=== PATIENT | female | born 1950 | race Caucasian/White ===

== ENCOUNTER 2017-11-25 19:23 | Observation (INO) | payer OTHER ==
[~2017-11-25 19:23] MED LIST: CELE10TA9 PO; SYNT112T PO
[2017-11-25 19:26] VITALS: BP 188/98; PULSE 114; RESP 22; TEMP 98.2; O2SAT 97
[2017-11-25] MEDS ORDERED: SODIUM CHLORIDE 0.9% FLUSH 10 ML FLUSH IVF PRN (19:45)
[2017-11-25] MEDS ORDERED: SODIUM CHLORID 0.9% 500 ML INJ 500 ML IV ONE (19:45)
[2017-11-25] MEDS ORDERED: NITROGLYCERIN 0.4 MG SL 25 TABS/BTL SL ONE (19:45)
[2017-11-25] MEDS ORDERED: ASPIRIN 81 MG CHEW TAB PO ONE (19:45)
[2017-11-25 20:18] VITALS: BP 114/78; PULSE 102; RESP 18; O2SAT 96
[2017-11-25] MEDS ORDERED: ANAS1TAB PO (20:20)
[2017-11-25] MEDS ORDERED: NATU97.5 PO (20:20)
[2017-11-25] MEDS ORDERED: VALS1TAB63 PO (20:20)
[2017-11-25 20:37] LABS: AUTOMATED NEUTROPHIL # 3.6 TH/MM3 (1.8-7.7); BASOPHIL # 0.1 TH/MM3 (0-0.2); BASOPHIL % 1.3 % (0.0-2.0); EOSINOPHIL # 0.4 TH/MM3 (0-0.4); EOSINOPHIL % 6.1 % (0.0-4.0); HEMATOCRIT 41.1 % (35.0-46.0); HEMOGLOBIN 13.9 GM/DL (11.6-15.3); LYMPH % 34.3 % (9.0-44.0); LYMPHOCYTE # 2.5 TH/MM3 (1.0-4.8); MEAN CELL VOLUME 92.3 FL (80.0-100.0); MEAN CORPUSCULAR HEMOGLOBIN 31.2 PG (27.0-34.0); MEAN CORPUSCULAR HGB CONC 33.8 % (32.0-36.0); MEAN PLATELET VOLUME 7.9 FL (7.0-11.0); MONO % 7.9 % (0.0-8.0); MONOCYTE # 0.6 TH/MM3 (0-0.9); NEUT % 50.4 % (16.0-70.0); PLATELET COUNT 251 TH/MM3 (150-450); RED BLOOD COUNT 4.46 MIL/MM3 (4.00-5.30); WHITE BLOOD COUNT 7.2 TH/MM3 (4.0-11.0)
--- NOTE | 2017-11-25 20:37 | RADRPT ---
EXAM DATE/TIME: 11/25/2017 19:50 [facility] COMPARISON: No previous studies available for comparison. INDICATIONS : Chest pain tonight. MEDICAL HISTORY : Carcinoma, breast. SURGICAL HISTORY : Left breast lumpectomy. ENCOUNTER: Initial ACUITY: 1 day PAIN SCORE: 6/10 LOCATION: Bilateral chest FINDINGS: A single view of the chest demonstrates the lungs to be symmetrically aerated without evidence of mas s, infiltrate or effusion. The cardiomediastinal contours are unremarkable. Osseous structures are intact. CONCLUSION: 1. No acute cardiopulmonary disease. Ector Hernandez MD on November 25, 2017 at 20:36 Board Certified Radiologist. This report was verified electronically.
[2017-11-25 20:47] LABS: ALT (GPT) 34 U/L (10-53)
[2017-11-25 20:51] LABS: ALKALINE PHOSPHATASE 93 U/L (45-117); TOTAL BILIRUBIN ADULT 0.3 MG/DL (0.2-1.0); TOTAL PROTEIN 7.3 GM/DL (6.4-8.2); TROPONIN I LESS THAN 0.02 NG/ML (0.02-0.05)
[2017-11-25 20:53] LABS: ALBUMIN 3.8 GM/DL (3.4-5.0); AST (GOT) 33 U/L (15-37); BLOOD UREA NITROGEN 17 MG/DL (7-18); CALCIUM 9.2 MG/DL (8.5-10.1); CHLORIDE 106 MEQ/L (98-107); CREATININE 0.54 MG/DL (0.50-1.00); GLOMERULAR FILTRATION RATE 112 ML/MIN (>89); GLUCOSE,RANDOM 109 MG/DL (74-106); LIPASE 248 U/L (73-393); SODIUM (NA) 138 MEQ/L (136-145)
--- NOTE | 2017-11-25 21:44 | PD ---
HPI Chief Complaint: Chest Pain Time Seen by Provider: 19:30 Travel History International Travel<30 days: No Contact w/Intl Traveler<30days: No Traveled to known affect area: No History of Present Illness HPI 67 year-old woman who presents to the emergency department complaining of chest pain times 6 PM. She describes chest pain in her chest and radiates up into her neck is been constant since onset. Worse with deep breathing. She also describes pins and needles in both hands both feet in [place] in her teeth have been ongoing for months. States pain is worse with deep breathing. No aggravating or alleviating factors. No history of GERD or reflux. No real shortness of breath with it. No nausea or vomiting. Denies history of previous similar symptoms. No other complaints. History Past Medical History Narrative Medical IBS Hypothyroidism Possible history of hypertension, non-medications now COPD History of tobacco use quit 3-4 years ago Tetanus Vaccination: < 5 Years Influenza Vaccination: No Social History Alcohol Use: Yes (OCC.) Tobacco Use: No (1-2 PPD) Allergies-Medications (Allergen,Severity, Reaction): Coded Allergies: No Known Allergies (Verified Allergy, Mild, 03/27/08) Reported Meds & Prescriptions Reported Meds & Active Scripts Active Reported Anastrozole 1 Mg Tab 1 Mg PO DAILY Valsartan 40 Mg Tab 40 Mg PO BID Nature-Throid (Thyroid) 97.5 Mg Tab 97.5 Mg PO DAILY Review of Systems Except as stated in HPI: all other systems reviewed are Neg Physical Exam Narrative GENERAL: 67 year-old woman, generally well-appearing, no acute distress. SKIN: Focused skin assessment warm/dry. HEAD: Atraumatic. Normocephalic. EYES: Pupils equal and round. No scleral icterus. No injection or drainage. ENT: No nasal bleeding or discharge. Mucous membranes pink and moist. NECK: Trachea midline. No JVD. CARDIOVASCULAR: Regular rate and rhythm. No murmur appreciated. RESPIRATORY: No accessory muscle use. Clear to auscultation. Breath sounds equal bilaterally. GASTROINTESTINAL: Abdomen soft, non-tender, nondistended. Hepatic and splenic margins not palpable. MUSCULOSKELETAL: No obvious deformities. No clubbing. No cyanosis. No edema. NEUROLOGICAL: Awake and alert. No obvious cranial nerve deficits. Motor grossly within normal limits. Normal speech. PSYCHIATRIC: Appropriate mood and affect; insight and judgment normal. Data Data Last Documented VS Vital Signs Date Time Temp Pulse Resp B/P (MAP) Pulse Ox O2 Delivery O2 Flow Rate FiO2 11/25/17 20:18 102 18 114/78 (90) 96 Room Air 11/25/17 19:26 98.2 Orders Orders Electrocardiogram (11/25/17 19:40) Complete Blood Count With Diff (11/25/17 19:40) Comprehensive Metabolic Panel (11/25/17 19:40) Magnesium (Mg) (11/25/17 19:40) Troponin I (11/25/17 19:40) Lipase (11/25/17 19:40) Chest, Single Ap (11/25/17 19:40) Ecg Monitoring (11/25/17 19:40) Bilateral Bp Monitoring (11/25/17 19:40) Iv Access Insert/Monitor (11/25/17 19:40) Oximetry (11/25/17 19:40) Oxygen Administration (11/25/17 19:40) Aspirin Chew (Aspirin Chew) (11/25/17 19:45) Sodium Chloride 0.9% Flush (Ns Flush) (11/25/17 19:45) Nitroglycerin Sl (Nitrostat Sl) (11/25/17 19:45) Sodium Chlorid 0.9% 500 Ml Inj (Ns 500 M (11/25/17 19:45) Labs Laboratory Tests Test 11/25/17 20:15 White Blood Count 7.2 TH/MM3 Red Blood Count 4.46 MIL/MM3 Hemoglobin 13.9 GM/DL Hematocrit 41.1 % Mean Corpuscular Volume 92.3 FL Mean Corpuscular Hemoglobin 31.2 PG Mean Corpuscular Hemoglobin Concent 33.8 % Red Cell Distribution Width 12.0 % Platelet Count 251 TH/MM3 Mean Platelet Volume 7.9 FL Neutrophils (%) (Auto) 50.4 % Lymphocytes (%) (Auto) 34.3 % Monocytes (%) (Auto) 7.9 % Eosinophils (%) (Auto) 6.1 % Basophils (%) (Auto) 1.3 % Neutrophils # (Auto) 3.6 TH/MM3 Lymphocytes # (Auto) 2.5 TH/MM3 Monocytes # (Auto) 0.6 TH/MM3 Eosinophils # (Auto) 0.4 TH/MM3 Basophils # (Auto) 0.1 TH/MM3 CBC Comment DIFF FINAL Differential Comment Blood Urea Nitrogen 17 MG/DL Creatinine 0.54 MG/DL Random Glucose 109 MG/DL Total Protein 7.3 GM/DL Albumin 3.8 GM/DL Calcium Level 9.2 MG/DL Magnesium Level 2.0 MG/DL Alkaline Phosphatase 93 U/L Aspartate Amino Transf (AST/SGOT) 33 U/L Alanine Aminotransferase (ALT/SGPT) 34 U/L Total Bilirubin 0.3 MG/DL Sodium Level 138 MEQ/L Potassium Level 3.9 MEQ/L Chloride Level 106 MEQ/L Carbon Dioxide Level 19.0 MEQ/L Anion Gap 13 MEQ/L Estimat Glomerular Filtration Rate 112 ML/MIN Troponin I LESS THAN 0.02 NG/ML Lipase 248 U/L [facility] Medical Decision Making Medical Screen Exam Complete: Yes Emergency Medical Condition: Yes Interpretation(s) My review of EKG: Normal sinus rhythm at a rate of 85, normal axis, normal intervals, no acute ischemia. CBC is unremarkable. CMP is unremarkable. TROPONIN NEGATIVE. LIPASE IS NORMAL. Chest x-ray: No acute cardio pulmonary disease. Differential Diagnosis Anxiety, stress, ACS, PE, gastritis or indigestion, other Narrative Course Medical decision-making 67 year-old woman, moderate risk for ACS based on her heart score. Looks well. History is moderately suggestive ACS. Some risk factors. Age. Think this is more likely anxiety. Recommended admission to chest pain Center. Diagnosis Primary Impression: Chest pain Admitting Information Admitting Physician Requests: Peter Barber MD Nov 25, 2017 21:44
[2017-11-25] MEDS ORDERED: SODIUM CHLORIDE 0.9% FLUSH 10 ML FLUSH IV FLUSH PRN (21:45)
[2017-11-25 22:56] VITALS: BP 124/75; PULSE 81; RESP 16; O2SAT 96
[2017-11-26] VITALS (7 sets, daily range): BP systolic 113–123; BP diastolic 61–78; PULSE 70–96; RESP 18–21; TEMP 97.7–98.3; O2SAT 96–98
[2017-11-26 00:16] LABS: TROPONIN I LESS THAN 0.02 NG/ML (0.02-0.05)
[2017-11-26 03:34] LABS: TROPONIN I LESS THAN 0.02 NG/ML (0.02-0.05)
[2017-11-26] MEDS ORDERED: NITROGLYCERIN 0.4 MG SL 25 TABS/BTL SL PRN (06:30)
[2017-11-26] MEDS ORDERED: ACETAMINOPHEN 500 MG CPLT PO PRN (06:30)
[2017-11-26] MEDS ORDERED: ONDANSETRON HCL 4 MG/2 ML VIAL IV PUSH PRN (06:30)
--- NOTE | 2017-11-26 07:28 | HHI.HP ---
HPI Primary Care Physician [facility] Chief Complaint Chest pain History of Present Illness 67-year-old female with history of hypertension, hypothyroidism, and breast cancer presents to emergency room for further evaluation of chest pain. Onset 6 PM after eating dinner. Location substernal. Characterized as pressure. Discomfort came on quickly. Severity 8/10. Radiation bilateral neck. Also reported "pins and needles" in her feet, hands, face, and around her lips. Duration chest pain 7-8 hours. Reports first hour of pain most severe, lessening to moderate discomfort after one hour, gradually resolving. Associated symptoms included diaphoresis and hurting to take a deep breath. No nausea, vomiting, or dyspnea. No known precipitating or relieving factors. Denies similar pain in the past. Endorses "pins and needles" have occurred for the last few months, seen by her PCP regarding this and has pending labs to complete. No history of GERD. No recent trauma, injury, or illness. Currently she is chest pain free. Continues to have "pins and needles" around her lips. Review of Systems General: No fatigue,weakness, fever, chills, or recent illness change in appetite. Has been her general state of health, other than unexplained "pins and needles" as stated above. Breast cancer in remission. HEENT: No BORGES, no vision changes, no nasal congestion or drainage, no dysphasia CV: As stated above. Currently chest pain-free. No palpitations, intermittent leg pain, or dizziness. RESP: No SOB, cough, wheeze, or recent URI. Recently diagnosed with COPD. Former smoker. GI: History of IBS. No nausea, vomiting, or bowel changes. No change in appetite, no unintentional weight gain or weight loss. : No dysuria, urgency, frequency EXT: No lower leg edema MS: No discomfort, change in ROM, injury, or trauma. NEURO: No change in memory, difficulty with balance, LOC, motor/sensory deficits PSYCH: No anxiety, depression. Current situational stress within family and place of employment. SKIN: No rashes, no concerning lesions Past Family Social History Allergies: Coded Allergies: No Known Allergies (Verified Allergy, Mild, 03/27/08) Past Medical History Breast cancer (left side-in remission, treated with radiation), hypertension, IBS, Graves' disease, colitis, macular degeneration, vitamin B12 and D deficiency Past Surgical History Tonsillectomy, lumpectomy (2016) Reported Medications Reported Meds & Active Scripts Active Reported Anastrozole 1 Mg Tab 1 Mg PO DAILY Valsartan 40 Mg Tab 40 Mg PO BID Nature-Throid (Thyroid) 97.5 Mg Tab 97.5 Mg PO DAILY T3 25 mcg daily Vitamin D QD Vitamin B12 QD Vitamin C QD MVI QD Magnesium QD KCL QD Active Ordered Medications Current Medications Medications (Trade) Dose Ordered Sig/Wili Route Start Time Stop Time Status Last Admin (NS Flush) 2 ml UNSCH PRN IVF 11/25/17 19:45 (NS Flush) 2 ml UNSCH PRN IV FLUSH 11/25/17 21:45 (Tylenol) 500 mg Q4H PRN PO 11/26/17 06:30 (Zofran Inj) 4 mg Q6H PRN IV PUSH 11/26/17 06:30 (Nitrostat Sl) 0.4 mg Q5M PRN SL 11/26/17 06:30 (Aspirin) 325 mg DAILY PO 11/26/17 09:00 Family History Noncontributory for early onset cardiovascular disease. Social History Known hypertension. No known coronary artery disease, diabetes, or hyperlipidemia. Former smoker 50 pack year history. Quit smoking 4 years ago. One glass of red wine nightly with supper. Works at a [employer]. . Endorses a sedentary lifestyle. Past cardiac testing None Physical Exam Vital Signs Vital Signs Date Time Temp Pulse Resp B/P (MAP) Pulse Ox O2 Delivery O2 Flow Rate FiO2 11/26/17 06:51 70 11/26/17 04:10 98.3 84 18 117/73 (88) 96 11/26/17 01:25 97.7 91 18 113/61 (78) 96 11/26/17 00:26 11/25/17 22:56 81 16 124/75 (91) 96 Room Air 11/25/17 20:18 102 18 114/78 (90) 96 Room Air 11/25/17 20:15 106 18 96 Room Air 11/25/17 20:15 96 Room Air 11/25/17 19:26 98.2 114 22 188/98 (128) 97 Room Air Physical Exam GENERAL: Alert WN, WD, NAD, pleasant, female HEAD: NC, AT EYES: Sclera clear, conjunctiva without injection, pupils equal and round ENT: Mucous membranes pink and moist NECK: Supple, no masses, trachea midline CV: RRR, 2/6 systolic murmur, no rub, gallop, no JVD, S1-S2 no S3-S4. No carotid bruits. Chest wall nontender with palpation RESP: Clear lungs throughout bilateral, no crackles, wheeze, rhonchi, symmetrical chest rise, nonlabored, able to speak in full sentences ABD: Soft, NT, ND, no masses, positive bowel tones EXT: Pulses +24, no dependent edema MS: Normal tone 4 extremities, no obvious deformities, full range of motion NEURO: CN II through CN XII grossly intact, motor strength 5/5 PSYCH: A+O 3, pleasant affect, appropriate speech, mood, insight and judgment SKIN: Normal turgor, normal texture, no lesions, no rashes, brisk cap refill, even hair distribution Laboratory Laboratory Tests Test 11/25/17 20:15 11/25/17 23:40 11/26/17 02:45 White Blood Count 7.2 Red Blood Count 4.46 Hemoglobin 13.9 Hematocrit 41.1 Mean Corpuscular Volume 92.3 Mean Corpuscular Hemoglobin 31.2 Mean Corpuscular Hemoglobin Concent 33.8 Red Cell Distribution Width 12.0 Platelet Count 251 Mean Platelet Volume 7.9 Neutrophils (%) (Auto) 50.4 Lymphocytes (%) (Auto) 34.3 Monocytes (%) (Auto) 7.9 Eosinophils (%) (Auto) 6.1 Basophils (%) (Auto) 1.3 Neutrophils # (Auto) 3.6 Lymphocytes # (Auto) 2.5 Monocytes # (Auto) 0.6 Eosinophils # (Auto) 0.4 Basophils # (Auto) 0.1 CBC Comment DIFF FINAL Differential Comment Blood Urea Nitrogen 17 Creatinine 0.54 Random Glucose 109 Total Protein 7.3 Albumin 3.8 Calcium Level 9.2 Magnesium Level 2.0 Alkaline Phosphatase 93 Aspartate Amino Transf (AST/SGOT) 33 Alanine Aminotransferase (ALT/SGPT) 34 Total Bilirubin 0.3 Sodium Level 138 Potassium Level 3.9 Chloride Level 106 Carbon Dioxide Level 19.0 Anion Gap 13 Estimat Glomerular Filtration Rate 112 Troponin I LESS THAN 0.02 LESS THAN 0.02 LESS THAN 0.02 Lipase 248 Total Creatine Kinase 52 58 Result Diagram: 11/25/17201411/25/172014 Imaging Last Impressions Chest X-Ray 11/25/171939 Signed Impressions: Service Date/Time: Saturday, November 25, 2017 19:50 - CONCLUSION: 1. No acute cardiopulmonary disease. Ector Hernandez MD Course EKG Normal sinus rhythm, normal axis, nonspecific t wave changes Tereso VTE Risk Assessment Tereso VTE Risk Assessment: Mod/High Risk (score >= 2) Caprini Risk Assessment Model Point Value = 1 Point Value = 2 Point Value = 3 Point Value = 5 Age 41-60 Minor surgery BMI > 25 kg/m2 Swollen legs Varicose veins or History of unexplained or recurrent spontaneous Oral contraceptives or hormone replacement Sepsis (< 1 month) Serious lung disease, including pneumonia (< 1 month) Abnormal pulmonary function Acute myocardial infarction Congestive heart failure (< 1 month) History of inflammatory bowel disease Medical patient at bed rest Age 61-74 Arthroscopic surgery Major open surgery (> 45 min) Laparoscopic surgery (> 45 min) Malignancy Confined to bed (> 72 hours) Immobilizing plaster cast Central venous access Age >= 75 History of VTE Family history of VTE Factor V Leiden Prothrombin [id number] Lupus anticoagulant Anticardiolipin antibodies Elevated serum homocysteine Heparin-induced thrombocytopenia Other congenital or acquired thrombophilia Stroke (< 1 month) Elective arthroplasty Hip, pelvis, or leg fracture Acute spinal cord injury (< 1 month) Prophylaxis Regimen Total Risk Factor Score Risk Level Prophylaxis Regimen 0-1 Low Early ambulation 2 Moderate Order ONE of the following: *Sequential Compression Device (SCD) *Heparin 5000 units SQ BID 3-4 Higher Order ONE of the following medications: *Heparin 5000 units SQ TID *Enoxaparin/Lovenox 40 mg SQ daily (WT < 150 kg, CrCl > 30 mL/min) *Enoxaparin/Lovenox 30 mg SQ daily (WT < 150 kg, CrCl > 10-29 mL/min) *Enoxaparin/Lovenox 30 mg SQ BID (WT < 150 kg, CrCl > 30 mL/min) AND/OR *Sequential Compression Device (SCD) 5 or more Highest Order ONE of the following medications: *Heparin 5000 units SQ TID (Preferred with Epidurals) *Enoxaparin/Lovenox 40 mg SQ daily (WT < 150 kg, CrCl > 30 mL/min) *Enoxaparin/Lovenox 30 mg SQ daily (WT < 150 kg, CrCl > 10-29 mL/min) *Enoxaparin/Lovenox 30 mg SQ BID (WT < 150 kg, CrCl > 30 mL/min) AND *Sequential Compression Device (SCD) Assessment and Plan Assessment and Plan #1 Atypical chest pain-admitted to chest pain center. Ruled out with 3 sets of Ekg and cardiac enzymes. Seen and evaluated by Dr. Keri Covarrubias. Proceed with nuclear exercise stress testing this morning. If unremarkable, plan to discharge home later this afternoon with follow up with PCP. Patient is agreeable to plan of care. #2 Hypertension-continue valsartan, follow with PCP. Continue home medications as previously instructed. Lizzeth Doyle Nov 26, 2017 07:28
[2017-11-26] MEDS ORDERED: ASPIRIN 325 MG TAB PO SCH (09:00)
[2017-11-26] MEDS ORDERED: VALSARTAN 40 MG TAB PO SCH (10:00)
[2017-11-26] MEDS ORDERED: ANASTROZOLE 1 MG TAB PO SCH (10:00)
[2017-11-26] MEDS ORDERED: THYROID 97.5 MG PO SCH (10:45)
--- NOTE | 2017-11-26 11:26 | RADRPT ---
EXAM DATE/TIME: 11/26/2017 09:11 [facility] COMPARISON: No previous studies available for comparison. INDICATIONS : Chest pain radiating to the neck. Angina DOSE: 27.2 mCi Tc99m Myoview at stress 8.8 mCi Tc99m Myoview at rest REST HEART RATE: 100 BPM TARGET HEART RATE: 128 BPM MAX HEART RATE: 127 BPM REST BLOOD PRESSURE: 112/68 mmHg MAX BLOOD PRESSURE: 158/78 mmHg EJECTION FRACTION: > 70% MEDICAL HISTORY : Hypertension. Left lumpectomy. SURGICAL HISTORY : ENCOUNTER: Initial ACUITY: 1 day PAIN SCALE: 8/10 LOCATION: chest TECHNIQUE: The patient underwent upright treadmill exercise in the chest pain center. Continuous ECG tracing wa s monitored during stress. Gated SPECT imaging was performed after stress, and conventional SPECT im aging was performed at rest. The examination was performed on a SPECT/CT scanner, both attenuation-c orrected and non-corrected datasets were reviewed. FINDINGS: DISTRIBUTION: The maximum perfused segment at stress is in the lateral wall. PERFUSION STUDY: The pattern of perfusion at stress is within normal limits. GATED STUDY: There is intact wall motion and thickening without hypokinetic or dyskinetic segments. CONCLUSION: Unremarkable myocardial perfusion examination. RISK CATEGORY: Low Ramon Mojica MD on November 26, 2017 at 11:23 Board Certified Radiologist. This report was verified electronically.
--- NOTE | 2017-11-26 11:47 | HHI.DCPOC ---
Discharge Care Plan Diagnosis: (1) Atypical chest pain Goals to Promote Your Health * To prevent worsening of your condition and complications * To maintain your health at the optimal level Directions to Meet Your Goals Take your medications as prescribed Follow your dietary instruction Follow activity as directed Keep your appointments as scheduled Take your immunizations and boosters as scheduled If your symptoms worsen call your PCP, if no PCP go to Urgent Care Center or Emergency Room Smoking is Dangerous to Your Health. Avoid second hand smoke Call the 24-hour hour crisis hotline for domestic abuse at Lizzeth Doyle Nov 26, 2017 11:47
--- NOTE | 2017-11-26 12:10 | EKG ---
Date Performed: 11/26/2017 Time Performed: 00:06:56 PTAGE: 67 years EKG: Sinus rhythm NONSPECIFIC T-WAVE ABNORMALITY BORDERLINE ECG Since PREVIOUS TRACING , no significant change noted DOCTOR: Keri Covarrubias Interpretating Date/Time 11/26/2017 12:09:01
--- NOTE | 2017-11-26 12:10 | EKG ---
Date Performed: 11/25/2017 Time Performed: 21:04:03 PTAGE: 67 years EKG: Sinus rhythm POSSIBLE RIGHT VENTRICULAR CONDUCTION DELAY BORDERLINE ECG Since PREVIOUS TRACING , no significant change noted PREVIOUS TRACIN03/27/2008 22.11 DOCTOR: Keri Covarrubias Interpretating Date/Time 11/26/2017 12:08:34
--- NOTE | 2017-11-26 12:11 | EKG ---
Date Performed: 11/26/2017 Time Performed: 02:52:31 PTAGE: 67 years EKG: Sinus rhythm SEPTAL MYOCARDIAL INFARCTION ABNORMAL ECG Since PREVIOUS TRACING , no significant change noted PREVIOUS TRACIN11/25/2017 21.04 DOCTOR: Keri Covarrubias Interpretating Date/Time 11/26/2017 12:09:21
--- NOTE | 2017-11-26 12:13 | TR ---
Date Performed: 11/26/2017 Time Performed: 09:48:44 DOCTOR: Keri Covarrubias DRUG LIST: CLINICAL HISTORY: REASON FOR TEST: REASON FOR ENDING: OBSERVATION: CONCLUSION: Eddie protocol completed. Stopped sec to reaching target heart rate and leg fatigue. Maximum GF=346 Target HR Achieved=85.0% Maximum WX=357/78 Total Exercise Time=5:05. No reprod chest discomfort. No st t segment changes to sugg ischemia. No ectopy. Fair exercise tolerance. Normal bp r esponse. Recovery quick and unremarkable. Nuclear images pending. COMMENTS:
== END 2017-11-26 14:14 | disposition home or self-care (01) ==
LOC: NEPC 19:23 → NEDA 21:47 → NEPFCDU 11-26 00:32
PROVIDERS: ADMIT Internal Medicine Cardiovascular Disease; ATTEND Internal Medicine Cardiovascular Disease
DX: R07.89 Other chest pain (principal); I10 Essential (primary) hypertension; E03.9 Hypothyroidism, unspecified; F41.9 Anxiety disorder, unspecified; K58.9 Irritable bowel syndrome, unspecified; E05.00 Thyrotoxicosis with diffuse goiter without thyrotoxic crisis or storm; H35.30 Unspecified macular degeneration; E53.8 Deficiency of other specified B group vitamins; E55.9 Vitamin D deficiency, unspecified; Z85.3 Personal history of malignant neoplasm of breast; Z87.891 Personal history of nicotine dependence; Z92.3 Personal history of irradiation
CPT/HCPCS: 71010; 78452; 80053; 82550; 83690; 83735; 84484; 85025; 93005; 93017; 96360; 99285; A9502; G0378; J7040

== ENCOUNTER 2018-03-31 11:35 | Inpatient (IN) | payer OTHER, MEDICARE ==
[2018-03-31] VITALS (16 sets, daily range): BP systolic 121–157; BP diastolic 70–99; PULSE 79–98; RESP 17–24; TEMP 98.4–99.3; O2SAT 97–100
[~2018-03-31] VITALS: Ht 165.1 cm; Wt 77.0 kg
[~2018-03-31 11:35] MED LIST changes: +ANAS1TAB PO; -CELE10TA9 PO; +NATU97.5 PO; -SYNT112T PO; +VALS1TAB63 PO
[2018-03-31] MEDS ORDERED: SODIUM CHLOR 0.9% 1000 ML INJ 1,000 ML IV ONE (11:40)
[2018-03-31 11:52] LABS: AUTOMATED NEUTROPHIL # 5.3 TH/MM3 (1.8-7.7); BASOPHIL % 0.5 % (0.0-2.0); EOSINOPHIL # 0.2 TH/MM3 (0-0.4); EOSINOPHIL % 1.9 % (0.0-4.0); HEMATOCRIT 41.3 % (35.0-46.0); HEMOGLOBIN 14.1 GM/DL (11.6-15.3); LYMPH % 32.4 % (9.0-44.0); MEAN CELL VOLUME 91.1 FL (80.0-100.0); MEAN CORPUSCULAR HGB CONC 34.1 % (32.0-36.0); MEAN PLATELET VOLUME 8.1 FL (7.0-11.0); MONO % 8.4 % (0.0-8.0); MONOCYTE # 0.8 TH/MM3 (0-0.9); NEUT % 56.8 % (16.0-70.0); PLATELET COUNT 294 TH/MM3 (150-450); RED BLOOD COUNT 4.54 MIL/MM3 (4.00-5.30); RED CELL DISTRIBUTION WIDTH 12.1 % (11.6-17.2); WHITE BLOOD COUNT 9.3 TH/MM3 (4.0-11.0)
--- NOTE | 2018-03-31 12:00 | RADRPT ---
EXAM DATE/TIME: 03/31/2018 11:42 [facility] COMPARISON: No previous studies available for comparison. INDICATIONS : Stroke alert, aphasia, right sided weakness, then seizure RADIATION DOSE: 56.35 CTDIvol (mGy) This report was called by Dr. Mojica to Dr. Diaz at 11: 56 AM MEDICAL HISTORY : Non-responsive. SURGICAL HISTORY : Non-responsive. ENCOUNTER: Initial ACUITY: 1 day PAIN SCALE: Non-responsive LOCATION: cranial TECHNIQUE: Multiple contiguous axial images were obtained of the head. Using automated exposure control and adj ustment of the mA and/or kV according to patient size, radiation dose was kept as low as reasonably a chievable to obtain optimal diagnostic quality images. DICOM format image data is available electro nically for review and comparison. FINDINGS: CEREBRUM: There is a large acute intraparenchymal hemorrhage involving the posterior high left cerebral vertex measuring approximately 6.0 x 2.6 cm. There is a mild amount of edema surrounding the hemorrhage. The ventricles are normal in size. No significant mass effect or midline shift is demonstrated. No defin ite subdural hematoma or subarachnoid hemorrhage is demonstrated. POSTERIOR FOSSA: The cerebellum and brainstem are intact. The 4th ventricle is midline. The cerebellopontine angle i s unremarkable. EXTRACRANIAL: The visualized portion of the orbits is intact. SKULL: The calvaria is intact. No evidence of skull fracture. CONCLUSION: 1. Large acute intraparenchymal hemorrhage involving the posterior high left cerebral vertex measurin g 6 cm. 2. No significant mass effect or midline shift at this time. Ramon Mojica MD on March 31, 2018 at 11:54 Board Certified Radiologist. This report was verified electronically.
[2018-03-31 12:06] LABS: INTERNATIONAL NORMALIZED RATIO 1.5 RATIO; PROTHROMBIN TIME - PATIENT 14.7 SEC (9.8-11.6)
--- NOTE | 2018-03-31 12:10 | PD ---
HPI Chief Complaint: Stroke Alert Time Seen by Provider: 11:40 Travel History International Travel<30 days: No Contact w/Intl Traveler<30days: No History of Present Illness HPI 67 y/o female presents with 11 AM developing right-sided weakness and speech difficulties. When she arrived into the room she was having a right-sided tonic -clonic seizure with a rightward gaze. History is significantly limited. PFSH Past Medical History Depression: Yes Cardiovascular Problems: Yes (HTN) Hypertension: Yes Thyroid Disease: Yes (HYPO) Past Surgical History Thoracic Surgery: Yes (L. LUMPECTOMY) Other Surgery: Yes (COSMETICS EYES SX.) Social History Alcohol Use: Yes (OCC.) Tobacco Use: No (1-2 PPD) Substance Use: No Allergies-Medications (Allergen,Severity, Reaction): Coded Allergies: No Known Allergies (Verified Allergy, Mild, 03/27/08) Reported Meds & Prescriptions Reported Meds & Active Scripts Active Reported Anastrozole 1 Mg Tab 1 Mg PO DAILY Valsartan 40 Mg Tab 40 Mg PO BID Nature-Throid (Thyroid) 97.5 Mg Tab 97.5 Mg PO DAILY Review of Systems ROS Limitations: Clinical Condition, Altered Mental Status Physical Exam Exam Limitations: Clinical Condition, Altered Mental Status Narrative GENERAL: 67-year-old female who is having an active tonic-clonic seizure on the right SKIN: Focused skin assessment warm/dry. HEAD: Atraumatic. Normocephalic. EYES: Pupils equal and round. No scleral icterus. No injection or drainage. ENT: No nasal bleeding or discharge. Mucous membranes pink and moist. NECK: Trachea midline. No JVD. CARDIOVASCULAR: Regular rate and rhythm. RESPIRATORY: No accessory muscle use. Clear to auscultation. Breath sounds equal bilaterally. GASTROINTESTINAL: Abdomen soft, nondistended. MUSCULOSKELETAL: No obvious deformities. No clubbing. No cyanosis. NEUROLOGICAL: Actively seizing with right-sided tonic-clonic seizure Data Data Last Documented VS Vital Signs Date Time Temp Pulse Resp B/P (MAP) Pulse Ox O2 Delivery O2 Flow Rate FiO2 03/31/18 12:00 98 19 155/93 (113) 100 Nasal Cannula 2.00 03/31/18 11:35 99.0 Orders Orders Diet Npo (03/31/18 Lunch) Activity Bed Rest (03/31/18 ) Electrocardiogram (03/31/18 ) I-Stat Profile (03/31/18 11:40) Prothrombin Time / Inr (Pt) (03/31/18 11:40) Act Partial Throm Time (Ptt) (03/31/18 11:40) Complete Blood Count With Diff (03/31/18 11:40) Fibrinogen (03/31/18 11:40) Creatine Kinase (Cpk) (03/31/18 11:40) Troponin I (03/31/18 11:40) Ua Includes Microscopic (03/31/18 11:40) Drug Screen, Random Urine (03/31/18 11:40) Type And Screen (03/31/18 11:40) Ct Brain W/O Iv Contrast(Rout) (03/31/18 ) Chest, Single Ap (03/31/18 ) Cta Brain W Iv Contrast W 3d (03/31/18 11:40) Cta Neck W Iv Contrast W 3d (03/31/18 11:40) Consult Neurology (03/31/18 ) Blood Glucose (03/31/18 11:40) Ecg Monitoring (03/31/18 11:40) Neuro Checks Q2HX12,Q4H (03/31/18 11:40) Nursing Bedside Swallow Assess .ONCE (03/31/18 11:40) Iv Access Insert/Monitor (03/31/18 11:40) NPO (03/31/18 11:40) Oximetry (03/31/18 11:40) Resp Oxygen Nc Stroke (03/31/18 ) Sodium Chlor 0.9% 1000 Ml Inj (Ns 1000 M (03/31/18 11:40) Cath For Specimen (03/31/18 11:40) (Hub Use Only)Inp Phy Cons/Ref (03/31/18 ) Levetiracetam Inj (Keppra Inj) (03/31/18 12:15) Nicardipine Inj (Cardene Inj) (03/31/18 12:15) Admit Order (Ed Use Only) (03/31/18 12:06) Labs Laboratory Tests Test 03/31/18 11:30 White Blood Count 9.3 TH/MM3 Red Blood Count 4.54 MIL/MM3 Hemoglobin 14.1 GM/DL Bedside Hemoglobin 13.6 G/DL Hematocrit 41.3 % Bedside Hematocrit 40.0 % Mean Corpuscular Volume 91.1 FL Mean Corpuscular Hemoglobin 31.0 PG Mean Corpuscular Hemoglobin Concent 34.1 % Red Cell Distribution Width 12.1 % Platelet Count 294 TH/MM3 Mean Platelet Volume 8.1 FL Neutrophils (%) (Auto) 56.8 % Lymphocytes (%) (Auto) 32.4 % Monocytes (%) (Auto) 8.4 % Eosinophils (%) (Auto) 1.9 % Basophils (%) (Auto) 0.5 % Neutrophils # (Auto) 5.3 TH/MM3 Lymphocytes # (Auto) 3.0 TH/MM3 Monocytes # (Auto) 0.8 TH/MM3 Eosinophils # (Auto) 0.2 TH/MM3 Basophils # (Auto) 0.0 TH/MM3 CBC Comment DIFF FINAL Differential Comment Prothrombin Time 14.7 SEC Prothromb Time International Ratio 1.5 RATIO Activated Partial Thromboplast Time 30.0 SEC Fibrinogen 138 mg/dL Bedside Sodium 140 MMOL/L Bedside Potassium 3.4 MMOL/L Bedside Chloride 105 MMOL/L Bedside Blood Urea Nitrogen 10 MG/DL Bedside Creatinine 0.7 MG/DL Bedside Glucose 121 MG/DL Total Creatine Kinase 49 U/L Troponin I LESS THAN 0.02 NG/ML MDM Medical Decision Making Medical Screen Exam Complete: Yes Emergency Medical Condition: Yes Medical Record Reviewed: Yes (Past history confirmed with records) Interpretation(s) CBC & BMP Diagram 03/31/18 11:30 CT brain personally reviewed shows large left-sided intraparenchymal bleed without shift Differential Diagnosis Seizure, bleed, mass Narrative Course Patient arrived as a stroke alert with active seizure. Was given 2 mg of Ativan. Went with patient personally to CT. While setting on the CT table patient started talking and stated her name. CT shows large intraparenchymal bleed and was discussed with the radiologist. Cardene was ordered for blood pressure control and Keppra was ordered for additional seizure prophylaxis. Will admit to the ICU for close monitoring. Patient updated. Patient still having difficulty with her speech with expressive aphasia and saying random words but can state her name. Right-sided weakness noted. will discuss with neurosurgery and monitor closely. Critical Care Narrative Aggregate critical care time was 55 minutes. Time to perform other separately billable procedures was not included in the critical care time. My time did not include minutes spent treating any other patients simultaneously or on activities that did not directly contribute to the patient's treatment. The services I provided to this patient were to treat and/or prevent clinically significant deterioration that could result in: Bleed, herniation, , status epilepticus I provided critical care services requiring my management, as noted below: Chart data review, documentation time, medication orders and management, vital sign assessments/reviewing monitor data, ordering and reviewing lab tests, ordering and interpreting/reviewing x-rays and diagnostic studies, care of the patient and discussion of the patient with the admitting physicians. Physician Communication Physician Communication dr blancas agrees to admit dr smith will follow along no further recommendations at this time Diagnosis Primary Impression: Intraparenchymal hemorrhage of brain Admitting Information Admitting Physician Requests: Admit Kaylen Diaz MD March 31, 2018 12:10
[2018-03-31 12:15] LABS: TROPONIN I LESS THAN 0.02 NG/ML (0.02-0.05)
[2018-03-31] MEDS ORDERED: levETIRAcetam INJ 500 MG in SODIUM CHLORIDE 0.9% INJ 100 ML IV ONE (12:15)
[2018-03-31] MEDS ORDERED: niCARdipine INJ 25 MG in SODIUM CHLOR 0.9% 250 ML INJ 240 ML IV PRN ×2 (12:15→13:30)
[2018-03-31] MEDS ORDERED: IOHEXOL 350 MG/ML 10 ML VIAL (for RAD DIAG) IVCONTRAST ONE (12:21)
[2018-03-31] MEDS ORDERED: RESP: ALBUTEROL 2.5 MG/IPRATROPIUM 0.5 MG NEB (PRN) INH (12:30)
[2018-03-31] MEDS ORDERED: LORazepam 2 MG/ML VIAL IV PUSH ONE (12:30)
[2018-03-31] MEDS ORDERED: MORPHINE SULFATE 4 MG/ML INJ IV PUSH PRN (12:30)
[2018-03-31] MEDS ORDERED: CHLORHEXIDINE GLUCONATE 2 % 1 PACK (2 CLOTHS) TOP PRN (12:30)
[2018-03-31] MEDS ORDERED: NURSING INFORMATION XX SCH (12:30)
[2018-03-31] MEDS ORDERED: LORazepam 2 MG/ML VIAL IV PUSH PRN (12:30)
--- NOTE | 2018-03-31 12:46 | RADRPT ---
EXAM DATE/TIME: 03/31/2018 11:48 [facility] COMPARISON: CT BRAIN W/O CONTRAST, March 31, 2018, 11:42. INDICATIONS : Stroke alert; right side weakness and gaze, possible seizure, aphagia. IV CONTRAST: 75 cc Omnipaque 350 (iohexol) IV ; Cumulative dose for multiple exams. RADIATION DOSE: 9.81 CTDIvol (mGy) ; Combined studies MEDICAL HISTORY : Non-responsive. SURGICAL HISTORY : Non-responsive. ENCOUNTER: Initial ACUITY: 1 day PAIN SCALE: Non-responsive LOCATION: cranial TECHNIQUE: Volumetric scanning was performed using a multi-row detector CT scanner. The data was post processed with a variety of visualization algorithms including full volume maximum intensity projection, multi -planar sliding thin slab reformation, curved planar reformation, and surface rendering techniques. Using automated exposure control and adjustment of the mA and/or kV according to patient size, radiat ion dose was kept as low as reasonably achievable to obtain optimal diagnostic quality images. DICO M format image data is available electronically for review and comparison. FINDINGS: The distal internal carotid arteries are widely patent. Both vertebral arteries are patent. The anterior and middle cerebral circulation is normal in appearance bilaterally. No aneurysm is iden tified. The basilar artery is patent. The posterior cerebral circulation is widely patent. No aneurysm or AVM identified. The larger of area of parenchymal hemorrhage in the left parietal cortex is again evident. CONCLUSION: No evidence of aneurysm or AVM formation. Germán White MD on March 31, 2018 at 12:38 Board Certified Radiologist. This report was verified electronically.
--- NOTE | 2018-03-31 12:50 | RADRPT ---
EXAM DATE/TIME: 03/31/2018 12:11 [facility] COMPARISON: CHEST SINGLE AP, November 25, 2017, 19:50. INDICATIONS : Stroke alert MEDICAL HISTORY : None. SURGICAL HISTORY : None. ENCOUNTER: Initial ACUITY: 1 day PAIN SCORE: 0/10 LOCATION: Bilateral chest FINDINGS: A single view of the chest demonstrates the lungs to be symmetrically aerated without evidence of mas s, infiltrate or effusion. The cardiomediastinal contours are unremarkable. Osseous structures are intact. CONCLUSION: No acute disease. Chaka Kerr MD on March 31, 2018 at 12:48 Board Certified Radiologist. This report was verified electronically.
[2018-03-31] MEDS: NS + KCL 20 MEQ INJ 1,000 ML IV SCH ×2 (12:52→23:46)
[2018-03-31 12:56] LABS: BILIRUBIN, URINE NEG (NEG); BLOOD, URINE NEG (NEG); GLUCOSE,URINE NEG (NEG); KETONE, URINE NEG (NEG); NITRITE,URINE NEG (NEG); URINE COLOR COLORLESS (YELLW/STRAW); URINE LEUKOCYTE ESTERASE NEG (NEG)
--- NOTE | 2018-03-31 13:03 | RADRPT ---
EXAM DATE/TIME: 03/31/2018 11:48 [facility] COMPARISON: CT BRAIN W/O CONTRAST, March 31, 2018, 11:42. INDICATIONS : Stroke alert; right sided weakness and gaze, aphagia, possible seizure. IV CONTRAST: 75 cc Omnipaque 350 (iohexol) IV ; Cumulative dose for multiple exams. RADIATION DOSE: 9.81 CTDIvol (mGy) ; Combined studies MEDICAL HISTORY : Non-responsive. SURGICAL HISTORY : Non-responsive. ENCOUNTER: Initial ACUITY: 1 day PAIN SCALE: Non-responsive LOCATION: neck Elevated flow velocities and ICA/CCA ratios have been found to correlate with increased degrees of vessel stenosis, calculated as percentage of diameter relative to a normal segment of distal ICA/CCA. TECHNIQUE: Volumetric scanning was performed using a multirow detector CT scanner. The data was post processed with a variety of visualization algorithms including full-volume maximum intensity projection, multip lanar sliding thin-slab reformation, curved-planar reformation, and surface-rendering techniques. Us ing automated exposure control and adjustment of the mA and/or kV according to patient size, radiatio n dose was kept as low as reasonably achievable to obtain optimal diagnostic quality images. DICOM f ormat image data is available electronically for review and comparison. FINDINGS: AORTIC ARCH: There is a three-vessel origin of the great vessels from the aorta. No evidence of ostial narrowing. RIGHT CAROTID: The common carotid artery is intact. The carotid bulb has a normal configuration without ulceration o r narrowing. The internal carotid artery lumen is smooth without stenosis. The external carotid winifred ry is intact. LEFT CAROTID: The common carotid artery is intact. The carotid bulb has a normal configuration without ulceration or narrowing. The internal carotid artery lumen is smooth without stenosis. The external carotid ar lj is intact. VERTEBRALS: The vertebral arteries have a symmetric diameter. No stenotic lesions are seen. CONCLUSION: 1. Normal examination. Germán White MD on March 31, 2018 at 12:57 Board Certified Radiologist. This report was verified electronically.
[2018-03-31] MEDS ORDERED: SODIUM CHLOR 0.9% 250 ML INJ 250 ML IV ONE (13:15)
[2018-03-31] MEDS ORDERED: POTASSIUM PHOSPHATE MONOBASIC 500 MG TAB PO PRN (13:30)
[2018-03-31] MEDS ORDERED: SODIUM PHOSPHATE INJ 30 MMOL in SODIUM CHLOR 0.9% 250 ML INJ 240 ML IV PRN (13:30)
[2018-03-31] MEDS ORDERED: POTASSIUM CHLOR 40 MEQ PREMIX 100 ML IV PRN ×2 (13:30)
[2018-03-31] MEDS ORDERED: MAGNESIUM OXIDE 400 MG TAB PO PRN (13:30)
[2018-03-31] MEDS ORDERED: POTASSIUM CHLORIDE 25 MEQ EFFERVESCENT TAB PO PRN (13:30)
[2018-03-31] MEDS ORDERED: POTASSIUM PHOSPHATE INJ 30 MMOL in SODIUM CHLOR 0.9% 250 ML INJ 250 ML IV PRN (13:30)
[2018-03-31] MEDS ORDERED: POTASSIUM PHOSPHATE MONOBASIC 500 MG TAB PO/TUBE PRN (13:30)
[2018-03-31] MEDS ORDERED: MAGNESIUM SULFATE INJ 4 GM in SODIUM CHLORIDE 0.9% INJ 92 ML IV PRN (13:30)
[2018-03-31] MEDS ORDERED: MAGNESIUM SULFATE INJ 2 GM in SODIUM CHLORIDE 0.9% INJ 96 ML IV PRN (13:30)
[2018-03-31] MEDS ORDERED: POTASSIUM CHLOR 20 MEQ PREMIX 100 ML IV PRN ×2 (13:30)
--- NOTE | 2018-03-31 13:39 | HHI.HP ---
HPI Service Critical Care Medicine Primary Care Physician Unknown Admission Diagnosis Intraparenchymal bleed Diagnosis: (1) Acute left intraparenchymal hemorrhage Diagnosis: Principal (2) Probable focal seizure Diagnosis: Principal (3) Coagulopathy Diagnosis: Principal (4) Aphasia Diagnosis: Principal (5) Right hemiplegia Diagnosis: Principal (6) Hypertension Diagnosis: Secondary (7) Thyroid disease Diagnosis: Secondary (8) Breast CA Diagnosis: Secondary Chief Complaint: Acute right hemiplegia with aphasia Intra-parenchymal hemorrhage Travel History International Travel<30 Days: No Contact w/Intl Traveler <30 Da: No Traveled to Known Affected Are: No (unable to obtain) History of Present Illness Patient is a 67-year-old female with past medical history significant for hypertension, hypothyroidism following treatment of Graves' disease, breast cancer on anastrozole, daily alcohol use who developed sudden onset right-sided weakness with speech difficulties. Patient was brought in as a stroke alert but in the ED was found to have right-sided tonic-clonic seizure with a rightward gaze. Patient was immediately given 2 mg of Ativan stopped the seizure. Patient has significant right hemiplegia also had aphasia with word salad. A stat CT of the head showed large left-sided intraparenchymal bleed 6 cm 2.6 cm, without significant mass-effect. CT of the brain did not show any aneurysm. I evaluated the patient in the emergency department. Patient continues to have dense right-sided hemiplegia, moves left side freely has severe expressive aphasia with word salad. CT of the brain showed some surrounding edema and 25 g of mannitol ordered. For the seizures I have ordered EEG and started on Keppra 500 every 12. Use Ativan as needed for seizures and for agitation from alcohol withdrawal. Supplement thiamine. Discussed with neurosurgery Dr. Raymundo. No surgical interventions are planned at this time. For INR 1.5, 2U FFP given. Patient is not on anticoagulation per grandson. Cardene infusion ordered to keep SBP <140-150 Review of Systems ROS Limitations: Clinical Condition, Other (Aphasic) Past Family Social History Allergies: Coded Allergies: No Known Allergies (Verified Allergy, Mild, 03/27/08) Past Medical History Breast cancer treated with lumpectomy, radiation, currently on anastrozole Hypertension IBS Graves' disease Colitis Macular degeneration, Vitamin B12 and D deficiency Past Surgical History Tonsillectomy Left lumpectomy (2015) Reported Medications Anastrozole 1 Mg Tab 1 Mg PO DAILY Valsartan 40 Mg Tab 40 Mg PO BID Nature-Throid (Thyroid) 97.5 Mg Tab 97.5 Mg PO DAILY Active Ordered Medications Reviewed Family History Unable to obtain family history due to clinical condition Social History Quit smoking approximately 4 years ago [id number] history of smoking, currently smokes electronic cigarettes Drinks 2-3 glasses of wine in the evening Physical Exam Vital Signs Vital Signs Date Time Temp Pulse Resp B/P (MAP) Pulse Ox O2 Delivery O2 Flow Rate FiO2 03/31/18 13:15 98 19 134/85 (101) 99 Nasal Cannula 2.00 03/31/18 12:45 96 20 129/83 (98) 99 Nasal Cannula 2.00 03/31/18 12:35 96 155/93 03/31/18 12:00 98 19 155/93 (113) 100 Nasal Cannula 2.00 03/31/18 12:00 90 20 99 Nasal Cannula 2.00 03/31/18 12:00 99 Nasal Cannula 2.00 03/31/18 11:40 98 Nasal Cannula 2.00 03/31/18 11:40 98 2.00 03/31/18 11:35 99.0 90 20 142/99 (113) 98 Physical Exam GENERAL: 67-year-old female who is lying in [facility], has expressive aphasia with word salad. Moving left side freely SKIN: Warm/dry. HEAD: Atraumatic. Normocephalic. EYES: Pupils equal and round. No scleral icterus. No injection or drainage. ENT: No nasal bleeding or discharge. NECK: Trachea midline. No JVD. CARDIOVASCULAR: Regular rate and rhythm. RESPIRATORY: No accessory muscle use. Clear to auscultation. Breath sounds equal bilaterally. GASTROINTESTINAL: Abdomen soft, nondistended. MUSCULOSKELETAL: No obvious deformities. No clubbing. No cyanosis. NEUROLOGICAL: Alert awake. Dense right hemiplegia with slight withdrawal to pain. Moving left side freely but did not consistently obey commands. Positive for expressive aphasia with word salad Laboratory Laboratory Tests Test 03/31/18 11:30 03/31/18 12:35 White Blood Count 9.3 Red Blood Count 4.54 Hemoglobin 14.1 Bedside Hemoglobin 13.6 Hematocrit 41.3 Bedside Hematocrit 40.0 Mean Corpuscular Volume 91.1 Mean Corpuscular Hemoglobin 31.0 Mean Corpuscular Hemoglobin Concent 34.1 Red Cell Distribution Width 12.1 Platelet Count 294 Mean Platelet Volume 8.1 Neutrophils (%) (Auto) 56.8 Lymphocytes (%) (Auto) 32.4 Monocytes (%) (Auto) 8.4 Eosinophils (%) (Auto) 1.9 Basophils (%) (Auto) 0.5 Neutrophils # (Auto) 5.3 Lymphocytes # (Auto) 3.0 Monocytes # (Auto) 0.8 Eosinophils # (Auto) 0.2 Basophils # (Auto) 0.0 CBC Comment DIFF FINAL Differential Comment Prothrombin Time 14.7 Prothromb Time International Ratio 1.5 Activated Partial Thromboplast Time 30.0 Fibrinogen 138 Bedside Sodium 140 Bedside Potassium 3.4 Bedside Chloride 105 Bedside Blood Urea Nitrogen 10 Bedside Creatinine 0.7 Bedside Glucose 121 Total Creatine Kinase 49 Troponin I LESS THAN 0.02 Urine Color COLORLESS Urine Turbidity CLEAR Urine pH 5.0 Urine Specific Romeo 1.004 Urine Protein NEG Urine Glucose (UA) NEG Urine Ketones NEG Urine Occult Blood NEG Urine Nitrite NEG Urine Bilirubin NEG Urine Urobilinogen LESS THAN 2.0 Urine Leukocyte Esterase NEG Urine Opiates Screen NEG Urine Barbiturates Screen NEG Urine Amphetamines Screen NEG Urine Benzodiazepines Screen NEG Urine Cocaine Screen NEG Urine Cannabinoids Screen NEG Result Diagram: 03/31/[address] of the head shows large left-sided intraparenchymal bleed [address] of the brain did not show any aneurysm Septic Shock Reassessment Septic shock perfusion: reassessment completed Caprini VTE Risk Assessment Caprini VTE Risk Assessment: Mod/High Risk (score >= 2) VTE Pharm Contraindication: Hemorrhage Caprini Risk Assessment Model Point Value = 1 Point Value = 2 Point Value = 3 Point Value = 5 Age 41-60 Minor surgery BMI > 25 kg/m2 Swollen legs Varicose veins or History of unexplained or recurrent spontaneous Oral contraceptives or hormone replacement Sepsis (< 1 month) Serious lung disease, including pneumonia (< 1 month) Abnormal pulmonary function Acute myocardial infarction Congestive heart failure (< 1 month) History of inflammatory bowel disease Medical patient at bed rest Age 61-74 Arthroscopic surgery Major open surgery (> 45 min) Laparoscopic surgery (> 45 min) Malignancy Confined to bed (> 72 hours) Immobilizing plaster cast Central venous access Age >= 75 History of VTE Family history of VTE Factor V Leiden Prothrombin [id number] Lupus anticoagulant Anticardiolipin antibodies Elevated serum homocysteine Heparin-induced thrombocytopenia Other congenital or acquired thrombophilia Stroke (< 1 month) Elective arthroplasty Hip, pelvis, or leg fracture Acute spinal cord injury (< 1 month) Prophylaxis Regimen Total Risk Factor Score Risk Level Prophylaxis Regimen 0-1 Low Early ambulation 2 Moderate Order ONE of the following: *Sequential Compression Device (SCD) *Heparin 5000 units SQ BID 3-4 Higher Order ONE of the following medications: *Heparin 5000 units SQ TID *Enoxaparin/Lovenox 40 mg SQ daily (WT < 150 kg, CrCl > 30 mL/min) *Enoxaparin/Lovenox 30 mg SQ daily (WT < 150 kg, CrCl > 10-29 mL/min) *Enoxaparin/Lovenox 30 mg SQ BID (WT < 150 kg, CrCl > 30 mL/min) AND/OR *Sequential Compression Device (SCD) 5 or more Highest Order ONE of the following medications: *Heparin 5000 units SQ TID (Preferred with Epidurals) *Enoxaparin/Lovenox 40 mg SQ daily (WT < 150 kg, CrCl > 30 mL/min) *Enoxaparin/Lovenox 30 mg SQ daily (WT < 150 kg, CrCl > 10-29 mL/min) *Enoxaparin/Lovenox 30 mg SQ BID (WT < 150 kg, CrCl > 30 mL/min) AND *Sequential Compression Device (SCD) Assessment and Plan Assessment and Plan NEURO: Acute left sided intraparenchymal hemorrhage 62.6 cm Right hemiplegia with aphasia -Stat CT and CT angiogram reviewed, findings as above -Neurosurgery Dr. Raymundo, no surgical intervention planned for this time -Repeat CT head in a.m., check EEG -Keppra 500 mg IV every 12 -PT/OT/Speech -Supplement thiamine, watch for seizures, watch for withdrawal -IV Ativan as needed for seizures or agitation or withdrawal RESP: -Nasal cannula oxygen -DuoNeb every 6 hours as needed CV: -Cardene gtt, IV labetalol to keep SBP <150 -Check 2D echo -Normal saline IV fluids at 100 mL per hour. Keep sodium 145-150 GI: -N.p.o., IV famotidine -Speech pathology evaluation for aphasia and swallow evaluation : -Monitor renal function closely. ID: -Monitor for infection HEME: Coagulopathy History of breast cancer on anastrozole -monitor CBC, CMP, coags -FFP 2 units 1 ENDO: -Electrolyte replacement per -Sliding scale insulin if needed PROPH: -Bilateral lower extremity SCDs. Chemical DVT prophylaxis is contraindicated. IV famotidine LINES: Utilize peripheral IVs, central line if needed CC time 42 min Code Status Full Discussed Condition With Den Diaz and Zackary Problem Qualifiers (1) Breast CA: Julius Taylor MD March 31, 2018 13:39
[2018-03-31] MEDS ORDERED: MANNITOL 12.5 GM/50 ML VIAL IV ONE (13:45)
[2018-03-31] MEDS: THIAMINE INJ 100 MG in SODIUM CHLORIDE 0.9% INJ 100 ML IV SCH (14:54)
[2018-03-31 15:34] LABS: ALBUMIN 3.7 GM/DL (3.4-5.0); AST (GOT) 12 U/L (15-37); BICARBONATE 23.6 MEQ/L (21.0-32.0); BLOOD UREA NITROGEN 10 MG/DL (7-18); CHLORIDE 109 MEQ/L (98-107); CREATININE 0.63 MG/DL (0.50-1.00); GLOMERULAR FILTRATION RATE 94 ML/MIN (>89); SODIUM (NA) 141 MEQ/L (136-145)
[2018-03-31 15:36] LABS: GLUCOSE,RANDOM 108 MG/DL (74-106)
[2018-03-31 15:41] LABS: ALKALINE PHOSPHATASE 81 U/L (45-117); ALT (GPT) 21 U/L (10-53); PHOSPHORUS 2.7 MG/DL (2.5-4.9); TOTAL BILIRUBIN ADULT 0.6 MG/DL (0.2-1.0); TOTAL PROTEIN 6.8 GM/DL (6.4-8.2)
--- NOTE | 2018-03-31 17:19 | MB ---
cc: Erlinda Ruiz MD DATE: 03/31/2018 REASON FOR CONSULTATION: Intracerebral hemorrhage/seizure. HISTORY OF PRESENT ILLNESS: A 67-year-old woman with a history of hypertension, hypothyroidism, Graves disease, breast cancer, on anastrozole, some daily alcohol use reported, comes in with sudden onset of right-sided weakness with speech issues. Stroke alert was called, but the CT then confirmed a large left-sided intraparenchymal bleed without significant mass effect, without any aneurysms on CTA. She apparently had possibly a seizure. They loaded her with some Keppra. She is on 500 mg twice a day. PAST MEDICAL HISTORY: As stated. MEDICINES: Anastrozole, valsartan, Nature Thyroid, and she states that she recently started some aspirin. FAMILY HISTORY: Noncontributory. SOCIAL HISTORY: She quit smoking 4 years ago. Drinks 2-3 glasses of wine every evening. PHYSICAL EXAMINATION: VITAL SIGNS: Temperature is 98.7, pulse 81, respiratory rate 20, blood pressure 121/70, sating at 100%. NECK: Supple. There are no carotid bruits. HEART: Regular. NEUROLOGIC: She is sleepy or awakens, alert. Pupils are reactive. Visual colunga difficult to assess at this time bedside, but she does have normal movements on the left. Right side, she has antigravity in the right arm, but there is drift, and she can lift her right leg. Her right toe is upgoing, but she does have some mild expressive aphasia right now noted. There maybe has been some improvement. LABORATORY DATA: Reviewed. IMAGING: CT: As stated, she has large left hemorrhage, left cerebral vertex, measuring 6 cm without any significant mass effect. Head CTA was negative for any aneurysm or AVM. Neck CTA was normal. IMPRESSION: Left hemispheric intracerebral hemorrhage/possible seizure. Recommend continuing her Keppra. We will get an EEG. Continue management as per neurosurgery. Maintain her blood pressure less than 160 systolic. No antiplatelets or anticoagulants. Actually, her coag panel, her INR was 1.5, PTT 14.7. I believe she is receiving some FFP. She was given some thiamine and mannitol as well. Continue current care as per supervisor [employer] and neurosurgery. Thank you for consulting neurology. Maintain her on Keppra preventatively, monitor for seizures, and EEG has been ordered. MD JAVIER Baker , 05:02 PM , 05:18 PM
--- NOTE | 2018-03-31 17:40 | PD.CONS ---
History of Present Illness Service Neurosurgery Consult Requested By Emergency room physician Reason for Consult Left frontoparietal cerebral hemorrhage Primary Care Physician Unknown Diagnoses: History of Present Illness 67-year-old right-handed female with an acute onset of speech arrest and right hemiplegia. She was brought in as a stroke alert and a CT scan of the head reveals a left posterior frontal parietal lobe hemorrhage 6 cm x 3 cm without any midline shift. She was also noted to have focal motor seizures on the right side. She was administered Ativan and also loaded with Keppra. Neurosurgery consultation requested for the cerebral hemorrhage. Patient is a phasic with dysarthric speech and does not interact much or follow any complex commands. No family is available at the current time. Review of Systems ROS Limitations: Speech Impaired, Poor Historian Constitutional: DENIES: Diaphoretic episodes, Fatigue, Fever, Weight gain, Weight loss, Chills, Dizziness, Change in appetite, Night Sweats Endocrine: DENIES: Abnorml menstrual pattern, Heat/cold intolerance, Polydipsia , Polyuria, Polyphagia Eyes: DENIES: Blurred vision, Diplopia, Eye inflammation, Eye pain, Vision loss , Photosensitivity, Double Vision Ears, nose, mouth, throat: DENIES: Tinnitus, Hearing loss, Vertigo, Nasal discharge, Oral lesions, Throat pain, Hoarseness, Ear Pain, Running Nose, Epistaxis, Sinus Pain, Toothache, Odynophagia Respiratory: DENIES: Apneas, Cough, Snoring, Wheezing, Hemoptysis, Sputum production, Shortness of breath Cardiovascular: DENIES: Chest pain, Palpitations, Syncope, Dyspnea on Exertion , PND, Lower Extremity Edema, Orthopnea, Claudication Gastrointestinal: COMPLAINS OF: Abdominal pain, DENIES: Black stools, Bloody stools, Constipation, Diarrhea, Nausea, Vomiting, Difficulty Swallowing, Anorexia Genitourinary: DENIES: Abnormal vaginal bleeding, Dysmenorrhea, Dyspareunia, Sexual dysfunction, Urinary frequency, Urinary incontinence, Urgency, Hematuria , Dysuria, Nocturia, Vaginal discharge Musculoskeletal: DENIES: Joint pain, Muscle aches, Stiffness, Joint Swelling, Back pain, Neck pain Integumentary: DENIES: Abnormal pigmentation, Pruritus, Rash, Nail changes, Breast masses, Breast skin changes, Nipple discharge Hematologic/lymphatic: DENIES: Bruising, Lymphadenopathy Immunologic/allergic: DENIES: Eczema, Urticaria Neurologic: COMPLAINS OF: Headache, Localized weakness, Paresthesias, Seizures , Speech Problems, Poor Balance, DENIES: Abnormal gait, Tremor Psychiatric: DENIES: Anxiety, Confusion, Mood changes, Depression, Hallucinations, Agitation, Suicidal Ideation, Homicidal Ideation, Delusions Except as stated in HPI: all other systems reviewed are Neg Past Family Social History Allergies: Coded Allergies: No Known Allergies (Verified Allergy, Mild, 03/27/08) Past Medical History Hypertension, hypothyroidism, Graves disease, breast cancer, Reported Medications Anastrozole 1 Mg Tab 1 Mg PO DAILY Valsartan 40 Mg Tab 40 Mg PO BID Nature-Throid (Thyroid) 97.5 Mg Tab 97.5 Mg PO DAILY Active Ordered Medications Current Medications Medications (Trade) Dose Ordered Sig/Wili Route PRN Reason Start Time Stop Time Status Last Admin Dose Admin Nicardipine HCl 25 mg/Sodium Chloride 250 ml @ 50 mls/hr TITRATE PRN IV Blood pressure management 03/31/18 12:15 03/31/18 12:35 Levetriacetam 500 mg/Sodium Chloride 105 ml @ 420 mls/hr Q12H IV 04/01/18 01:00 Potassium Chloride/Sodium Chloride 1,000 ml @ 100 mls/hr Q10H IV 03/31/18 13:00 03/31/18 12:52 Morphine Sulfate (Morphine Inj) 2 mg Q2H PRN IV PUSH PAIN SCALE 6 TO 10 03/31/18 12:30 Famotidine (Pepcid Inj) 20 mg Q12HR IV PUSH 03/31/18 21:00 Lorazepam (Ativan Inj) 2 mg Q2H PRN IV PUSH SEIZURES 03/31/18 12:30 Albuterol/ Ipratropium (Duoneb Neb) 1 ampule Q2HR NEB PRN INH WHEEZING 03/31/18 12:30 Miscellaneous Information ([facility] Nursing Information) 1 [id number] XX 03/31/18 12:30 Chlorhexidine Gluconate (Chlorhexidine 2% Cloth) 3 pack Taper DAILY@04 TOP 04/01/18 04:00 03/28/19 03:59 Chlorhexidine Gluconate (Chlorhexidine 2% Cloth) 3 pack UNSCH PRN TOP HYGIENIC CARE 03/31/18 12:30 Sodium Chloride 250 ml @ 15 mls/hr ONCE ONCE IV 03/31/18 13:15 04/01/18 05:54 Nicardipine HCl 25 mg/Sodium Chloride 250 ml @ 50 mls/hr TITRATE PRN IV Blood pressure management 03/31/18 13:30 UNV Labetalol HCl (Trandate Inj) 10 mg Q4H PRN IV PUSH SYS BP GREATER THAN 150 MMHG 03/31/18 13:30 Potassium Chloride 100 ml @ 50 mls/hr Q2H PRN IV For Potassium 2.8 - 3.2 mEq/L 03/31/18 13:30 Potassium Chloride 100 ml @ 50 mls/hr Q2H PRN IV For Potassium 2.8 - 3.2 mEq/L 03/31/18 13:30 Potassium Bicarb/ Potassium Chloride (K-Lyte Cl Eff) 50 meq UNSCH PRN PO For Potassium 3.3 - 3.5 mEq/L 03/31/18 13:30 Potassium Chloride 100 ml @ 25 mls/hr UNSCH PRN IV For Potassium 3.3 - 3.5 mEq/L 03/31/18 13:30 Potassium Chloride 100 ml @ 50 mls/hr Q2H PRN IV For Potassium 3.3 - 3.5 mEq/L 03/31/18 13:30 Magnesium Sulfate 4 gm/Sodium Chloride 100 ml @ 50 mls/hr UNSCH PRN IV For Magnesium 0.9 - 1.1 mg/dL 03/31/18 13:30 Magnesium Oxide (Mag-Ox) 800 mg UNSCH PRN PO For Magnesium 1.2 - 1.6 mg/dL 03/31/18 13:30 Magnesium Sulfate 2 gm/Sodium Chloride 100 ml @ 50 mls/hr UNSCH PRN IV For Magnesium 1.2 - 1.6 mg/dL 03/31/18 13:30 Potassium Phosphate (K-Phos) 2,000 mg Q4H PRN PO For Phosphorus < 2.5 mg/dL 03/31/18 13:30 Sodium Phosphate 30 mmol/Sodium Chloride 250 ml @ 42 mls/hr UNSCH PRN IV For Phosphorus < 2.5 mg/dL 03/31/18 13:30 Potassium Phosphate (K-Phos) 2,000 mg UNSCH PRN PO/TUBE SEE LABEL COMMENTS 03/31/18 13:30 Potassium Phosphate 30 mmol/ Sodium Chloride 260 ml @ 42 mls/hr UNSCH PRN IV SEE LABEL COMMENTS 03/31/18 13:30 Thiamine HCl 100 mg/Sodium Chloride 101 ml @ 101 mls/hr Q24H IV 03/31/18 15:00 03/31/18 14:54 Family History Noncontributory Social History She drinks 3 alcoholic beverages a day and smokes 1-2 pack of cigarettes a day and reportedly is single Physical Exam Vital Signs Vital Signs Date Time Temp Pulse Resp B/P (MAP) Pulse Ox O2 Delivery O2 Flow Rate FiO2 03/31/18 17:28 98.4 96 24 148/71 98 03/31/18 17:13 98.7 88 18 157/75 99 03/31/18 16:10 98.7 81 20 121/70 100 03/31/18 16:00 98 Nasal Cannula 2.00 03/31/18 16:00 98.7 88 22 129/73 (91) 98 03/31/18 16:00 79 03/31/18 15:53 98.9 80 19 133/74 98 03/31/18 14:57 98.9 89 22 132/74 (93) 99 03/31/18 14:00 79 03/31/18 13:15 98 19 134/85 (101) 99 Nasal Cannula 2.00 03/31/18 12:45 96 20 129/83 (98) 99 Nasal Cannula 2.00 03/31/18 12:35 96 155/93 03/31/18 12:00 98 19 155/93 (113) 100 Nasal Cannula 2.00 03/31/18 12:00 90 20 99 Nasal Cannula 2.00 03/31/18 12:00 99 Nasal Cannula 2.00 03/31/18 11:40 98 Nasal Cannula 2.00 03/31/18 11:40 98 2.00 03/31/18 11:35 99.0 90 20 142/99 (113) 98 Physical Exam GENERAL: This is a well-nourished, well-developed patient, in no apparent distress. SKIN: No rashes, small anterior neck ecchymoses. Cool and dry. HEAD: Atraumatic. Normocephalic. No temporal or scalp tenderness. EYES: Pupils equal round and reactive. Extraocular motions intact. No scleral icterus. No injection or drainage. ENT: Nose without bleeding, purulent drainage or septal hematoma. Throat without erythema, tonsillar hypertrophy or exudate. Uvula midline. Airway patent. NECK: Trachea midline. No JVD or lymphadenopathy. Supple, nontender, no meningeal signs. CARDIOVASCULAR: Regular rate and rhythm without murmurs, gallops, or rubs. RESPIRATORY: Clear to auscultation. Breath sounds equal bilaterally. No wheezes , rales, or rhonchi. GASTROINTESTINAL: Abdomen soft, non-tender, nondistended. No hepato-splenomegaly , or palpable masses. No guarding. MUSCULOSKELETAL: Extremities without clubbing, cyanosis, or edema. No joint tenderness, effusion, or edema noted. No calf tenderness. Negative Homans sign bilaterally. NEUROLOGICAL: Awake and alert. Oriented to name only, cranial nerves with a mild right facial droop. Pupils are equal reactive and extraocular muscles are intact. She has moderate to severe global aphasia with difficulty following commands. Relates numbness in the right side arm more than leg. Right upper extremity 1 out of 5 right lower extremity 2 out of 5 left side she has good strength. Negative [facility] Laboratory Tests Test 03/31/18 11:30 03/31/18 12:35 03/31/18 14:09 White Blood Count 9.3 Red Blood Count 4.54 Hemoglobin 14.1 Bedside Hemoglobin 13.6 Hematocrit 41.3 Bedside Hematocrit 40.0 Mean Corpuscular Volume 91.1 Mean Corpuscular Hemoglobin 31.0 Mean Corpuscular Hemoglobin Concent 34.1 Red Cell Distribution Width 12.1 Platelet Count 294 Mean Platelet Volume 8.1 Neutrophils (%) (Auto) 56.8 Lymphocytes (%) (Auto) 32.4 Monocytes (%) (Auto) 8.4 Eosinophils (%) (Auto) 1.9 Basophils (%) (Auto) 0.5 Neutrophils # (Auto) 5.3 Lymphocytes # (Auto) 3.0 Monocytes # (Auto) 0.8 Eosinophils # (Auto) 0.2 Basophils # (Auto) 0.0 CBC Comment DIFF FINAL Differential Comment Prothrombin Time 14.7 Prothromb Time International Ratio 1.5 Activated Partial Thromboplast Time 30.0 Fibrinogen 138 Bedside Sodium 140 Bedside Potassium 3.4 Bedside Chloride 105 Bedside Blood Urea Nitrogen 10 Bedside Creatinine 0.7 Bedside Glucose 121 Total Creatine Kinase 49 Troponin I LESS THAN 0.02 Urine Color COLORLESS Urine Turbidity CLEAR Urine pH 5.0 Urine Specific [place] 1.004 Urine Protein NEG Urine Glucose (UA) NEG Urine Ketones NEG Urine Occult Blood NEG Urine Nitrite NEG Urine Bilirubin NEG Urine Urobilinogen LESS THAN 2.0 Urine Leukocyte Esterase NEG Urine Opiates Screen NEG Urine Barbiturates Screen NEG Urine Amphetamines Screen NEG Urine Benzodiazepines Screen NEG Urine Cocaine Screen NEG Urine Cannabinoids Screen NEG Blood Urea Nitrogen 10 Creatinine 0.63 Random Glucose 108 Total Protein 6.8 Albumin 3.7 Calcium Level 9.0 Phosphorus Level 2.7 Magnesium Level 2.0 Alkaline Phosphatase 81 Aspartate Amino Transf (AST/SGOT) 12 Alanine Aminotransferase (ALT/SGPT) 21 Total Bilirubin 0.6 Sodium Level 141 Potassium Level 3.7 Chloride Level 109 Carbon Dioxide Level 23.6 Anion Gap 8 Estimat Glomerular Filtration Rate 94 Result Diagram: 03/31/18 1130 03/31/18 1409 Imaging Last Impressions Neck CTA 03/31/18 1140 Signed Impressions: Service Date/Time: Saturday, March 31, 2018 11:48 - CONCLUSION: 1. Normal examination. Germán White MD Head CTA 03/31/18 1140 Signed Impressions: Service Date/Time: Saturday, March 31, 2018 11:48 - CONCLUSION: No evidence of aneurysm or AVM formation. Germán White MD Head CT 03/31/18 0000 Signed Impressions: Service Date/Time: Saturday, March 31, 2018 11:42 - CONCLUSION: 1. Large acute intraparenchymal hemorrhage involving the posterior high left cerebral vertex measuring 6 cm. 2. No significant mass effect or midline shift at this time. Ramon Mojica MD Chest X-Ray 03/31/18 0000 Signed Impressions: Service Date/Time: Saturday, March 31, 2018 12:11 - CONCLUSION: No acute disease. Chaka Kerr MD Assessment and Plan Assessment and Plan 67-year-old lady with an acute onset of aphasia and right dense hemiparesis with a left posterior frontal and parietal lobe hemorrhage. Differential diagnosis includes hemorrhagic stroke, hypertensive bleed, amyloid angiopathy and cannot rule out any underlying mass. No vascular abnormality noted on the CT of the brain. Monitor closely in the intensive care unit with hypertension regulation. MRI scan of the brain with and without contrast to rule out any underlying mass. Seizure prophylaxis and EEG has been undertaken along with neurology consultation. Mechanical DVT prophylaxis is chemical DVT prophylaxis contraindicated given the cerebral hemorrhage. Rehabilitation with the speech therapy, physical therapy and occupational therapy. Discussed with manufacturing quality manager and neurology service. Laci Raymundo MD March 31, 2018 17:40
[2018-03-31] MEDS ORDERED: niCARdipine INJ 25 MG in SODIUM CHLOR 0.9% 250 ML INJ 250 ML IV PRN (19:30)
[2018-03-31] MEDS: FAMOTIDINE 20 MG/2 ML VIAL IV PUSH SCH (21:54)
[2018-04-01] VITALS (10 sets, daily range): BP systolic 115–179; BP diastolic 66–87; PULSE 63–78; RESP 16–26; TEMP 98.4–99.1; O2SAT 93–100
[2018-04-01] MEDS: levETIRAcetam INJ 500 MG in SODIUM CHLORIDE 0.9% INJ 100 ML IV SCH ×2 (00:34→12:45)
[2018-04-01 03:39] LABS: AUTOMATED NEUTROPHIL # 6.2 TH/MM3 (1.8-7.7); BASOPHIL # 0.1 TH/MM3 (0-0.2); BASOPHIL % 0.9 % (0.0-2.0); EOSINOPHIL # 0.1 TH/MM3 (0-0.4); EOSINOPHIL % 0.9 % (0.0-4.0); HEMATOCRIT 34.4 % (35.0-46.0); LYMPH % 16.9 % (9.0-44.0); LYMPHOCYTE # 1.4 TH/MM3 (1.0-4.8); MEAN CELL VOLUME 90.7 FL (80.0-100.0); MEAN CORPUSCULAR HEMOGLOBIN 31.7 PG (27.0-34.0); MEAN CORPUSCULAR HGB CONC 34.9 % (32.0-36.0); MEAN PLATELET VOLUME 8.5 FL (7.0-11.0); MONO % 7.6 % (0.0-8.0); MONOCYTE # 0.6 TH/MM3 (0-0.9); NEUT % 73.7 % (16.0-70.0); PLATELET COUNT 241 TH/MM3 (150-450); RED BLOOD COUNT 3.79 MIL/MM3 (4.00-5.30); WHITE BLOOD COUNT 8.4 TH/MM3 (4.0-11.0)
[2018-04-01 03:44] LABS: PROTHROMBIN TIME - PATIENT 10.2 SEC (9.8-11.6)
[2018-04-01 03:54] LABS: ALBUMIN 3.5 GM/DL (3.4-5.0); AST (GOT) 16 U/L (15-37); BICARBONATE 25.8 MEQ/L (21.0-32.0); BLOOD UREA NITROGEN 7 MG/DL (7-18); CALCIUM 8.6 MG/DL (8.5-10.1); CHLORIDE 109 MEQ/L (98-107); CREATININE 0.55 MG/DL (0.50-1.00); GLOMERULAR FILTRATION RATE 110 ML/MIN (>89); GLUCOSE,RANDOM 101 MG/DL (74-106); MAGNESIUM 1.8 MG/DL (1.5-2.5); SODIUM (NA) 143 MEQ/L (136-145)
[2018-04-01 03:55] LABS: ALKALINE PHOSPHATASE 79 U/L (45-117); ALT (GPT) 20 U/L (10-53); TOTAL BILIRUBIN ADULT 0.8 MG/DL (0.2-1.0); TOTAL PROTEIN 6.7 GM/DL (6.4-8.2)
[2018-04-01] MEDS: CHLORHEXIDINE GLUCONATE 2 % 1 PACK (2 CLOTHS) TOP SCH (04:00)
--- NOTE | 2018-04-01 06:32 | RADRPT ---
EXAM DATE/TIME: 04/01/2018 05:13 [facility] COMPARISON: CHEST SINGLE AP, March 31, 2018, 12:11. INDICATIONS : Short of breath. MEDICAL HISTORY : None. SURGICAL HISTORY : None. ENCOUNTER: Subsequent ACUITY: 2 days PAIN SCORE: Non-responsive. LOCATION: Bilateral chest FINDINGS: A single view of the chest demonstrates the lungs to be symmetrically aerated without evidence of mas s, infiltrate or effusion. The cardiomediastinal contours are unremarkable. Osseous structures are intact with some degenerative spurring of the dorsal spine. CONCLUSION: No acute cardiopulmonary process. Darin Hodges MD on April 01, 2018 at 6:30 Board Certified Radiologist. This report was verified electronically.
--- NOTE | 2018-04-01 07:28 | MG ---
cc: Shakeel Carrillo MD INDICATION: Left vertex hemorrhage. MEDICATION: Keppra. DESCRIPTION: Temporal central parietal delta slowing is seen 2 Hz. At times, some slight sharp waves are seen through that and this continues throughout the recording. The background otherwise is normal on the right hemisphere, but this slowing is noted in the theta and delta range in the left hemisphere throughout the recording. Photic stimulation is performed without significant posterior driving. IMPRESSION: Persistent slowing in the left posterior temporoparietal region throughout the recording, occasionally with some sharp features, indicating a lesion in this region and increased risk for seizure. Shakeel Carrillo MD DJM/KD , 07:13 AM , 07:26 AM
[2018-04-01] MEDS: FAMOTIDINE 20 MG/2 ML VIAL IV PUSH SCH ×2 (08:55→20:39)
[2018-04-01] MEDS: NS + KCL 20 MEQ INJ 1,000 ML IV SCH ×2 (08:55→17:30)
[2018-04-01] MEDS ORDERED: GADODIAMIDE PF 287 MG/ML 5 ML VIAL (for RAD MRI) IVCONTRAST ONE (09:43)
--- NOTE | 2018-04-01 10:41 | HHI.NSPN ---
(Daryl Monzon) History Chief Complaint: Headache. ICH. (Daryl Monzon) Interval History 67-year-old right-handed female with an acute onset of speech arrest and right hemiplegia. She was brought in as a stroke alert and a CT scan of the head reveals a left posterior frontal parietal lobe hemorrhage 6 cm x 3 cm without any midline shift. She was also noted to have focal motor seizures on the right side. She was administered Ativan and also loaded with Keppra. Neurosurgery consultation requested for the cerebral hemorrhage. Patient is a phasic with dysarthric speech and does not interact much or follow any complex commands. No family is available at the current time. 04/01/18: Pt awake and alert. Complains of frontal headache and nausea. Weakness right side. Returned from MRI. (Daryl Monzon) Review of Systems General: Negative for: fever, chills, insomnia Respiratory: Negative for: shortness of breath, cough, sputum Cardiovascular: Negative for: chest pain Gastrointestinal: Negative for: nausea, vomitting, diarrhea, constipation ( Daryl Monzon) Exam Results Vital Signs Date Time Temp Pulse Resp B/P (MAP) Pulse Ox O2 Delivery O2 Flow Rate FiO2 04/01/18 08:37 93 21 04/01/18 08:00 98.5 75 18 122/66 (84) 04/01/18 07:00 Room Air 03/31/18 20:23 1.50 Intake and Output 04/01/18 04/01/18 04/02/18 08:00 16:00 00:00 Intake Total 428 ml Output Total 1150 ml Balance -722 ml (Daryl Monzon) Physical Examination General: Pt sitting up in bed with breakfast in front of her in NAD. Eyes: Pupils equal. Sclera anicteric. Resp: CTA bilaterally Heart: NSR no murmurs Abd: Soft positive bs Skin: No cyanosis or erythema Muscle: Moves left side well. Right sided weakness RUE and RLE 2/5. Neuro: Pt awake and alert. Answers questions yes/no but has aphasia. Pupils 3mm bilaterally reactive bilaterally. Follows simple commands. (Daryl Monzon) Lab, Micro, Other Results Last Impressions Chest X-Ray 04/01/18 0000 Signed Impressions: Service Date/Time: March 05:13 - CONCLUSION: No acute cardiopulmonary process. Darin Hodges MD Neck CTA 03/31/18 1140 Signed Impressions: Service Date/Time: Saturday, March 31, 2018 11:48 - CONCLUSION: 1. Normal examination. Germán White MD Head CTA 03/31/18 1140 Signed Impressions: Service Date/Time: Saturday, March 31, 2018 11:48 - CONCLUSION: No evidence of aneurysm or AVM formation. Germán White MD Head CT 03/31/18 0000 Signed Impressions: Service Date/Time: Saturday, March 31, 2018 11:42 - CONCLUSION: 1. Large acute intraparenchymal hemorrhage involving the posterior high left cerebral vertex measuring 6 cm. 2. No significant mass effect or midline shift at this time. Ramon Mojica MD Laboratory Tests Test 03/31/18 11:30 03/31/18 12:35 03/31/18 14:09 03/31/18 20:30 White Blood Count 9.3 TH/MM3 Red Blood Count 4.54 MIL/MM3 Hemoglobin 14.1 GM/DL Bedside Hemoglobin 13.6 G/DL Hematocrit 41.3 % Bedside Hematocrit 40.0 % Mean Corpuscular Volume 91.1 FL Mean Corpuscular Hemoglobin 31.0 PG Mean Corpuscular Hemoglobin Concent 34.1 % Red Cell Distribution Width 12.1 % Platelet Count 294 TH/MM3 Mean Platelet Volume 8.1 FL Neutrophils (%) (Auto) 56.8 % Lymphocytes (%) (Auto) 32.4 % Monocytes (%) (Auto) 8.4 % Eosinophils (%) (Auto) 1.9 % Basophils (%) (Auto) 0.5 % Neutrophils # (Auto) 5.3 TH/MM3 Lymphocytes # (Auto) 3.0 TH/MM3 Monocytes # (Auto) 0.8 TH/MM3 Eosinophils # (Auto) 0.2 TH/MM3 Basophils # (Auto) 0.0 TH/MM3 CBC Comment DIFF FINAL Differential Comment Prothrombin Time 14.7 SEC Prothromb Time International Ratio 1.5 RATIO Activated Partial Thromboplast Time 30.0 SEC Fibrinogen 138 mg/dL Bedside Sodium 140 MMOL/L Bedside Potassium 3.4 MMOL/L Bedside Chloride 105 MMOL/L Bedside Blood Urea Nitrogen 10 MG/DL Bedside Creatinine 0.7 MG/DL Bedside Glucose 121 MG/DL Total Creatine Kinase 49 U/L Troponin I LESS THAN 0.02 NG/ML Urine Color COLORLESS Urine Turbidity CLEAR Urine pH 5.0 Urine Specific [place] 1.004 Urine Protein NEG mg/dL Urine Glucose (UA) NEG mg/dL Urine Ketones NEG mg/dL Urine Occult Blood NEG Urine Nitrite NEG Urine Bilirubin NEG Urine Urobilinogen LESS THAN 2.0 MG/DL Urine Leukocyte Esterase NEG Urine Opiates Screen NEG Urine Barbiturates Screen NEG Urine Amphetamines Screen NEG Urine Benzodiazepines Screen NEG Urine Cocaine Screen NEG Urine Cannabinoids Screen NEG Blood Urea Nitrogen 10 MG/DL Creatinine 0.63 MG/DL Random Glucose 108 MG/DL Total Protein 6.8 GM/DL Albumin 3.7 GM/DL Calcium Level 9.0 MG/DL Phosphorus Level 2.7 MG/DL Magnesium Level 2.0 MG/DL Alkaline Phosphatase 81 U/L Aspartate Amino Transf (AST/SGOT) 12 U/L Alanine Aminotransferase (ALT/SGPT) 21 U/L Total Bilirubin 0.6 MG/DL Sodium Level 141 MEQ/L Potassium Level 3.7 MEQ/L Chloride Level 109 MEQ/L Carbon Dioxide Level 23.6 MEQ/L Anion Gap 8 MEQ/L Estimat Glomerular Filtration Rate 94 ML/MIN Nasal Screen MRSA (PCR) MRSA NOT DETECTED Test 04/01/18 02:46 White Blood Count 8.4 TH/MM3 Red Blood Count 3.79 MIL/MM3 Hemoglobin 12.0 GM/DL Hematocrit 34.4 % Mean Corpuscular Volume 90.7 FL Mean Corpuscular Hemoglobin 31.7 PG Mean Corpuscular Hemoglobin Concent 34.9 % Red Cell Distribution Width 12.0 % Platelet Count 241 TH/MM3 Mean Platelet Volume 8.5 FL Neutrophils (%) (Auto) 73.7 % Lymphocytes (%) (Auto) 16.9 % Monocytes (%) (Auto) 7.6 % Eosinophils (%) (Auto) 0.9 % Basophils (%) (Auto) 0.9 % Neutrophils # (Auto) 6.2 TH/MM3 Lymphocytes # (Auto) 1.4 TH/MM3 Monocytes # (Auto) 0.6 TH/MM3 Eosinophils # (Auto) 0.1 TH/MM3 Basophils # (Auto) 0.1 TH/MM3 CBC Comment DIFF FINAL Differential Comment Prothrombin Time 10.2 SEC Prothromb Time International Ratio 1.0 RATIO Blood Urea Nitrogen 7 MG/DL Creatinine 0.55 MG/DL Random Glucose 101 MG/DL Total Protein 6.7 GM/DL Albumin 3.5 GM/DL Calcium Level 8.6 MG/DL Magnesium Level 1.8 MG/DL Alkaline Phosphatase 79 U/L Aspartate Amino Transf (AST/SGOT) 16 U/L Alanine Aminotransferase (ALT/SGPT) 20 U/L Total Bilirubin 0.8 MG/DL Sodium Level 143 MEQ/L Potassium Level 3.3 MEQ/L Chloride Level 109 MEQ/L Carbon Dioxide Level 25.8 MEQ/L Anion Gap 8 MEQ/L Estimat Glomerular Filtration Rate 110 ML/MIN (Daryl Monzon) Medical Decision Making Impression and Plan Assessment and Plan 67-year-old lady with an acute onset of aphasia and right dense hemiparesis with a left posterior frontal and parietal lobe hemorrhage. Differential diagnosis includes hemorrhagic stroke, hypertensive bleed, amyloid angiopathy and cannot rule out any underlying mass. No vascular abnormality noted on the CT of the brain. P: Conatinue to monitor closely in the intensive care unit with hypertension regulation. MRI scan of the brain with and without contrast to rule out any underlying mass done this morning results pending. Continue with Seizure prophylaxis and EEG has been undertaken along with neurology consultation. Mechanical DVT prophylaxis is chemical DVT prophylaxis contraindicated given the cerebral hemorrhage. Continue with rehabilitation with the speech therapy, physical therapy and occupational therapy. (Daryl Monzon) Attending Statement The exam, history, and the medical decision-making described in the above note were completed with the assistance of the mid-level provider. I reviewed and agree with the findings presented. I attest that I had a [id number] encounter with the patient on the same day, and personally performed and documented my assessment and findings in the medical record. Patient noted to have clinical seizures with body twitches although was still responsive and the EEG also suggests epileptic focus. She received Ativan and is on Keppra and will add [id number]. Neurology reevaluation for any further recommendations for seizure management. MRI scan of the brain with no progression of the left cerebral hemorrhage and no obvious underlying mass or enhancement. Continue with medical management. Discussed with manager of global . (Laci Raymundo MD) Daryl Monzon April 01, 2018 10:41 Laci Raymundo MD April 01, 2018 13:04
--- NOTE | 2018-04-01 11:14 | RADRPT ---
EXAM DATE/TIME: 04/01/2018 09:26 [facility] COMPARISON: CTA BRAIN W 3D RECON, March 31, 2018, 11:48. CT BRAIN W/O CONTRAST, March 31, 2018, 11:42. INDICATIONS : Aphasia. Right sided weakness. CONTRAST: 15 cc Omniscan (gadodiamide) IV MEDICAL HISTORY : Hypertension. IBS SURGICAL HISTORY : Tonsillectomy. Lt breat lumpectomy ENCOUNTER: Subsequent ACUITY: 2 day PAIN SCORE: 0/10 LOCATION: cranial TECHNIQUE: Multiplanar, multisequence MRI of the brain was performed both prior to and following the administrat ion of paramagnetic contrast. FINDINGS: CEREBRUM: Contrast CT performed yesterday that demonstrated an oval hyperdense lesion measuring 6 x 2.7 cm and the left posterior parietal region suggesting hematoma. MRI examination with and without contrast wa s performed for further characterization. The lesion in the left posterior parietal region is isoint ense to morataya matter on both T1 and T2-weighted images with some mild heterogeneity of signal. There is no significant restricted diffusion. On susceptibility weighted images, there is significant sign al reduction confirming blood products. On the postcontrast images, there is no significant enhancem ent within this lesion. On the axial images, there is a gyriform type of appearance to the lesion, b ut there is a uniform thickness tear of T2 prolongation surrounding the lesions suggesting a rim of C SF versus surrounding edema. The lateral margin of the lesion extends to the dural surface. A thin cystic area is present along the medial margin. There are imaging features of this lesion that would be characteristic of either an intra-axial or extra-axial abnormalities. No additional lesions seen in the supratentorial brain. POSTERIOR FOSSA: The cerebellum and brainstem are intact. The 4th ventricle is midline. The cerebellopontine angle is unremarkable. The cerebellar tonsils are normal in position. . EXTRACRANIAL: The visualized portions of the orbits and paranasal sinuses are unremarkable. CONCLUSION: 1. 5.2 x 3.0 cm lesion in the high posterior left parietal region demonstrates significant reduction of signal on susceptibility images suggesting blood products. No enhancement within this lesion 2. There is a equivocal configuration to this lesion with imaging features that would be characterist ic of either intra-or extra axial abnormalities. Since the lesion cannot be confirmed to be either i ntra-or extra axial, there is a wide differential of possibilities. Manohar Zeng MD on April 01, 2018 at 10:21 Board Certified Radiologist. This report was verified electronically.
[2018-04-01] MEDS: VALSARTAN 40 MG TAB PO SCH ×2 (11:15→20:40)
--- NOTE | 2018-04-01 11:17 | HHI.CCPN ---
Subjective Remarks/Hospital Course Patient is a 67-year-old female with past medical history significant for hypertension, hypothyroidism following treatment of Graves' disease, breast cancer on anastrozole, daily alcohol use who developed sudden onset right-sided weakness with speech difficulties. Patient was brought in as a stroke alert but in the ED was found to have right-sided tonic-clonic seizure with a rightward gaze. Patient was immediately given 2 mg of Ativan stopped the seizure. Patient has significant right hemiplegia also had aphasia with word salad. A stat CT of the head showed large left-sided intraparenchymal bleed 6 cm 2.6 cm, without significant mass-effect. CT of the brain did not show any aneurysm. I evaluated the patient in the emergency department. Patient continues to have dense right-sided hemiplegia, moves left side freely has severe expressive aphasia with word salad. CT of the brain showed some surrounding edema and 25 g of mannitol ordered. For the seizures I have ordered EEG and started on Keppra 500 every 12. Use Ativan as needed for seizures and for agitation from alcohol withdrawal. Supplement thiamine. Discussed with neurosurgery Dr. Raymundo. No surgical interventions are planned at this time. For INR 1.5, 2U FFP given. Patient is not on anticoagulation per grandson. Cardene infusion ordered to keep SBP <140-150 SUBJ 04/01/18: Patient remains critical but showing some signs of improvement. Still has some expressive aphasia but able to state her name and place. Right- sided weakness is improving. MRI shows Large left sided hemorrhagic stroke. EEG Persistent slowing in the left posterior temporoparietal region with occasional sharp indicating underlying lesion. Currently on Keppra will continue. No clinical seizures noted Objective Vital Signs Date Time Temp Pulse Resp B/P (MAP) Pulse Ox O2 Delivery O2 Flow Rate FiO2 04/01/18 08:37 93 21 04/01/18 08:00 98.5 75 18 122/66 (84) 04/01/18 07:00 Room Air 03/31/18 20:23 1.50 Intake and Output 04/01/18 04/01/18 04/02/18 08:00 16:00 00:00 Intake Total 428 ml Output Total 1150 ml Balance -722 ml Result Diagram: 04/01/18 0246 04/01/[address] of the head shows large left-sided intraparenchymal bleed [address] of the brain did not show any aneurysm Objective Remarks GENERAL: 67-year-old female who is lying in ICU bed, has expressive aphasia which is improving. Moving left side without any weakness, right-sided weakness is improving at this time SKIN: Warm/dry. HEAD: Atraumatic. Normocephalic. EYES: Pupils equal and round. No scleral icterus. No injection or drainage. ENT: No nasal bleeding or discharge. NECK: Trachea midline. No JVD. CARDIOVASCULAR: Regular rate and rhythm. RESPIRATORY: No accessory muscle use. Clear to auscultation. Breath sounds equal bilaterally. GASTROINTESTINAL: Abdomen soft, nondistended. MUSCULOSKELETAL: No obvious deformities. No clubbing. No cyanosis. NEUROLOGICAL: Alert awake. Right-sided weakness is improving currently 4 out of 5 power. Patient is able to follow commands. Normal exam involving the right side. Continues to have expressive aphasia without word salad. But significantly improved compared to yesterday A/P Assessment and Plan NEURO: Acute left sided intraparenchymal hemorrhage 62.6 cm Right hemiplegia with aphasia Probable seizures -Stat CT and CT angiogram reviewed, no aneurysm or AVMs noted -MRI of the brain report pending at this time -Continue [facility] neurology Dr. Ruiz is following -Neurosurgery Dr. Raymundo, no surgical intervention planned for this time -Supplement thiamine, watch for seizures, watch for withdrawal -IV Ativan as needed for seizures or agitation or withdrawal -PT/OT/Speech RESP: -Nasal cannula oxygen -DuoNeb every 6 hours as needed CV: -Cardene gtt, not requiring, IV labetalol to keep SBP <150 -Restart Valsartan 40 BID, increase to 80 q12 -F/u 2D echo. Normal saline IV fluids at 100 mL per hour reduce to 50 ml per hour. -Keep sodium 145-150 GI: -Diet per speech recommendation, IV famotidine -Speech pathology following for aphasia also : -Monitor renal function closely. ID: -Monitor for infection HEME: Coagulopathy History of breast cancer on anastrozole -monitor CBC, CMP, coags -s/p FFP 2 units 1. INR 1 today ENDO: -Electrolyte replacement per -Sliding scale insulin if needed PROPH: -Bilateral lower extremity SCDs. -Chemical DVT prophylaxis is contraindicated. IV famotidine LINES: -Utilize peripheral IVs, central line if needed CC time 32 min Continue ICU care. With large intracranial hemorrhage and seizure patient is at risk for acute neurology consult and respiratory decompensation Julius Taylor MD April 01, 2018 11:17
[2018-04-01] MEDS: LABETALOL HCL 100 MG/20 ML VIAL IV PUSH PRN ×2 (12:46→17:34)
[2018-04-01] MEDS ORDERED: FOSPHENYTOIN INJ 1,000 MGPE in SODIUM CHLORIDE 0.9% INJ 50 ML IV ONE (14:00)
--- NOTE | 2018-04-01 14:19 | EKG ---
Date Performed: 03/31/2018 Time Performed: 12:24:06 PTAGE: 67 years EKG: Sinus rhythm NORMAL ECG Since the PREVIOUS TRACING , no significant change noted PREVIOUS TRACIN11/26/2017 02.52 DOCTOR: Noemí Barone Interpretating Date/Time 04/01/2018 14:16:19
[2018-04-01] MEDS: THIAMINE INJ 100 MG in SODIUM CHLORIDE 0.9% INJ 100 ML IV SCH (14:59)
[2018-04-01] MEDS: FOSPHENYTOIN SODIUM 100 MG PE/2 ML VIAL IV SCH (20:39)
--- NOTE | 2018-04-01 21:10 | ECHRPT ---
Indication: CVA/TIA CONCLUSIONS Normal left ventricular size. Wall thickness is normal. The left ventricular systolic function is normal with an estimated ejection fraction in the range of 55-60%. Trace mitral valve regurgitation. BP: / HR: Rhythm: MEASUREMENTS (Male / Female) Normal Values Technical Quality: 2D ECHO LV Diastolic Diameter PLAX 4.2 cm 4.2 - 5.9 / 3.9 - 5.3 cm LV Systolic Diameter PLAX 3.3 cm IVS Diastolic Thickness 1.1 cm 0.6 - 1.0 / 0.6 - 0.9 cm LVPW Diastolic Thickness 0.8 cm 0.6 - 1.0 / 0.6 - 0.9 cm LV Relative Wall Thickness 0.5 RV Internal Dim ED PLAX 1.9 cm M-MODE Aortic Root Diameter MM 2.9 cm AV Cusp Separation MM 1.7 cm DOPPLER Mitral E Point Velocity 81.4 cm/s Mitral A Point Velocity 60.2 cm/s Mitral E to A Ratio 1.4 TR Peak Velocity 128.0 cm/s TR Peak Gradient 6.6 mmHg FINDINGS LEFT VENTRICLE Normal left ventricular size. Wall thickness is normal. The left ventricular systolic function is normal with an estimated ejection fraction in the range of 55-60%. RIGHT VENTRICLE Normal right ventricular size and systolic function. LEFT ATRIUM The left atrial size is normal. RIGHT ATRIUM The right atrial size is normal. ATRIAL SEPTUM Normal atrial septal thickness without atrial level shunting by limited color doppler interrogation. AORTA The aortic root and proximal ascending aorta are normal in size on limited imaging. MITRAL VALVE Trace mitral valve regurgitation. AORTIC VALVE Trileaflet aortic valve. No aortic valve stenosis or regurgitation. TRICUSPID VALVE Structurally normal tricuspid valve. No tricuspid valve stenosis or regurgitation. PULMONARY VALVE The pulmonary valve is not well visualized. VESSELS The inferior vena cava is normal in size. PERICARDIUM No pericardial effusion. Zeb Greer MD, FACC (Electronically Signed) Final Date:01 Apr 2018 21:09
[2018-04-02] VITALS (11 sets, daily range): BP systolic 126–170; BP diastolic 74–100; PULSE 61–82; RESP 16–22; TEMP 98.2–98.5; O2SAT 95–100
[2018-04-02] MEDS: levETIRAcetam INJ 500 MG in SODIUM CHLORIDE 0.9% INJ 100 ML IV SCH ×3 (01:00→23:59)
[2018-04-02] MEDS: CHLORHEXIDINE GLUCONATE 2 % 1 PACK (2 CLOTHS) TOP SCH (04:00)
[2018-04-02 05:05] LABS: AUTOMATED NEUTROPHIL # 5.9 TH/MM3 (1.8-7.7); BASOPHIL % 0.4 % (0.0-2.0); EOSINOPHIL # 0.2 TH/MM3 (0-0.4); EOSINOPHIL % 2.4 % (0.0-4.0); HEMATOCRIT 34.3 % (35.0-46.0); HEMOGLOBIN 11.9 GM/DL (11.6-15.3); LYMPH % 23.7 % (9.0-44.0); LYMPHOCYTE # 2.1 TH/MM3 (1.0-4.8); MEAN CELL VOLUME 91.5 FL (80.0-100.0); MEAN CORPUSCULAR HEMOGLOBIN 31.8 PG (27.0-34.0); MEAN CORPUSCULAR HGB CONC 34.7 % (32.0-36.0); MEAN PLATELET VOLUME 8.5 FL (7.0-11.0); MONO % 6.6 % (0.0-8.0); MONOCYTE # 0.6 TH/MM3 (0-0.9); NEUT % 66.9 % (16.0-70.0); PLATELET COUNT 231 TH/MM3 (150-450); RED BLOOD COUNT 3.74 MIL/MM3 (4.00-5.30); RED CELL DISTRIBUTION WIDTH 12.2 % (11.6-17.2); WHITE BLOOD COUNT 8.9 TH/MM3 (4.0-11.0)
[2018-04-02 05:20] LABS: ALBUMIN 3.2 GM/DL (3.4-5.0); AST (GOT) 12 U/L (15-37); BICARBONATE 23.9 MEQ/L (21.0-32.0); BLOOD UREA NITROGEN 6 MG/DL (7-18); CALCIUM 8.6 MG/DL (8.5-10.1); CHLORIDE 107 MEQ/L (98-107); CREATININE 0.63 MG/DL (0.50-1.00); GLOMERULAR FILTRATION RATE 94 ML/MIN (>89); GLUCOSE,RANDOM 101 MG/DL (74-106); MAGNESIUM 1.8 MG/DL (1.5-2.5); SODIUM (NA) 143 MEQ/L (136-145)
[2018-04-02 05:22] LABS: ALT (GPT) 15 U/L (10-53); PHENYTOIN (DILANTIN) 9.6 MCG/ML (10.0-20.0)
[2018-04-02 05:23] LABS: ALKALINE PHOSPHATASE 70 U/L (45-117); TOTAL BILIRUBIN ADULT 0.4 MG/DL (0.2-1.0); TOTAL PROTEIN 6.2 GM/DL (6.4-8.2)
[2018-04-02] MEDS: FOSPHENYTOIN SODIUM 100 MG PE/2 ML VIAL IV SCH ×3 (06:00→20:30)
[2018-04-02] MEDS ORDERED: THYROID 97.5 MG PO SCH (09:00)
[2018-04-02] MEDS: LEVOTHYROXINE SODIUM 100 MCG TAB PO SCH (09:25)
[2018-04-02] MEDS: VALSARTAN 40 MG TAB PO SCH ×2 (09:25→20:30)
[2018-04-02] MEDS: FAMOTIDINE 20 MG/2 ML VIAL IV PUSH SCH (09:25)
[2018-04-02] MEDS ORDERED: MAGNESIUM SULFATE 1 GM PREMIX 100 ML IV ONE (10:00)
--- NOTE | 2018-04-02 10:02 | HHI.NSPN ---
(Daryl Monzon) History Chief Complaint: Headache. ICH. (Daryl Monzon) Interval History 67-year-old right-handed female with an acute onset of speech arrest and right hemiplegia. She was brought in as a stroke alert and a CT scan of the head reveals a left posterior frontal parietal lobe hemorrhage 6 cm x 3 cm without any midline shift. She was also noted to have focal motor seizures on the right side. She was administered Ativan and also loaded with Keppra. Neurosurgery consultation requested for the cerebral hemorrhage. Patient is a phasic with dysarthric speech and does not interact much or follow any complex commands. No family is available at the current time. 04/01/18: Pt awake and alert. Complains of frontal headache and nausea. Weakness right side. Returned from MRI. 04/02/18: Pt awake and alert. Complains of headache. Pt reportedly had several seizures yesterday. She initially was weaker on the right side after the seizures but has had some improvement but is still weaker than when she presented. She has mild aphasia. She has some anxiety/agitation this morning. (Daryl Monzon) Review of Systems General: Negative for: fever, chills, insomnia Respiratory: Negative for: shortness of breath, cough, sputum Cardiovascular: Negative for: chest pain Gastrointestinal: Negative for: nausea, vomitting, diarrhea, constipation ( Daryl Monzon) Exam Results Vital Signs Date Time Temp Pulse Resp B/P (MAP) Pulse Ox O2 Delivery O2 Flow Rate FiO2 04/02/18 08:53 97 Nasal Cannula 2.00 04/02/18 06:00 64 04/02/18 04:00 98.3 18 139/83 (101) 04/01/18 08:37 21 Intake and Output 04/02/18 04/02/18 04/03/18 08:00 16:00 00:00 Intake Total 60 ml Output Total 850 ml Balance -790 ml (Daryl Monzon) Physical Examination General: Pt sitting up in bed in NAD. Eyes: Pupils equal. Sclera anicteric. Resp: CTA bilaterally Heart: NSR no murmurs Abd: Soft positive bs Skin: No cyanosis or erythema Muscle: Moves left side well. Right sided weakness RUE and RLE 2/5. Neuro: Pt awake and alert. Answers questions with mild aphasia. Pupils 3mm bilaterally reactive bilaterally. Follows simple commands. (Daryl Monzon) Lab, Micro, Other Results Last Impressions Brain MRI 04/01/18 0600 Signed Impressions: Service Date/Time: March 09:26 - CONCLUSION: 1. 5.2 x 3.0 cm lesion in the high posterior left parietal region demonstrates significant reduction of signal on susceptibility images suggesting blood products. No enhancement within this lesion 2. There is a equivocal configuration to this lesion with imaging features that would be characteristic of either intra-or extra axial abnormalities. Since the lesion cannot be confirmed to be either intra-or extra axial, there is a wide differential of possibilities. Manohar Zeng MD Chest X-Ray 04/01/18 0000 Signed Impressions: Service Date/Time: March 05:13 - CONCLUSION: No acute cardiopulmonary process. Darin Hodges MD Neck CTA 03/31/18 1140 Signed Impressions: Service Date/Time: Saturday, March 31, 2018 11:48 - CONCLUSION: 1. Normal examination. Germán White MD Head CTA 03/31/18 1140 Signed Impressions: Service Date/Time: Saturday, March 31, 2018 11:48 - CONCLUSION: No evidence of aneurysm or AVM formation. Germán White MD Head CT 03/31/18 0000 Signed Impressions: Service Date/Time: Saturday, March 31, 2018 11:42 - CONCLUSION: 1. Large acute intraparenchymal hemorrhage involving the posterior high left cerebral vertex measuring 6 cm. 2. No significant mass effect or midline shift at this time. Ramon Mojica MD Laboratory Tests Test 04/02/18 03:29 White Blood Count 8.9 TH/MM3 Red Blood Count 3.74 MIL/MM3 Hemoglobin 11.9 GM/DL Hematocrit 34.3 % Mean Corpuscular Volume 91.5 FL Mean Corpuscular Hemoglobin 31.8 PG Mean Corpuscular Hemoglobin Concent 34.7 % Red Cell Distribution Width 12.2 % Platelet Count 231 TH/MM3 Mean Platelet Volume 8.5 FL Neutrophils (%) (Auto) 66.9 % Lymphocytes (%) (Auto) 23.7 % Monocytes (%) (Auto) 6.6 % Eosinophils (%) (Auto) 2.4 % Basophils (%) (Auto) 0.4 % Neutrophils # (Auto) 5.9 TH/MM3 Lymphocytes # (Auto) 2.1 TH/MM3 Monocytes # (Auto) 0.6 TH/MM3 Eosinophils # (Auto) 0.2 TH/MM3 Basophils # (Auto) 0.0 TH/MM3 CBC Comment DIFF FINAL Differential Comment Blood Urea Nitrogen 6 MG/DL Creatinine 0.63 MG/DL Random Glucose 101 MG/DL Total Protein 6.2 GM/DL Albumin 3.2 GM/DL Calcium Level 8.6 MG/DL Magnesium Level 1.8 MG/DL Alkaline Phosphatase 70 U/L Aspartate Amino Transf (AST/SGOT) 12 U/L Alanine Aminotransferase (ALT/SGPT) 15 U/L Total Bilirubin 0.4 MG/DL Sodium Level 143 MEQ/L Potassium Level 3.6 MEQ/L Chloride Level 107 MEQ/L Carbon Dioxide Level 23.9 MEQ/L Anion Gap 12 MEQ/L Estimat Glomerular Filtration Rate 94 ML/MIN Phenytoin (Dilantin) Level 9.6 MCG/ML (Daryl Monzon) Medical Decision Making Impression and Plan Assessment and Plan 67-year-old lady with an acute onset of aphasia and right dense hemiparesis with a left posterior frontal and parietal lobe hemorrhage. Differential diagnosis includes hemorrhagic stroke, hypertensive bleed, amyloid angiopathy and cannot rule out any underlying mass. No vascular abnormality noted on the CT of the brain. P: Conatinue to monitor closely in the intensive care unit with hypertension regulation. Continue with antiepileptic meds, neurology following. Mechanical DVT prophylaxis is chemical DVT prophylaxis contraindicated given the cerebral hemorrhage. Continue with rehabilitation with the speech therapy, physical therapy and occupational therapy. (Daryl Monzon) Attending Statement The exam, history, and the medical decision-making described in the above note were completed with the assistance of the mid-level provider. I reviewed and agree with the findings presented. I attest that I had a [id number] encounter with the patient on the same day, and personally performed and documented my assessment and findings in the medical record. No clinical seizures noted today. She is alert and verbalizing more and following simple commands with the right dense hemiparesis upper extremity worse than lower extremity. Check follow-up EEG study and continue with supportive care. (Laci Raymundo MD) Daryl Monzon April 02, 2018 10:02 Laci Raymundo MD April 02, 2018 13:58
--- NOTE | 2018-04-02 10:05 | HHI.CCPN ---
Subjective Remarks/Hospital Course Patient is a 67-year-old female with past medical history significant for hypertension, hypothyroidism following treatment of Graves' disease, breast cancer on anastrozole, daily alcohol use who developed sudden onset right-sided weakness with speech difficulties. Patient was brought in as a stroke alert but in the ED was found to have right-sided tonic-clonic seizure with a rightward gaze. Patient was immediately given 2 mg of Ativan stopped the seizure. Patient has significant right hemiplegia also had aphasia with word salad. A stat CT of the head showed large left-sided intraparenchymal bleed 6 cm 2.6 cm, without significant mass-effect. CT of the brain did not show any aneurysm. I evaluated the patient in the emergency department. Patient continues to have dense right-sided hemiplegia, moves left side freely has severe expressive aphasia with word salad. CT of the brain showed some surrounding edema and 25 g of mannitol ordered. For the seizures I have ordered EEG and started on Keppra 500 every 12. Use Ativan as needed for seizures and for agitation from alcohol withdrawal. Supplement thiamine. Discussed with neurosurgery Dr. Raymundo. No surgical interventions are planned at this time. For INR 1.5, 2U FFP given. Patient is not on anticoagulation per grandson. Cardene infusion ordered to keep SBP <140-150 SUBJ 04/01/18: Patient remains critical but showing some signs of improvement. Still has some expressive aphasia but able to state her name and place. Right- sided weakness is improving. MRI shows Large left sided hemorrhagic stroke. EEG Persistent slowing in the left posterior temporoparietal region with occasional sharp indicating underlying lesion. Currently on Keppra will continue. No clinical seizures noted 04/02: Awake alert, but increased weakness of RUE. Had multiple episodes of focal seizures yesterday lasting 60 seconds approximately. Increased weakness on the right upper extremity could be Jared's palsy. MRI yesterday was stable. Speech is much improved Objective Vital Signs Date Time Temp Pulse Resp B/P (MAP) Pulse Ox O2 Delivery O2 Flow Rate FiO2 04/02/18 08:53 97 Nasal Cannula 2.00 04/02/18 06:00 64 04/02/18 04:00 98.3 18 139/83 (101) 04/01/18 08:37 21 Intake and Output 04/02/18 04/02/18 04/03/18 08:00 16:00 00:00 Intake Total 60 ml Output Total 850 ml Balance -790 ml Result Diagram: 04/02/189 04/02/[address] CT of the head shows large left-sided intraparenchymal bleed [address] of the brain did not show any aneurysm Objective Remarks GENERAL: 67-year-old female who is lying in ICU bed, right-sided weakness of upper extremity more prominent today. SKIN: Warm/dry. HEAD: Atraumatic. Normocephalic. EYES: Pupils equal and round. No scleral icterus. No injection or drainage. ENT: No nasal bleeding or discharge. NECK: Trachea midline. No JVD. CARDIOVASCULAR: Regular rate and rhythm. RESPIRATORY: No accessory muscle use. Clear to auscultation. Breath sounds equal bilaterally. GASTROINTESTINAL: Abdomen soft, nondistended. MUSCULOSKELETAL: No obvious deformities. No clubbing. No cyanosis. NEUROLOGICAL: Alert awake. Right-sided weakness 3/5 in upper, 4/5 in lower. Patient is able to follow commands. Normal exam involving the left side. Continues to have expressive aphasia but significantly improved A/P Assessment and Plan NEURO: Acute left sided intraparenchymal hemorrhage 62.6 cm Right hemiplegia with aphasia Focal seizures -Stat CT and CT angiogram reviewed, no aneurysm or AVMs noted -MRI of the brain confirms bleed -EEG 5/3 Persistent slowing in the left posterior temporoparietal region with some sharp features, indicating increased risk for seizure. -Developed multiple focal seizures yesterday, fosphenytoin added. Continue [facility] neurology Dr. Ruiz is following -Neurosurgery Dr. Raymundo, no surgical intervention planned for this time -Supplement thiamine, watch for seizures, watch for withdrawal -IV Ativan as needed for seizures or agitation or withdrawal -PT/OT/Speech RESP: -Nasal cannula oxygen -DuoNeb every 6 hours as needed CV: -Cardene gtt, if needed, IV labetalol to keep SBP <150 -On Valsartan 40 BID, increase to 80 q12 -F/u 2D echo. Normal saline IV fluids 50 ml per hour. -Keep sodium 145-150 GI: -Diet per speech recommendation, IV famotidine -Speech pathology following for aphasia also : -Monitor renal function closely. ID: -Monitor for infection HEME: Coagulopathy History of breast cancer on anastrozole -monitor CBC, CMP, coags -s/p FFP 2 units 1. INR 1 today ENDO: -Electrolyte replacement per -Sliding scale insulin if needed PROPH: -Bilateral lower extremity SCDs. -Chemical DVT prophylaxis is contraindicated. IV famotidine LINES: -Utilize peripheral IVs, central line if needed CC time 32 min Continue ICU care. With large intracranial hemorrhage and seizure patient is at risk for acute neurologic and respiratory decompensation Julius Taylor MD April 02, 2018 10:05
[2018-04-02] MEDS: THIAMINE INJ 100 MG in SODIUM CHLORIDE 0.9% INJ 100 ML IV SCH (15:44)
[2018-04-02] MEDS: ACETAMINOPHEN 325 MG TAB PO PRN (15:44)
[2018-04-02] MEDS: NICOTINE 14 MG/24 HR PATCH T-DERMAL SCH (15:44)
[2018-04-02] MEDS: LABETALOL HCL 100 MG/20 ML VIAL IV PUSH PRN (16:21)
--- NOTE | 2018-04-02 16:34 | MG ---
cc: Shakeel Carrillo MD EEG NUMBER: [id number] NOTE: Hyperventilation not performed. Large intraparenchymal hemorrhage, right-sided weakness, hemorrhages on the left side. FINDINGS: There is some slowing on the left side in the delta range on an otherwise recording noted to have diffuse beta rhythms which are synchronous and symmetric. At times, some 5 Hz slowing is seen over the left mid-temporal head region. I do not see any epileptiform or seizure activity. Some stage II sleep is noted. Hyperventilation is not performed. Photic stimulation is performed without significant posterior driving. IMPRESSION: Some left-sided slowing from the hemorrhage, but no seizure or sharp activity is noted. MD SARIKA Ross/OPAL , 04:20 PM , 04:33 PM
[2018-04-02] MEDS: REMOVE OLD NICODERM (NICOTINE) PATCH T-DERMAL SCH (20:30)
[2018-04-02] MEDS: FAMOTIDINE 20 MG TAB PO SCH (20:30)
[2018-04-02] MEDS: NS + KCL 20 MEQ INJ 1,000 ML IV SCH (22:41)
[2018-04-03] VITALS (12 sets, daily range): BP systolic 129–145; BP diastolic 74–89; PULSE 60–88; RESP 15–24; TEMP 98.2–98.6; O2SAT 94–98
[2018-04-03] MEDS: CHLORHEXIDINE GLUCONATE 2 % 1 PACK (2 CLOTHS) TOP SCH (03:35)
[2018-04-03] MEDS: FOSPHENYTOIN SODIUM 100 MG PE/2 ML VIAL IV SCH ×3 (04:45→21:49)
[2018-04-03] MEDS: LEVOTHYROXINE SODIUM 100 MCG TAB PO SCH (04:45)
[2018-04-03 06:40] LABS: AUTOMATED NEUTROPHIL # 3.7 TH/MM3 (1.8-7.7); BASOPHIL % 0.5 % (0.0-2.0); EOSINOPHIL # 0.4 TH/MM3 (0-0.4); EOSINOPHIL % 5.3 % (0.0-4.0); HEMATOCRIT 34.9 % (35.0-46.0); LYMPH % 31.2 % (9.0-44.0); LYMPHOCYTE # 2.1 TH/MM3 (1.0-4.8); MEAN CELL VOLUME 91.4 FL (80.0-100.0); MEAN CORPUSCULAR HEMOGLOBIN 31.4 PG (27.0-34.0); MEAN CORPUSCULAR HGB CONC 34.3 % (32.0-36.0); MEAN PLATELET VOLUME 8.4 FL (7.0-11.0); MONO % 7.5 % (0.0-8.0); MONOCYTE # 0.5 TH/MM3 (0-0.9); NEUT % 55.5 % (16.0-70.0); PLATELET COUNT 228 TH/MM3 (150-450); RED BLOOD COUNT 3.82 MIL/MM3 (4.00-5.30); RED CELL DISTRIBUTION WIDTH 11.7 % (11.6-17.2); WHITE BLOOD COUNT 6.7 TH/MM3 (4.0-11.0)
[2018-04-03 07:02] LABS: MAGNESIUM 1.8 MG/DL (1.5-2.5); PHENYTOIN (DILANTIN) 9.3 MCG/ML (10.0-20.0); PHOSPHORUS 3.3 MG/DL (2.5-4.9)
[2018-04-03] MEDS: FAMOTIDINE 20 MG TAB PO SCH ×2 (09:20→19:36)
[2018-04-03] MEDS: VALSARTAN 40 MG TAB PO SCH ×2 (09:20→19:36)
[2018-04-03] MEDS: NICOTINE 14 MG/24 HR PATCH T-DERMAL SCH (09:21)
--- NOTE | 2018-04-03 10:13 | HHI.NSPN ---
(Daryl Monzon) History Chief Complaint: Headache. ICH. (Daryl Monzon) Interval History 67-year-old right-handed female with an acute onset of speech arrest and right hemiplegia. She was brought in as a stroke alert and a CT scan of the head reveals a left posterior frontal parietal lobe hemorrhage 6 cm x 3 cm without any midline shift. She was also noted to have focal motor seizures on the right side. She was administered Ativan and also loaded with Keppra. Neurosurgery consultation requested for the cerebral hemorrhage. Patient is a phasic with dysarthric speech and does not interact much or follow any complex commands. No family is available at the current time. 04/01/18: Pt awake and alert. Complains of frontal headache and nausea. Weakness right side. Returned from MRI. 04/02/18: Pt awake and alert. Complains of headache. Pt reportedly had several seizures yesterday. She initially was weaker on the right side after the seizures but has had some improvement but is still weaker than when she presented. She has mild aphasia. She has some anxiety/agitation this morning. 04/03/18: Pt awake and alert. She was attempting to get oob to use bathroom reminded she needs to ask for help. She has headaches but no n/v. She follows simple commands. She has a right hemiparesis. (Daryl Monzon) Review of Systems General: Negative for: fever, chills, insomnia Respiratory: Negative for: shortness of breath, cough, sputum Cardiovascular: Negative for: chest pain Gastrointestinal: Negative for: nausea, vomitting, diarrhea, constipation ( Daryl Monzon) Exam Results Vital Signs Date Time Temp Pulse Resp B/P (MAP) Pulse Ox O2 Delivery O2 Flow Rate FiO2 04/03/18 10:00 80 04/03/18 08:00 98.4 24 143/74 (97) 94 04/03/18 07:00 Room Air 21 04/02/18 08:53 2.00 Intake and Output 04/03/18 04/03/18 04/03/18 07:59 15:59 23:59 Output Total 900 ml Balance -900 ml (Daryl Monzon) Physical Examination General: Pt sitting up in bed in NAD. Eyes: Pupils equal. Sclera anicteric. Resp: CTA bilaterally Heart: NSR no murmurs Abd: Soft positive bs Skin: No cyanosis or erythema Muscle: Moves left side well. Right sided weakness RUE and RLE 2/5. Neuro: Pt awake and alert. Answers questions with mild aphasia. Pupils 3mm bilaterally reactive bilaterally. Follows simple commands. (Daryl Monzon) Lab, Micro, Other Results Last Impressions Brain MRI 04/01/18 0600 Signed Impressions: Service Date/Time: March 09:26 - CONCLUSION: 1. 5.2 x 3.0 cm lesion in the high posterior left parietal region demonstrates significant reduction of signal on susceptibility images suggesting blood products. No enhancement within this lesion 2. There is a equivocal configuration to this lesion with imaging features that would be characteristic of either intra-or extra axial abnormalities. Since the lesion cannot be confirmed to be either intra-or extra axial, there is a wide differential of possibilities. Manohar Zeng MD Chest X-Ray 04/01/18 0000 Signed Impressions: Service Date/Time: March 05:13 - CONCLUSION: No acute cardiopulmonary process. Darin Hodges MD Neck CTA 03/31/18 1140 Signed Impressions: Service Date/Time: Saturday, March 31, 2018 11:48 - CONCLUSION: 1. Normal examination. Germán White MD Head CTA 03/31/18 1140 Signed Impressions: Service Date/Time: Saturday, March 31, 2018 11:48 - CONCLUSION: No evidence of aneurysm or AVM formation. Germán White MD Head CT 03/31/18 0000 Signed Impressions: Service Date/Time: Saturday, March 31, 2018 11:42 - CONCLUSION: 1. Large acute intraparenchymal hemorrhage involving the posterior high left cerebral vertex measuring 6 cm. 2. No significant mass effect or midline shift at this time. Ramon Mojica MD Laboratory Tests Test 04/03/18 05:01 White Blood Count 6.7 TH/MM3 Red Blood Count 3.82 MIL/MM3 Hemoglobin 12.0 GM/DL Hematocrit 34.9 % Mean Corpuscular Volume 91.4 FL Mean Corpuscular Hemoglobin 31.4 PG Mean Corpuscular Hemoglobin Concent 34.3 % Red Cell Distribution Width 11.7 % Platelet Count 228 TH/MM3 Mean Platelet Volume 8.4 FL Neutrophils (%) (Auto) 55.5 % Lymphocytes (%) (Auto) 31.2 % Monocytes (%) (Auto) 7.5 % Eosinophils (%) (Auto) 5.3 % Basophils (%) (Auto) 0.5 % Neutrophils # (Auto) 3.7 TH/MM3 Lymphocytes # (Auto) 2.1 TH/MM3 Monocytes # (Auto) 0.5 TH/MM3 Eosinophils # (Auto) 0.4 TH/MM3 Basophils # (Auto) 0.0 TH/MM3 CBC Comment DIFF FINAL Differential Comment Phosphorus Level 3.3 MG/DL Magnesium Level 1.8 MG/DL Phenytoin (Dilantin) Level 9.3 MCG/ML (Daryl Monzon) Medical Decision Making Impression and Plan Assessment and Plan 67-year-old lady with an acute onset of aphasia and right dense hemiparesis with a left posterior frontal and parietal lobe hemorrhage. Differential diagnosis includes hemorrhagic stroke, hypertensive bleed, amyloid angiopathy. No vascular abnormality noted on the CT of the brain. P: Conatinue to monitor closely in the intensive care unit with hypertension regulation. Continue with antiepileptic meds, neurology following. Mechanical DVT prophylaxis is chemical DVT prophylaxis contraindicated given the cerebral hemorrhage. Continue with rehabilitation with the speech therapy, physical therapy and occupational therapy. (Daryl Monzon) Attending Statement The exam, history, and the medical decision-making described in the above note were completed with the assistance of the mid-level provider. I reviewed and agree with the findings presented. I attest that I had a [id number] encounter with the patient on the same day, and personally performed and documented my assessment and findings in the medical record. Stable neurologic examination with slowly improving aphasia. Continue with medical management and rehabilitation. Discussed with continuity director. (Laci Raymundo MD) Daryl Monzon April 03, 2018 10:13 Laci Raymundo MD April 03, 2018 12:01
--- NOTE | 2018-04-03 11:20 | HHI.CCPN ---
Subjective Remarks/Hospital Course Patient is a 67-year-old female with past medical history significant for hypertension, hypothyroidism following treatment of Graves' disease, breast cancer on anastrozole, daily alcohol use who developed sudden onset right-sided weakness with speech difficulties. Patient was brought in as a stroke alert but in the ED was found to have right-sided tonic-clonic seizure with a rightward gaze. Patient was immediately given 2 mg of Ativan stopped the seizure. Patient has significant right hemiplegia also had aphasia with word salad. A stat CT of the head showed large left-sided intraparenchymal bleed 6 cm 2.6 cm, without significant mass-effect. CT of the brain did not show any aneurysm. I evaluated the patient in the emergency department. Patient continues to have dense right-sided hemiplegia, moves left side freely has severe expressive aphasia with word salad. CT of the brain showed some surrounding edema and 25 g of mannitol ordered. For the seizures I have ordered EEG and started on Keppra 500 every 12. Use Ativan as needed for seizures and for agitation from alcohol withdrawal. Supplement thiamine. Discussed with neurosurgery Dr. Raymundo. No surgical interventions are planned at this time. For INR 1.5, 2U FFP given. Patient is not on anticoagulation per grandson. Cardene infusion ordered to keep SBP <140-150 SUBJ 04/01/18: Patient remains critical but showing some signs of improvement. Still has some expressive aphasia but able to state her name and place. Right- sided weakness is improving. MRI shows Large left sided hemorrhagic stroke. EEG Persistent slowing in the left posterior temporoparietal region with occasional sharp indicating underlying lesion. Currently on Keppra will continue. No clinical seizures noted 04/02: Awake alert, but increased weakness of RUE. Had multiple episodes of focal seizures yesterday lasting 60 seconds approximately. Increased weakness on the right upper extremity could be Jared's palsy. MRI yesterday was stable. Speech is much improved 04/03: No further seizures reported overnight. Patient in good spirits sitting up in bed. Speech much improved persistent right hemiparesis. Dilantin level 9.3, Objective Vital Signs Date Time Temp Pulse Resp B/P (MAP) Pulse Ox O2 Delivery O2 Flow Rate FiO2 04/03/18 10:00 80 04/03/18 08:00 98.4 24 143/74 (97) 94 04/03/18 07:00 Room Air 21 04/02/18 08:53 2.00 Intake and Output 04/03/18 04/03/18 04/04/18 08:00 16:00 00:00 Output Total 900 ml Balance -900 ml Result Diagram: 04/03/18 0501 04/02/[address] of the head shows large left-sided intraparenchymal bleed [address] of the brain did not show any aneurysm Objective Remarks GENERAL: 67-year-old female who is lying in ICU bed, right-sided weakness persists, but speech improved SKIN: Warm/dry. HEAD: Atraumatic. Normocephalic. EYES: Pupils equal and round. No scleral icterus. No injection or drainage. ENT: No nasal bleeding or discharge. NECK: Trachea midline. No JVD. CARDIOVASCULAR: Regular rate and rhythm. RESPIRATORY: No accessory muscle use. Clear to auscultation. Breath sounds equal bilaterally. GASTROINTESTINAL: Abdomen soft, nondistended. MUSCULOSKELETAL: No obvious deformities. No clubbing. No cyanosis. NEUROLOGICAL: Alert awake. Right-sided weakness 3/5 in upper, 4/5 in lower. Patient is able to follow commands. Normal exam involving the left side. Expressive aphasia significantly improved A/P Assessment and Plan NEURO: Acute left sided intraparenchymal hemorrhage 62.6 cm Right hemiplegia with aphasia Focal seizures -Stat CT and CT angiogram reviewed, no aneurysm or AVMs noted -MRI of the brain confirms bleed -EEG 5/3 Persistent slowing in the left posterior temporoparietal region with some sharp features, indicating increased risk for seizure. -Developed multiple focal seizures 5/3, fosphenytoin added. Continue [facility] neurology Dr. Ruiz is following. Dilantin level 9.3 -Neurosurgery Dr. Raymundo, no surgical intervention planned for this time -Supplement thiamine, watch for seizures, watch for withdrawal -IV Ativan as needed for seizures or agitation or withdrawal -PT/OT/Speech RESP: -Nasal cannula oxygen -DuoNeb every 6 hours as needed CV: -Cardene gtt, if needed, IV labetalol to keep SBP <150 -On Valsartan 80 q12 -F/u 2D echo. Normal saline IV fluids 50 ml per hour. -Keep sodium >145 GI: -Diet per speech recommendation, IV famotidine -Speech pathology following for aphasia also : -Monitor renal function closely. ID: -Monitor for infection HEME: Coagulopathy History of breast cancer on anastrozole -monitor CBC, CMP, coags -s/p FFP 2 units 1. ENDO: -Electrolyte replacement per -Sliding scale insulin if needed PROPH: -Bilateral lower extremity SCDs. -Chemical DVT prophylaxis is contraindicated. IV famotidine LINES: -Utilize peripheral IVs, central line if needed Level 3 Continue ICU care. Discussed with Dr. Raymundo. Will consult [facility] to assume care in Julius Mcintosh MD April 03, 2018 11:20
[2018-04-03] MEDS: levETIRAcetam INJ 500 MG in SODIUM CHLORIDE 0.9% INJ 100 ML IV SCH (12:33)
[2018-04-03] MEDS: NS + KCL 20 MEQ INJ 1,000 ML IV SCH (12:35)
[2018-04-03] MEDS: THIAMINE INJ 100 MG in SODIUM CHLORIDE 0.9% INJ 100 ML IV SCH (15:14)
[2018-04-03] MEDS: REMOVE OLD NICODERM (NICOTINE) PATCH T-DERMAL SCH (19:36)
[2018-04-03] MEDS: ACETAMINOPHEN 325 MG TAB PO PRN (19:39)
[2018-04-04] VITALS (8 sets, daily range): BP systolic 120–162; BP diastolic 68–94; PULSE 62–80; RESP 15–20; TEMP 98–98.7; O2SAT 94–99
[2018-04-04] MEDS: levETIRAcetam INJ 500 MG in SODIUM CHLORIDE 0.9% INJ 100 ML IV SCH (00:33)
[2018-04-04] MEDS: CHLORHEXIDINE GLUCONATE 2 % 1 PACK (2 CLOTHS) TOP SCH (03:08)
[2018-04-04] MEDS: LEVOTHYROXINE SODIUM 100 MCG TAB PO SCH (06:23)
[2018-04-04] MEDS: FOSPHENYTOIN SODIUM 100 MG PE/2 ML VIAL IV SCH (06:23)
[2018-04-04] MEDS: NICOTINE 14 MG/24 HR PATCH T-DERMAL SCH (08:21)
[2018-04-04] MEDS: FAMOTIDINE 20 MG TAB PO SCH ×2 (08:22→23:38)
[2018-04-04] MEDS: VALSARTAN 40 MG TAB PO SCH ×2 (08:22→23:38)
--- NOTE | 2018-04-04 09:16 | HHI.NSPN ---
(Daryl Monzon) History Chief Complaint: Headache. ICH. (Daryl Monzon) Interval History 67-year-old right-handed female with an acute onset of speech arrest and right hemiplegia. She was brought in as a stroke alert and a CT scan of the head reveals a left posterior frontal parietal lobe hemorrhage 6 cm x 3 cm without any midline shift. She was also noted to have focal motor seizures on the right side. She was administered Ativan and also loaded with Keppra. Neurosurgery consultation requested for the cerebral hemorrhage. Patient is a phasic with dysarthric speech and does not interact much or follow any complex commands. No family is available at the current time. 04/01/18: Pt awake and alert. Complains of frontal headache and nausea. Weakness right side. Returned from MRI. 04/02/18: Pt awake and alert. Complains of headache. Pt reportedly had several seizures yesterday. She initially was weaker on the right side after the seizures but has had some improvement but is still weaker than when she presented. She has mild aphasia. She has some anxiety/agitation this morning. 04/03/18: Pt awake and alert. She was attempting to get oob to use bathroom reminded she needs to ask for help. She has headaches but no n/v. She follows simple commands. She has a right hemiparesis. 04/04/18: Pt awake and alert. Complains of intermittent headaches. States strength in RUE improving. Speech improving. (Daryl Monzon) Review of Systems General: Negative for: fever, chills, insomnia Respiratory: Negative for: shortness of breath, cough, sputum Cardiovascular: Negative for: chest pain Gastrointestinal: Negative for: nausea, vomitting, diarrhea, constipation ( Daryl Monzon) Exam Results Vital Signs Date Time Temp Pulse Resp B/P (MAP) Pulse Ox O2 Delivery O2 Flow Rate FiO2 04/04/18 08:00 63 04/04/18 08:00 98.3 16 138/93 (108) 95 04/04/18 07:00 Room Air 21 04/02/18 08:53 2.00 Intake and Output 04/04/18 04/04/18 04/05/18 08:00 16:00 00:00 Output Total 1800 ml Balance -1800 ml (Daryl Monzon) Physical Examination General: Pt sitting up in bed in NAD. Eyes: Pupils equal. Sclera anicteric. Resp: CTA bilaterally Heart: NSR no murmurs Abd: Soft positive bs Skin: No cyanosis or erythema Muscle: Moves left side well. Right sided weakness RUE and RLE 2/5. Neuro: Pt awake and alert. Answers questions with mild aphasia. Pupils 3mm bilaterally reactive bilaterally. Follows simple commands. (Daryl Monzon) Lab, Micro, Other Results Last Impressions Brain MRI 04/01/18 0600 Signed Impressions: Service Date/Time: March 09:26 - CONCLUSION: 1. 5.2 x 3.0 cm lesion in the high posterior left parietal region demonstrates significant reduction of signal on susceptibility images suggesting blood products. No enhancement within this lesion 2. There is a equivocal configuration to this lesion with imaging features that would be characteristic of either intra-or extra axial abnormalities. Since the lesion cannot be confirmed to be either intra-or extra axial, there is a wide differential of possibilities. Manohar Zeng MD Chest X-Ray 04/01/18 0000 Signed Impressions: Service Date/Time: March 05:13 - CONCLUSION: No acute cardiopulmonary process. Darin Hodges MD Neck CTA 03/31/18 1140 Signed Impressions: Service Date/Time: Saturday, March 31, 2018 11:48 - CONCLUSION: 1. Normal examination. Germán White MD Head CTA 03/31/18 1140 Signed Impressions: Service Date/Time: Saturday, March 31, 2018 11:48 - CONCLUSION: No evidence of aneurysm or AVM formation. Germán White MD Head CT 03/31/18 0000 Signed Impressions: Service Date/Time: Saturday, March 31, 2018 11:42 - CONCLUSION: 1. Large acute intraparenchymal hemorrhage involving the posterior high left cerebral vertex measuring 6 cm. 2. No significant mass effect or midline shift at this time. Ramon Mojica MD Laboratory Tests Test 04/04/18 05:30 Phenytoin (Dilantin) Level 8.3 MCG/ML (Daryl Monzon) Medical Decision Making Impression and Plan Assessment and Plan 67-year-old lady with an acute onset of aphasia and right dense hemiparesis with a left posterior frontal and parietal lobe hemorrhage. Differential diagnosis includes hemorrhagic stroke, hypertensive bleed, amyloid angiopathy. No vascular abnormality noted on the CT of the brain. P: Continue to monitor closely in the intensive care unit with hypertension regulation. Continue with antiepileptic meds, neurology following. Mechanical DVT prophylaxis is chemical DVT prophylaxis contraindicated given the cerebral hemorrhage. Continue with rehabilitation with the speech therapy, physical therapy and occupational therapy. (Daryl Monzon) Attending Statement The exam, history, and the medical decision-making described in the above note were completed with the assistance of the mid-level provider. I reviewed and agree with the findings presented. I attest that I had a [id number] encounter with the patient on the same day, and personally performed and documented my assessment and findings in the medical record. (Laci Raymundo MD) Daryl Monzon April 04, 2018 09:16 Laci Raymundo MD April 04, 2018 12:09
--- NOTE | 2018-04-04 09:59 | HHI.PR ---
Subjective Remarks I am assuming care from ICU today. Patient does appear better than expected. She is able to communicate. She is able to ambulate with assistance. She has some range of motion and movement capacity at her right arm. No complaints of further headache, nausea, or vomiting. Objective Vital Signs Date Time Temp Pulse Resp B/P (MAP) Pulse Ox O2 Delivery O2 Flow Rate FiO2 04/04/18 08:00 63 04/04/18 08:00 98.3 62 16 138/93 (108) 95 04/04/18 07:00 95 Room Air 21 04/04/18 06:00 73 04/04/18 04:00 73 04/04/18 04:00 98.0 67 15 162/94 (116) 94 04/04/18 02:00 67 04/04/18 00:00 64 04/04/18 00:00 98.0 67 15 144/80 (101) 95 04/03/18 22:00 85 04/03/18 20:39 18 04/03/18 20:00 98.3 81 18 145/83 (103) 94 04/03/18 20:00 81 04/03/18 19:00 96 Room Air 21 04/03/18 18:00 88 04/03/18 16:00 70 04/03/18 16:00 98.2 68 24 132/89 (103) 94 04/03/18 14:00 76 04/03/18 12:00 74 04/03/18 12:00 74 24 130/77 (94) 98 04/03/18 10:00 80 I/O 04/03/18 04/03/18 04/03/18 04/04/18 04/04/18 04/04/18 07:00 15:00 23:00 07:00 15:00 23:00 Intake Total 105 ml 1261 ml Output Total 900 ml 1900 ml 1800 ml Balance -900 ml 105 ml -639 ml -1800 ml Intake Oral 840 ml IV Total 105 ml 421 ml Output Urine Total 900 ml 1900 ml 1800 ml # Bowel Movements 2 Result Diagram: 04/03/18 0501 04/02/18 0329 Objective Remarks GENERAL: NAD, A&Ox3 HEAD: Normocephalic. NECK: Supple, trachea midline. No lymphadenopathy. EYES: No scleral icterus. No injection or drainage. CARDIOVASCULAR: Regular rate and rhythm without murmurs, gallops, or rubs. RESPIRATORY: Breath sounds equal bilaterally. No accessory muscle use. GASTROINTESTINAL: Abdomen soft, non-tender, nondistended. MUSCULOSKELETAL: No cyanosis, or edema. SKIN: Warm and dry. NEURO: No focal neurological deficitis. Right hemiplegia, greater at right arm compared to right leg. A/P Problem List: (1) Right hemiplegia ICD Code: G81.91 - Hemiplegia, unspecified affecting right dominant side (2) Aphasia ICD Code: R47.01 - Aphasia (3) Intraparenchymal hemorrhage of brain ICD Code: I61.9 - Nontraumatic intracerebral hemorrhage, unspecified Status: Acute Assessment and Plan 67-year-old female admitted secondary to acute right hemiplegia related to intracranial hemorrhage Acute left sided intraparenchymal hemorrhage 62.6 cm Right hemiplegia with aphasia Focal seizures Neurosurgery following Neurology following Continue IV Ativan as needed Continue PT, OT, and ST Stable for transfer out of ICU Hypertension Keep systolic blood pressure less than 150 mmHg Continue valsartan Coagulopathy History of breast cancer on anastrozole Follow CBC, CMP, coags Status post 2 units of fresh frozen plasma DVT prophylaxis SCDs Germán Tai MD April 04, 2018 09:59
[2018-04-04] MEDS: NS + KCL 20 MEQ INJ 1,000 ML IV SCH (14:31)
[2018-04-04] MEDS: THIAMINE INJ 100 MG in SODIUM CHLORIDE 0.9% INJ 100 ML IV SCH (14:32)
--- NOTE | 2018-04-04 17:03 | HHI.PR ---
Subjective Remarks NOT SEEN Objective Vitals Vital Signs Date Time Temp Pulse Resp B/P (MAP) Pulse Ox O2 Delivery O2 Flow Rate FiO2 04/04/18 16:00 98.7 76 18 145/85 (105) 96 04/04/18 12:00 80 04/04/18 12:00 98.3 74 20 141/85 (103) 96 04/04/18 08:00 63 04/04/18 08:00 98.3 62 16 138/93 (108) 95 04/04/18 07:00 95 Room Air 21 04/04/18 06:00 73 04/04/18 04:00 73 04/04/18 04:00 98.0 67 15 162/94 (116) 94 04/04/18 02:00 67 04/04/18 00:00 64 04/04/18 00:00 98.0 67 15 144/80 (101) 95 04/03/18 22:00 85 04/03/18 20:39 18 04/03/18 20:00 98.3 81 18 145/83 (103) 94 04/03/18 20:00 81 04/03/18 19:00 96 Room Air 21 04/03/18 18:00 88 I/O 04/03/18 04/03/18 04/03/18 04/04/18 04/04/18 04/04/18 07:00 15:00 23:00 07:00 15:00 23:00 Intake Total 105 ml 1261 ml Output Total 900 ml 1900 ml 1800 ml Balance -900 ml 105 ml -639 ml -1800 ml Intake Oral 840 ml IV Total 105 ml 421 ml Output Urine Total 900 ml 1900 ml 1800 ml # Bowel Movements 2 Result Diagram: 04/03/18 0501 04/02/18 0329 Imaging Last Impressions Brain MRI 04/01/18 0600 Signed Impressions: Service Date/Time: March 09:26 - CONCLUSION: 1. 5.2 x 3.0 cm lesion in the high posterior left parietal region demonstrates significant reduction of signal on susceptibility images suggesting blood products. No enhancement within this lesion 2. There is a equivocal configuration to this lesion with imaging features that would be characteristic of either intra-or extra axial abnormalities. Since the lesion cannot be confirmed to be either intra-or extra axial, there is a wide differential of possibilities. Manohar Zeng MD Chest X-Ray 04/01/18 0000 Signed Impressions: Service Date/Time: March 05:13 - CONCLUSION: No acute cardiopulmonary process. Darin Hodges MD Neck CTA 03/31/18 1140 Signed Impressions: Service Date/Time: Saturday, March 31, 2018 11:48 - CONCLUSION: 1. Normal examination. Germán White MD Head CTA 03/31/18 1140 Signed Impressions: Service Date/Time: Saturday, March 31, 2018 11:48 - CONCLUSION: No evidence of aneurysm or AVM formation. Germán White MD Head CT 03/31/18 0000 Signed Impressions: Service Date/Time: Saturday, March 31, 2018 11:42 - CONCLUSION: 1. Large acute intraparenchymal hemorrhage involving the posterior high left cerebral vertex measuring 6 cm. 2. No significant mass effect or midline shift at this time. Ramon Mojica MD Objective Remarks GENERAL: NAD, A&Ox3 HEAD: Normocephalic. NECK: Supple, trachea midline. No lymphadenopathy. EYES: No scleral icterus. No injection or drainage. CARDIOVASCULAR: Regular rate and rhythm without murmurs, gallops, or rubs. RESPIRATORY: Breath sounds equal bilaterally. No accessory muscle use. GASTROINTESTINAL: Abdomen soft, non-tender, nondistended. MUSCULOSKELETAL: No cyanosis, or edema. SKIN: Warm and dry. NEURO: Right hemiplegia, greater at right arm compared to right leg. A/P Problem List: (1) Acute left intraparenchymal hemorrhage (2) Probable focal seizure (3) Coagulopathy ICD Code: D68.9 - Coagulation defect, unspecified (4) Aphasia ICD Code: R47.01 - Aphasia (5) Right hemiplegia ICD Code: G81.91 - Hemiplegia, unspecified affecting right dominant side (6) Hypertension ICD Code: I10 - Essential (primary) hypertension (7) Thyroid disease ICD Code: E07.9 - Disorder of thyroid, unspecified (8) Breast CA ICD Code: C50.919 - Malignant neoplasm of unspecified site of unspecified female breast Assessment and Plan 67-year-old female admitted secondary to acute right hemiplegia related to intracranial hemorrhage Acute left sided intraparenchymal hemorrhage 62.6 cm Right hemiplegia with aphasia Focal seizures Neurosurgery following Neurology following Continue IV Ativan as needed Continue PT, OT, and ST Stable for transfer out of ICU Hypertension Keep systolic blood pressure less than 150 mmHg Continue valsartan Coagulopathy History of breast cancer on anastrozole Follow CBC, CMP, coags Status post 2 units of fresh frozen plasma DVT prophylaxis SCDs Problem Qualifiers (1) Breast CA: Corbin Aly MD April 04, 2018 17:03
[2018-04-04] MEDS: REMOVE OLD NICODERM (NICOTINE) PATCH T-DERMAL SCH (21:00)
[2018-04-04] MEDS: ACETAMINOPHEN 325 MG TAB PO PRN (23:37)
[2018-04-04] MEDS: PHENYTOIN SODIUM 100 MG CAP PO SCH (23:38)
[2018-04-04] MEDS: levETIRAcetam 500 MG TAB PO SCH (23:38)
[2018-04-05] VITALS (7 sets, daily range): BP systolic 115–153; BP diastolic 64–76; PULSE 64–79; RESP 16–21; TEMP 97–98.4; O2SAT 95–99
[2018-04-05] MEDS: CHLORHEXIDINE GLUCONATE 2 % 1 PACK (2 CLOTHS) TOP SCH (04:00)
[2018-04-05] MEDS: LEVOTHYROXINE SODIUM 100 MCG TAB PO SCH (05:21)
[2018-04-05] MEDS ORDERED: PILL SPLITTER OTHER PRN (08:30)
[2018-04-05] MEDS: FAMOTIDINE 20 MG TAB PO SCH (09:01)
[2018-04-05] MEDS: levETIRAcetam 500 MG TAB PO SCH ×2 (09:01→20:54)
[2018-04-05] MEDS: THIAMINE HCL 100 MG TAB PO SCH (09:02)
[2018-04-05] MEDS: PHENYTOIN SODIUM 100 MG CAP PO SCH ×2 (09:02→20:54)
[2018-04-05] MEDS: NICOTINE 14 MG/24 HR PATCH T-DERMAL SCH (09:02)
[2018-04-05] MEDS: VALSARTAN 80 MG TAB PO SCH ×2 (10:26→20:54)
[2018-04-05 13:01] LABS: BASOPHIL % 0.5 % (0.0-2.0); EOSINOPHIL # 0.2 TH/MM3 (0-0.4); EOSINOPHIL % 4.2 % (0.0-4.0); HEMATOCRIT 40.6 % (35.0-46.0); LYMPH % 22.9 % (9.0-44.0); LYMPHOCYTE # 1.4 TH/MM3 (1.0-4.8); MEAN CELL VOLUME 91.6 FL (80.0-100.0); MEAN CORPUSCULAR HEMOGLOBIN 31.5 PG (27.0-34.0); MEAN CORPUSCULAR HGB CONC 34.4 % (32.0-36.0); MEAN PLATELET VOLUME 8.3 FL (7.0-11.0); MONO % 6.1 % (0.0-8.0); MONOCYTE # 0.4 TH/MM3 (0-0.9); NEUT % 66.3 % (16.0-70.0); PLATELET COUNT 261 TH/MM3 (150-450); RED BLOOD COUNT 4.44 MIL/MM3 (4.00-5.30); RED CELL DISTRIBUTION WIDTH 12.1 % (11.6-17.2)
[2018-04-05 13:46] LABS: ALBUMIN 3.6 GM/DL (3.4-5.0); ALKALINE PHOSPHATASE 87 U/L (45-117); ALT (GPT) 29 U/L (10-53); AST (GOT) 31 U/L (15-37); BICARBONATE 26.8 MEQ/L (21.0-32.0); BLOOD UREA NITROGEN 11 MG/DL (7-18); CALCIUM 9.2 MG/DL (8.5-10.1); CHLORIDE 108 MEQ/L (98-107); CREATININE 0.72 MG/DL (0.50-1.00); GLOMERULAR FILTRATION RATE 80 ML/MIN (>89); GLUCOSE,RANDOM 112 MG/DL (74-106); PHENYTOIN (DILANTIN) 10.2 MCG/ML (10.0-20.0); SODIUM (NA) 143 MEQ/L (136-145); TOTAL BILIRUBIN ADULT 0.2 MG/DL (0.2-1.0)
[2018-04-05] MEDS ORDERED: LEVE500 PO (14:10)
[2018-04-05] MEDS ORDERED: THIA100 PO (14:10)
[2018-04-05] MEDS ORDERED: DILA100C PO (14:10)
[2018-04-05] MEDS ORDERED: DIOV80TA4 PO (14:10)
--- NOTE | 2018-04-05 14:10 | HHI.DCPOC ---
Discharge Care Plan Diagnosis: (1) Acute left intraparenchymal hemorrhage Your Health Problems Are: Difficulty with ADL Exercise Tolerance Goals to Promote Your Health * To prevent worsening of your condition and complications * To maintain your health at the optimal level Directions to Meet Your Goals Take your medications as prescribed Follow your dietary instruction Follow activity as directed Keep your appointments as scheduled Take your immunizations and boosters as scheduled If your symptoms worsen call your PCP, if no PCP go to Urgent Care Center or Emergency Room Smoking is Dangerous to Your Health. Avoid second hand smoke Call the 24-hour hour crisis hotline for domestic abuse at Corbin Aly MD April 05, 2018 14:10
--- NOTE | 2018-04-05 14:17 | HHI.PR ---
Subjective Remarks F/u ICH. Doing ok feels sl weak and complains of sl BORGES which is improving dw RN Objective Vitals Vital Signs Date Time Temp Pulse Resp B/P (MAP) Pulse Ox O2 Delivery O2 Flow Rate FiO2 04/05/18 12:00 97.9 79 21 120/67 (84) 96 04/05/18 08:43 97 21 04/05/18 08:00 98.0 70 18 135/70 (91) 97 04/05/18 04:15 98.0 64 16 118/64 (82) 99 04/05/18 00:15 97.2 69 17 122/70 (87) 98 04/04/18 21:30 98.7 68 16 120/68 (85) 99 04/04/18 21:06 Room Air 04/04/18 16:00 98.7 76 18 145/85 (105) 96 I/O 04/04/18 04/04/18 04/04/18 04/05/18 04/05/18 04/05/18 07:00 15:00 23:00 07:00 15:00 23:00 Intake Total 800 ml 825 ml Output Total 1800 ml Balance -1800 ml 800 ml 825 ml Intake Oral 800 ml 825 ml Output Urine Total 1800 ml # Voids 0 4 # Bowel Movements 0 0 Result Diagram: 04/05/18 1122 04/05/18 1122 Imaging Last Impressions Brain MRI 04/01/18 0600 Signed Impressions: Service Date/Time: March 09:26 - CONCLUSION: 1. 5.2 x 3.0 cm lesion in the high posterior left parietal region demonstrates significant reduction of signal on susceptibility images suggesting blood products. No enhancement within this lesion 2. There is a equivocal configuration to this lesion with imaging features that would be characteristic of either intra-or extra axial abnormalities. Since the lesion cannot be confirmed to be either intra-or extra axial, there is a wide differential of possibilities. Manohar Zeng MD Chest X-Ray 04/01/18 0000 Signed Impressions: Service Date/Time: March 05:13 - CONCLUSION: No acute cardiopulmonary process. Darin Hodges MD Neck CTA 03/31/18 1140 Signed Impressions: Service Date/Time: Saturday, March 31, 2018 11:48 - CONCLUSION: 1. Normal examination. Germán White MD Head CTA 03/31/18 1140 Signed Impressions: Service Date/Time: Saturday, March 31, 2018 11:48 - CONCLUSION: No evidence of aneurysm or AVM formation. Germán White MD Head CT 03/31/18 0000 Signed Impressions: Service Date/Time: Saturday, March 31, 2018 11:42 - CONCLUSION: 1. Large acute intraparenchymal hemorrhage involving the posterior high left cerebral vertex measuring 6 cm. 2. No significant mass effect or midline shift at this time. Ramon Mojica MD Objective Remarks GENERAL: NAD, A&Ox3 CARDIOVASCULAR: Regular rate and rhythm without murmurs, gallops, or rubs. RESPIRATORY: Breath sounds equal bilaterally. No accessory muscle use. GASTROINTESTINAL: Abdomen soft, non-tender, nondistended. MUSCULOSKELETAL: No cyanosis, or edema. SKIN: Warm and dry. NEURO: Right hemiplegia, greater at right arm compared to right leg. Procedures none A/P Problem List: (1) Acute left intraparenchymal hemorrhage (2) Probable focal seizure (3) Coagulopathy ICD Code: D68.9 - Coagulation defect, unspecified (4) Aphasia ICD Code: R47.01 - Aphasia (5) Right hemiplegia ICD Code: G81.91 - Hemiplegia, unspecified affecting right dominant side (6) Hypertension ICD Code: I10 - Essential (primary) hypertension (7) Thyroid disease ICD Code: E07.9 - Disorder of thyroid, unspecified (8) Breast CA ICD Code: C50.919 - Malignant neoplasm of unspecified site of unspecified female breast Assessment and Plan 67-year-old female admitted secondary to acute right hemiplegia related to intracranial hemorrhage Acute left sided intraparenchymal hemorrhage 62.6 cm. Stable Right hemiplegia with aphasia. Improving Focal seizures. No recurrence Neurosurgery following Neurology following Continue IV Ativan as needed, keppra and dilantin aware patient not allowed to drive for 6 months, climb heights, swim alone and carry young children. Continue PT, OT, and ST. Stable for transfer out of ICU Hypertension Keep systolic blood pressure less than 150 mmHg Continue valsartan Coagulopathy History of breast cancer on anastrozole Follow CBC, CMP, coags Status post 2 units of fresh frozen plasma DVT prophylaxis SCDs Discharge Planning Stable for discharge to rehab when arranged Problem Qualifiers (1) Breast CA: Corbin Aly MD April 05, 2018 14:17
--- NOTE | 2018-04-05 16:08 | HHI.NSPN ---
(Daryl Monzon) History Chief Complaint: Headache. ICH. (Daryl Monzon) Interval History 67-year-old right-handed female with an acute onset of speech arrest and right hemiplegia. She was brought in as a stroke alert and a CT scan of the head reveals a left posterior frontal parietal lobe hemorrhage 6 cm x 3 cm without any midline shift. She was also noted to have focal motor seizures on the right side. She was administered Ativan and also loaded with Keppra. Neurosurgery consultation requested for the cerebral hemorrhage. Patient is a phasic with dysarthric speech and does not interact much or follow any complex commands. No family is available at the current time. 04/01/18: Pt awake and alert. Complains of frontal headache and nausea. Weakness right side. Returned from MRI. 04/02/18: Pt awake and alert. Complains of headache. Pt reportedly had several seizures yesterday. She initially was weaker on the right side after the seizures but has had some improvement but is still weaker than when she presented. She has mild aphasia. She has some anxiety/agitation this morning. 04/03/18: Pt awake and alert. She was attempting to get oob to use bathroom reminded she needs to ask for help. She has headaches but no n/v. She follows simple commands. She has a right hemiparesis. 04/04/18: Pt awake and alert. Complains of intermittent headaches. States strength in RUE improving. Speech improving. 04/05/18: Pt awake and alert. Looking forward to rehab. Intermittent headaches improving. Right upper extremity weakness. Speech with mild aphasia. (Daryl Monzon) Review of Systems General: Negative for: fever, chills, insomnia Respiratory: Negative for: shortness of breath, cough, sputum Cardiovascular: Negative for: chest pain Gastrointestinal: Negative for: nausea, vomitting, diarrhea, constipation ( Daryl Monzon) Exam Results Vital Signs Date Time Temp Pulse Resp B/P (MAP) Pulse Ox O2 Delivery O2 Flow Rate FiO2 04/05/18 12:00 97.9 79 21 120/67 (84) 96 04/05/18 08:43 21 04/04/18 21:06 Room Air 04/02/18 08:53 2.00 Intake and Output 04/05/18 04/05/18 04/06/18 08:00 16:00 00:00 Intake Total 825 ml Balance 825 ml (Daryl Monzon) Physical Examination General: Pt resting in bed in NAD. Eyes: Pupils equal. Sclera anicteric. Resp: CTA bilaterally Heart: NSR no murmurs Abd: Soft positive bs Skin: No cyanosis or erythema Muscle: Moves left side well. Right sided weakness RUE and RLE 3/5. Neuro: Pt awake and alert. Answers questions with mild aphasia. Pupils 3mm bilaterally reactive bilaterally. Follows simple commands. (Daryl Monzon) Lab, Micro, Other Results Last Impressions Brain MRI 04/01/18 0600 Signed Impressions: Service Date/Time: March 09:26 - CONCLUSION: 1. 5.2 x 3.0 cm lesion in the high posterior left parietal region demonstrates significant reduction of signal on susceptibility images suggesting blood products. No enhancement within this lesion 2. There is a equivocal configuration to this lesion with imaging features that would be characteristic of either intra-or extra axial abnormalities. Since the lesion cannot be confirmed to be either intra-or extra axial, there is a wide differential of possibilities. Manohar Zeng MD Chest X-Ray 04/01/18 0000 Signed Impressions: Service Date/Time: March 05:13 - CONCLUSION: No acute cardiopulmonary process. Darin Hodges MD Neck CTA 03/31/18 1140 Signed Impressions: Service Date/Time: Saturday, March 31, 2018 11:48 - CONCLUSION: 1. Normal examination. Germán White MD Head CTA 03/31/18 1140 Signed Impressions: Service Date/Time: Saturday, March 31, 2018 11:48 - CONCLUSION: No evidence of aneurysm or AVM formation. Germán White MD Head CT 03/31/18 0000 Signed Impressions: Service Date/Time: Saturday, March 31, 2018 11:42 - CONCLUSION: 1. Large acute intraparenchymal hemorrhage involving the posterior high left cerebral vertex measuring 6 cm. 2. No significant mass effect or midline shift at this time. Ramon Mojica MD Laboratory Tests Test 04/05/18 11:22 White Blood Count 6.0 TH/MM3 Red Blood Count 4.44 MIL/MM3 Hemoglobin 14.0 GM/DL Hematocrit 40.6 % Mean Corpuscular Volume 91.6 FL Mean Corpuscular Hemoglobin 31.5 PG Mean Corpuscular Hemoglobin Concent 34.4 % Red Cell Distribution Width 12.1 % Platelet Count 261 TH/MM3 Mean Platelet Volume 8.3 FL Neutrophils (%) (Auto) 66.3 % Lymphocytes (%) (Auto) 22.9 % Monocytes (%) (Auto) 6.1 % Eosinophils (%) (Auto) 4.2 % Basophils (%) (Auto) 0.5 % Neutrophils # (Auto) 4.0 TH/MM3 Lymphocytes # (Auto) 1.4 TH/MM3 Monocytes # (Auto) 0.4 TH/MM3 Eosinophils # (Auto) 0.2 TH/MM3 Basophils # (Auto) 0.0 TH/MM3 CBC Comment DIFF FINAL Differential Comment Prothrombin Time 10.0 SEC Prothromb Time International Ratio 1.0 RATIO Activated Partial Thromboplast Time 19.8 SEC Blood Urea Nitrogen 11 MG/DL Creatinine 0.72 MG/DL Random Glucose 112 MG/DL Total Protein 7.0 GM/DL Albumin 3.6 GM/DL Calcium Level 9.2 MG/DL Alkaline Phosphatase 87 U/L Aspartate Amino Transf (AST/SGOT) 31 U/L Alanine Aminotransferase (ALT/SGPT) 29 U/L Total Bilirubin 0.2 MG/DL Sodium Level 143 MEQ/L Potassium Level 3.6 MEQ/L Chloride Level 108 MEQ/L Carbon Dioxide Level 26.8 MEQ/L Anion Gap 8 MEQ/L Estimat Glomerular Filtration Rate 80 ML/MIN Phenytoin (Dilantin) Level 10.2 MCG/ML (Daryl Monzon) Medical Decision Making Impression and Plan Assessment and Plan 67-year-old lady with an acute onset of aphasia and right dense hemiparesis with a left posterior frontal and parietal lobe hemorrhage. Differential diagnosis includes hemorrhagic stroke, hypertensive bleed, amyloid angiopathy. No vascular abnormality noted on the CT of the brain. P: Rehab placement. Pt will do best in inpatient rehab given the aphasia, UE and LE weakness with difficulty with gait. Continue with antiepileptic meds, neurology following. Mechanical DVT prophylaxis is chemical DVT prophylaxis contraindicated given the cerebral hemorrhage. Continue with rehabilitation with the speech therapy, physical therapy and occupational therapy. (Daryl Monzon) Attending Statement The exam, history, and the medical decision-making described in the above note were completed with the assistance of the mid-level provider. I reviewed and agree with the findings presented. I attest that I had a [id number] encounter with the patient on the same day, and personally performed and documented my assessment and findings in the medical record. (Laci Raymundo MD) Daryl Monzon April 05, 2018 16:08 Laci Raymundo MD April 05, 2018 16:18
[2018-04-05] MEDS: REMOVE OLD NICODERM (NICOTINE) PATCH T-DERMAL SCH (20:54)
[2018-04-06] VITALS (7 sets, daily range): BP systolic 121–146; BP diastolic 64–89; PULSE 61–86; RESP 18; TEMP 97.1–98.1; O2SAT 95–97
[2018-04-06] MEDS: CHLORHEXIDINE GLUCONATE 2 % 1 PACK (2 CLOTHS) TOP SCH (04:00)
[2018-04-06] MEDS: LEVOTHYROXINE SODIUM 100 MCG TAB PO SCH (05:41)
[2018-04-06] MEDS: VALSARTAN 80 MG TAB PO SCH ×2 (09:00→21:00)
[2018-04-06] MEDS: PHENYTOIN SODIUM 100 MG CAP PO SCH ×2 (09:27→22:49)
[2018-04-06] MEDS: THIAMINE HCL 100 MG TAB PO SCH (09:27)
[2018-04-06] MEDS: levETIRAcetam 500 MG TAB PO SCH ×2 (09:27→22:49)
--- NOTE | 2018-04-06 09:41 | HHI.PR ---
Subjective Remarks Follow-up intracranial hemorrhage. She denies any headache or dizziness. She is expecting to be discharged to inpatient rehab pending insurance authorization Objective Vitals Vital Signs Date Time Temp Pulse Resp B/P (MAP) Pulse Ox O2 Delivery O2 Flow Rate FiO2 04/06/18 07:36 97.5 64 18 121/64 (83) 96 04/06/18 04:00 97.5 61 18 127/69 (88) 96 04/06/18 00:00 97.5 66 18 132/76 (94) 95 04/05/18 21:10 21 04/05/18 20:00 97.0 77 18 153/74 (100) 96 04/05/18 16:00 98.4 77 18 115/76 (89) 95 04/05/18 12:00 97.9 79 21 120/67 (84) 96 I/O 04/05/18 04/05/18 04/05/18 04/06/18 04/06/18 04/06/18 07:00 15:00 23:00 07:00 15:00 23:00 Intake Total 825 ml Balance 825 ml Intake Oral 825 ml # Voids 4 2 2 # Bowel Movements 0 Result Diagram: 04/05/18 1122 04/05/18 1122 Imaging Last Impressions Brain MRI 04/01/18 0600 Signed Impressions: Service Date/Time: March 09:26 - CONCLUSION: 1. 5.2 x 3.0 cm lesion in the high posterior left parietal region demonstrates significant reduction of signal on susceptibility images suggesting blood products. No enhancement within this lesion 2. There is a equivocal configuration to this lesion with imaging features that would be characteristic of either intra-or extra axial abnormalities. Since the lesion cannot be confirmed to be either intra-or extra axial, there is a wide differential of possibilities. Manohar Zeng MD Chest X-Ray 04/01/18 0000 Signed Impressions: Service Date/Time: March 05:13 - CONCLUSION: No acute cardiopulmonary process. Darin Hodges MD Neck CTA 03/31/18 1140 Signed Impressions: Service Date/Time: Saturday, March 31, 2018 11:48 - CONCLUSION: 1. Normal examination. Germán White MD Head CTA 03/31/18 1140 Signed Impressions: Service Date/Time: Saturday, March 31, 2018 11:48 - CONCLUSION: No evidence of aneurysm or AVM formation. Germán White MD Head CT 03/31/18 0000 Signed Impressions: Service Date/Time: Saturday, March 31, 2018 11:42 - CONCLUSION: 1. Large acute intraparenchymal hemorrhage involving the posterior high left cerebral vertex measuring 6 cm. 2. No significant mass effect or midline shift at this time. Ramon Mojica MD Objective Remarks GENERAL: NAD, A&Ox3 CARDIOVASCULAR: Regular rate and rhythm without murmurs, gallops, or rubs. RESPIRATORY: Breath sounds equal bilaterally. No accessory muscle use. GASTROINTESTINAL: Abdomen soft, non-tender, nondistended. MUSCULOSKELETAL: No cyanosis, or edema. SKIN: Warm and dry. NEURO: Right hemiplegia, greater at right arm compared to right leg. Procedures none A/P Problem List: (1) Acute left intraparenchymal hemorrhage (2) Probable focal seizure (3) Coagulopathy ICD Code: D68.9 - Coagulation defect, unspecified (4) Aphasia ICD Code: R47.01 - Aphasia (5) Right hemiplegia ICD Code: G81.91 - Hemiplegia, unspecified affecting right dominant side (6) Hypertension ICD Code: I10 - Essential (primary) hypertension (7) Thyroid disease ICD Code: E07.9 - Disorder of thyroid, unspecified (8) Breast CA ICD Code: C50.919 - Malignant neoplasm of unspecified site of unspecified female breast Assessment and Plan 67-year-old female admitted secondary to acute right hemiplegia related to intracranial hemorrhage Acute left sided intraparenchymal hemorrhage 62.6 cm. Stable Right hemiplegia with aphasia. Improving Focal seizures. No recurrence Neurosurgery following Neurology following Continue IV Ativan as needed, keppra and dilantin aware patient not allowed to drive for 6 months, climb heights, swim alone and carry young children. Continue PT, OT, and ST. Hypertension Keep systolic blood pressure less than 150 mmHg Continue valsartan Coagulopathy History of breast cancer on anastrozole Follow CBC, CMP, coags Status post 2 units of fresh frozen plasma DVT prophylaxis SCDs Discharge Planning Stable for discharge to rehab when arranged. She is a good candidate for inpt rehab Problem Qualifiers (1) Breast CA: Abando,Junaid MD April 06, 2018 09:41
[2018-04-06] MEDS: NICOTINE 14 MG/24 HR PATCH T-DERMAL SCH (11:00)
--- NOTE | 2018-04-06 13:28 | HHI.NSPN ---
(Daryl Monzon) History Chief Complaint: Headache. ICH. (Daryl Monzon) Interval History 67-year-old right-handed female with an acute onset of speech arrest and right hemiplegia. She was brought in as a stroke alert and a CT scan of the head reveals a left posterior frontal parietal lobe hemorrhage 6 cm x 3 cm without any midline shift. She was also noted to have focal motor seizures on the right side. She was administered Ativan and also loaded with Keppra. Neurosurgery consultation requested for the cerebral hemorrhage. Patient is a phasic with dysarthric speech and does not interact much or follow any complex commands. No family is available at the current time. 04/01/18: Pt awake and alert. Complains of frontal headache and nausea. Weakness right side. Returned from MRI. 04/02/18: Pt awake and alert. Complains of headache. Pt reportedly had several seizures yesterday. She initially was weaker on the right side after the seizures but has had some improvement but is still weaker than when she presented. She has mild aphasia. She has some anxiety/agitation this morning. 04/03/18: Pt awake and alert. She was attempting to get oob to use bathroom reminded she needs to ask for help. She has headaches but no n/v. She follows simple commands. She has a right hemiparesis. 04/04/18: Pt awake and alert. Complains of intermittent headaches. States strength in RUE improving. Speech improving. 04/05/18: Pt awake and alert. Looking forward to rehab. Intermittent headaches improving. Right upper extremity weakness. Speech with mild aphasia. 04/06/18: Pt awake and alert. Denies headaches, nausea or vomiting. RUE weakness staple. Mild aphasia. (Daryl Monzon) Review of Systems General: Negative for: fever, chills, insomnia Respiratory: Negative for: shortness of breath, cough, sputum Cardiovascular: Negative for: chest pain Gastrointestinal: Negative for: nausea, vomitting, diarrhea, constipation ( Daryl Monzon) Exam Results Vital Signs Date Time Temp Pulse Resp B/P (MAP) Pulse Ox O2 Delivery O2 Flow Rate FiO2 04/06/18 11:46 97.1 86 18 137/77 (97) 97 04/05/18 21:10 21 04/04/18 21:06 Room Air 04/02/18 08:53 2.00 (Daryl Monzon) Physical Examination General: Pt resting in bed in NAD. Eyes: Pupils equal. Sclera anicteric. Resp: CTA bilaterally Heart: NSR no murmurs Abd: Soft positive bs Skin: No cyanosis or erythema Muscle: Moves left side well. Right sided weakness RUE and RLE 3/. Neuro: Pt awake and alert. Answers questions with mild aphasia. Pupils 3mm bilaterally reactive bilaterally. Follows simple commands. (Daryl Monzon) Lab, Micro, Other Results Last Impressions Brain MRI 04/01/18 0600 Signed Impressions: Service Date/Time: March 09:26 - CONCLUSION: 1. 5.2 x 3.0 cm lesion in the high posterior left parietal region demonstrates significant reduction of signal on susceptibility images suggesting blood products. No enhancement within this lesion 2. There is a equivocal configuration to this lesion with imaging features that would be characteristic of either intra-or extra axial abnormalities. Since the lesion cannot be confirmed to be either intra-or extra axial, there is a wide differential of possibilities. Manohar Zeng MD Chest X-Ray 04/01/18 0000 Signed Impressions: Service Date/Time: March 05:13 - CONCLUSION: No acute cardiopulmonary process. Darin Hodges MD Neck CTA 03/31/18 1140 Signed Impressions: Service Date/Time: Saturday, March 31, 2018 11:48 - CONCLUSION: 1. Normal examination. Germán White MD Head CTA 03/31/18 1140 Signed Impressions: Service Date/Time: Saturday, March 31, 2018 11:48 - CONCLUSION: No evidence of aneurysm or AVM formation. Germán White MD Head CT 03/31/18 0000 Signed Impressions: Service Date/Time: Saturday, March 31, 2018 11:42 - CONCLUSION: 1. Large acute intraparenchymal hemorrhage involving the posterior high left cerebral vertex measuring 6 cm. 2. No significant mass effect or midline shift at this time. Ramon Mojica MD Laboratory Tests Test 04/06/18 06:39 Phenytoin (Dilantin) Level 9.4 MCG/ML (Daryl Monzon) Medical Decision Making Impression and Plan Assessment and Plan 67-year-old lady with an acute onset of aphasia and right dense hemiparesis with a left posterior frontal and parietal lobe hemorrhage. Differential diagnosis includes hemorrhagic stroke, hypertensive bleed, amyloid angiopathy. No vascular abnormality noted on the CT of the brain. P: Rehab placement. Pt will do best in inpatient rehab given the aphasia, UE and LE weakness with difficulty with gait. Continue with antiepileptic meds, neurology following. Mechanical DVT prophylaxis is chemical DVT prophylaxis contraindicated given the cerebral hemorrhage. Continue with rehabilitation with the speech therapy, physical therapy and occupational therapy. (Daryl Monzon) Attending Statement The exam, history, and the medical decision-making described in the above note were completed with the assistance of the mid-level provider. I reviewed and agree with the findings presented. I attest that I had a [id number] encounter with the patient on the same day, and personally performed and documented my assessment and findings in the medical record. Stable neurologically and awaiting inpatient rehabilitation placement. She is not close to a week out from a cerebral hemorrhage and given the high risk of DVTs we will initiate chemical DVT prophylaxis along with mechanical DVT prophylaxis. (Laci Raymundo MD) Daryl Monzon April 06, 2018 13:28 Laci Raymundo MD April 06, 2018 18:22
[2018-04-06] MEDS: REMOVE OLD NICODERM (NICOTINE) PATCH T-DERMAL SCH (21:00)
[2018-04-06] MEDS: ENOXAPARIN SODIUM 40 MG/0.4 ML SYRINGE SQ SCH (22:49)
[2018-04-07] VITALS (7 sets, daily range): BP systolic 102–146; BP diastolic 63–81; PULSE 65–83; RESP 17–18; TEMP 97.4–98; O2SAT 95–97
[2018-04-07] MEDS: CHLORHEXIDINE GLUCONATE 2 % 1 PACK (2 CLOTHS) TOP SCH (04:00)
[2018-04-07] MEDS: LEVOTHYROXINE SODIUM 100 MCG TAB PO SCH (05:48)
--- NOTE | 2018-04-07 07:54 | HHI.PR ---
Subjective Remarks Follow-up intracranial hemorrhage. [facility] declined patient awaiting SNF acceptance. Patient complains of being woozy thinks it might be Keppra. She is not orthostatic. I ordered repeat labs including Dilantin which came back unremarkable with therapeutic Dilantin level Objective Vitals Vital Signs Date Time Temp Pulse Resp B/P (MAP) Pulse Ox O2 Delivery O2 Flow Rate FiO2 04/07/18 05:00 97.6 65 18 111/67 (82) 95 04/07/18 00:00 97.4 80 18 146/65 (92) 95 04/06/18 20:00 98.1 75 18 146/84 (104) 96 04/06/18 17:16 97 21 04/06/18 16:00 97.9 85 18 129/89 (102) 97 04/06/18 11:46 97.1 86 18 137/77 (97) 97 I/O 04/06/18 04/06/18 04/06/18 04/07/18 04/07/18 04/07/18 07:00 15:00 23:00 07:00 15:00 23:00 # Voids 4 3 Result Diagram: 04/05/18 1122 04/05/18 1122 Imaging Last Impressions Brain MRI 04/01/18 0600 Signed Impressions: Service Date/Time: March 09:26 - CONCLUSION: 1. 5.2 x 3.0 cm lesion in the high posterior left parietal region demonstrates significant reduction of signal on susceptibility images suggesting blood products. No enhancement within this lesion 2. There is a equivocal configuration to this lesion with imaging features that would be characteristic of either intra-or extra axial abnormalities. Since the lesion cannot be confirmed to be either intra-or extra axial, there is a wide differential of possibilities. Manohar Zeng MD Chest X-Ray 04/01/18 0000 Signed Impressions: Service Date/Time: March 05:13 - CONCLUSION: No acute cardiopulmonary process. Darin Hodges MD Neck CTA 03/31/18 1140 Signed Impressions: Service Date/Time: Saturday, March 31, 2018 11:48 - CONCLUSION: 1. Normal examination. Germán White MD Head CTA 03/31/18 1140 Signed Impressions: Service Date/Time: Saturday, March 31, 2018 11:48 - CONCLUSION: No evidence of aneurysm or AVM formation. Germán White MD Head CT 03/31/18 0000 Signed Impressions: Service Date/Time: Saturday, March 31, 2018 11:42 - CONCLUSION: 1. Large acute intraparenchymal hemorrhage involving the posterior high left cerebral vertex measuring 6 cm. 2. No significant mass effect or midline shift at this time. Ramon Mojica MD Objective Remarks GENERAL: NAD, A&Ox3 CARDIOVASCULAR: Regular rate and rhythm without murmurs, gallops, or rubs. RESPIRATORY: Breath sounds equal bilaterally. No accessory muscle use. GASTROINTESTINAL: Abdomen soft, non-tender, nondistended. MUSCULOSKELETAL: No cyanosis, or edema. SKIN: Warm and dry. NEURO: Right hemiplegia, greater at right arm compared to right leg. Procedures none A/P Problem List: (1) Acute left intraparenchymal hemorrhage (2) Probable focal seizure (3) Coagulopathy ICD Code: D68.9 - Coagulation defect, unspecified (4) Aphasia ICD Code: R47.01 - Aphasia (5) Right hemiplegia ICD Code: G81.91 - Hemiplegia, unspecified affecting right dominant side (6) Hypertension ICD Code: I10 - Essential (primary) hypertension (7) Thyroid disease ICD Code: E07.9 - Disorder of thyroid, unspecified (8) Breast CA ICD Code: C50.919 - Malignant neoplasm of unspecified site of unspecified female breast Assessment and Plan 67-year-old female admitted secondary to acute right hemiplegia related to intracranial hemorrhage Acute left sided intraparenchymal hemorrhage 62.6 cm. Differential diagnosis includes hemorrhagic stroke, hypertensive bleed, amyloid angiopathy. No vascular abnormality noted on the CT of the brain. Stable Right hemiplegia with aphasia. Improving Focal seizures. No recurrence Complains of being woozy. She is not orthostatic repeat labs including Dilantin level unremarkable. It might be Keppra will continue to monitor Neurosurgery following Neurology following Continue IV Ativan as needed, keppra and dilantin aware patient not allowed to drive for 6 months, climb heights, swim alone and carry young children. Continue PT, OT, and ST. Hypertension Keep systolic blood pressure less than 150 mmHg Continue valsartan Coagulopathy History of breast cancer on anastrozole Follow CBC, CMP, coags Status post 2 units of fresh frozen plasma DVT prophylaxis SCDs Discharge Planning Stable for discharge to rehab when arranged. She is a good candidate for inpt rehab Problem Qualifiers (1) Breast CA: Corbin Aly MD April 07, 2018 07:54
[2018-04-07] MEDS: levETIRAcetam 500 MG TAB PO SCH ×2 (09:02→21:03)
[2018-04-07] MEDS: THIAMINE HCL 100 MG TAB PO SCH (09:02)
[2018-04-07] MEDS: VALSARTAN 80 MG TAB PO SCH ×2 (09:02→21:03)
[2018-04-07] MEDS: PHENYTOIN SODIUM 100 MG CAP PO SCH ×2 (09:03→21:03)
[2018-04-07] MEDS: NICOTINE 14 MG/24 HR PATCH T-DERMAL SCH (09:03)
--- NOTE | 2018-04-07 10:13 | HHI.NSPN ---
(Daryl Monzon) History Chief Complaint: Headache. ICH. (Daryl Monzon) Interval History 67-year-old right-handed female with an acute onset of speech arrest and right hemiplegia. She was brought in as a stroke alert and a CT scan of the head reveals a left posterior frontal parietal lobe hemorrhage 6 cm x 3 cm without any midline shift. She was also noted to have focal motor seizures on the right side. She was administered Ativan and also loaded with Keppra. Neurosurgery consultation requested for the cerebral hemorrhage. Patient is a phasic with dysarthric speech and does not interact much or follow any complex commands. No family is available at the current time. 04/01/18: Pt awake and alert. Complains of frontal headache and nausea. Weakness right side. Returned from MRI. 04/02/18: Pt awake and alert. Complains of headache. Pt reportedly had several seizures yesterday. She initially was weaker on the right side after the seizures but has had some improvement but is still weaker than when she presented. She has mild aphasia. She has some anxiety/agitation this morning. 04/03/18: Pt awake and alert. She was attempting to get oob to use bathroom reminded she needs to ask for help. She has headaches but no n/v. She follows simple commands. She has a right hemiparesis. 04/04/18: Pt awake and alert. Complains of intermittent headaches. States strength in RUE improving. Speech improving. 04/05/18: Pt awake and alert. Looking forward to rehab. Intermittent headaches improving. Right upper extremity weakness. Speech with mild aphasia. 04/06/18: Pt awake and alert. Denies headaches, nausea or vomiting. RUE weakness staple. Mild aphasia. 04/07/18: Pt awake and alert. Denies headaches, nausea, vomiting. RUE weakness stable. Pt has significant difficulty with coordination movements such as feeding herself. Mild aphasia. (Daryl Monzon) Review of Systems General: Negative for: fever, chills, insomnia Respiratory: Negative for: shortness of breath, cough, sputum Cardiovascular: Negative for: chest pain Gastrointestinal: Negative for: nausea, vomitting, diarrhea, constipation ( Daryl Monzon) Exam Results Vital Signs Date Time Temp Pulse Resp B/P (MAP) Pulse Ox O2 Delivery O2 Flow Rate FiO2 04/07/18 08:00 98.0 76 17 130/74 (92) 96 04/06/18 17:16 21 04/04/18 21:06 Room Air (Daryl Monzon) Physical Examination General: Pt resting in bed in NAD. Eyes: Pupils equal. Sclera anicteric. Resp: CTA bilaterally Heart: NSR no murmurs Abd: Soft positive bs Skin: No cyanosis or erythema Muscle: Moves left side well. Right sided weakness RUE and RLE 3/5. Significant difficulty with coordination. Neuro: Pt awake and alert. Answers questions with mild aphasia. Pupils 3mm bilaterally reactive bilaterally. Follows simple commands. (Daryl Monzon) Lab, Micro, Other Results Last Impressions Brain MRI 04/01/18 0600 Signed Impressions: Service Date/Time: March 09:26 - CONCLUSION: 1. 5.2 x 3.0 cm lesion in the high posterior left parietal region demonstrates significant reduction of signal on susceptibility images suggesting blood products. No enhancement within this lesion 2. There is a equivocal configuration to this lesion with imaging features that would be characteristic of either intra-or extra axial abnormalities. Since the lesion cannot be confirmed to be either intra-or extra axial, there is a wide differential of possibilities. Manohar Zeng MD Chest X-Ray 04/01/18 0000 Signed Impressions: Service Date/Time: March 05:13 - CONCLUSION: No acute cardiopulmonary process. Darin Hodges MD Neck CTA 03/31/18 1140 Signed Impressions: Service Date/Time: Saturday, March 31, 2018 11:48 - CONCLUSION: 1. Normal examination. Germán White MD Head CTA 03/31/18 1140 Signed Impressions: Service Date/Time: Saturday, March 31, 2018 11:48 - CONCLUSION: No evidence of aneurysm or AVM formation. Germán White MD Head CT 03/31/18 0000 Signed Impressions: Service Date/Time: Saturday, March 31, 2018 11:42 - CONCLUSION: 1. Large acute intraparenchymal hemorrhage involving the posterior high left cerebral vertex measuring 6 cm. 2. No significant mass effect or midline shift at this time. Ramon Mojica MD (Daryl Monzon) Medical Decision Making Impression and Plan Assessment and Plan 67-year-old lady with an acute onset of aphasia and right dense hemiparesis with a left posterior frontal and parietal lobe hemorrhage. Differential diagnosis includes hemorrhagic stroke, hypertensive bleed, amyloid angiopathy. No vascular abnormality noted on the CT of the brain. P: Rehab placement. Pt will do best in inpatient rehab given the aphasia, UE and LE weakness with difficulty with gait. Continue with antiepileptic meds, neurology following. Mechanical DVT prophylaxis is chemical DVT prophylaxis contraindicated given the cerebral hemorrhage. Continue with rehabilitation with the speech therapy, physical therapy and occupational therapy. (Daryl Monzon) Attending Statement The exam, history, and the medical decision-making described in the above note were completed with the assistance of the mid-level provider. I reviewed and agree with the findings presented. I attest that I had a [id number] encounter with the patient on the same day, and personally performed and documented my assessment and findings in the medical record. Stable for rehab placement from neurosurgical standpoint. (Laci Raymundo MD) Daryl Monzon April 07, 2018 10:13 Laci Raymundo MD April 07, 2018 17:00
[2018-04-07 13:39] LABS: BASOPHIL % 0.5 % (0.0-2.0); EOSINOPHIL # 0.3 TH/MM3 (0-0.4); EOSINOPHIL % 3.4 % (0.0-4.0); HEMATOCRIT 42.9 % (35.0-46.0); HEMOGLOBIN 14.5 GM/DL (11.6-15.3); LYMPH % 35.3 % (9.0-44.0); LYMPHOCYTE # 2.7 TH/MM3 (1.0-4.8); MEAN CELL VOLUME 92.8 FL (80.0-100.0); MEAN CORPUSCULAR HEMOGLOBIN 31.4 PG (27.0-34.0); MEAN CORPUSCULAR HGB CONC 33.8 % (32.0-36.0); MEAN PLATELET VOLUME 7.5 FL (7.0-11.0); MONO % 7.7 % (0.0-8.0); MONOCYTE # 0.6 TH/MM3 (0-0.9); NEUT % 53.1 % (16.0-70.0); PLATELET COUNT 306 TH/MM3 (150-450); RED BLOOD COUNT 4.63 MIL/MM3 (4.00-5.30); RED CELL DISTRIBUTION WIDTH 12.4 % (11.6-17.2); WHITE BLOOD COUNT 7.6 TH/MM3 (4.0-11.0)
[2018-04-07 13:56] LABS: BICARBONATE 25.6 MEQ/L (21.0-32.0); CALCIUM 9.1 MG/DL (8.5-10.1); CREATININE 0.85 MG/DL (0.50-1.00); MAGNESIUM 2.2 MG/DL (1.5-2.5)
[2018-04-07 13:58] LABS: PHENYTOIN (DILANTIN) 11.2 MCG/ML (10.0-20.0)
[2018-04-07] MEDS: ENOXAPARIN SODIUM 40 MG/0.4 ML SYRINGE SQ SCH (18:19)
[2018-04-07] MEDS: REMOVE OLD NICODERM (NICOTINE) PATCH T-DERMAL SCH (21:00)
[2018-04-08] VITALS: BP 113/54; PULSE 64; RESP 18; TEMP 97.7; O2SAT 97
[2018-04-08] MEDS: CHLORHEXIDINE GLUCONATE 2 % 1 PACK (2 CLOTHS) TOP SCH (04:00)
[2018-04-08] MEDS: LEVOTHYROXINE SODIUM 100 MCG TAB PO SCH (06:06)
[2018-04-08 07:21] VITALS: BP 120/68; PULSE 72; RESP 18; TEMP 97.4; O2SAT 99
[2018-04-08 08:00] VITALS: BP 129/70; PULSE 73; RESP 18; TEMP 97.5; O2SAT 99
[2018-04-08] MEDS: levETIRAcetam 500 MG TAB PO SCH (08:28)
[2018-04-08] MEDS: PHENYTOIN SODIUM 100 MG CAP PO SCH (08:29)
[2018-04-08] MEDS: THIAMINE HCL 100 MG TAB PO SCH (08:29)
[2018-04-08] MEDS: VALSARTAN 80 MG TAB PO SCH (08:30)
[2018-04-08] MEDS: NICOTINE 14 MG/24 HR PATCH T-DERMAL SCH (08:31)
[2018-04-08] MEDS ORDERED: NICO7DIS2 T-DERMAL (11:41)
--- NOTE | 2018-04-08 11:43 | HHI.DS ---
Discharge Summary Admission Date March 31, 2018 at 12:07 Discharge Date: April 08, 2018 Admitting Diagnosis Intraparenchymal bleed (1) Acute left intraparenchymal hemorrhage Diagnosis: Principal (2) Probable focal seizure Diagnosis: Principal (3) Coagulopathy ICD Code: D68.9 - Coagulation defect, unspecified Diagnosis: Principal (4) Aphasia ICD Code: R47.01 - Aphasia Diagnosis: Principal (5) Right hemiplegia ICD Code: G81.91 - Hemiplegia, unspecified affecting right dominant side Diagnosis: Principal (6) Hypertension ICD Code: I10 - Essential (primary) hypertension Diagnosis: Secondary (7) Thyroid disease ICD Code: E07.9 - Disorder of thyroid, unspecified Diagnosis: Secondary (8) Breast CA ICD Code: C50.919 - Malignant neoplasm of unspecified site of unspecified female breast Diagnosis: Secondary Procedures none Brief History - From Admission Patient is a 67-year-old female with past medical history significant for hypertension, hypothyroidism following treatment of Graves' disease, breast cancer on anastrozole, daily alcohol use who developed sudden onset right-sided weakness with speech difficulties. Patient was brought in as a stroke alert but in the ED was found to have right-sided tonic-clonic seizure with a rightward gaze. Patient was immediately given 2 mg of Ativan stopped the seizure. Patient has significant right hemiplegia also had aphasia with word salad. A stat CT of the head showed large left-sided intraparenchymal bleed 6 cm 2.6 cm, without significant mass-effect. CT of the brain did not show any aneurysm. I evaluated the patient in the emergency department. Patient continues to have dense right-sided hemiplegia, moves left side freely has severe expressive aphasia with word salad. CT of the brain showed some surrounding edema and 25 g of mannitol ordered. For the seizures I have ordered EEG and started on Keppra 500 every 12. Use Ativan as needed for seizures and for agitation from alcohol withdrawal. Supplement thiamine. Discussed with neurosurgery Dr. Raymundo. No surgical interventions are planned at this time. For INR 1.5, 2U FFP given. Patient is not on anticoagulation per grandson. Cardene infusion ordered to keep SBP <140-150 CBC/BMP: 04/07/18 1321 04/07/18 1321 Significant Findings Laboratory Tests Test 04/06/18 06:39 04/07/18 13:21 Phenytoin (Dilantin) Level 9.4 MCG/ML (10.0-20.0) Chloride Level 109 MEQ/L (98-107) Estimat Glomerular Filtration Rate 66 ML/MIN (>89) Imaging Last Impressions Brain MRI 04/01/18 0600 Signed Impressions: Service Date/Time: March 09:26 - CONCLUSION: 1. 5.2 x 3.0 cm lesion in the high posterior left parietal region demonstrates significant reduction of signal on susceptibility images suggesting blood products. No enhancement within this lesion 2. There is a equivocal configuration to this lesion with imaging features that would be characteristic of either intra-or extra axial abnormalities. Since the lesion cannot be confirmed to be either intra-or extra axial, there is a wide differential of possibilities. Manohar Zeng MD Chest X-Ray 04/01/18 0000 Signed Impressions: Service Date/Time: March 05:13 - CONCLUSION: No acute cardiopulmonary process. Darin Hodges MD Neck CTA 03/31/18 1140 Signed Impressions: Service Date/Time: Saturday, March 31, 2018 11:48 - CONCLUSION: 1. Normal examination. Germán White MD Head CTA 03/31/18 1140 Signed Impressions: Service Date/Time: Saturday, March 31, 2018 11:48 - CONCLUSION: No evidence of aneurysm or AVM formation. Germán White MD Head CT 03/31/18 0000 Signed Impressions: Service Date/Time: Saturday, March 31, 2018 11:42 - CONCLUSION: 1. Large acute intraparenchymal hemorrhage involving the posterior high left cerebral vertex measuring 6 cm. 2. No significant mass effect or midline shift at this time. Ramon Mojica MD PE at Discharge GENERAL: NAD, A&Ox3 CARDIOVASCULAR: Regular rate and rhythm without murmurs, gallops, or rubs. RESPIRATORY: Breath sounds equal bilaterally. No accessory muscle use. GASTROINTESTINAL: Abdomen soft, non-tender, nondistended. MUSCULOSKELETAL: No cyanosis, or edema. SKIN: Warm and dry. NEURO: Right hemiplegia, greater at right arm compared to right leg. Hospital Course 67-year-old female admitted secondary to acute right hemiplegia related to intracranial hemorrhage Acute left sided intraparenchymal hemorrhage 62.6 cm. Differential diagnosis includes hemorrhagic stroke, hypertensive bleed, amyloid angiopathy. No vascular abnormality noted on the CT of the brain. Stable Right hemiplegia with aphasia. Improving Focal seizures. No recurrence Neurosurgery following Neurology following Continue IV Ativan as needed, keppra and dilantin aware patient not allowed to drive for 6 months, climb heights, swim alone and carry young children. Continue PT, OT, and ST. Hypertension Keep systolic blood pressure less than 150 mmHg Continue valsartan Coagulopathy History of breast cancer on anastrozole Follow CBC, CMP, coags Status post 2 units of fresh frozen plasma DVT prophylaxis SCDs Pt Condition on Discharge: Stable Discharge Disposition: Discharge to SNF Discharge Time: > 30 minutes Discharge Instructions DIET: Follow Instructions for: Heart Healthy Diet Activities you can perform: Regular-No Restrictions Activities to Avoid: Driving Follow up Referrals: Neurology - 1 Week Neurosurgery - 1 Week PCP Follow-up - 2-3 Days New Medications: Nicotine Patch (Nicotine Patch) 7 Mg/24 Hr Patch 7 MG T-DERMAL DAILY for Smoking Cessation, #14 PATCH 0 Refills Levetiracetam (Keppra) 500 Mg Tab 500 MG PO Q12HR for Control Seizures, #60 TAB Phenytoin Extended (Dilantin) 100 Mg Cap 200 MG PO BID for Control Seizures, #120 CAP Thiamine HCl (Gnp Vitamin B-1) 100 Mg Tab 100 MG PO DAILY for Alcohol Detox, #30 TAB Valsartan (Diovan) 80 Mg Tab 80 MG PO BID for Blood Pressure Management, #60 TAB Continued Medications: Anastrozole (Anastrozole) 1 Mg Tab 1 MG PO DAILY for Breast Cancer, #30 TAB 0 Refills Thyroid (Nature-Throid) 97.5 Mg Tab 97.5 MG PO DAILY for Thyroid Supplement, #30 TAB 0 Refills Corbin Aly MD April 08, 2018 11:43
--- NOTE | 2018-04-08 16:57 | PD.CONS ---
[facility] Service Rehabilitation Medicine Consult Requested By Erlinda Ruiz MD Reason for Consult Comprehensive rehabilitation evaluation. Primary Care Physician Unknown History of Present Illness Pat Cleaning is a 67-year-old [id number] female admitted to [facility] 03/31/18 with right-sided weakness and difficulty with speech. She was noted to have a right tonic-clonic seizure and was treated with Ativan. Head CT showed left intraparenchymal hemorrhage 6 x 2.6 cm with no mass-effect. Neurosurgery evaluated patient and nonoperative treatment was provided. No recurrence of seizure was noted. She received FFP. Review of Systems Constitutional: COMPLAINS OF: Fatigue Eyes: DENIES: Blurred vision, Diplopia Ears, nose, mouth, throat: DENIES: Hearing loss, Throat pain Respiratory: DENIES: Shortness of breath Cardiovascular: DENIES: Chest pain Gastrointestinal: COMPLAINS OF: Constipation, DENIES: Abdominal pain Genitourinary: COMPLAINS OF: Urinary frequency, Urgency, DENIES: Urinary incontinence Musculoskeletal: DENIES: Back pain Integumentary: DENIES: Pruritus Hematologic/lymphatic: DENIES: Bruising Immunologic/allergic: DENIES: Urticaria Neurologic: COMPLAINS OF: Abnormal gait, Localized weakness, Paresthesias, Speech Problems (Difficulty reading), DENIES: Headache Psychiatric: DENIES: Confusion Past Family Social History Allergies: Coded Allergies: No Known Allergies (Verified Allergy, Mild, 03/27/08) Past Medical History Hypertension Hypothyroidism status post treatment for Graves' disease Breast cancer Irritable bowel syndrome Colitis Macular degeneration Past Surgical History Left lumpectomy Family History Noncontributory Social History Positive tobacco; daily alcohol use 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 Prior to admission independent with mobility and ADLs and was working Exam I&O / VS 04/08/18 04/08/18 04/09/18 15:00 23:00 07:00 Intake Total 480 ml Balance 480 ml Intake Oral 480 ml # Voids 4 2 # Bowel Movements 2 Vital Signs Date Time Temp Pulse Resp B/P (MAP) Pulse Ox O2 Delivery O2 Flow Rate FiO2 04/08/18 08:00 97.5 73 18 129/70 (89) 99 04/08/18 07:21 97.4 72 18 120/68 (85) 99 04/08/18 00:00 97.7 64 18 113/54 (73) 97 04/07/18 20:00 97.5 75 18 135/81 (99) 97 General: No acute distress Respiratory: Lungs CTA, Non-labored respirations, BS equal Gastrointestinal: Positive Bowel Sounds, Non-Distended, Non-Tender Cardiovascular: Normal rate, No edema, Regular Rhythm Skin: No rash Musculoskeletal: No calf tenderness Psychiatric: Cooperative, Appropriate mood & affect Orientation: oriented to Self, oriented to Place, oriented to Time, oriented to Situation Neurologic: Cranial Nerves (Right facial droop; speech dysarthric but intelligible), Speech (Dysarthric but intelligible; occasional word finding difficulty) Motor: Right Upper Extremity (3+/5), Left Upper Extremity (5/5), Right Lower Extremity (4/5), Left Lower Extremity (5/5) Sensory Decreased by approximately 75% in the right upper extremity and 50% in the lower extremity DTRs: Normal Babinski: Positive (Right) Clonus: Negative Assessment and Plan Diagnosis: (1) Acute left intraparenchymal hemorrhage (2) Right hemiplegia ICD Codes: G81.91 - Hemiplegia, unspecified affecting right dominant side (3) Aphasia ICD Codes: R47.01 - Aphasia Assessment 1. Left hemisphere intraparenchymal hemorrhage 03/31/18 with right hemiparesis and impaired speech/cognition 2. Hypertension 3. Hypothyroidism 4. Breast cancer status post lumpectomy 5. Irritable bowel syndrome 6. Macular degeneration Plan 1. Patient is progressing with physical therapy and is now minimal assistance for transfers and ambulating 100 feet with a rolling walker minimal assistance with fair minus balance. Continue to mobilize 2. Continue close supervision for fall prevention 3. Occupational therapy is addressing ADLs and independence is improving. Patient now verbal cues for lower body dressing 4. Speech therapy has evaluated swallow and tolerating regular diet. Higher- level cognitive impairments are being addressed 5. Patient requested insurance appeal for inpatient rehab placement versus skilled placement. Discussed with medical doctor md/medical director and at this time will proceed with skilled placement due to minimal medical complexity. 6. Will follow while hospitalized and is appropriate at discharge Thank you for this consult. Xochitl Qureshi MD April 08, 2018 16:57
== END 2018-04-08 12:52 | DRG 65 ==
LOC: NEPC 11:35 → NEDA 12:07 → N03B 14:20 → N05A 04-04 14:45
PROVIDERS: ADMIT Internal Medicine; ATTEND Internal Medicine
PROC: 30233N1 Transfusion of Nonautologous Red Blood Cells into Peripheral Vein, Percutaneous Approach (ICD-10-PCS; principal; 2018-03-31)
DX: I61.8 Other nontraumatic intracerebral hemorrhage (principal); D68.9 Coagulation defect, unspecified; C50.919 Malignant neoplasm of unspecified site of unspecified female breast; R47.01 Aphasia; G81.91 Hemiplegia, unspecified affecting right dominant side; G40.89 Other seizures; I10 Essential (primary) hypertension; E03.9 Hypothyroidism, unspecified; R60.0 Localized edema; E05.00 Thyrotoxicosis with diffuse goiter without thyrotoxic crisis or storm; R47.1 Dysarthria and anarthria; F41.9 Anxiety disorder, unspecified; H35.30 Unspecified macular degeneration; Z87.891 Personal history of nicotine dependence
CPT/HCPCS: 36430; 70450; 70496; 70498; 70553; 71045; 76937; 80048; 80053; 80185; 80307; 81001; 82550; 83735; 84100; 84484; 85025; 85384; 85610; 85730; 86850; 86900; 86901; 86927; 87641; 93005; 93306; 95819; A9579; J1650; J1953; J2060; J2150; J2270; J3411; J3475; J3480; J7030; J7050; P9017; Q2009; Q9967

== ENCOUNTER 2018-04-14 23:32 | Observation (INO) | payer MEDICARE, OTHER ==
[~2018-04-14 23:32] MED LIST changes: +DILA100C PO; +DIOV80TA4 PO; +LEVE500 PO; +NICO7DIS2 T-DERMAL; +THIA100 PO
[2018-04-14 23:33] VITALS: BP 130/70; PULSE 78; RESP 16; TEMP 97.8; O2SAT 98
[2018-04-15] VITALS (7 sets, daily range): BP systolic 103–126; BP diastolic 66–74; PULSE 65–82; RESP 16–18; TEMP 97.6–98.3; O2SAT 95–99
[2018-04-15 00:08] LABS: AUTOMATED NEUTROPHIL # 5.3 TH/MM3 (1.8-7.7); BASOPHIL % 0.4 % (0.0-2.0); EOSINOPHIL # 0.4 TH/MM3 (0-0.4); EOSINOPHIL % 5.1 % (0.0-4.0); HEMATOCRIT 41.1 % (35.0-46.0); HEMOGLOBIN 14.2 GM/DL (11.6-15.3); LYMPH % 25.9 % (9.0-44.0); LYMPHOCYTE # 2.2 TH/MM3 (1.0-4.8); MEAN CELL VOLUME 92.2 FL (80.0-100.0); MEAN CORPUSCULAR HGB CONC 34.7 % (32.0-36.0); MONO % 6.8 % (0.0-8.0); MONOCYTE # 0.6 TH/MM3 (0-0.9); NEUT % 61.8 % (16.0-70.0); PLATELET COUNT 343 TH/MM3 (150-450); RED BLOOD COUNT 4.45 MIL/MM3 (4.00-5.30); RED CELL DISTRIBUTION WIDTH 12.5 % (11.6-17.2); WHITE BLOOD COUNT 8.5 TH/MM3 (4.0-11.0)
--- NOTE | 2018-04-15 00:11 | PD ---
HPI Chief Complaint: Neuro Symptoms/ Deficits Time Seen by Provider: 23:38 Travel History International Travel<30 days: No Contact w/Intl Traveler<30days: No Traveled to known affect area: No History of Present Illness HPI 67yo F with PMH of HTN, hypothyroidism from treatment of Grave's disease, breast CA on anastrozole, alcohol abuse, recent intraparenchymal bleed here with c/o numbness in left face since last night. Said she told the nurse at [facility] at 6am and they didnt do anything. First started with numbness in left face then now numbness in both sides of her face. Pt also with headache for 3 hours that is diffuse. Denies any new weakness or visual changes. Denies any fever, chest pain, sob, n/v, abdominal pain. Pt said her seizure medication is making her speech slow. Pt was admitted 03/31/18-04/08/18 for right hemiplegia and aphasia and had a seizure in the ED. CT brain showed large left sided intraparenchymal bleed and neurosurgery evaluated pt with no neurosurgical intervention. Pt was kept on keppra and dilantin for seizure prophylaxis and discharge to [facility] for rehab. PFSH Past Medical History Depression: Yes Cardiovascular Problems: Yes (HTN) Cerebrovascular Accident: Yes Diminished Hearing: No Hypertension: Yes Thyroid Disease: Yes (HYPO) Past Surgical History Thoracic Surgery: Yes (L. LUMPECTOMY) Other Surgery: Yes (COSMETICS EYES SX.) Social History Alcohol Use: Yes (OCC.) Tobacco Use: No Substance Use: No Allergies-Medications (Allergen,Severity, Reaction): Coded Allergies: No Known Allergies (Verified Allergy, Mild, 04/14/18) Reported Meds & Prescriptions Reported Meds & Active Scripts Active Nicotine Patch (Nicotine) 7 Mg/24 Hr Patch 7 Mg T-DERMAL DAILY Gnp Vitamin B-1 (Thiamine HCl) 100 Mg Tab 100 Mg PO DAILY Keppra (Levetiracetam) 500 Mg Tab 500 Mg PO Q12HR Dilantin (Phenytoin Extended) 100 Mg Cap 200 Mg PO BID Diovan (Valsartan) 80 Mg Tab 80 Mg PO BID Reported Anastrozole 1 Mg Tab 1 Mg PO DAILY Valsartan 40 Mg Tab 40 Mg PO BID Nature-Throid (Thyroid) 97.5 Mg Tab 97.5 Mg PO DAILY Review of Systems Except as stated in HPI: all other systems reviewed are Neg Physical Exam Narrative GENERAL: 67yo F in mild distress. SKIN: Focused skin assessment warm/dry. HEAD: Atraumatic. Normocephalic. EYES: Pupils equal and round at 3mm bilaterally. EOMI. ENT: No nasal bleeding or discharge. Mucous membranes pink and moist. NECK: Trachea midline. No JVD. CARDIOVASCULAR: Regular rate and rhythm. No murmur appreciated. RESPIRATORY: No accessory muscle use. Clear to auscultation. Breath sounds equal bilaterally. GASTROINTESTINAL: Abdomen soft, non-tender, nondistended. MUSCULOSKELETAL: No obvious deformities. No clubbing. No cyanosis. No edema. NEUROLOGICAL: Awake and alert. No facial droop. Decreased muscle strength in right upper and right lower extremity which is not new. Decreased sensation in bilateral face in V1-V3 distributions. Normal speech. PSYCHIATRIC: Appropriate mood and affect; insight and judgment normal. Data Data Last Documented VS Vital Signs Date Time Temp Pulse Resp B/P (MAP) Pulse Ox O2 Delivery O2 Flow Rate FiO2 04/14/18 23:42 99 Room Air 04/14/18 23:33 97.8 78 16 130/70 (90) Orders Orders Ct Brain W/O Iv Contrast(Rout) (04/14/18 ) Complete Blood Count With Diff (04/14/18 23:48) Basic Metabolic Panel (Bmp) (04/14/18 23:48) Magnesium (Mg) (04/14/18 23:48) Prothrombin Time / Inr (Pt) (04/14/18 23:48) Act Partial Throm Time (Ptt) (04/14/18 23:48) Phenytoin (Dilantin) (04/14/18 23:50) Metoclopramide Inj (Reglan Inj) (04/15/18 01:00) Sodium Chlor 0.9% 1000 Ml Inj (Ns 1000 M (04/15/18 01:00) Acetaminophen (Tylenol) (04/15/18 01:00) Labs Laboratory Tests Test 04/14/18 23:50 White Blood Count 8.5 TH/MM3 Red Blood Count 4.45 MIL/MM3 Hemoglobin 14.2 GM/DL Hematocrit 41.1 % Mean Corpuscular Volume 92.2 FL Mean Corpuscular Hemoglobin 32.0 PG Mean Corpuscular Hemoglobin Concent 34.7 % Red Cell Distribution Width 12.5 % Platelet Count 343 TH/MM3 Mean Platelet Volume 8.0 FL Neutrophils (%) (Auto) 61.8 % Lymphocytes (%) (Auto) 25.9 % Monocytes (%) (Auto) 6.8 % Eosinophils (%) (Auto) 5.1 % Basophils (%) (Auto) 0.4 % Neutrophils # (Auto) 5.3 TH/MM3 Lymphocytes # (Auto) 2.2 TH/MM3 Monocytes # (Auto) 0.6 TH/MM3 Eosinophils # (Auto) 0.4 TH/MM3 Basophils # (Auto) 0.0 TH/MM3 CBC Comment DIFF FINAL Differential Comment Prothrombin Time 10.0 SEC Prothromb Time International Ratio 1.0 RATIO Activated Partial Thromboplast Time 19.7 SEC Blood Urea Nitrogen 11 MG/DL Creatinine 0.78 MG/DL Random Glucose 105 MG/DL Calcium Level 9.4 MG/DL Magnesium Level 2.1 MG/DL Sodium Level 141 MEQ/L Potassium Level 3.7 MEQ/L Chloride Level 107 MEQ/L Carbon Dioxide Level 25.6 MEQ/L Anion Gap 8 MEQ/L Estimat Glomerular Filtration Rate 73 ML/MIN Phenytoin (Dilantin) Level 9.9 MCG/ML MDM Medical Decision Making Medical Screen Exam Complete: Yes Emergency Medical Condition: Yes Interpretation(s) EKG: NSR 74bpm. Normal axis. TWI I, aVL, V5, V6. Differential Diagnosis ICH vs. CVA vs. tension headache vs. migraine headache Narrative Course 67yo F with recent large intraparenchymal hemorrhage here with new numbness that started in left side of face and now is bilateral. Pt also with diffuse headache that started [address] brain showed increase in the edema involving the left parietal lobe without mass effect or midline shift. Continued maturation of the intraparenchymal hemorrhage without any new or recurrent hemorrhage. Labs reviewed, no leukocytosis. H/H normal. BMP unremarkable. Phenytoin level 9.9. Pt given reglan, NS IVF and acetaminophen for headache. Pt is well appearing with normal vital signs and mental status. Will observe pt with new neuro symptoms and increasing edema in left parietal lobe. Discussed with Dr. Caraballo and accepted to his service. Diagnosis Primary Impression: Brain edema Admitting Information Admitting Physician Requests: Observation May Egan DO April 15, 2018 00:10
[2018-04-15 00:19] LABS: BICARBONATE 25.6 MEQ/L (21.0-32.0); CALCIUM 9.4 MG/DL (8.5-10.1); CREATININE 0.78 MG/DL (0.50-1.00); MAGNESIUM 2.1 MG/DL (1.5-2.5); PHENYTOIN (DILANTIN) 9.9 MCG/ML (10.0-20.0)
--- NOTE | 2018-04-15 00:30 | RADRPT ---
EXAM DATE/TIME: 04/15/2018 00:13 [place] COMPARISON: CT BRAIN W/O CONTRAST, March 31, 2018, 11:42. INDICATIONS : Cephalgia. History of intraprenchymal hemorrhage. RADIATION DOSE: 56.35 CTDIvol (mGy) MEDICAL HISTORY : Hypertension. Cerebrovascular disease. SURGICAL HISTORY : None. ENCOUNTER: Initial ACUITY: 1 day PAIN SCALE: 5/10 LOCATION: cranial TECHNIQUE: Multiple contiguous axial images were obtained of the head. Using automated exposure control and adj ustment of the mA and/or kV according to patient size, radiation dose was kept as low as reasonably a chievable to obtain optimal diagnostic quality images. DICOM format image data is available electro nically for review and comparison. FINDINGS: There is been continued maturation of the intraparenchymal hemorrhage involving the left parietal lob e. No acute hemorrhage observed. There has been an increase in the amount of edema within the left pa rietal lobe no mass effect or midline shift. Ventricles are normal in size and shape. Small chronic l acunar infarction involving the right basal ganglia. Calvarium is intact. Paranasal sinuses and masto id air cells are clear. CONCLUSION: 1. Increase in the edema involving the left parietal lobe without mass effect or midline shift. Flavio nued maturation of the intraparenchymal hemorrhage without new or recurrent hemorrhage. Manohar Lanza Jr., MD on April 15, 2018 at 0:25 Board Certified Radiologist. This report was verified electronically.
[2018-04-15] MEDS ORDERED: METOCLOPRAMIDE INJ 10 MG in SODIUM CHLORIDE 0.9% INJ 50 ML IV ONE (01:00)
[2018-04-15] MEDS ORDERED: ACETAMINOPHEN 325 MG TAB PO ONE (01:00)
[2018-04-15] MEDS ORDERED: SODIUM CHLOR 0.9% 1000 ML INJ 1,000 ML IV ONE (01:00)
[2018-04-15] MEDS: SODIUM CHLOR 0.9% 1000 ML INJ 1,000 ML IV SCH ×3 (01:21→20:44)
--- NOTE | 2018-04-15 02:07 | HHI.HP ---
[facility] Service [facility] Primary Care Physician Unknown Admission Diagnosis Facial numbness with worsening edema left parietal lobe Diagnoses: (1) Brain edema Diagnosis: Principal Chief Complaint: facial numbness Travel History International Travel<30 Days: No Contact w/Intl Traveler <30 Da: No Traveled to Known Affected Are: No History of Present Illness patient is a 67 y/o female with recent intracerebral bleed and history of breast cancer was sent back to ER from rehab because of facial numbness. she says that she started to have some numbness over the left face yesterday which gradually got worse and involved the right face as well. she says that she had some headache earlier. she denies any focal weakness of the extremities. she denies any other new complaints. Review of Systems Constitutional: DENIES: Fever, Weight loss, Chills, Night Sweats Eyes: DENIES: Blurred vision, Diplopia, Vision loss, Double Vision Ears, nose, mouth, throat: DENIES: Tinnitus, Vertigo, Throat pain, Epistaxis Respiratory: DENIES: Apneas, Cough, Snoring, Wheezing, Hemoptysis, Sputum production, Shortness of breath Cardiovascular: DENIES: Chest pain, Palpitations, Syncope, Dyspnea on Exertion , PND, Lower Extremity Edema, Orthopnea, Claudication Gastrointestinal: DENIES: Abdominal pain, Black stools, Bloody stools, Constipation, Diarrhea, Nausea, Vomiting, Difficulty Swallowing, Anorexia Genitourinary: DENIES: Urinary frequency, Urgency, Hematuria, Dysuria Musculoskeletal: DENIES: Joint pain, Muscle aches, Stiffness, Joint Swelling Integumentary: DENIES: Rash Neurologic: COMPLAINS OF: Headache, DENIES: Abnormal gait, Localized weakness, Paresthesias, Seizures, Speech Problems, Tremor, Poor Balance Psychiatric: DENIES: Anxiety, Confusion, Mood changes, Depression, Hallucinations, Agitation, Suicidal Ideation, Homicidal Ideation, Delusions facial numbness. Past Family Social History Past Medical History recent intracerebral bleed. breast cancer. Past Surgical History breast lumpectomy. Reported Medications Nicotine Patch (Nicotine) 7 Mg/24 Hr Patch 7 Mg T-DERMAL DAILY Gnp Vitamin B-1 (Thiamine HCl) 100 Mg Tab 100 Mg PO DAILY Keppra (Levetiracetam) 500 Mg Tab 500 Mg PO Q12HR Dilantin (Phenytoin Extended) 100 Mg Cap 200 Mg PO BID Diovan (Valsartan) 80 Mg Tab 80 Mg PO BID Reported Anastrozole 1 Mg Tab 1 Mg PO DAILY Valsartan 40 Mg Tab 40 Mg PO BID Nature-Throid (Thyroid) 97.5 Mg Tab 97.5 Mg PO DAILY Allergies: Coded Allergies: No Known Allergies (Verified Allergy, Mild, 04/14/18) Active Ordered Medications Inpatient Medications Acetaminophen (Tylenol) 650 mg ONCE ONCE PO Last administered on 04/15/18at 01: 05; Start 04/15/18 at 01:00; Stop 04/15/18 at 01:01; Status DC Anastrozole (Arimidex) 1 mg DAILY PO ; Start 04/15/18 at 09:00 Levetriacetam (Keppra) 500 mg Q12HR PO ; Start 04/15/18 at 09:00 Metoclopramide HCl 10 mg/Sodium Chloride 52 ml @ 104 mls/hr ONCE ONCE IV Last administered on 04/15/18at 01:04; Start 04/15/18 at 01:00; Stop 04/15/18 at 01:31; Status DC Patient Own Medication Thyroid (Nature-Throid) 97.5 MG Tab... DAILY@0600 PO ; Start 04/15/18 at 06:00; Status Future Hold Phenytoin (Dilantin) 200 mg BID PO ; Start 04/15/18 at 09:00 Sodium Chloride 1,000 ml @ 100 mls/hr Q10H IV Last administered on 04/15/18at 01:21; Start 04/15/18 at 01:15 Thiamine HCl (Vitamin B1) 100 mg DAILY PO ; Start 04/15/18 at 09:00 Valsartan (Diovan) 40 mg BID PO ; Start 04/15/18 at 09:00 Social History no smoking or drinking. Physical Exam Vital Signs Vital Signs Date Time Temp Pulse Resp B/P (MAP) Pulse Ox O2 Delivery O2 Flow Rate FiO2 04/15/18 01:10 70 16 110/71 (84) 99 Room Air 04/14/18 23:42 99 Room Air 04/14/18 23:33 97.8 78 16 130/70 (90) 98 Physical Exam GENERAL: This is a well-nourished, well-developed patient, in no apparent distress. SKIN: No rashes, ecchymoses or lesions. Cool and dry. HEAD: Atraumatic. Normocephalic. No temporal or scalp tenderness. EYES: Pupils equal round and reactive. Extraocular motions intact. No scleral icterus. No injection or drainage. ENT: Nose without bleeding, purulent drainage or septal hematoma. Throat without erythema, tonsillar hypertrophy or exudate. Uvula midline. Airway patent. NECK: Trachea midline. No JVD or lymphadenopathy. Supple, nontender, no meningeal signs. CARDIOVASCULAR: Regular rate and rhythm without murmurs, gallops, or rubs. RESPIRATORY: Clear to auscultation. Breath sounds equal bilaterally. No wheezes , rales, or rhonchi. GASTROINTESTINAL: Abdomen soft, non-tender, nondistended. No hepato-splenomegaly , or palpable masses. No guarding. MUSCULOSKELETAL: Extremities without clubbing, cyanosis, or edema. No joint tenderness, effusion, or edema noted. No calf tenderness. Negative Homans sign bilaterally. NEUROLOGICAL: Awake and alert. Cranial nerves II through XII intact. Motor and sensory grossly within normal limits. mild weakness of the right upper and lower extremity. Laboratory Laboratory Tests Test 04/14/18 23:50 White Blood Count 8.5 Red Blood Count 4.45 Hemoglobin 14.2 Hematocrit 41.1 Mean Corpuscular Volume 92.2 Mean Corpuscular Hemoglobin 32.0 Mean Corpuscular Hemoglobin Concent 34.7 Red Cell Distribution Width 12.5 Platelet Count 343 Mean Platelet Volume 8.0 Neutrophils (%) (Auto) 61.8 Lymphocytes (%) (Auto) 25.9 Monocytes (%) (Auto) 6.8 Eosinophils (%) (Auto) 5.1 Basophils (%) (Auto) 0.4 Neutrophils # (Auto) 5.3 Lymphocytes # (Auto) 2.2 Monocytes # (Auto) 0.6 Eosinophils # (Auto) 0.4 Basophils # (Auto) 0.0 CBC Comment DIFF FINAL Differential Comment Prothrombin Time 10.0 Prothromb Time International Ratio 1.0 Activated Partial Thromboplast Time 19.7 Blood Urea Nitrogen 11 Creatinine 0.78 Random Glucose 105 Calcium Level 9.4 Magnesium Level 2.1 Sodium Level 141 Potassium Level 3.7 Chloride Level 107 Carbon Dioxide Level 25.6 Anion Gap 8 Estimat Glomerular Filtration Rate 73 Phenytoin (Dilantin) Level 9.9 Result Diagram: 04/14/18 2350 04/14/18 2350 Imaging Last Impressions Head CT 04/14/18 0000 Signed Impressions: Service Date/Time: March 00:13 - CONCLUSION: 1. Increase in the edema involving the left parietal lobe without mass effect or midline shift. Continued maturation of the intraparenchymal hemorrhage without new or recurrent hemorrhage. MD Tereso Godoy Jr. VTE Risk Assessment Caprinmckenzie VTE Risk Assessment: Mod/High Risk (score >= 2) Caprini Risk Assessment Model Point Value = 1 Point Value = 2 Point Value = 3 Point Value = 5 Age 41-60 Minor surgery BMI > 25 kg/m2 Swollen legs Varicose veins or History of unexplained or recurrent spontaneous Oral contraceptives or hormone replacement Sepsis (< 1 month) Serious lung disease, including pneumonia (< 1 month) Abnormal pulmonary function Acute myocardial infarction Congestive heart failure (< 1 month) History of inflammatory bowel disease Medical patient at bed rest Age 61-74 Arthroscopic surgery Major open surgery (> 45 min) Laparoscopic surgery (> 45 min) Malignancy Confined to bed (> 72 hours) Immobilizing plaster cast Central venous access Age >= 75 History of VTE Family history of VTE Factor V Leiden Prothrombin [id number] Lupus anticoagulant Anticardiolipin antibodies Elevated serum homocysteine Heparin-induced thrombocytopenia Other congenital or acquired thrombophilia Stroke (< 1 month) Elective arthroplasty Hip, pelvis, or leg fracture Acute spinal cord injury (< 1 month) Prophylaxis Regimen Total Risk Factor Score Risk Level Prophylaxis Regimen 0-1 Low Early ambulation 2 Moderate Order ONE of the following: *Sequential Compression Device (SCD) *Heparin 5000 units SQ BID 3-4 Higher Order ONE of the following medications: *Heparin 5000 units SQ TID *Enoxaparin/Lovenox 40 mg SQ daily (WT < 150 kg, CrCl > 30 mL/min) *Enoxaparin/Lovenox 30 mg SQ daily (WT < 150 kg, CrCl > 10-29 mL/min) *Enoxaparin/Lovenox 30 mg SQ BID (WT < 150 kg, CrCl > 30 mL/min) AND/OR *Sequential Compression Device (SCD) 5 or more Highest Order ONE of the following medications: *Heparin 5000 units SQ TID (Preferred with Epidurals) *Enoxaparin/Lovenox 40 mg SQ daily (WT < 150 kg, CrCl > 30 mL/min) *Enoxaparin/Lovenox 30 mg SQ daily (WT < 150 kg, CrCl > 10-29 mL/min) *Enoxaparin/Lovenox 30 mg SQ BID (WT < 150 kg, CrCl > 30 mL/min) AND *Sequential Compression Device (SCD) Assessment and Plan Assessment and Plan A/P -facial numbness with recent intracerebral bleed and worsening edema of the left parietal lobe on CT without midline shift or new bleed neuro-checks- will consult neurosurgery. continue Dilantin and Keppra- consult PT/ST. was evaluated by neurosurgery last admission and was discharged to rehab after she was cleared,. -hypertension; resume home meds -history of breast cancer. -DVT prophylaxis with SCD's- no chemical prophylaxis due to recent cerebral bleed. Discussed Condition With ER physician and the patient. Myles Dillon MD April 15, 2018 02:07
[2018-04-15] MEDS ORDERED: THYROID 97.5 MG PO SCH (06:00)
[2018-04-15] MEDS ORDERED: PHENYTOIN SODIUM 100 MG CAP PO SCH (09:00)
[2018-04-15] MEDS: ANASTROZOLE 1 MG TAB PO SCH (11:13)
[2018-04-15] MEDS: THIAMINE HCL 100 MG TAB PO SCH (11:14)
[2018-04-15] MEDS: VALSARTAN 40 MG TAB PO SCH ×2 (11:14→20:43)
--- NOTE | 2018-04-15 11:57 | HHI.NSPN ---
History Interval History 67-year-old right-handed female with an acute onset of speech arrest and right hemiplegia. She was brought in as a stroke alert and a CT scan of the head reveals a left posterior frontal parietal lobe hemorrhage 6 cm x 3 cm without any midline shift. She was also noted to have focal motor seizures on the right side. She was administered Ativan and also loaded with Keppra. Neurosurgery consultation requested for the cerebral hemorrhage. Patient is aphasic with dysarthric speech and does not interact much or follow any complex commands. 04/01/18: Pt awake and alert. Complains of frontal headache and nausea. Weakness right side. Returned from MRI. 04/02/18: Pt awake and alert. Complains of headache. Pt reportedly had several seizures yesterday. She initially was weaker on the right side after the seizures but has had some improvement but is still weaker than when she presented. She has mild aphasia. She has some anxiety/agitation this morning. 04/03/18: Pt awake and alert. She was attempting to get oob to use bathroom reminded she needs to ask for help. She has headaches but no n/v. She follows simple commands. She has a right hemiparesis. 04/04/18: Pt awake and alert. Complains of intermittent headaches. States strength in RUE improving. Speech improving. 04/05/18: Pt awake and alert. Looking forward to rehab. Intermittent headaches improving. Right upper extremity weakness. Speech with mild aphasia. 04/06/18: Pt awake and alert. Denies headaches, nausea or vomiting. RUE weakness staple. Mild aphasia. 04/07/18: Pt awake and alert. Denies headaches, nausea, vomiting. RUE weakness stable. Pt has significant difficulty with coordination movements such as feeding herself. Mild aphasia. 04/15/18: Patient was [facility] to [facility] a week ago and relates that yesterday noticed some numbness in the face although has not been taking her Dilantin as prescribed due to side effects. She presented to the emergency room a CT scan of the head reveals a resolving left parietal lobe hemorrhage with surrounding anticipated encephalomalacia without any midline shift. She is more conversive and her aphasia is improving although still has weakness in the right side upper extremity more than lower extremity. Review of Systems General: Negative for: fever, chills, insomnia Respiratory: Negative for: shortness of breath, cough, sputum Cardiovascular: Negative for: chest pain, palpitations, orthopnea Gastrointestinal: Negative for: nausea, vomitting, diarrhea, constipation Genitourinary: Negative for: urinary burning, urinary frequency, urinary urgency Exam Results Vital Signs Date Time Temp Pulse Resp B/P (MAP) Pulse Ox O2 Delivery O2 Flow Rate FiO2 04/15/18 08:28 98.1 78 18 119/70 (86) 95 04/15/18 01:10 Room Air Intake and Output 04/15/18 04/15/18 04/16/18 08:00 16:00 00:00 Intake Total 1102 ml Balance 1102 ml Physical Examination GENERAL: Well-nourished, well-developed patient in no acute distress. SKIN: Warm and dry. HEAD: Normocephalic and atraumatic. EYES: No scleral icterus. No injection or drainage. ENT: No nasal drainage noted. Mucous membranes pink. Airway patent. NECK: Supple, trachea midline. No JVD. CARDIOVASCULAR: Regular rate and rhythm without murmurs, gallops, or rubs. RESPIRATORY: Breath sounds equal bilaterally. No accessory muscle use. GASTROINTESTINAL: Abdomen soft, non-tender, nondistended. EXTREMITIES: No cyanosis or edema. BACK: Nontender without obvious deformity. No CVA tenderness. NEUROLOGICAL: Awake and alert. Pupils Equal and reactive. EOMI. Face with slight right asymmetry. Tongue midline. Right hemiparesis 3/5 and left side 5/5 , normal speech. Normal comprehension. DTR's symmetric. Negative Negron's reflex. Negative Babinski. Lab, Micro, Other Results Last Impressions Head CT 04/14/18 0000 Signed Impressions: Service Date/Time: March 00:13 - CONCLUSION: 1. Increase in the edema involving the left parietal lobe without mass effect or midline shift. Continued maturation of the intraparenchymal hemorrhage without new or recurrent hemorrhage. Manohar Lanza Jr., MD Laboratory Tests Test 04/14/18 23:50 White Blood Count 8.5 Red Blood Count 4.45 Hemoglobin 14.2 Hematocrit 41.1 Mean Corpuscular Volume 92.2 Mean Corpuscular Hemoglobin 32.0 Mean Corpuscular Hemoglobin Concent 34.7 Red Cell Distribution Width 12.5 Platelet Count 343 Mean Platelet Volume 8.0 Neutrophils (%) (Auto) 61.8 Lymphocytes (%) (Auto) 25.9 Monocytes (%) (Auto) 6.8 Eosinophils (%) (Auto) 5.1 Basophils (%) (Auto) 0.4 Neutrophils # (Auto) 5.3 Lymphocytes # (Auto) 2.2 Monocytes # (Auto) 0.6 Eosinophils # (Auto) 0.4 Basophils # (Auto) 0.0 CBC Comment DIFF FINAL Differential Comment Prothrombin Time 10.0 Prothromb Time International Ratio 1.0 Activated Partial Thromboplast Time 19.7 Blood Urea Nitrogen 11 Creatinine 0.78 Random Glucose 105 Calcium Level 9.4 Magnesium Level 2.1 Sodium Level 141 Potassium Level 3.7 Chloride Level 107 Carbon Dioxide Level 25.6 Anion Gap 8 Estimat Glomerular Filtration Rate 73 Phenytoin (Dilantin) Level 9.9 Medical Decision Making Impression and Plan 67-year-old lady with a two-week history of left parietal lobe hemorrhage associated focal seizures. Follow-up CT scan of the head shows resolving cerebral hemorrhage without any midline shift. No neurosurgical intervention is needed. Follow-up with neurology along with seizure management. Neurosurgery service will sign off. Laci Raymundo MD April 15, 2018 11:57
[2018-04-15] MEDS: levETIRAcetam 500 MG TAB PO SCH ×2 (14:00→20:43)
[2018-04-15] MEDS ORDERED: COMMODE 3-IN-11 MIS (14:39)
[2018-04-15] MEDS ORDERED: WALKER/ADULT/FO1 MIS (14:39)
[2018-04-15] MEDS ORDERED: NICOTINE 21 MG/24 HR PATCH T-DERMAL ONE (14:45)
--- NOTE | 2018-04-15 14:52 | HHI.FF ---
Face to Face Verification Diagnosis: (1) Breast CA (2) Acute left intraparenchymal hemorrhage (3) Brain edema (4) Right hemiplegia Physical Therapy Order: Evaluate and Treat, Improve ambulation, Strength and gait training Occupational Therapy Order: Evaluate and Treat, Improve ADL, Gross motor coordination, Fine motor coordination I have seen patient Pat Cleaning on 04/15/18. My clinical findings support the need for the requested home health care services because: Ltd mobility - disease progression Deconditioned w/ increased weakness Limited ability to care for self High risk of falls I certify that my clinical findings support that this patient is homebound because: Unsteady gait/balance Unsafe to leave home unassisted Unable to use public transportation Germán Tai MD April 15, 2018 14:52
[2018-04-16 03:30] VITALS: BP 109/67; PULSE 67; RESP 16; TEMP 97.9; O2SAT 96
[2018-04-16] MEDS: SODIUM CHLOR 0.9% 1000 ML INJ 1,000 ML IV SCH (06:50)
[2018-04-16 06:58] VITALS: BP 125/79; PULSE 73; RESP 18; TEMP 97.8; O2SAT 97
[2018-04-16] MEDS ORDERED: REMOVE OLD PATCH T-DERMAL SCH (09:00)
[2018-04-16] MEDS ORDERED: NICOTINE 21 MG/24 HR PATCH T-DERMAL SCH (09:00)
[2018-04-16] MEDS: VALSARTAN 40 MG TAB PO SCH (09:53)
[2018-04-16] MEDS: THIAMINE HCL 100 MG TAB PO SCH (09:53)
[2018-04-16] MEDS: ANASTROZOLE 1 MG TAB PO SCH (09:54)
[2018-04-16 11:27] VITALS: BP 127/85; PULSE 76; RESP 18; TEMP 97.9; O2SAT 100
--- NOTE | 2018-04-16 11:54 | EKG ---
Date Performed: 04/14/2018 Time Performed: 23:43:29 PTAGE: 67 years EKG: Sinus rhythm POSSIBLE RIGHT VENTRICULAR CONDUCTION DELAY NONSPECIFIC T-WAVE ABNORMALITY BORDERLINE ECG NO PREVIOUS TRACING DOCTOR: Rustam Pope Interpretating Date/Time 04/16/2018 11:49:45
[2018-04-16] MEDS ORDERED: DILA100C PO (14:03)
[2018-04-16] MEDS ORDERED: VALS1TAB63 PO (14:06)
[2018-04-16] MEDS ORDERED: NICO7DIS2 T-DERMAL (14:06)
[2018-04-16] MEDS ORDERED: NATU97.5 PO (14:06)
[2018-04-16] MEDS ORDERED: ANAS1TAB PO (14:06)
--- NOTE | 2018-04-16 14:34 | HHI.DS ---
Discharge Summary Admission Date April 15, 2018 at 01:17 Discharge Date: April 16, 2018 Admitting Diagnosis Facial numbness with worsening edema left parietal lobe (1) Brain edema ICD Code: G93.6 - Cerebral edema Diagnosis: Principal Status: Acute Procedures None Brief History - From Admission patient is a 67 y/o female with recent intracerebral bleed and history of breast cancer was sent back to ER from rehab because of facial numbness. she says that she started to have some numbness over the left face yesterday which gradually got worse and involved the right face as well. she says that she had some headache earlier. she denies any focal weakness of the extremities. she denies any other new complaints. CBC/BMP: 04/14/18 2350 04/14/18 2350 Significant Findings Laboratory Tests Test 04/14/18 23:50 Eosinophils (%) (Auto) 5.1 % (0.0-4.0) Activated Partial Thromboplast Time 19.7 SEC (24.3-30.1) Estimat Glomerular Filtration Rate 73 ML/MIN (>89) Phenytoin (Dilantin) Level 9.9 MCG/ML (10.0-20.0) Hospital Course Mrs. Cleaning is a 67 year old female. She was admitted here secondary to headache. Imaging showed worsening edema in the left parietal lobe. She has a subacute history of intracranial bleed and she was discharged to a rehab facility for physical therapy. She had been doing well with physical therapy. Neurosurgical evaluation did not recommend any acute treatment such as steroids or procedures. Patient's symptoms are improving. Alternate etiology for her symptoms may be related to seizure medications. She says she has been lethargic and she suspects her seizure treatments as an etiology. She had been on phenytoin and Keppra. Phenytoin was placed on hold and after Keppra was given patient had a reaction. She was lethargic most of this morning after receiving Keppra last night. Keppra is now on hold. Phenytoin is being resumed at discharge. She is asked to follow up with neurology in regards to optimizing her antiseizure treatments. Medically clear and stable for discharge. She will discharge home with home health at this point as she has been evaluated by physical therapy and occupational therapy and is found to be appropriate for home discharge. Pt Condition on Discharge: Stable Discharge Disposition: Disch w/ Home Health Serv Discharge Time: <= 30 minutes Discharge Instructions DIET: Follow Instructions for: As Tolerated, No Restrictions Activities you can perform: Regular-No Restrictions Follow up Referrals: PCP Follow-up - 2 Weeks New Medications: Commode 3-in-1 (Commode 3-in-1) 1 Mis Mis EA .XX DIRECTED, #1 0 Refills Walker/Adult/Folding (Walker/Adult/Folding) 1 Mis Mis EA .XX DIRECTED, #1 0 Refills Continued Medications: Anastrozole (Anastrozole) 1 Mg Tab 1 MG PO DAILY for Breast Cancer, #30 TAB 0 Refills (This prescription has been renewed) Nicotine Patch (Nicotine Patch) 7 Mg/24 Hr Patch 7 MG T-DERMAL DAILY for Smoking Cessation, #30 PATCH 0 Refills (This prescription has been renewed) Phenytoin Extended (Dilantin) 100 Mg Cap 200 MG PO BID for Control Seizures, #60 CAP (This prescription has been renewed) Thyroid (Nature-Throid) 97.5 Mg Tab 97.5 MG PO DAILY for Thyroid Supplement, #30 TAB 0 Refills (This prescription has been renewed) Valsartan (Valsartan) 40 Mg Tab 40 MG PO BID for Blood Pressure Management, #60 TAB 0 Refills (This prescription has been renewed) Discontinued Medications: Levetiracetam (Keppra) 500 Mg Tab 500 MG PO Q12HR for Control Seizures, #60 TAB Thiamine HCl (Gnp Vitamin B-1) 100 Mg Tab 100 MG PO DAILY for Alcohol Detox, #30 TAB Valsartan (Diovan) 80 Mg Tab 80 MG PO BID for Blood Pressure Management, #60 TAB Germán Tai MD April 16, 2018 14:34
== END 2018-04-16 15:33 | disposition home or self-care (01) ==
LOC: NEPC 23:32 → NEDA 04-15 01:17 → NEPHCDU 04-15 02:02
PROVIDERS: ADMIT Hospitalist; ATTEND Hospitalist
DX: G93.6 Cerebral edema (principal); I61.1 Nontraumatic intracerebral hemorrhage in hemisphere, cortical; G81.91 Hemiplegia, unspecified affecting right dominant side; R47.01 Aphasia; R47.1 Dysarthria and anarthria; I10 Essential (primary) hypertension; E03.9 Hypothyroidism, unspecified; R51 Headache; R56.9 Unspecified convulsions; R11.0 Nausea; E05.00 Thyrotoxicosis with diffuse goiter without thyrotoxic crisis or storm; F10.10 Alcohol abuse, uncomplicated; F32.9 Major depressive disorder, single episode, unspecified; Z85.3 Personal history of malignant neoplasm of breast
CPT/HCPCS: 70450; 80048; 80185; 83735; 85025; 85610; 85730; 92522; 93005; 96361; 96374; 97163; 99285; G0378; G8987; G8988; G8999; G9158; G9186; J2765; J7030

== ENCOUNTER 2018-06-20 16:05 | Inpatient (IN) ==
--- NOTE | 2018-06-20 16:15 | ED ---
HPI General Chief complaint: Stroke Alert Stated complaint: Poss Stroke Time Seen by Provider: 06/20/18 16:05 Source: patient, RN notes reviewed and old records reviewed Mode of arrival: ambulatory History of Present Illness HPI narrative: 68yF presenting with stroke-like symptoms. The patient states that approximately 10 minutes prior to arrival she began to have sudden-onset right sided facial droop, slurred speech, and weakness in her right arm and leg. 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 History and ROS difficult to obtain due to aphasia. Related Data Allergies Allergy/AdvReac Type Severity Reaction Status Date / Time No Known Allergies Allergy Unverified 06/20/18 16:48 Review of Systems ROS Unobtainable unobtainable due to mental status PMFSH History History Provided By: Patient Medical History Medical History Breast cancer (Acute) Hypertension (Acute) Stroke (Acute) Social History Social History Substance History: No History of Abuse Smoking Status: Current every day smoker Tobacco Type: E-Cigarettes How Often Do You Have a Drink Containing Alcohol: 4 or more times a week Recent Travel in [facility] within the Last 8 Weeks: No Recent Out of Country Travel within the Last 8 Weeks: No Exam Const General: healthy appearing and no acute distress HENDE Head: normocephalic and atraumatic Eyes General: appearance normal, both eyes and all related structures Pupils: PERRL Chest Chest: normal inspection of the chest Resp Effort & Inspection: normal respiratory effort Auscultation: no rhonchi and no wheezes Cardio Rate: regular rate Rhythm: regular rhythm GI Inspection: non-distended Palpation: soft and nontender Skin General: no rashes or lesions noted Neuro Other: Please see NIHSS as documented on arrival. (+) right sided facial droop, speech minimally slurred, (+) difficulty with word finding. Able to name two objects but cannot tell me the year, does know that she's in the hospital. Motor strength 5/5 in LUE/ LLE, 3/5 RUE, 2/5 RLE. Diminished sensation to RLE. (+) full-body tremor. Psych Affect: normal affect Course Initial Documented Vital Signs Pulse Oximetry 98 0722/18 16:09 Last Documented Vital Signs Temperature 97.9 F 06/20/18 16:37 Pulse Rate 85 06/20/18 17:31 Respiratory Rate 18 06/20/18 17:31 Blood Pressure 150/88 H 06/20/18 17:31 Pulse Oximetry 99 06/20/18 17:31 NIH Stroke Scale NIHSS Time Completed NIHSS Time Completed: 16:05 NIH Stroke Scale Level of Consciousness: 0-Alert Orientation Questions: 1-One task correct Responds to Commands: 0-Both tasks correct Gaze Eye Movement: 0-Horizontal movement WNL Visual Martinez: 0-No visual field defect Facial Movement: 2-Partial facial palsy Motor Functions Arm LEFT: 0-No drift Motor Functions Arm RIGHT: 2-Falls before 10 seconds Motor Functions Leg LEFT: 0-No drift Motor Functions Leg RIGHT: 1-Drift before 5 seconds Limb Ataxia: 0-No ataxia Sensory Loss: 1-Mild sensory loss Best Language: 1-Mild aphasia Articulation: 1-Mild dysarthia Extinction or Inattention Sensory: 0-Absent Total: 9 Medical Decision Making MDM Narrative Medical decision making narrative: Assessment: 68yF presenting with stroke-like symptoms Plan: Stroke alert called on arrival; patient is NOT a candidate for t-PA as she has a history of hemorrhagic CVA Case discussed with Dr. Majano of neurology CTH/ CTA head and neck Labs EKG and monitor This patient cannot go home as she has signs and symptoms concerning for acute CVA. She will need further workup. I discussed this with the patient and her grandson, who understand. Case discussed with Dr. Garcia. Medical Records Medical records reviewed: Yes I reviewed the patient's medical records. Lab Data Lab results reviewed: Yes I reviewed the patient's lab results. Result diagrams: 06/20/18 16:10 Lab Results 06/20/18 06/20/18 06/20/18 Range/Units 16:08 16:10 16:10 WBC 10.1 (4.0-11.0) th/mm3 RBC 4.64 (4.00-5.30) mil/mm3 Hgb 14.8 (11.6-15.3) gm/dL POC Hgb (Calc) (11.6-15.3) g/dL Hct 43.0 (35.0-46.0) % POC Hct (35-46.0) % MCV 92.8 (80.0-100.0) fL MCH 31.9 (27.0-34.0) pg MCHC 34.4 (32.0-36.0) % RDW 13.4 (11.6-17.2) % Plt Count 259 (150-450) th/mm3 MPV 8.1 (7.0-11.0) fL Neut % (Auto) 50.3 (16.0-70.0) % Lymph % (Auto) 38.6 (9.0-44.0) % Pine % (Auto) 7.5 (0.0-8.0) % Eos % (Auto) 2.8 (0.0-4.0) % Baso % (Auto) 0.8 (0.0-2.0) % Neut # (Auto) 5.1 (1.8-7.7) th/mm3 Lymph # (Auto) 3.9 (1.0-4.8) th/mm3 Pine # (Auto) 0.8 (0.0-0.9) th/mm3 Eos # (Auto) 0.3 (0.0-0.4) th/mm3 Baso # (Auto) 0.1 (0.0-0.2) th/mm3 WBC Differential . Differential Comment Auto diff final PT 10.0 (9.8-11.6) sec INR 1.0 Ratio APTT 17.9 L (24.3-30.1) sec Fibrinogen 273 (227-377) mg/dL POC Sodium (137-144) mmol/L POC Potassium (3.6-5.0) mmol/L POC Chloride (102-111) mmol/L POC BUN (5-21) mg/dL POC Creatinine (0.6-1.3) mg/dL POC Glucose 111 H (68-110) mg/dl Total Creatine Kinase (26-192) U/L Troponin I (0.02-0.05) ng/mL Urine Color (Yellw/Straw) Urine Clarity (Clear) Urine pH (5.0-8.5) Ur Specific [place] (1.002-1.035) Urine Protein (Neg-Trace) mg/dL Urine Glucose (UA) (Negative) mg/dL Urine Ketones (Negative) mg/dL Urine Occult Blood (Negative) Urine Nitrate (Negative) Urine Bilirubin (Negative) Urine Urobilinogen (Less than 2) mg/dL Ur Leukocyte Esterase (Negative) Urine RBC (0-3) /hpf Urine WBC (0-5) /hpf Micro UA Comment Urine Culture Comments 06/20/18 06/20/18 Range/Units 16:10 16:49 WBC (4.0-11.0) th/mm3 RBC (4.00-5.30) mil/mm3 Hgb (11.6-15.3) gm/dL POC Hgb (Calc) 14.6 (11.6-15.3) g/dL Hct (35.0-46.0) % POC Hct 43.0 (35-46.0) % MCV (80.0-100.0) fL MCH (27.0-34.0) pg MCHC (32.0-36.0) % RDW (11.6-17.2) % Plt Count (150-450) th/mm3 MPV (7.0-11.0) fL Neut % (Auto) (16.0-70.0) % Lymph % (Auto) (9.0-44.0) % Pine % (Auto) (0.0-8.0) % Eos % (Auto) (0.0-4.0) % Baso % (Auto) (0.0-2.0) % Neut # (Auto) (1.8-7.7) th/mm3 Lymph # (Auto) (1.0-4.8) th/mm3 Pine # (Auto) (0.0-0.9) th/mm3 Eos # (Auto) (0.0-0.4) th/mm3 Baso # (Auto) (0.0-0.2) th/mm3 WBC Differential Differential Comment PT (9.8-11.6) sec INR Ratio APTT (24.3-30.1) sec Fibrinogen (227-377) mg/dL POC Sodium 136 L (137-144) mmol/L POC Potassium 3.5 L (3.6-5.0) mmol/L POC Chloride 106 (102-111) mmol/L POC BUN 17 (5-21) mg/dL POC Creatinine 0.8 (0.6-1.3) mg/dL POC Glucose 113 H (68-110) mg/dl Total Creatine Kinase 70 (26-192) U/L Troponin I Less than 0.02 L (0.02-0.05) ng/mL Urine Color Yellow (Yellw/Straw) Urine Clarity Clear (Clear) Urine pH 5.0 (5.0-8.5) Ur Specific [place] 1.033 (1.002-1.035) Urine Protein Negative (Neg-Trace) mg/dL Urine Glucose (UA) Negative (Negative) mg/dL Urine Ketones Trace H (Negative) mg/dL Urine Occult Blood Negative (Negative) Urine Nitrate Negative (Negative) Urine Bilirubin Negative (Negative) Urine Urobilinogen Less than 2 (Less than 2) mg/dL Ur Leukocyte Esterase Negative (Negative) Urine RBC Less than 1 (0-3) /hpf Urine WBC 1 (0-5) /hpf Micro UA Comment Cath-culture not ind Urine Culture Comments Cath-cult not ind Imaging Data Radiologist's impression: Chest X-Ray 06/20/18 16:05 CONCLUSION: Cardiomegaly. Basilar dependent atelectasis in the lungs. No effusion or pneumothorax. Head CT 06/20/18 16:05 CONCLUSION: 1. Remote infarct left parietal lobe. No acute findings. Report was called by [ Dr. Zepeda to Dr. Randhawa at 4:26 PM. Head CTA 06/20/18 16:05 CONCLUSION: 1. Negative CTA brain. Neck CTA 06/20/18 16:05 CONCLUSION: 1. Negative CTA neck. No significant change from March 31, 2018 Discharge Plan Discharge Disposition Patient Disposition: 30 Still Patient Discharge Condition Condition: Stable Discharge Details Diagnosis: Acute cerebrovascular accident (CVA) Physicians Team ED Provider: Lizzeth Erwin Primary Care Provider: UNKNOWN, Discharge Interventions Interventions: Vital Signs Last Done: 06/20/18 17:31 Status ED Status: With Doctor
--- NOTE | 2018-06-20 16:29 | CT ---
EXAM DATE: 06/20/2018 4:18 PM EDT AGE/SEX: 68 years / Female INDICATIONS: Stroke alert, right sided weakness and right sided facial droop. CLINICAL DATA: This is the patient's initial encounter. Patient reports that signs and symptoms have been present for 1 day and indicates a pain score of Nonresponsive. MEDICAL/SURGICAL HISTORY: Non-responsive. Non-responsive. RADIATION DOSE: 39.54 CTDI (mGy) [place] [facility] [place]. . TECHNIQUE: CT of the head without contrast. Using automated exposure control and adjustment of the mA and/or kV according to patient size, radiation dose was kept as low as reasonably achievable to ob tain optimal diagnostic quality images. DICOM format image data is available electronically for revi ew and comparison. FINDINGS: Cerebrum: Remote infarct left parietal lobe. No acute hemorrhage, mass effect or shift. Posterior Fossa: The cerebellum and brainstem are intact. The 4th ventricle is midline. The cerebe llopontine angle is unremarkable. Extracranial: The visualized portion of the orbits is intact. Skull: The calvaria is intact. No evidence of skull fracture. CONCLUSION: 1. Remote infarct left parietal lobe. No acute findings. Report was called by [ Dr. Zepeda to Dr. Randhawa at 4:26 PM. Electronically signed by: Luigi Zepeda MD 06/20/2018 4:28 PM EDT
[2018-06-20 16:39] LABS: Baso # (Auto) 0.1 th/mm3 (0.0-0.2); Baso % (Auto) 0.8 % (0.0-2.0); Eos # (Auto) 0.3 th/mm3 (0.0-0.4); Eos % (Auto) 2.8 % (0.0-4.0); Hemoglobin 14.8 gm/dL (11.6-15.3); Lymph # (Auto) 3.9 th/mm3 (1.0-4.8); Lymph % (Auto) 38.6 % (9.0-44.0); Mean Corpuscular HGB Conc 34.4 % (32.0-36.0); Mean Corpuscular Hemoglobin 31.9 pg (27.0-34.0); Mean Corpuscular Volume 92.8 fL (80.0-100.0); Mean Platelet Volume 8.1 fL (7.0-11.0); Mono # (Auto) 0.8 th/mm3 (0.0-0.9); Mono % (Auto) 7.5 % (0.0-8.0); Neut # (Auto) 5.1 th/mm3 (1.8-7.7); Neut % (Auto) 50.3 % (16.0-70.0); Platelet Count 259 th/mm3 (150-450); Red Blood Count 4.64 mil/mm3 (4.00-5.30); Red Cell Distribution Width 13.4 % (11.6-17.2); White Blood Count 10.1 th/mm3 (4.0-11.0)
--- NOTE | 2018-06-20 16:40 | CT ---
EXAM DATE: 06/20/2018 4:30 PM EDT AGE/SEX: 68 years / Female INDICATIONS: Stroke alert, right sided weakness and right sided facial droop. CLINICAL DATA: This is the patient's initial encounter. Patient reports that signs and symptoms have been present for 1 day and indicates a pain score of Nonresponsive. MEDICAL/SURGICAL HISTORY: Non-responsive. Non-responsive. RADIATION DOSE: 26.75 CTDI (mGy) ; Combined studies COMPARISON: No prior exams available for comparison. TECHNIQUE: Volumetric scanning was performed using a multi-row detector CT scanner during bolus infu yudith of 99 ml Visipaque 320 (iodixanol) nonionic water-soluble contrast as a cumulative dose for mul tiple exams. The data was post processed with a variety of visualization algorithms including full volume maximum intensity projection, multi-planar sliding thin slab reformation, curved planar reform ation, and surface rendering techniques. Using automated exposure control and adjustment of the mA a nd/or kV according to patient size, radiation dose was kept as low as reasonably achievable to obtain optimal diagnostic quality images. DICOM format image data is available electronically for review a nd comparison. FINDINGS: There is excellent visualization of the major intracranial arteries out to the second-order branch ve ssels. There is no evidence for aneurysm, vessel truncation or stenosis, and no evidence for vascula r malformation. I CONCLUSION: 1. Negative CTA brain. Electronically signed by: Lugii Zepeda MD 06/20/2018 4:39 PM EDT
[2018-06-20] MEDS: Sod Chloride 0.9% Inj 1,000 ML IV.CONT SCH (16:49)
--- NOTE | 2018-06-20 16:51 | XR ---
EXAM DATE: 06/20/2018 4:43 PM EDT AGE/SEX: 68 years / Female INDICATIONS: Stroke alert. CLINICAL DATA: This is the patient's initial encounter. Patient reports that signs and symptoms have been present for 1 day and indicates a pain score of Nonresponsive. MEDICAL/SURGICAL HISTORY: Non-responsive. Non-responsive. [place]PAR[place] [facility] [place]. . FINDINGS: Heart size enlarged. Mild basilar and dependent atelectasis. No effusion or pneumothorax. CONCLUSION: Cardiomegaly. Basilar dependent atelectasis in the lungs. No effusion or pneumothorax. Electronically signed by: Luigi Zepeda MD 06/20/2018 4:50 PM EDT
[2018-06-20] MEDS ORDERED: Labetalol HCl Inj 100 MG/20 ML Vial IV.PUSH ONE (16:53)
[2018-06-20 17:01] LABS: Activated Partial Thrombo Time 17.9 sec (24.3-30.1)
--- NOTE | 2018-06-20 17:04 | CT ---
EXAM DATE: 06/20/2018 4:48 PM EDT AGE/SEX: 68 years / Female INDICATIONS: Stroke alert, right sided weakness and right sided facial droop. CLINICAL DATA: This is the patient's initial encounter. Patient reports that signs and symptoms have been present for 1 day and indicates a pain score of Nonresponsive. MEDICAL/SURGICAL HISTORY: Non-responsive. Non-responsive. RADIATION DOSE: 26.75 CTDI (mGy) ; Combined studies COMPARISON: [facility] – [place], CTA CAROTID ARTERIES W 3D RECON, 03/31/2018. . TECHNIQUE: Volumetric scanning was performed using a multirow detector CT scanner during bolus infus ion of 99 ml Visipaque 320 (iodixanol) nonionic water-soluble contrast as a cumulative dose for mult iple exams. The data was postprocessed with a variety of visualization algorithms including full-vo lume maximum intensity projection, multiplanar sliding thin-slab reformation, curved-planar reformati on, and surface-rendering techniques. Using automated exposure control and adjustment of the mA and/ or kV according to patient size, radiation dose was kept as low as reasonably achievable to obtain op timal diagnostic quality images. DICOM format image data is available electronically for review and comparison. Elevated flow velocities and ICA/CCA ratios have been found to correlate with increased degrees of ve ssel stenosis, calculated as percentage of diameter relative to a normal segment of distal ICA/CCA. FINDINGS: Grade vessel origins are patent. No stenosis in the common carotid or internal carotid arteries bilat erally. No significant plaque formation. Both vertebral arteries are patent in the neck. No aneurysm or dissection. CONCLUSION: 1. Negative CTA neck. No significant change from March 31, 2018 Electronically signed by: Luigi Zepeda MD 06/20/2018 5:03 PM EDT
[2018-06-20 17:13] LABS: Bilirubin,Urine Negative (Negative); Glucose,Urine (UA) Negative (Negative); Leukocyte Esterase,Urine Negative (Negative); Nitrite,Urine Negative (Negative); Specific Gravity,Urine 1.033 (1.002-1.035)
[2018-06-20 17:18] LABS: Clarity,Urine Clear (Clear); Color,Urine Yellow (Yellw/Straw)
[2018-06-20 17:26] LABS: Creatine Kinase 70 U/L (26-192)
[2018-06-20] MEDS ORDERED: Dextrose 50% in Water 50 ML Vial IV.PUSH PRN (18:16)
--- NOTE | 2018-06-20 18:29 | P.HPIM ---
History of Present Illness Primary Care Physician: UNKNOWN Chief Complaint: Right-sided facial droop and weakness along with difficulty with speech History of Present Illness: 68-year-old white female with a history of hemorrhagic stroke, breast cancer, hypothyroidism, hypertension presents to the emergency room with acute onset of right facial droop right-sided weakness along with difficulty with speech. At this time patient has expressive aphasia and was difficult to get much more understandable significant history. All this was discussed with the ED physician and reviewing her medical records. Estimated Total Length of Stay (Days): 3 Plans for Post Hospital Care: Not yet determined Review of Systems other (Unable to obtain due to expressive aphasia) PMFSH - History History Provided By: Patient, Medical Record - Medical History Medical History: Medical History (Last Updated 06/20/18 @ 18:23 by Valeri Garcia MD) Breast cancer Hemorrhagic cerebrovascular accident (CVA) Hypertension Stroke - Surgical History Surgical History: Surgical History (Last Updated 06/20/18 @ 18:23 by Valeri Garcia MD) S/P breast lumpectomy - Family History Family History: Family History (Last Updated 06/20/18 @ 18:25 by Valeri Garcia MD) Other No significant family history - Tobacco History Tobacco Use In Past 30 Days: Yes Smoking Status: Current every day smoker Tobacco Type: E-Cigarettes - Alcohol History How Often Do You Have a Drink Containing Alcohol: 4 or more times a week - Substance Use History Substance History: No History of Abuse - Travel History Recent Travel in the [place] Within the Last 8 Weeks: No Recent Travel Out of the Country Within the Last 8 Weeks: No - Immunization History Tetanus Immunization: Unsure Hx Influenza Vaccine This Season: Yes Medications and Allergies Active Medications: Active Medications Sodium Chloride (Ns Inj) 1,000 mls @ 70 mls/hr IV.CONT .[id number] EWA Last Admin: 06/20/18 16:49 Dose: 70 mls/hr Allergies Allergy/AdvReac Type Severity Reaction Status Date / Time No Known Allergies Allergy Unverified 06/20/18 16:48 Home Medications Medication Instructions Recorded Confirmed Type amlodipine 5 mg PO DAILY 06/20/18 06/20/18 History valsartan 40 mg PO BID 06/20/18 06/20/18 History Exam Vital signs: Vital Signs 06/20/18 16:09 06/20/18 16:16 06/20/18 16:37 Temperature 97.9 F Pulse Rate 103 H 99 H Respiratory Rate 18 18 Blood Pressure 155/71 H 163/98 H Pulse Oximetry 98 99 97 06/20/18 16:48 06/20/18 17:23 06/20/18 17:31 Temperature Pulse Rate 94 H 85 85 Respiratory Rate 18 18 18 Blood Pressure 163/98 H 96/38 L 150/88 H Pulse Oximetry 97 95 99 06/20/18 17:58 Temperature Pulse Rate 87 Respiratory Rate 18 Blood Pressure 115/52 L Pulse Oximetry 97 Narrative: GENERAL: Well-nourished well-developed white female with expressive aphasia and anxious with repetitive tics over the left side oropharynx benign SKIN: Warm and dry. HEAD: Atraumatic. Normocephalic. EYES: Pupils equal and round. No scleral icterus. No injection or drainage. ENT: No nasal bleeding or discharge. Mucous membranes pink and moist. NECK: Trachea midline. No JVD. CARDIOVASCULAR: Regular rate and rhythm. RESPIRATORY: No accessory muscle use. Clear to auscultation. Breath sounds equal bilaterally. GASTROINTESTINAL: Abdomen soft, non-tender, nondistended. Hepatic and splenic margins not palpable. MUSCULOSKELETAL: Extremities without clubbing, cyanosis, or edema. No obvious deformities. NEUROLOGICAL: Awake and alert to person place time. No obvious cranial nerve deficits. 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 Mild right facial droop PSYCHIATRIC: Anxious mood and affect; Results - Labs CBC & Chem 7: 06/20/18 16:10 Labs: Short CBC 06/20/18 Range/Units 16:10 WBC 10.1 (4.0-11.0) th/mm3 Hgb 14.8 (11.6-15.3) gm/dL Hct 43.0 (35.0-46.0) % Plt Count 259 (150-450) th/mm3 Cardiac Enzymes 06/20/18 Range/Units 16:10 Total Creatine Kinase 70 (26-192) U/L Troponin I Less than 0.02 L (0.02-0.05) ng/mL Urine 06/20/18 Range/Units 16:49 Urine Color Yellow (Yellw/Straw) Urine Clarity Clear (Clear) Urine pH 5.0 (5.0-8.5) Ur Specific [place] 1.033 (1.002-1.035) Urine Protein Negative (Neg-Trace) mg/dL Urine Glucose (UA) Negative (Negative) mg/dL - Imaging Impressions Chest X-Ray 06/20/18 16:05 CONCLUSION: Cardiomegaly. Basilar dependent atelectasis in the lungs. No effusion or pneumothorax. Head CT 06/20/18 16:05 CONCLUSION: 1. Remote infarct left parietal lobe. No acute findings. Report was called by [ Dr. Zepeda to Dr. Randhawa at 4:26 PM. Head CTA 06/20/18 16:05 CONCLUSION: 1. Negative CTA brain. Neck CTA 06/20/18 16:05 CONCLUSION: 1. Negative CTA neck. No significant change from March 31, 2018 Caprini VTE Risk Assessment Caprini VTE Risk Assessment: Moderate/High Risk (score >= 2) Caprini Risk Assessment Model: Point Value = 1 Point Value = 2 Point Value = 3 Point Value = 5 Age 41-60 Minor surgery BMI > 25 kg/m2 Swollen legs Varicose veins or History of unexplained or recurrent spontaneous Oral contraceptives or hormone replacement Sepsis (< 1 month) Serious lung disease, including pneumonia (< 1 month) Abnormal pulmonary function Acute myocardial infarction Congestive heart failure (< 1 month) History of inflammatory bowel disease Medical patient at bed rest Age 61-74 Arthroscopic surgery Major open surgery (> 45 min) Laparoscopic surgery (> 45 min) Malignancy Confined to bed (> 72 hours) Immobilizing plaster cast Central venous access Age >= 75 History of VTE Family history of VTE Factor V Leiden Prothrombin [id number] Lupus anticoagulant Anticardiolipin antibodies Elevated serum homocysteine Heparin-induced thrombocytopenia Other congenital or acquired thrombophilia Stroke (< 1 month) Elective arthroplasty Hip, pelvis, or leg fracture Acute spinal cord injury (< 1 month) Prophylaxis Regimen: Total Risk Factor Score Risk Level Prophylaxis Regimen 0-1 Low Early ambulation 2 Moderate Order ONE of the following: *Sequential Compression Device (SCD) *Heparin 5000 units SQ BID 3-4 Higher Order ONE of the following medications: *Heparin 5000 units SQ TID *Enoxaparin/Lovenox 40 mg SQ daily (WT < 150 kg, CrCl > 30 mL/min) *Enoxaparin/Lovenox 30 mg SQ daily (WT < 150 kg, CrCl > 10-29 mL/min) *Enoxaparin/Lovenox 30 mg SQ BID (WT < 150 kg, CrCl > 30 mL/min) AND/OR *Sequential Compression Device (SCD) 5 or more Highest Order ONE of the following medications: *Heparin 5000 units SQ TID (Preferred with Epidurals) *Enoxaparin/Lovenox 40 mg SQ daily (WT < 150 kg, CrCl > 30 mL/min) *Enoxaparin/Lovenox 30 mg SQ daily (WT < 150 kg, CrCl > 10-29 mL/min) *Enoxaparin/Lovenox 30 mg SQ BID (WT < 150 kg, CrCl > 30 mL/min) AND *Sequential Compression Device (SCD) Assessment and Plan - Plan 68-year-old white female with a history of hemorrhagic CVA presents to the emergency room with right facial droop and right-sided weakness along with expressive aphasia 1. Suspect acute CVA despite negative CT imaging. obtain MRI/MRA of the brain along with carotid ultrasounds 2D echo initiate aspirin; obtain a neurology consultation. We will also check EEG to rule out underlying seizures. Consult PT ,OT, speech therapist along with rehab medicine. 2. Hypertension, chronicat this time will hold home antihypertensives for permissive blood pressure 3. History of hypothyroidismresume Synthroid 4. DVT prophylaxisLovenox
[2018-06-20] MEDS ORDERED: Enoxaparin Inj 40 MG/0.4 ML Syringe SQ SCH (18:30)
--- NOTE | 2018-06-20 19:53 | US ---
EXAM DATE: 06/20/2018 7:49 PM EDT AGE/SEX: 68 years / Female INDICATIONS: Cerebrovascular accident. CLINICAL DATA: This is the patient's initial encounter. Patient reports that signs and symptoms have been present for 1 day and indicates a pain score of 0/10. MEDICAL/SURGICAL HISTORY: Stroke. Hypertension. Breast cancer. . Left breast lumpectomy. COMPARISON: [facility], CTA CAROTID ARTERIES W 3D RECON, 03/31/2018. . VELOCITY PARAMETERS: ICA/CCA Ratio: Right 0.9 , Left 1.2 ICA: Right 76.3 cm/sec, Left 95.2 cm/sec CCA: Right 82.3 cm/sec, Left 81.7 cm/sec ECA: Right 71.1 cm/sec, Left 105.0 cm/sec Vertebral: Right 58.3 cm/sec antegrade, Left 48.2 cm/sec antegrade FINDINGS: Right Carotid: Minimal nonshadowing plaque in the distal common carotid artery. No plaque seen in th e carotid bulb or internal carotid..The waveforms are within normal limits. Left Carotid: No significant plaque is visualized. The waveforms are within normal limits. Other: None. CONCLUSION: 1. Right Internal Carotid Artery: Findings indicate <50% stenosis. 2. Left Internal Carotid Artery: Findings indicate <50% stenosis. Electronically signed by: Manohar Zeng MD 06/20/2018 7:52 PM EDT
--- NOTE | 2018-06-20 20:34 | MR ---
EXAM DATE: 06/20/2018 8:18 PM EDT AGE/SEX: 68 years / Female INDICATIONS: Slurred speech. Right side weakness. CLINICAL DATA: This is the patient's initial encounter. Patient reports that signs and symptoms have been present for 1 day and indicates a pain score of 0/10. MEDICAL/SURGICAL HISTORY: Carcinoma, breast. Hypertension. Hypothyroidism. . Lumpectomy. COMPARISON: No prior exams available for comparison. TECHNIQUE: 3D [id number] MRA was performed. Source images, multiplanar STS MIP, and 3D volum e MIP reconstructions were reviewed. FINDINGS: There is excellent visualization of the major intracranial arteries out to the second-order branch ve ssels. There is no evidence for aneurysm, vessel truncation or stenosis, and no evidence for vascula r malformation. The posterior cerebral arteries bilaterally receive flow from both the anterior and p osterior circulation. The right P1 segment is atretic. No flow seen in the anterior communicating art hammad. CONCLUSION: 1. No evidence of vessel truncation or aneurysm Electronically signed by: Manohar Zeng MD 06/20/2018 8:33 PM EDT
[2018-06-20] MEDS: Enoxaparin Inj 40 MG/0.4 ML Syringe SQ SCH (20:59)
--- NOTE | 2018-06-20 20:59 | MR ---
EXAM DATE: 06/20/2018 8:18 PM EDT AGE/SEX: 68 years / Female INDICATIONS: Slurred speech. Right side weakness. CLINICAL DATA: This is the patient's initial encounter. Patient reports that signs and symptoms have been present for 1 day and indicates a pain score of 0/10. MEDICAL/SURGICAL HISTORY: Carcinoma, breast. Hypertension. Hypothyroidism. . Lumpectomy. COMPARISON: [facility] [place], MRI BRAIN W & W/O CONTRAST, 04/01/2018. [facility] [place], CTA HEAD W CONTRAST W 3D, 8. [facility] [place], MRA HEAD W/O CONTRAST, 06/20/2018. [facility] [place], CT HEAD W/O CONTRAST, 06/20/2018. . TECHNIQUE: Multiplanar, multisequence examination of the brain was performed without contrast. FINDINGS: Cerebrum: Prior MR in March 2018 demonstrated a greater than 5 cm signal abnormality in the left parie to-occipital mid to high convexity containing some blood products. On today's examination, the abnorm ality has decreased in size and there now is evidence of chronic blood products along the thin cortex of left parietal region and some surrounding edema. The appearance is characteristic of a resolved l eft MCA hemorrhagic infarction. There is restricted diffusion in the cortex of the low and mid convex ity left parietal region inferior to the level of the infarction suggesting adela-infarct ischemia. No abnormality seen in the contralateral (right) hemisphere. The ventricles are symmetric in size. Posterior Fossa: The cerebellum and brainstem are intact. The 4th ventricle is midline. The cerebel lopontine angle is unremarkable. The cerebellar tonsils are normal in position. Extracranial: The visualized portions of the orbits and paranasal sinuses are unremarkable. CONCLUSION: 1. Evolution of left posterior parietal hemorrhagic infarction with a new area of cortical restricte d diffusion in inferior suggests adela-infarct ischemia. No evidence of acute blood products. Electronically signed by: Manohar Zeng MD 06/20/2018 8:57 PM EDT
[2018-06-20] MEDS: Insulin NovoLOG Aspart Correctional Sugar Inj SQ SCH (21:30)
[2018-06-21] MEDS: Sod Chloride 0.9% Inj 1,000 ML IV.CONT SCH ×2 (05:46→21:01)
--- NOTE | 2018-06-21 07:58 | P.CONNEU ---
History of Present Illness Service: Neurology Primary Care Provider: UNKNOWN Chief Complaint: Right-sided facial droop and weakness along with difficulty with speech History of Present Illness: 68-year-old female admitted for stroke presentation. Developed worsening speech difficulty and right-sided weakness. She has a history of intracranial hemorrhage March 2018. She is not taking blood thinners. She does have hypertension admits to having some salty food yesterday. She is noted to be quite hypertensive in the ER. MRI brain scan demonstrated diffusion restriction ischemic changes in the left posterior parietal region. CTA brain and carotids did not show any significant vaso-occlusive disease. Review of Systems All other systems reviewed negative except as stated in HPI [facility] - History History Provided By: Patient - Medical History Medical History: Medical History (Last Updated 06/20/18 @ 18:23 by Valeri Garcia MD) Breast cancer Hemorrhagic cerebrovascular accident (CVA) Hypertension Stroke - Surgical History Surgical History: Surgical History (Last Updated 06/20/18 @ 18:23 by Valeri Garcia MD) S/P breast lumpectomy - Family History Family History: Family History (Last Updated 06/20/18 @ 18:25 by Valeri Garcia MD) Other No significant family history - Tobacco History Second Hand Smoke Exposure: No Tobacco Use In Past 30 Days: No Smoking Status: Former smoker Tobacco Type: E-Cigarettes - Alcohol History How Often Do You Have a Drink Containing Alcohol: 4 or more times a week - Substance Use History Substance History: No History of Abuse - Travel History Recent Travel in the [place] Within the Last 8 Weeks: No Recent Travel Out of the Country Within the Last 8 Weeks: No - Immunization History Tetanus Immunization: >5 Years Hx Influenza Vaccine This Season: No Medications and Allergies Active Medications: Active Medications Aspirin (Aspirin Chew) 81 mg PO DAILY [facility] Last Admin: 06/20/18 20:46 Dose: Not Given Dextrose (D50w Vial) 50 ml IV.PUSH UNSCH PRN PRN Reason: PER HYPOGLYCEMIA PROTOCOL Enalaprilat (Vasotec Inj) 1.25 mg IV.PUSH Q4H PRN PRN Reason: For SBP > 220 or DBP > 120 Enoxaparin Sodium (Lovenox Inj) 40 mg SQ Q24H [facility] Last Admin: 06/20/18 20:59 Dose: 40 mg Glucagon (Glucagon Inj) 1 mg OTHER UNSCH PRN PRN Reason: for Hypoglycemia Protocol Sodium Chloride (Ns Inj) 1,000 mls @ 70 mls/hr IV.CONT .[id number] [facility] Last Admin: 06/21/18 05:46 Dose: 70 mls/hr Insulin Aspart (Novolog Insulin Correctional Sugar Inj) 0 unit SQ ACHS [facility]; Protocol Last Admin: 06/20/18 21:30 Dose: Not Given Levothyroxine Sodium (Synthroid) 25 mcg PO DAILY@0600 [facility] Last Admin: 06/21/18 05:46 Dose: 25 mcg Pravastatin Sodium (Pravachol) 40 mg PO HS [facility] Last Admin: 06/20/18 22:27 Dose: 40 mg Sodium Chloride (Ns Flush) 2 ml IV.FLUSH BID [facility] Last Admin: 06/20/18 22:00 Dose: Not Given Sodium Chloride (Ns Flush) 2 ml IV.FLUSH PRN PRN PRN Reason: FLUSH AFTER USING IV ACCESS Allergies Allergy/AdvReac Type Severity Reaction Status Date / Time No Known Allergies Allergy Unverified 06/20/18 16:48 Home Medications Medication Instructions Recorded Confirmed Type amlodipine 5 mg PO DAILY 06/20/18 06/20/18 History valsartan 40 mg PO BID 06/20/18 06/20/18 History Exam Vital signs: Vital Signs 06/20/18 16:09 06/20/18 16:16 06/20/18 16:37 Temperature 97.9 F Pulse Rate 103 H 99 H Respiratory Rate 18 18 Blood Pressure 155/71 H 163/98 H Pulse Oximetry 98 99 97 06/20/18 16:48 06/20/18 17:23 06/20/18 17:31 Temperature Pulse Rate 94 H 85 85 Respiratory Rate 18 18 18 Blood Pressure 163/98 H 96/38 L 150/88 H Pulse Oximetry 97 95 99 06/20/18 17:58 06/20/18 20:43 06/20/18 21:00 Temperature Pulse Rate 87 72 Respiratory Rate 18 16 Blood Pressure 115/52 L 116/80 Pulse Oximetry 97 92 L 94 L 06/20/18 21:53 06/21/18 00:00 06/21/18 01:08 Temperature 97.8 F 98.4 F Pulse Rate 76 73 75 Respiratory Rate 19 17 Blood Pressure 124/80 118/66 Pulse Oximetry 98 97 06/21/18 04:00 06/21/18 05:01 Temperature 98.2 F Pulse Rate 73 70 Respiratory Rate 17 Blood Pressure 120/70 Pulse Oximetry 98 Intake & Output 06/20/18 06/21/18 06/21/18 18:59 06:59 18:59 Intake Total 1000 / 1000 Balance 1000 / 1000 Weight 77.2 kg Intake: IV 1000 / 1000 NS Inj 1,000 ML @ 70 mls/hr IV. 1000 / 1000 CONT .[id number] [facility] Rx#:[id number] Other: # Voids 4 Date of Last Bowel Movement 06/20/18 Weight On Admission 77.1 kg Narrative: Well-developed no acute distress pleasant, Skin turgor normal, no JVD Heart regular rate and rhythm lungs clear to auscultation Abdomen soft nontender Awake alert oriented 3 mildly dysarthric speech, able to repeat follow, visual [place] full slight reduced right nasolabial fold overall small symmetric however , mild right sided castro-ataxia, no neglect diagnosis secondary fall risk. - Constitutional no acute distress - Routine HEENT Exam Head: Present: normocephalic, atraumatic Eye: Present: EOMI, PERRL - Routine Neck Exam Present: supple, full ROM Results - Labs CBC & Chem 7: 06/20/18 16:10 Labs: Laboratory Results - last 24 hr 06/20/18 06/20/18 06/20/18 16:08 16:10 16:10 WBC 10.1 RBC 4.64 Hgb 14.8 POC Hgb (Calc) Hct 43.0 POC Hct MCV 92.8 MCH 31.9 MCHC 34.4 RDW 13.4 Plt Count 259 MPV 8.1 Neut % (Auto) 50.3 Lymph % (Auto) 38.6 [place] % (Auto) 7.5 Eos % (Auto) 2.8 Baso % (Auto) 0.8 Neut # (Auto) 5.1 Lymph # (Auto) 3.9 [place] # (Auto) 0.8 Eos # (Auto) 0.3 Baso # (Auto) 0.1 WBC Differential . Differential Comment Auto diff final PT 10.0 INR 1.0 APTT 17.9 L Fibrinogen 273 POC Sodium POC Potassium POC Chloride POC BUN POC Creatinine POC Glucose 111 H Total Creatine Kinase Troponin I Urine Color Urine Clarity Urine pH Ur Specific [place] Urine Protein Urine Glucose (UA) Urine Ketones Urine Occult Blood Urine Nitrate Urine Bilirubin Urine Urobilinogen Ur Leukocyte Esterase Urine RBC Urine WBC Micro UA Comment Urine Culture Comments Blood Type Antibody Screen 06/20/18 06/20/18 06/20/18 16:10 16:49 20:55 WBC RBC Hgb POC Hgb (Calc) 14.6 Hct POC Hct 43.0 MCV MCH MCHC RDW Plt Count MPV Neut % (Auto) Lymph % (Auto) [place] % (Auto) Eos % (Auto) Baso % (Auto) Neut # (Auto) Lymph # (Auto) [place] # (Auto) Eos # (Auto) Baso # (Auto) WBC Differential Differential Comment PT INR APTT Fibrinogen POC Sodium 136 L POC Potassium 3.5 L POC Chloride 106 POC BUN 17 POC Creatinine 0.8 POC Glucose 113 H 113 H Total Creatine Kinase 70 Troponin I Less than 0.02 L Urine Color Yellow Urine Clarity Clear Urine pH 5.0 Ur Specific [place] 1.033 Urine Protein Negative Urine Glucose (UA) Negative Urine Ketones Trace H Urine Occult Blood Negative Urine Nitrate Negative Urine Bilirubin Negative Urine Urobilinogen Less than 2 Ur Leukocyte Esterase Negative Urine RBC Less than 1 Urine WBC 1 Micro UA Comment Cath-culture not ind Urine Culture Comments Cath-cult not ind Blood Type Antibody Screen 06/20/18 21:16 WBC RBC Hgb POC Hgb (Calc) Hct POC Hct MCV MCH MCHC RDW Plt Count MPV Neut % (Auto) Lymph % (Auto) [place] % (Auto) Eos % (Auto) Baso % (Auto) Neut # (Auto) Lymph # (Auto) [place] # (Auto) Eos # (Auto) Baso # (Auto) WBC Differential Differential Comment PT INR APTT Fibrinogen POC Sodium POC Potassium POC Chloride POC BUN POC Creatinine POC Glucose Total Creatine Kinase Troponin I Urine Color Urine Clarity Urine pH Ur Specific [place] Urine Protein Urine Glucose (UA) Urine Ketones Urine Occult Blood Urine Nitrate Urine Bilirubin Urine Urobilinogen Ur Leukocyte Esterase Urine RBC Urine WBC Micro UA Comment Urine Culture Comments Blood Type AB Positive Antibody Screen Negative - Imaging Impressions Carotid Doppler Study 06/20/18 00:00 CONCLUSION: 1. Right Internal Carotid Artery: Findings indicate <50% stenosis. 2. Left Internal Carotid Artery: Findings indicate <50% stenosis. Head MRA 06/20/18 00:00 CONCLUSION: 1. No evidence of vessel truncation or aneurysm Chest X-Ray 06/20/18 16:05 CONCLUSION: Cardiomegaly. Basilar dependent atelectasis in the lungs. No effusion or pneumothorax. Head CT 06/20/18 16:05 CONCLUSION: 1. Remote infarct left parietal lobe. No acute findings. Report was called by [ Dr. Zepeda to Dr. Randhawa at 4:26 PM. Head CTA 06/20/18 16:05 CONCLUSION: 1. Negative CTA brain. Neck CTA 06/20/18 16:05 CONCLUSION: 1. Negative CTA neck. No significant change from March 31, 2018 Head MRI 06/20/18 18:17 CONCLUSION: 1. Evolution of left posterior parietal hemorrhagic infarction with a new area of cortical restricted diffusion in inferior suggests adela-infarct ischemia. No evidence of acute blood products. Review/Management - Diagnosis (1) ICH (intracerebral hemorrhage) Code(s): I61.9 - Nontraumatic intracerebral hemorrhage, unspecified Status: Acute Current Visit: Yes (2) HTN (hypertension) Code(s): I10 - Essential (primary) hypertension Status: Acute Current Visit : Yes (3) Acute ischemic left MCA stroke Code(s): I63.512 - Cerebral infarction due to unspecified occlusion or stenosis of left middle cerebral artery Status: Acute Current Visit: Yes - Review/Management Plan: Acute left posterior MCA stroke in a patient with previous left intracranial hemorrhage Vessels normal Etiology would include small vessel disease versus hypercoagulable state from history of cancer versus cardiac Recommendations Risk benefits discussed with patient at this point will start her on aspirin Follow-up lipid panel Tight blood pressure control 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
[2018-06-21] MEDS: Insulin NovoLOG Aspart Correctional Sugar Inj SQ SCH ×4 (08:28→20:59)
[2018-06-21 08:46] LABS: Chol/HDL Ratio 2.47 Ratio; HDL Cholesterol 72.7 mg/dL (40.0-60.0)
--- NOTE | 2018-06-21 09:14 | MB ---
cc: Juan F Laguerre MD DATE: 06/21/2018 REASON FOR CONSULTATION: MARYSE/loop recorder. HISTORY OF PRESENT ILLNESS: The patient is a pleasant 68-year-old woman with a history of prior stroke, hypertension, and hypothyroidism, who presented with acute right facial droop. Imaging showed ischemic involvement in the area of her previously hemorrhagic stroke and I am asked to perform a cardiac workup. Currently, her symptoms have essentially resolved. She has no chest pain, shortness of breath, lightheadedness or dizziness. PAST MEDICAL HISTORY: As above. CURRENT MEDICATIONS: 1. Aspirin 81 mg daily. 2. Subcutaneous Lovenox. 3. Novolin. 4. Pravachol. ALLERGIES: NO KNOWN DRUG ALLERGIES. PHYSICAL EXAMINATION: VITAL SIGNS: Afebrile, pulse 70, respiratory rate 17, blood pressure 120/70, saturating 90% on room air. GENERAL: Pleasant woman in no distress. NECK: No JVD. LUNGS: Clear to auscultation bilaterally. CARDIOVASCULAR: Regular rate and rhythm. No murmurs appreciated. ABDOMEN: Benign. EXTREMITIES: No edema. LABORATORY DATA: White count 10.1, hematocrit 43.0, platelets 259. INR is 1.0. Sodium 136, potassium 3.5, chloride 106, BUN 17, creatinine 0.18, glucose 113. LDL is 78. EKG is pending. IMPRESSION: Recurrent cerebrovascular accident. The patient now has had 2 cerebrovascular accidents, so I do think transesophageal echocardiography and loop recorder are reasonable. I explained these to the patient and she agrees to proceed. She will be kept n.p.o. past midnight and both procedures will be done tomorrow morning. Thank you again for the opportunity to participate in this patient's care. MD YAIMA Weston/PAULINO , 09:02 AM , 09:13 AM
--- NOTE | 2018-06-21 16:15 | P.PNIM ---
Subjective Interval history: Patient has significant improvement in her speech and right arm weakness since time of admit. MARYSE and a loop recorder placement are pending. No other complaints from the patient today. Physical Exam Vital signs: Vital Signs 06/20/18 16:16 06/20/18 16:37 06/20/18 16:48 Temperature 97.9 F Pulse Rate 103 H 99 H 94 H Respiratory Rate 18 18 18 Blood Pressure 155/71 H 163/98 H 163/98 H Pulse Oximetry 99 97 97 06/20/18 17:23 06/20/18 17:31 06/20/18 17:58 Temperature Pulse Rate 85 85 87 Respiratory Rate 18 18 18 Blood Pressure 96/38 L 150/88 H 115/52 L Pulse Oximetry 95 99 97 06/20/18 20:43 06/20/18 21:00 06/20/18 21:53 Temperature 97.8 F Pulse Rate 72 76 Respiratory Rate 16 19 Blood Pressure 116/80 124/80 Pulse Oximetry 92 L 94 L 98 06/21/18 00:00 06/21/18 01:08 06/21/18 04:00 Temperature 98.4 F 98.2 F Pulse Rate 73 75 73 Respiratory Rate 17 17 Blood Pressure 118/66 120/70 Pulse Oximetry 97 98 06/21/18 05:01 06/21/18 08:00 06/21/18 09:00 Temperature 97.9 F Pulse Rate 70 73 77 Respiratory Rate 16 Blood Pressure 106/67 Pulse Oximetry 95 06/21/18 09:47 06/21/18 12:00 06/21/18 15:44 Temperature 97.8 F 97.7 F Pulse Rate 78 80 Respiratory Rate 22 20 Blood Pressure 119/74 115/70 Pulse Oximetry 95 97 96 Intake & Output 06/20/18 06/21/18 06/21/18 18:59 06:59 18:59 Intake Total 1000 / 1000 Balance 1000 / 1000 Weight 77.2 kg Intake: IV 1000 / 1000 NS Inj 1,000 ML @ 70 mls/hr IV. 1000 / 1000 CONT .[id number] [facility] Rx#:[id number] Other: # Voids 4 Date of Last Bowel Movement 06/20/18 06/20/18 Weight On Admission 77.1 kg Narrative: GENERAL: NAD, A&Ox3 HEAD: Normocephalic. NECK: Supple, trachea midline. No lymphadenopathy. EYES: No scleral icterus. No injection or drainage. CARDIOVASCULAR: Regular rate and rhythm without murmurs, gallops, or rubs. RESPIRATORY: Breath sounds equal bilaterally. No accessory muscle use. GASTROINTESTINAL: Abdomen soft, non-tender, nondistended. MUSCULOSKELETAL: No cyanosis, or edema. SKIN: Warm and dry. NEURO: No focal neurological deficits. Mild right-sided weakness compared to left. Results - Labs CBC & Chem 7: 06/20/18 16:10 Laboratory Results - last 24 hr 06/20/18 06/20/18 06/20/18 16:08 16:10 16:10 WBC 10.1 RBC 4.64 Hgb 14.8 POC Hgb (Calc) Hct 43.0 POC Hct MCV 92.8 MCH 31.9 MCHC 34.4 RDW 13.4 Plt Count 259 MPV 8.1 Neut % (Auto) 50.3 Lymph % (Auto) 38.6 [place] % (Auto) 7.5 Eos % (Auto) 2.8 Baso % (Auto) 0.8 Neut # (Auto) 5.1 Lymph # (Auto) 3.9 [place] # (Auto) 0.8 Eos # (Auto) 0.3 Baso # (Auto) 0.1 WBC Differential . Differential Comment Auto diff final PT 10.0 INR 1.0 APTT 17.9 L Fibrinogen 273 POC Sodium POC Potassium POC Chloride POC BUN POC Creatinine POC Glucose 111 H Total Creatine Kinase Troponin I Triglycerides Cholesterol LDL Cholesterol, Calc HDL Cholesterol Cholesterol/HDL Ratio Urine Color Urine Clarity Urine pH Ur Specific [place] Urine Protein Urine Glucose (UA) Urine Ketones Urine Occult Blood Urine Nitrate Urine Bilirubin Urine Urobilinogen Ur Leukocyte Esterase Urine RBC Urine WBC Micro UA Comment Urine Culture Comments Blood Type Antibody Screen 06/20/18 06/20/18 06/20/18 16:10 16:49 20:55 WBC RBC Hgb POC Hgb (Calc) 14.6 Hct POC Hct 43.0 MCV MCH MCHC RDW Plt Count MPV Neut % (Auto) Lymph % (Auto) [place] % (Auto) Eos % (Auto) Baso % (Auto) Neut # (Auto) Lymph # (Auto) [place] # (Auto) Eos # (Auto) Baso # (Auto) WBC Differential Differential Comment PT INR APTT Fibrinogen POC Sodium 136 L POC Potassium 3.5 L POC Chloride 106 POC BUN 17 POC Creatinine 0.8 POC Glucose 113 H 113 H Total Creatine Kinase 70 Troponin I Less than 0.02 L Triglycerides Cholesterol LDL Cholesterol, Calc HDL Cholesterol Cholesterol/HDL Ratio Urine Color Yellow Urine Clarity Clear Urine pH 5.0 Ur Specific [place] 1.033 Urine Protein Negative Urine Glucose (UA) Negative Urine Ketones Trace H Urine Occult Blood Negative Urine Nitrate Negative Urine Bilirubin Negative Urine Urobilinogen Less than 2 Ur Leukocyte Esterase Negative Urine RBC Less than 1 Urine WBC 1 Micro UA Comment Cath-culture not ind Urine Culture Comments Cath-cult not ind Blood Type Antibody Screen 06/20/18 06/21/18 06/21/18 21:16 07:49 08:27 WBC RBC Hgb POC Hgb (Calc) Hct POC Hct MCV MCH MCHC RDW Plt Count MPV Neut % (Auto) Lymph % (Auto) [place] % (Auto) Eos % (Auto) Baso % (Auto) Neut # (Auto) Lymph # (Auto) [place] # (Auto) Eos # (Auto) Baso # (Auto) WBC Differential Differential Comment PT INR APTT Fibrinogen POC Sodium POC Potassium POC Chloride POC BUN POC Creatinine POC Glucose 99 Total Creatine Kinase Troponin I Triglycerides 146 Cholesterol 180 LDL Cholesterol, Calc 78 HDL Cholesterol 72.7 H Cholesterol/HDL Ratio 2.47 Urine Color Urine Clarity Urine pH Ur Specific [place] Urine Protein Urine Glucose (UA) Urine Ketones Urine Occult Blood Urine Nitrate Urine Bilirubin Urine Urobilinogen Ur Leukocyte Esterase Urine RBC Urine WBC Micro UA Comment Urine Culture Comments Blood Type AB Positive Antibody Screen Negative 06/21/18 10:45 WBC RBC Hgb POC Hgb (Calc) Hct POC Hct MCV MCH MCHC RDW Plt Count MPV Neut % (Auto) Lymph % (Auto) [place] % (Auto) Eos % (Auto) Baso % (Auto) Neut # (Auto) Lymph # (Auto) [place] # (Auto) Eos # (Auto) Baso # (Auto) WBC Differential Differential Comment PT INR APTT Fibrinogen POC Sodium POC Potassium POC Chloride POC BUN POC Creatinine POC Glucose 142 H Total Creatine Kinase Troponin I Triglycerides Cholesterol LDL Cholesterol, Calc HDL Cholesterol Cholesterol/HDL Ratio Urine Color Urine Clarity Urine pH Ur Specific [place] Urine Protein Urine Glucose (UA) Urine Ketones Urine Occult Blood Urine Nitrate Urine Bilirubin Urine Urobilinogen Ur Leukocyte Esterase Urine RBC Urine WBC Micro UA Comment Urine Culture Comments Blood Type Antibody Screen - Imaging Impressions Carotid Doppler Study 06/20/18 00:00 CONCLUSION: 1. Right Internal Carotid Artery: Findings indicate <50% stenosis. 2. Left Internal Carotid Artery: Findings indicate <50% stenosis. Head MRA 06/20/18 00:00 CONCLUSION: 1. No evidence of vessel truncation or aneurysm Chest X-Ray 06/20/18 16:05 CONCLUSION: Cardiomegaly. Basilar dependent atelectasis in the lungs. No effusion or pneumothorax. Head CT 06/20/18 16:05 CONCLUSION: 1. Remote infarct left parietal lobe. No acute findings. Report was called by [ Dr. Zepeda to Dr. Randhawa at 4:26 PM. Head CTA 06/20/18 16:05 CONCLUSION: 1. Negative CTA brain. Neck CTA 06/20/18 16:05 CONCLUSION: 1. Negative CTA neck. No significant change from March 31, 2018 Head MRI 06/20/18 18:17 CONCLUSION: 1. Evolution of left posterior parietal hemorrhagic infarction with a new area of cortical restricted diffusion in inferior suggests adela-infarct ischemia. No evidence of acute blood products. Assessment and Plan - Plan 68-year-old white female with a history of hemorrhagic CVA presents to the emergency room with right facial droop and right-sided weakness along with expressive aphasia Acute ischemic CVA Recent history of hemorrhagic CVA Neurology following MARYSE planned Loop recorder placement planned Hypertension Permissive hypertension, holding baseline treatment Follow blood pressures Adjust treatments as needed History of hypothyroidism Continue Synthroid DVT prophylaxis Lovenox
--- NOTE | 2018-06-21 16:28 | MG ---
cc: Shakeel Carrillo MD EEG NUMBER: [id number] INDICATIONS: Left posterior parietal infarct, new stroke left posterior parietal, right facial droop. FINDINGS: There is some focal theta slowing over the left mid-temporal head region and left parietal region, some slightly sharply contoured alpha waves are noted in that region. Photic stimulation was performed without significant posterior driving. IMPRESSION: Some left temporal and posterior temporal slowing, slightly sharply contoured, but not what I would call epileptiform. No seizures were noted. MD SARIKA Ross/OPAL , 03:55 PM , 04:27 PM
[2018-06-21 16:46] LABS: Hemoglobin A1c 5.2 % (4.3-6.0)
[2018-06-21] MEDS: Enoxaparin Inj 40 MG/0.4 ML Syringe SQ SCH (20:58)
[2018-06-21] MEDS ORDERED: Chlorhexidine Gluconate 2% 1 Pack (2 Cloths) TOPICAL SCH (21:30)
[2018-06-21] MEDS ORDERED: Metoprolol Tartrate 25 MG Tablet PO SCH (21:30)
[2018-06-21] MEDS ORDERED: Sodium Chlor 0.9% Inj 500 ML IV.SIG SCH (22:00)
--- NOTE | 2018-06-21 23:33 | MB ---
cc: Sneha Mansfield MD DATE: 06/21/2018 REASON FOR CONSULTATION: Consult requested by for evaluation of hypercoagulable state. HISTORY OF PRESENT ILLNESS: This is a 68-year-old female. Recently, she was admitted with a hemorrhagic stroke. This was attributed possibly due to uncontrolled hypertension. She is now readmitted to the hospital with right facial droop and right-sided weakness, with speech impairment. She had expressive aphasia. The patient underwent workup ensued and she was found to have ischemic stroke. Neurology was consulted. is requesting hematology consult for hypercoagulable state. The patient denies any previous history of thrombosis or embolism. She was diagnosed with early stage breast cancer in 2005, for which she underwent lumpectomy and PATTY radiation therapy. She was placed on anastrozole in 2016, which she has been continuing to take it. Her stroke symptoms are improving. Her speech is not back to normal. However, she still has a facial droop on the right side and weakness of the right side of the body. FAMILY HISTORY: The patient denies any family history of thromboembolic disease. REVIEW OF SYSTEMS: The rest of the review of systems is negative. PAST MEDICAL HISTORY: Early stage breast cancer, hemorrhagic CVA recently, hypertension. PAST SURGICAL HISTORY: Lumpectomy for breast cancer. ALLERGIES: NONE. MEDICATIONS PRIOR TO COMING TO THE HOSPITAL: Amlodipine and losartan. FAMILY HISTORY: No family history of venous thromboembolic disease. SOCIAL HISTORY: The patient smokes cigarettes. She also drinks alcohol 1 drink every day. PHYSICAL EXAMINATION: GENERAL: This is a well-developed, well-nourished white female, in no apparent distress. VITAL SIGNS: Temperature 97.9, heart rate 68, blood pressure 151/79, O2 saturation 97%. HEAD, EYES, EARS, NOSE, AND THROAT: Pupils equal, round, reactive to light and accommodation, extraocular movements intact. Anicteric. No oral lesions noted. No thrush noted. NECK: Supple. No JVD. No masses noted. LUNGS: Clear. No wheezing, rhonchi, or rales. HEART: Regular rate and rhythm. No murmur heard. ABDOMEN: Soft and nontender. No hepatosplenomegaly. No abnormal bowel sounds. No guarding or rigidity noted. EXTREMITIES: No pedal edema. No cyanosis, no clubbing. NEUROLOGIC: The patient is awake, alert, oriented x 3. Right facial droop noted. Right-sided weakness noted from recent stroke. SKIN: No bruises or petechiae noted. LYMPH NODES: No cervical, supraclavicular, or axillary lymphadenopathy noted. BACK: There is no spinal tenderness noted. ASSESSMENT: 1. History of recent hemorrhagic stroke, now she has ischemic stroke. 2. No personal or family history of renal venous thromboembolic disease. 3. Early stage breast cancer, status post lumpectomy, PATTY radiation, currently on anastrozole. PLAN: I have reviewed her available records and I have discussed with the patient regarding the ischemic stroke. I will order the hypercoagulable panel. We discussed that it will take 2 weeks to get the results of that. The patient will be discharged to home from a hematological standpoint. She does not need to stay in the hospital to get results of the hypercoagulable. I have advised her to come back to see me in the office in 2-3 weeks to discuss the results of the hypercoagulable panel. The patient has been evaluated by worm sorter and she is scheduled to have MARYSE and loop recorder. Thank you for asking my opinion MD SKYLAR Cosme/IGNACIO , 10:38 PM , 11:31 PM
[2018-06-22] MEDS ORDERED: Midazolam Inj 5 MG/ML 1 ML Vial ONE ×2 (07:03→07:34)
[2018-06-22] MEDS ORDERED: fentaNYL Citrate Inj 100 MCG/2 ML Ampul ONE (07:04)
--- NOTE | 2018-06-22 08:08 | ECHRPT ---
Indication: CONCLUSIONS Normal LV function No PFO No significant valvular disease BP: / HR: Rhythm: Technical Quality: Medications Complications There were no complications prior to, during or in recovery from the transesophag eal echocardiogram.. Proc. Components FINDINGS LEFT VENTRICLE The left ventricular systolic function is normal with an estimated ejection fraction in the range of 60-65%. RIGHT VENTRICLE The right ventricular size is normal. The right ventricular systoilc function is normal. LEFT ATRIUM The left atrial size is normal. RIGHT ATRIUM The right atrial size is normal. ATRIAL APPENDAGES Normal left atrial appendage size with no evidence of thrombus formation. The velocities in the left atrial appendage are normal. ATRIAL SEPTUM Normal atrial septal thickness without atrial level shunting by limited color doppler interrogation. No atrial level shunt is observed with agitated saline contrast administration. MITRAL VALVE Trace mitral valve regurgitation. AORTIC VALVE Trileaflet aortic valve. No aortic valve stenosis or regurgitation. TRICUSPID VALVE There is trace tricuspid valve regurgitation. VESSELS The pulmonary valve is not well visualized. PERICADIUM No pericardial effusion. Juan F Laguerre MD (Electronically Signed) Final Date:22 June 2018 08:07
[2018-06-22] MEDS ORDERED: Mupirocin 2% Nasal Oint Topical Syringe EACH NARE SCH (08:15)
[2018-06-22] MEDS ORDERED: Chlorhexidine Gluconate 2% 1 Pack (2 Cloths) TOPICAL SCH (08:15)
--- NOTE | 2018-06-22 08:19 | MA ---
cc: Juan F Laguerre MD DATE: 06/22/2018 INDICATIONS: CVA. PROCEDURES PERFORMED: 1. 30 minutes of moderate IV sedation. 2. Transesophageal echocardiogram (see separate dictation). 3. Loop recorder insertion. DESCRIPTION OF PROCEDURE: The patient was brought to the DOC Unit in the postabsorptive state. After informed consent was obtained, 5 mg of Versed and 100 mcg of fentanyl was given for moderate IV sedation lasting approximately 30 minutes for both the transesophageal echocardiogram and the loop recorder insertion. Next, a transesophageal echocardiogram was performed without difficulty (see separate dictation). Next, a [employer] Reveal LINQ, loop recorder was inserted subcutaneously in the left chest. The patient tolerated the procedure well without any apparent complications. Tachybrady pause and atrial fibrillation detection was enabled. The initial R-wave was 0.28 millivolts. The serial number was [id number]. Juan F Laguerre MD YAIMA/DL , 08:01 AM , 08:18 AM
[2018-06-22] MEDS ORDERED: ceFAZolin 2 GM Premix Inj 2 GM/50 ML PIGGYBACK IV.SIG SCH (09:00)
--- NOTE | 2018-06-22 10:08 | ECG ---
Date Performed: 06/21/2018 Time Performed: 21:36:09 PTAGE: 68 years EKG: Sinus rhythm BORDERLINE ECG PREVIOUS TRACING : 04/14/2018 23.43 DOCTOR: Peter Funez Interpretating Date/Time 06/22/2018 10:06:28
--- NOTE | 2018-06-22 10:55 | P.DS ---
Date of admission: 06/20/18 18:29 Primary care physician: UNKNOWN Brief History from admission: 68-year-old white female with a history of hemorrhagic stroke, breast cancer, hypothyroidism, hypertension presents to the emergency room with acute onset of right facial droop right-sided weakness along with difficulty with speech. At this time patient has expressive aphasia and was difficult to get much more understandable significant history. All this was discussed with the ED physician and reviewing her medical records. DS: Medications - Discharge Medications Prescriptions: aspirin 81 mg PO DAILY #30 tab metoprolol tartrate 25 mg PO IN HOME SALES REPRESENTATIVE #60 tab pravastatin 40 mg PO HS #30 tab DS: Summary Hospital Course: Mrs. Cleaning is a 68-year-old female. She was admitted secondary to right arm weakness and slurred speech. She has a history of hemorrhagic CVA and imaging showed that she had an ischemic CVA overlapping the previous hemorrhagic CVA. Through time the patient's speech and right arm movements have improved but are not yet back to full baseline. She is however functional and cleared for discharge to home. She will continue outpatient physical therapy, speech therapy, and Occupational Therapy. Medication treatments have been adjusted. Presently she will control her blood pressures of metoprolol and amlodipine. Losartan has been discontinued. She will not be on a baby aspirin daily and a statin per neurology recommendations. Medically stable and cleared for discharge home today. - Time Spent with Patient Total time spent providing and/or coordinating discharge services: - Quality: Stroke Last date observed well: 06/20/18 Last time observed well: 15:45 - Quality: VTE Deep Vein Thrombosis/Pulmonary Embolism Present on Admission: No Exam Vital signs: Vital Signs 06/21/18 12:00 06/21/18 15:44 06/21/18 17:07 Temperature 97.8 F 97.7 F Pulse Rate 78 80 71 Respiratory Rate 22 20 Blood Pressure 119/74 115/70 Pulse Oximetry 97 96 06/21/18 20:00 06/22/18 00:00 06/22/18 00:31 Temperature 97.9 F 97.9 F Pulse Rate 68 62 68 Respiratory Rate 17 16 Blood Pressure 151/79 H 130/69 Pulse Oximetry 97 95 06/22/18 04:00 06/22/18 04:52 06/22/18 10:00 Temperature 98.0 F 97.6 F Pulse Rate 60 76 65 Respiratory Rate 14 20 Blood Pressure 121/70 137/76 Pulse Oximetry 95 97 Intake & Output 06/21/18 06/22/18 06/22/18 18:59 06:59 18:59 Intake Total 1000 / 1000 50 / 50 Balance 1000 / 1000 50 / 50 Weight 77.2 kg Intake: IV 1000 / 1000 50 / 50 NS Inj 1,000 ML @ 70 mls/hr IV. 1000 / 1000 CONT .[id number] [facility] Rx#:[id number] Ancef 2 GM Premix Inj 2 gm In 50 / 50 50 ml @ 100 mls/hr IV.SIG IN HOME SALES REPRESENTATIVE [facility] Rx#:[id number] Other: Post Void Residual 300 # Voids 1 2 Date of Last Bowel Movement 06/20/18 06/20/18 06/20/18 Results Procedures completed during hospitalization: MARYSE Loop Recorder placement Labs on day of discharge: Labs from last 24 hours 06/21/18 06/21/18 06/21/18 20:34 19:02 17:54 Lupus Anticoagulant Pending LA PTT Screen Pending dRVVT Screen Pending Protein C Antigen Pending Protein S Activity Pending Antithrombin III Activ Pending Factor V Leiden Mutat Pending Factor V Leiden Interp Pending POC Glucose 73 201 H Hemoglobin A1c Homocysteine Cardiovas Pending Beta-2-GPI IgG Ab Pending Beta-2-GPI IgA Ab Pending Beta-2-GPI IgM Ab Pending Phosphatidylserine IgG Pending Phosphatidylserine IgA Pending Phosphatidylserine IgM Pending Anti-Cardiolipin IgG Ab Pending Anti-Cardiolipin IgM Ab Pending Prothrombin [id number] Mut Pending 06/21/18 06/21/18 10:45 07:49 Lupus Anticoagulant LA PTT Screen dRVVT Screen Protein C Antigen Protein S Activity Antithrombin III Activ Factor V Leiden Mutat Factor V Leiden Interp POC Glucose 142 H Hemoglobin A1c 5.2 Homocysteine Cardiovas Beta-2-GPI IgG Ab Beta-2-GPI IgA Ab Beta-2-GPI IgM Ab Phosphatidylserine IgG Phosphatidylserine IgA Phosphatidylserine IgM Anti-Cardiolipin IgG Ab Anti-Cardiolipin IgM Ab Prothrombin [id number] Mut - Impressions ITS Impressions Carotid Doppler Study 06/20/18 00:00 CONCLUSION: 1. Right Internal Carotid Artery: Findings indicate <50% stenosis. 2. Left Internal Carotid Artery: Findings indicate <50% stenosis. Head MRA 06/20/18 00:00 CONCLUSION: 1. No evidence of vessel truncation or aneurysm Chest X-Ray 06/20/18 16:05 CONCLUSION: Cardiomegaly. Basilar dependent atelectasis in the lungs. No effusion or pneumothorax. Head CT 06/20/18 16:05 CONCLUSION: 1. Remote infarct left parietal lobe. No acute findings. Report was called by [ Dr. Zepeda to Dr. Randhawa at 4:26 PM. Head CTA 06/20/18 16:05 CONCLUSION: 1. Negative CTA brain. Neck CTA 06/20/18 16:05 CONCLUSION: 1. Negative CTA neck. No significant change from March 31, 2018 Head MRI 06/20/18 18:17 CONCLUSION: 1. Evolution of left posterior parietal hemorrhagic infarction with a new area of cortical restricted diffusion in inferior suggests adela-infarct ischemia. No evidence of acute blood products. Discharge Plan - Discharge Disposition Patient Disposition: 01 Discharge Home - Discharge Condition Condition: Stable - Discharge Order Discharge Orders: Discharge Order (Routine); Ordered 06/22/18 Ordered By: Germán Tai Cardiology Clear for Discharge (Routine); Ordered 06/22/18 Ordered By: Juan F Laguerre - Discharge Details Anticipated Discharge Date: 06/22/18 - Physicians Team Primary Care Provider: UNKNOWN, Attending Provider: Germán Tai Other Providers: Shakeel Moreira MD ; Juan F Laguerre MD ; Triston Mansfield MD ; Corbin De Oliveira MD ; Vicky Perry
--- NOTE | 2018-06-22 14:59 | P.PNONC ---
Subjective Interval history: LATE ENTRY Pt seen in the morning. feels better, wants to go home after the procedure Objective Vital Signs/Intake & Output: Vital Signs 06/21/18 15:44 06/21/18 17:07 06/21/18 20:00 Temperature 97.7 F 97.9 F Pulse Rate 80 71 68 Respiratory Rate 20 17 Blood Pressure 115/70 151/79 H Pulse Oximetry 96 97 06/22/18 00:00 06/22/18 00:31 06/22/18 04:00 Temperature 97.9 F 98.0 F Pulse Rate 62 68 60 Respiratory Rate 16 14 Blood Pressure 130/69 121/70 Pulse Oximetry 95 95 06/22/18 04:52 06/22/18 10:00 06/22/18 10:58 Temperature 97.6 F Pulse Rate 76 65 Respiratory Rate 20 Blood Pressure 137/76 Pulse Oximetry 97 92 L 06/22/18 12:00 Temperature 98.4 F Pulse Rate 74 Respiratory Rate 20 Blood Pressure 126/77 Pulse Oximetry 96 Intake & Output 06/21/18 06/22/18 06/22/18 18:59 06:59 18:59 Intake Total 1000 / 1000 50 / 50 Balance 1000 / 1000 50 / 50 Weight 77.2 kg Intake: IV 1000 / 1000 50 / 50 NS Inj 1,000 ML @ 70 mls/hr IV. 1000 / 1000 CONT .[id number] [facility] Rx#:[id number] Ancef 2 GM Premix Inj 2 gm In 50 / 50 50 ml @ 100 mls/hr IV.SIG LACQUER MACHINE FEEDER [facility] Rx#:[id number] Other: Post Void Residual 300 # Voids 1 2 Date of Last Bowel Movement 06/20/18 06/20/18 06/20/18 Result Diagrams: 06/20/18 16:10 Laboratory Results: Laboratory Results - last 24 hr 06/21/18 06/21/18 06/21/18 07:49 17:54 20:34 POC Glucose 201 H 73 Hemoglobin A1c 5.2 Objective Remarks: GENERAL: Well-nourished, well-developed patient. SKIN: Warm and dry. HEAD: Normocephalic. EYES: No scleral icterus. No injection or drainage. NECK: Supple, trachea midline. No JVD or lymphadenopathy. LYMPHATIC: No adenopathy. CARDIOVASCULAR: Regular rate and rhythm without murmurs. RESPIRATORY: Breath sounds equal bilaterally. No accessory muscle use. GASTROINTESTINAL: Abdomen soft, non-tender, nondistended. EXTREMITIES: No cyanosis, or edema. MUSCULOSKELETAL: Adequate muscle tone. NEUROLOGICAL: No obvious focal deficit. Awake, alert, and oriented x3. PSYCHIATRIC: Appropriate mood and affect; insight and judgment normal. Assessment/Plan - Plan Discuss with pt that hypercoag panel was ordered and she needs to come to office in 2-3 weeks for follow up the results Also she needs to be followed for breast cancer. I saw her 2 yrs ago and she had cancel the appty, she agrees to come see me in the office for that as well. Ok to d/c
[2018-06-24 15:52] LABS: Homocysteine (Cardiovascular) 8.2 umol/L (<10.4)
[2018-06-25 09:42] LABS: Factor V Leiden Mutation Negative (Negative); Protein C Antigen 114 % (70-150)
== END 2018-06-22 13:23 | disposition home or self-care (01) ==
LOC: NEPE 16:05 → NEDA 18:29 → N05 21:48
PROVIDERS: ADMIT Hospitalist; ATTEND Hospitalist

== ENCOUNTER 2018-06-23 22:03 | Observation (INO) ==
[2018-06-23] MEDS ORDERED: Sod Chloride 0.9% Inj 1,000 ML IV.CONT SCH (22:30)
--- NOTE | 2018-06-23 22:31 | ED ---
HPI General Chief Complaint: Stroke Alert Stated Complaint: Poss Stroke Alert Time Seen by Provider: 06/23/18 22:19 History of Present Illness HPI Narrative: This is a 68-year-old female with a recent left MCA ischemic stroke, 3 days ago, presents today with right-sided numbness and tingling and weakness. Patient states that she was just sent home yesterday after having her latest CVA. She states that roughly 20 minutes prior to arrival, she started experiencing the numbness and tingling to her right side. She also reports that she was shaking and could not control it. Patient reports previous residual deficits on the right upper and lower side from her previous hemorrhagic stroke 11 weeks ago. She reports they took her off of her blood pressure medication when she had her ischemic stroke. She states that she started experiencing a headache at the onset of the episode tonight. She states she took 1 of her valsartan even though she was told not to. There is associated nausea. No vomiting. There are no other complaints at time of examination. Related Data Home Medications Medication Instructions Recorded Confirmed amlodipine 5 mg PO DAILY 06/20/18 06/23/18 valsartan 40 mg PO BID 06/20/18 06/23/18 Previous Rx's Medication Instructions Recorded aspirin 81 mg PO DAILY #30 tab 06/22/18 metoprolol tartrate 25 mg PO [employer]GER #60 tab 06/22/18 pravastatin 40 mg PO HS #30 tab 06/22/18 Allergies Allergy/AdvReac Type Severity Reaction Status Date / Time No Known Allergies Allergy Verified 06/23/18 22:25 Review of Systems Except as stated in HPI: all other systems reviewed are negative Constitutional Denies chills and Denies fever(s) Eyes Reports system reviewed and no additional complaints, except as docu ENT Denies vertigo, Reports headache(s) and Denies neck pain Cardiovascular Denies chest pain and Denies palpitations Respiratory Denies chest congestion and Denies cough Gastrointestinal Denies nausea and Denies vomiting Genitourinary Reports system reviewed and no additional complaints, except as docu Musculoskeletal Reports muscle weakness and Reports numbness (Right upper and right lower) Neurologic Reports system reviewed and no additional complaints, except as docu, Reports headache(s), Reports numbness (Right upper and right lower extremity) and Reports weakness (Right upper and right lower. Patient has previous weakness from her ischemic stroke 3 days ago.) [facility] Social History Social History Substance History: No History of Abuse Second Hand Smoke Exposure: No Smoking Status: Current every day smoker Tobacco Type: E-Cigarettes How Often Do You Have a Drink Containing Alcohol: 4 or more times a week Exam Narrative Exam Narrative: GENERAL: Well-developed well-nourished female in no acute respiratory distress. SKIN: Focused skin assessment warm/dry. HEAD: Atraumatic. Normocephalic. EYES: Extraocular muscles were intact.. No scleral icterus. No injection or drainage. ENT: No nasal bleeding or discharge. Mucous membranes pink and moist. No obvious facial droop appreciated. NECK: Trachea midline. Supple. CARDIOVASCULAR: Regular rate and rhythm. No murmur appreciated. RESPIRATORY: No accessory muscle use. Clear to auscultation. Breath sounds equal bilaterally. GASTROINTESTINAL: Abdomen soft, non-tender, nondistended. Hepatic and splenic margins not palpable. MUSCULOSKELETAL: No obvious deformities. No clubbing. No cyanosis. No edema. NEUROLOGICAL: Awake and alert. The patient has some expressive aphasia, with no facial droop. 4 out of 5 right upper extremity strength 4 out of 5 right lower extremity strength. 5 out of 5 left upper and left lower extremity strength. Course Initial Documented Vital Signs Pulse Rate 83 06/23/18 22:09 Respiratory Rate 14 06/23/18 22:09 Blood Pressure 185/109 H 06/23/18 22:09 Pulse Oximetry 98 06/23/18 22:09 Last Documented Vital Signs Pulse Rate 83 06/23/18 22:09 Respiratory Rate 14 06/23/18 22:09 Blood Pressure 185/109 H 06/23/18 22:09 Pulse Oximetry 98 06/23/18 22:09 Medical Decision Making MDM Narrative Medical decision making narrative: 68-year-old female who status post CVA 3 days ago, presents here with recurrent numbness of her right upper and right lower extremity. Patient also has shaking in her right upper extremity. The patient's CT scan shows no evidence of acute new findings. She still has the residual left-sided CVA from her previous visit. Patient had a intracranial hemorrhage 11 weeks ago and therefore is not a candidate for TPA. I did speak with Dr. Ruiz, on-call neurologist, and informed her of the findings. She agrees with the admission however agrees also that the patient is not a candidate for TPA. She will have further studies as an inpatient. There is a call out to the [facility] hospitalist for admission. She has been given 2 mg of Ativan as she does appear to be anxious. Differential Diagnosis Differential Diagnosis: Recurrent stroke versus hypertensive urgency versus metabolic derangement Lab Data Result diagrams: 06/23/18 22:10 Lab Results 06/23/18 06/23/18 06/23/18 Range/Units 22:10 22:10 22:10 WBC 9.1 (4.0-11.0) th/mm3 RBC 4.53 (4.00-5.30) mil/mm3 Hgb 14.3 (11.6-15.3) gm/dL Hct 41.8 (35.0-46.0) % MCV 92.2 (80.0-100.0) fL MCH 31.5 (27.0-34.0) pg MCHC 34.1 (32.0-36.0) % RDW 12.9 (11.6-17.2) % Plt Count 251 (150-450) th/mm3 MPV 8.0 (7.0-11.0) fL Neut % (Auto) 49.9 (16.0-70.0) % Lymph % (Auto) 37.7 (9.0-44.0) % [place] % (Auto) 7.5 (0.0-8.0) % Eos % (Auto) 4.1 H (0.0-4.0) % Baso % (Auto) 0.8 (0.0-2.0) % Neut # (Auto) 4.6 (1.8-7.7) th/mm3 Lymph # (Auto) 3.4 (1.0-4.8) th/mm3 [place] # (Auto) 0.7 (0.0-0.9) th/mm3 Eos # (Auto) 0.4 (0.0-0.4) th/mm3 Baso # (Auto) 0.1 (0.0-0.2) th/mm3 WBC Differential . Differential Comment Auto diff final PT 9.8 (9.8-11.6) sec INR 1.0 Ratio APTT 21.9 L (24.3-30.1) sec Fibrinogen 314 (227-377) mg/dL Total Creatine Kinase 90 (26-192) U/L Troponin I Less than 0.02 L (0.02-0.05) ng/mL Blood Type 06/23/18 Range/Units 22:10 WBC (4.0-11.0) th/mm3 RBC (4.00-5.30) mil/mm3 Hgb (11.6-15.3) gm/dL Hct (35.0-46.0) % MCV (80.0-100.0) fL MCH (27.0-34.0) pg MCHC (32.0-36.0) % RDW (11.6-17.2) % Plt Count (150-450) th/mm3 MPV (7.0-11.0) fL Neut % (Auto) (16.0-70.0) % Lymph % (Auto) (9.0-44.0) % [place] % (Auto) (0.0-8.0) % Eos % (Auto) (0.0-4.0) % Baso % (Auto) (0.0-2.0) % Neut # (Auto) (1.8-7.7) th/mm3 Lymph # (Auto) (1.0-4.8) th/mm3 [place] # (Auto) (0.0-0.9) th/mm3 Eos # (Auto) (0.0-0.4) th/mm3 Baso # (Auto) (0.0-0.2) th/mm3 WBC Differential Differential Comment PT (9.8-11.6) sec INR Ratio APTT (24.3-30.1) sec Fibrinogen (227-377) mg/dL Total Creatine Kinase (26-192) U/L Troponin I (0.02-0.05) ng/mL Blood Type AB Positive Imaging Data Radiologist's impression: Chest X-Ray 06/23/18 22:19 CONCLUSION: Head CT 06/23/18 22:19 CONCLUSION: Discharge Plan Discharge Disposition Patient Disposition: 30 Still Patient Discharge Details Diagnosis: Episode of shaking, HTN (hypertension), Recent cerebrovascular accident (CVA) Physicians Team ED Provider: Jasbir Hoyt Primary Care Provider: UNKNOWN, Other Providers: Luis Fernando Webster Rxs /Orders / Referrals /Forms Prescriptions: No Action amlodipine 5 mg Tablet 5 mg PO DAILY RF: 0 valsartan 40 mg Tablet 40 mg PO BID RF: 0 pravastatin 40 mg Tablet 40 mg PO HS Qty: 30 RF: 0 aspirin 81 mg Tablet,Chewable 81 mg PO DAILY Qty: 30 RF: 0 metoprolol tartrate 25 mg Tablet 25 mg PO [employer] MANAGER Qty: 60 RF: 0 Discharge Interventions Interventions: Vital Signs Last Done: 06/23/18 23:20 Status ED Status: With Doctor
[2018-06-23 22:35] LABS: Baso # (Auto) 0.1 th/mm3 (0.0-0.2); Baso % (Auto) 0.8 % (0.0-2.0); Eos # (Auto) 0.4 th/mm3 (0.0-0.4); Eos % (Auto) 4.1 % (0.0-4.0); Hematocrit 41.8 % (35.0-46.0); Hemoglobin 14.3 gm/dL (11.6-15.3); Lymph # (Auto) 3.4 th/mm3 (1.0-4.8); Lymph % (Auto) 37.7 % (9.0-44.0); Mean Corpuscular HGB Conc 34.1 % (32.0-36.0); Mean Corpuscular Hemoglobin 31.5 pg (27.0-34.0); Mean Corpuscular Volume 92.2 fL (80.0-100.0); Mono # (Auto) 0.7 th/mm3 (0.0-0.9); Mono % (Auto) 7.5 % (0.0-8.0); Neut # (Auto) 4.6 th/mm3 (1.8-7.7); Neut % (Auto) 49.9 % (16.0-70.0); Platelet Count 251 th/mm3 (150-450); Red Blood Count 4.53 mil/mm3 (4.00-5.30); Red Cell Distribution Width 12.9 % (11.6-17.2); White Blood Count 9.1 th/mm3 (4.0-11.0)
--- NOTE | 2018-06-23 22:42 | CT ---
EXAM DATE: 06/23/2018 10:29 PM EDT AGE/SEX: 68 years / Female INDICATIONS: Stroke alert; right side weakness. CLINICAL DATA: This is the patient's initial encounter. Patient reports that signs and symptoms have been present for 1 day and indicates a pain score of 5/10. MEDICAL/SURGICAL HISTORY: Stroke. None. RADIATION DOSE: 56.35 CTDI (mGy) COMPARISON: [facility] [place] HEAD W/O CONTRAST, 06/20/2018. . TECHNIQUE: CT of the head without contrast. Using automated exposure control and adjustment of the mA and/or kV according to patient size, radiation dose was kept as low as reasonably achievable to ob tain optimal diagnostic quality images. DICOM format image data is available electronically for revi ew and comparison. FINDINGS: Cerebrum: The ventricles are normal for age. As seen previously, there appears to be a remote infar ct in the left curtis radiata extending to the cortical surface of the high parietal convexity. No ev idence of midline shift, mass lesion, hemorrhage or acute infarction. No extraaxial fluid collection s are seen. Posterior Fossa: The cerebellum and brainstem are intact. The 4th ventricle is midline. The cerebe llopontine angle is unremarkable. Extracranial: The visualized portion of the orbits is intact. Skull: The calvaria is intact. No evidence of skull fracture. 1. Remote infarct in the left coronal radiata extending to the cortical surface of the high left par ietal convexity. 2. Nothing acute. 3. No significant change from prior. Report was called by Dr. Hodges to Dr. Hoyt at [id number][ ] Electronically signed by: Darin Hodges MD 06/23/2018 10:41 PM EDT
--- NOTE | 2018-06-23 22:48 | XR ---
EXAM DATE: 06/23/2018 10:43 PM EDT AGE/SEX: 68 years / Female INDICATIONS: Stroke alert CLINICAL DATA: This is the patient's initial encounter. Patient reports that signs and symptoms have been present for 1 day and indicates a pain score of 0/10. MEDICAL/SURGICAL HISTORY: None. None. COMPARISON: [facility] [place], CHEST 1V SINGLE AP, 06/20/2018. . FINDINGS: A single AP view of the chest demonstrates the lungs to be symmetrically aerated without evidence of mass, infiltrate or effusion. The cardiomediastinal contours are unremarkable. Osseous structures a re intact. Loop recorder projects over the lower mid heart. CONCLUSION: No acute cardiopulmonary process Electronically signed by: Darin Hodges MD 06/23/2018 10:47 PM EDT
[2018-06-23 22:57] LABS: Creatine Kinase 90 U/L (26-192)
[2018-06-23 23:04] LABS: Activated Partial Thrombo Time 21.9 sec (24.3-30.1); Prothrombin Time 9.8 sec (9.8-11.6)
[2018-06-23 23:51] LABS: Blood Urea Nitrogen 14 mg/dL (7-18); Calcium 9.8 mg/dL (8.5-10.1); Chloride 104 meq/L (98-107); Glomerular Filtration Rate 60 mL/min (>89); Glucose,Random 107 mg/dL (74-106); Potassium 3.5 meq/L (3.5-5.1); Sodium 139 meq/L (136-145)
[2018-06-23 23:59] LABS: Anion Gap 7 meq/L (5-15); Carbon Dioxide 27.6 meq/L (21.0-32.0)
[2018-06-24] MEDS ORDERED: Metoprolol Tartrate 25 MG Tablet PO SCH (00:30)
--- NOTE | 2018-06-24 01:00 | P.HP ---
History of Present Illness Service: [facility] Primary Care Physician: UNKNOWN History of Present Illness: 68-year-old female with a past medical history significant for breast cancer, hypertension, history of hemorrhagic stroke followed by ischemic stroke presents to the emergency department for evaluation of strokelike symptoms. The patient reports that she was at home when she had shaking and weakness in her right arm. She also reports right lower extremity weakness. She states she was unable to talk for some period of time. The patient has a history of a hemorrhagic stroke on 03/31/18 and an ischemic stroke on 06/20/18. She reports the symptoms were the same as her previous ischemic stroke and was very concerned. She denies any headaches. No visual changes. Strength has returned to baseline and there is no longer a tremor in her right arm. Review of Systems Denies fever or chills Denies blurry vision, otorrhea, rhinorrhea Denies sore throat and cough No chest pain, palpitations No shortness of breath or wheezing No abdominal pain Denies constipation/diarrhea/nausea/vomiting Denies muscle pain No rashes PMFSH - History History Provided By: Patient - Medical History Medical History: Medical History (Last Reviewed 06/22/18 @ 09:28 by Jennifer Jiménez) Breast cancer Hemorrhagic cerebrovascular accident (CVA) Hypertension Stroke - Surgical History Surgical History: Surgical History (Last Reviewed 06/22/18 @ 09:28 by Jennifer Jiménez) S/P breast lumpectomy - Family History Family History: Family History (Last Reviewed 06/22/18 @ 09:28 by Jennifer Jiménez) Other No significant family history - Tobacco History Second Hand Smoke Exposure: No Smoking Status: Current every day smoker Tobacco Type: E-Cigarettes - Alcohol History How Often Do You Have a Drink Containing Alcohol: 4 or more times a week - Substance Use History Substance History: No History of Abuse Medications and Allergies Active Medications: Active Medications Amlodipine Besylate (Norvasc) 5 mg PO DAILY [facility] Aspirin (Aspirin Chew) 81 mg PO DAILY EWA Sodium Chloride (Ns Inj) 1,000 mls @ 70 mls/hr IV.CONT .[id number] EWA Last Admin: 06/23/18 22:46 Dose: 70 mls/hr Sodium Chloride (Ns Inj) 1,000 mls @ 70 mls/hr IV.CONT .[id number] [facility] Metoprolol Tartrate (Lopressor) 25 mg PO UX [facility] Pravastatin Sodium (Pravachol) 40 mg PO HS [facility] Valsartan (Diovna) 40 mg PO BID [facility] Allergies Allergy/AdvReac Type Severity Reaction Status Date / Time No Known Allergies Allergy Verified 06/23/18 22:25 Home Medications Medication Instructions Recorded Confirmed Type amlodipine 5 mg PO DAILY 06/20/18 06/23/18 History valsartan 40 mg PO BID 06/20/18 06/23/18 History Exam Vital signs: Vital Signs 06/23/18 22:09 06/23/18 23:20 Pulse Rate 83 66 Respiratory Rate 14 16 Blood Pressure 185/109 H 130/90 Pulse Oximetry 98 97 Intake & Output 06/23/18 06/23/18 06/24/18 06:59 18:59 06:59 Weight 75.2 kg Narrative: Gen.: No acute distress Head: Normocephalic. Atraumatic. EENT: Pupils equal round and reactive to light. Nose without drainage. Airway intact. Throat without injection. Cardiovascular: Regular rate and rhythm. No murmurs, rubs or gallops. Respiratory: Lungs clear to auscultation bilaterally. No wheezes or rhonchi. Abdomen: Soft, nontender, nondistended. No peritoneal signs. Musculoskeletal: No gross deformities. No edema. Skin: No obvious rashes or erythema. Neuro: Cranial nerves XII intact. Strength 5/5 and handgrip, upper and lower extremities. No slurred speech. No more finding difficulties. Alert and oriented 4. Results - Labs CBC & Chem 7: 06/23/18 22:10 06/23/18 22:10 Labs: Laboratory Results - last 24 hr 06/23/18 06/23/18 06/23/18 22:10 22:10 22:10 WBC 9.1 RBC 4.53 Hgb 14.3 POC Hgb (Calc) Hct 41.8 POC Hct MCV 92.2 MCH 31.5 MCHC 34.1 RDW 12.9 Plt Count 251 MPV 8.0 Neut % (Auto) 49.9 Lymph % (Auto) 37.7 [place] % (Auto) 7.5 Eos % (Auto) 4.1 H Baso % (Auto) 0.8 Neut # (Auto) 4.6 Lymph # (Auto) 3.4 [place] # (Auto) 0.7 Eos # (Auto) 0.4 Baso # (Auto) 0.1 WBC Differential . Differential Comment Auto diff final PT 9.8 INR 1.0 APTT 21.9 L Fibrinogen 314 POC Sodium Sodium 139 POC Potassium Potassium 3.5 POC Chloride Chloride 104 Carbon Dioxide 27.6 Anion Gap 7 POC BUN BUN 14 Creatinine 0.92 POC Creatinine Estimated GFR 60 L POC Glucose Random Glucose 107 H Calcium 9.8 Total Creatine Kinase 90 Troponin I Less than 0.02 L Blood Type Antibody Screen 06/23/18 06/23/18 22:10 22:33 WBC RBC Hgb POC Hgb (Calc) 14.3 Hct POC Hct 42.0 MCV MCH MCHC RDW Plt Count MPV Neut % (Auto) Lymph % (Auto) [place] % (Auto) Eos % (Auto) Baso % (Auto) Neut # (Auto) Lymph # (Auto) [place] # (Auto) Eos # (Auto) Baso # (Auto) WBC Differential Differential Comment PT INR APTT Fibrinogen POC Sodium 138 Sodium POC Potassium 3.5 L Potassium POC Chloride 102 Chloride Carbon Dioxide Anion Gap POC BUN 16 BUN Creatinine POC Creatinine 0.9 Estimated GFR POC Glucose 109 Random Glucose Calcium Total Creatine Kinase Troponin I Blood Type AB Positive Antibody Screen Negative - Imaging Impressions Chest X-Ray 06/23/18 22:19 CONCLUSION: Head CT 06/23/18 22:19 CONCLUSION: Caprini VTE Risk Assessment Caprini VTE Risk Assessment: Moderate/High Risk (score >= 2) VTE Pharmacological Exception Reason: Hemorrhage Caprini Risk Assessment Model: Point Value = 1 Point Value = 2 Point Value = 3 Point Value = 5 Age 41-60 Minor surgery BMI > 25 kg/m2 Swollen legs Varicose veins or History of unexplained or recurrent spontaneous Oral contraceptives or hormone replacement Sepsis (< 1 month) Serious lung disease, including pneumonia (< 1 month) Abnormal pulmonary function Acute myocardial infarction Congestive heart failure (< 1 month) History of inflammatory bowel disease Medical patient at bed rest Age 61-74 Arthroscopic surgery Major open surgery (> 45 min) Laparoscopic surgery (> 45 min) Malignancy Confined to bed (> 72 hours) Immobilizing plaster cast Central venous access Age >= 75 History of VTE Family history of VTE Factor V Leiden Prothrombin [id number] Lupus anticoagulant Anticardiolipin antibodies Elevated serum homocysteine Heparin-induced thrombocytopenia Other congenital or acquired thrombophilia Stroke (< 1 month) Elective arthroplasty Hip, pelvis, or leg fracture Acute spinal cord injury (< 1 month) Prophylaxis Regimen: Total Risk Factor Score Risk Level Prophylaxis Regimen 0-1 Low Early ambulation 2 Moderate Order ONE of the following: *Sequential Compression Device (SCD) *Heparin 5000 units SQ BID 3-4 Higher Order ONE of the following medications: *Heparin 5000 units SQ TID *Enoxaparin/Lovenox 40 mg SQ daily (WT < 150 kg, CrCl > 30 mL/min) *Enoxaparin/Lovenox 30 mg SQ daily (WT < 150 kg, CrCl > 10-29 mL/min) *Enoxaparin/Lovenox 30 mg SQ BID (WT < 150 kg, CrCl > 30 mL/min) AND/OR *Sequential Compression Device (SCD) 5 or more Highest Order ONE of the following medications: *Heparin 5000 units SQ TID (Preferred with Epidurals) *Enoxaparin/Lovenox 40 mg SQ daily (WT < 150 kg, CrCl > 30 mL/min) *Enoxaparin/Lovenox 30 mg SQ daily (WT < 150 kg, CrCl > 10-29 mL/min) *Enoxaparin/Lovenox 30 mg SQ BID (WT < 150 kg, CrCl > 30 mL/min) AND *Sequential Compression Device (SCD) Assessment and Plan - Plan Assessment/plan: 1. ?TIA/CVA Patient with history of hemorrhagic stroke 11 weeks ago and ischemic stroke [address] head negative for acute process MRI pending Neurology consulted, appreciate recommendations 2. Hypertension Continue home medications Monitor BP FEN N.p.o. Electrolytes: Monitor and replete as needed. p.o. repletion of potassium if patient passes bedside swallow eval, monitor BMP NS at 70 cc/hour
[2018-06-24] MEDS: Sod Chloride 0.9% Inj 1,000 ML IV.CONT SCH ×3 (02:11→20:09)
[2018-06-24 03:15] LABS: Bilirubin,Urine Negative (Negative); Clarity,Urine Clear (Clear); Color,Urine Yellow (Yellw/Straw); Glucose,Urine (UA) Negative (Negative); Leukocyte Esterase,Urine Negative (Negative); Nitrite,Urine Negative (Negative)
--- NOTE | 2018-06-24 07:50 | ECG ---
Date Performed: 06/24/2018 Time Performed: 01:10:31 PTAGE: 68 years EKG: Sinus rhythm INCOMPLETE RIGHT BUNDLE BRANCH BLOCK BORDERLINE ECG No significant change from prior electrocardiogr am. PREVIOUS TRACING : 06/21/2018 21.36 DOCTOR: Lino Ivory Interpretating Date/Time 06/24/2018 07:48:53
--- NOTE | 2018-06-24 09:00 | P.PN ---
Subjective Interval history: F/U neuro symptoms. She is doing okay no complaints at this time. States she was taking baby aspirin Physical Exam Vital signs: Vital Signs 06/23/18 22:09 06/23/18 22:19 06/23/18 23:20 Temperature Pulse Rate 83 66 Respiratory Rate 14 16 Blood Pressure 185/109 H 130/90 Pulse Oximetry 98 100 97 06/24/18 01:24 06/24/18 03:16 06/24/18 04:00 Temperature 97.7 F Pulse Rate 58 L 69 Respiratory Rate 16 16 Blood Pressure 108/73 Pulse Oximetry 98 95 06/24/18 08:00 Temperature 97.7 F Pulse Rate 71 Respiratory Rate 16 Blood Pressure 136/77 Pulse Oximetry 99 Intake & Output 06/23/18 06/24/18 06/24/18 18:59 06:59 18:59 Intake Total 1000 / 1000 Balance 1000 / 1000 Weight 75.2 kg Intake: IV 1000 / 1000 NS Inj 1,000 ML @ 70 mls/hr IV. 1000 / 1000 CONT .[id number] [facility] Rx#:[id number] Other: Weight On Admission 75.2 kg Narrative: Gen.: No acute distress Cardiovascular: Regular rate and rhythm. No murmurs, rubs or gallops. Respiratory: Lungs clear to auscultation bilaterally. No wheezes or rhonchi. Abdomen: Soft, nontender, nondistended. No peritoneal signs. Musculoskeletal: No gross deformities. No edema. Skin: No obvious rashes or erythema. Neuro: Cranial nerves XII intact. Strength 5/5 and handgrip, upper and lower extremities. No slurred speech. No more word finding difficulties. Alert and oriented 4. Results - Labs CBC & Chem 7: 06/23/18 22:10 06/23/18 22:10 Laboratory Results - last 24 hr 06/23/18 06/23/18 06/23/18 22:10 22:10 22:10 WBC 9.1 RBC 4.53 Hgb 14.3 POC Hgb (Calc) Hct 41.8 POC Hct MCV 92.2 MCH 31.5 MCHC 34.1 RDW 12.9 Plt Count 251 MPV 8.0 Neut % (Auto) 49.9 Lymph % (Auto) 37.7 [place] % (Auto) 7.5 Eos % (Auto) 4.1 H Baso % (Auto) 0.8 Neut # (Auto) 4.6 Lymph # (Auto) 3.4 [place] # (Auto) 0.7 Eos # (Auto) 0.4 Baso # (Auto) 0.1 WBC Differential . Differential Comment Auto diff final PT 9.8 INR 1.0 APTT 21.9 L Fibrinogen 314 POC Sodium Sodium 139 POC Potassium Potassium 3.5 POC Chloride Chloride 104 Carbon Dioxide 27.6 Anion Gap 7 POC BUN BUN 14 Creatinine 0.92 POC Creatinine Estimated GFR 60 L POC Glucose Random Glucose 107 H Calcium 9.8 Total Creatine Kinase 90 Troponin I Less than 0.02 L Urine Color Urine Clarity Urine pH Ur Specific [place] Urine Protein Urine Glucose (UA) Urine Ketones Urine Occult Blood Urine Nitrate Urine Bilirubin Urine Urobilinogen Ur Leukocyte Esterase Urine WBC Micro UA Comment Urine Culture Comments Blood Type Antibody Screen 06/23/18 06/23/18 06/24/18 22:10 22:33 02:44 WBC RBC Hgb POC Hgb (Calc) 14.3 Hct POC Hct 42.0 MCV MCH MCHC RDW Plt Count MPV Neut % (Auto) Lymph % (Auto) [place] % (Auto) Eos % (Auto) Baso % (Auto) Neut # (Auto) Lymph # (Auto) [place] # (Auto) Eos # (Auto) Baso # (Auto) WBC Differential Differential Comment PT INR APTT Fibrinogen POC Sodium 138 Sodium POC Potassium 3.5 L Potassium POC Chloride 102 Chloride Carbon Dioxide Anion Gap POC BUN 16 BUN Creatinine POC Creatinine 0.9 Estimated GFR POC Glucose 109 Random Glucose Calcium Total Creatine Kinase Troponin I Urine Color Yellow Urine Clarity Clear Urine pH 5.0 Ur Specific [place] 1.010 Urine Protein Negative Urine Glucose (UA) Negative Urine Ketones Negative Urine Occult Blood Negative Urine Nitrate Negative Urine Bilirubin Negative Urine Urobilinogen Less than 2 Ur Leukocyte Esterase Negative Urine WBC 1 Micro UA Comment Culture not ind Urine Culture Comments Culture not ind Blood Type AB Positive Antibody Screen Negative - Imaging Impressions Chest X-Ray 06/23/18 22:19 CONCLUSION: Head CT 06/23/18 22:19 CONCLUSION: - Procedures none Assessment and Plan - Assessment (1) TIA (transient ischemic attack) Code(s): G45.9 - Transient cerebral ischemic attack, unspecified Status: Acute - Plan 1. Likely TIA with recent CVA on asa Patient with history of hemorrhagic stroke 11 weeks ago and ischemic stroke [address] head negative for acute process MRI negative Recent neck CTA and ECHO. LDL 78 A1c 5.2 Neurology consulted, appreciate recommendations PT and OT consults Ct Asa, may need additional antiplatelet await neurology evaluation 2. Hypertension Continue home medications Monitor BP FEN Heart healthy Electrolytes: Monitor and replete as needed. Discharge Planning: O/P PT and OT when when cleared by neurology
[2018-06-24] MEDS ORDERED: Gadobutrol PF 7.5 MMOL/7.5 ML Vial (for RAD) IV.SIG ONE (09:42)
[2018-06-24] MEDS: amLODIPine 5 MG Tablet PO SCH (10:01)
--- NOTE | 2018-06-24 10:09 | MR ---
EXAM DATE: 06/24/2018 9:45 AM EDT AGE/SEX: 68 years / Female INDICATIONS: TIA. Right sided weakness. History of intraparenchymal hemorrhage in the left pariet al lobe in March 2018. CLINICAL DATA: This is the patient's subsequent encounter. Patient reports that signs and symptoms h ave been present for 2 days and indicates a pain score of 0/10. MEDICAL/SURGICAL HISTORY: Carcinoma, breast. Cerebrovascular disease. Hypertension. . Lumpect oneil of left breast. Loop recorder. COMPARISON: [facility] [place], MR HEAD W/O CONTRAST, 06/20/2018. . TECHNIQUE: Multiplanar, multisequence examination of the brain was performed without and with 7.5 ml Gadavist (gadobutrol) contrast as a single exam dose. FINDINGS: Cerebrum: The ventricles are normal for age. No evidence of midline shift, mass lesion, hemorrhage or acute infarction. No extraaxial fluid collections are seen. The pituitary gland and suprasellar cistern are normal in configuration. White Matter: There is residual gliosis and hemosiderin in the area previously noted hemorrhagic inf arction involving the left posterior parietal lobe. Posterior Fossa: The cerebellum and brainstem are intact. The 4th ventricle is midline. The cerebel lopontine angle is unremarkable. The cerebellar tonsils are normal in position. Diffusion Imaging: No focal areas of restricted diffusion are seen. No evidence of acute infarction . Extracranial: The visualized portions of the orbits and paranasal sinuses are unremarkable. Post Contrast: No abnormal areas of parenchymal or dural enhancement. No evidence of blood-brain ba rrier breakdown. 1. No acute infarction, mass or hemorrhage. 2. Residual gliosis and hemosiderin the area of previously noted hemorrhagic infarction involving th e left posterior parietal lobe. Electronically signed by: Chaka Kerr MD 06/24/2018 10:08 AM EDT
--- NOTE | 2018-06-24 17:09 | MB ---
cc: Luis Fernando Webster MD, PhD DATE: 06/24/2018 REASON FOR CONSULTATION: Stroke. HISTORY OF PRESENT ILLNESS: Ms. Cleaning is a very nice 68-year-old female, who 11 weeks ago had a left hemisphere hemorrhagic stroke causing her to have right-sided weakness. She states on Thursday, she had sudden onset of jerking of the right arm and right leg, lasting several minutes, after which she had increased weakness. She states she had recurrent episode again jerking on the right side, shaking and then increased weakness. The episodes have stopped. She states following the hemorrhagic stroke, she was treated for a short period of time with Dilantin and Keppra, but could not tolerate these, so came off. PAST MEDICAL HISTORY: 1. History of hemorrhagic stroke 2. History of breast cancer, treated with lumpectomy. CURRENT MEDICATIONS: 1. Norvasc. 2. Aspirin 81 mg daily. 3. Cozaar. 4. Pravachol. NEUROLOGIC EXAMINATION: VITAL SIGNS: Her blood pressure is 132/82, pulse 85, respiratory rate is 16, temperature 97 degrees. HIGHER CORTICAL FUNCTIONS: Normal. CRANIAL NERVES: Intact. MOTOR EXAM: She has mild weakness right arm and right leg at 4/5 compared with 5/5 on the left. There is diminished fine motor skills of her hand. Reflexes are symmetric at 2+. IMAGING STUDIES: CT scan of the brain done yesterday: Remote infarct, left curtis radiata. No hemorrhage. MRI of the brain done today shows no acute stroke, mass or hemorrhage. There is residual gliosis and hemosiderin in the left posterior parietal lobe from the previous hemorrhage. No acute change present. LABORATORY DATA: The white count is 9100; hemoglobin 14.3; hematocrit 41.8%; platelet count 251,000. PT 9.8, INR 1, aPTT 21.9. Sodium is 138, potassium 3.5, chloride 102, BUN is 16, creatinine is 0.92, glucose is 109. IMPRESSION: Probable focal seizure from her previous hemorrhagic stroke with Jared's paralysis postictal. No evidence of acute stroke on MRI. RECOMMENDATIONS: We will start seizure medication. She could not tolerate Keppra or Dilantin. Would recommend starting her on Trileptal. Also, we will get an EEG, carotid ultrasound, and echocardiogram. Luis Fernando Webster MD, PhD HONG/PAULINO , 04:47 PM , 04:55 PM
[2018-06-24] MEDS ORDERED: Metoprolol Tartrate 25 MG Tablet PO ONE (20:15)
[2018-06-24] MEDS: OXcarbazepine 600 MG Tablet PO SCH (21:15)
[2018-06-25 07:46] LABS: Baso % (Auto) 0.7 % (0.0-2.0); Eos # (Auto) 0.3 th/mm3 (0.0-0.4); Eos % (Auto) 4.5 % (0.0-4.0); Hematocrit 39.6 % (35.0-46.0); Hemoglobin 13.7 gm/dL (11.6-15.3); Lymph # (Auto) 2.3 th/mm3 (1.0-4.8); Lymph % (Auto) 30.8 % (9.0-44.0); Mean Corpuscular HGB Conc 34.6 % (32.0-36.0); Mean Corpuscular Hemoglobin 32.1 pg (27.0-34.0); Mean Corpuscular Volume 92.7 fL (80.0-100.0); Mean Platelet Volume 8.2 fL (7.0-11.0); Mono # (Auto) 0.5 th/mm3 (0.0-0.9); Mono % (Auto) 7.2 % (0.0-8.0); Neut # (Auto) 4.2 th/mm3 (1.8-7.7); Neut % (Auto) 56.8 % (16.0-70.0); Platelet Count 232 th/mm3 (150-450); Red Blood Count 4.27 mil/mm3 (4.00-5.30); Red Cell Distribution Width 13.1 % (11.6-17.2); White Blood Count 7.4 th/mm3 (4.0-11.0)
[2018-06-25 08:21] LABS: Calcium 8.8 mg/dL (8.5-10.1); Carbon Dioxide 27.8 meq/L (21.0-32.0); Potassium 3.9 meq/L (3.5-5.1)
[2018-06-25] MEDS ORDERED: Metoprolol Tartrate 25 MG Tablet PO SCH ×2 (09:00)
[2018-06-25] MEDS: amLODIPine 5 MG Tablet PO SCH (09:57)
[2018-06-25] MEDS: OXcarbazepine 600 MG Tablet PO SCH (09:57)
--- NOTE | 2018-06-25 10:28 | P.PN ---
Subjective Interval history: F/U sz. Doing okay. Patient educated on seizure disorder. Patient not allowed to drive for 6 months, carry young children, climb heights and swim alone. Physical Exam Vital signs: Vital Signs 06/24/18 12:00 06/24/18 16:00 06/24/18 16:37 Temperature 97.9 F 97.9 F Pulse Rate 85 92 H 99 H Respiratory Rate 16 16 Blood Pressure 132/82 122/77 Pulse Oximetry 97 97 06/24/18 20:00 06/24/18 23:59 06/25/18 03:47 Temperature 97.5 F L 97.9 F Pulse Rate 107 H 79 64 Respiratory Rate 20 20 18 Blood Pressure 128/78 113/74 130/76 Pulse Oximetry 97 99 99 06/25/18 07:19 Temperature 98.2 F Pulse Rate 68 Respiratory Rate 18 Blood Pressure 108/76 Pulse Oximetry 98 Intake & Output 06/24/18 06/25/18 06/25/18 18:59 06:59 18:59 Intake Total 1999 119 / 119 Balance 1999 119 / 119 Intake: IV 1999 119 / 119 NS Inj 1,000 ML @ 70 mls/hr IV. 1999 119 / 119 CONT .[id number] [facility] Rx#:[id number] Other: # Voids 1 Narrative: Gen.: No acute distress Cardiovascular: Regular rate and rhythm. No murmurs, rubs or gallops. Respiratory: Lungs clear to auscultation bilaterally. No wheezes or rhonchi. Abdomen: Soft, nontender, nondistended. No peritoneal signs. Musculoskeletal: No gross deformities. No edema. Skin: No obvious rashes or erythema. Neuro: Cranial nerves XII intact. Strength 5/5 and handgrip, upper and lower extremities. No slurred speech. No more word finding difficulties. Alert and oriented 4. Results - Labs CBC & Chem 7: 06/25/18 06:28 06/25/18 06:28 Laboratory Results - last 24 hr 06/24/18 06/24/18 06/24/18 12:15 17:26 20:30 WBC RBC Hgb Hct MCV MCH MCHC RDW Plt Count MPV Neut % (Auto) Lymph % (Auto) [place] % (Auto) Eos % (Auto) Baso % (Auto) Neut # (Auto) Lymph # (Auto) [place] # (Auto) Eos # (Auto) Baso # (Auto) WBC Differential Differential Comment Sodium Potassium Chloride Carbon Dioxide Anion Gap BUN Creatinine Estimated GFR POC Glucose 76 111 H 110 Random Glucose Calcium 06/25/18 06/25/18 06/25/18 06:28 06:28 08:36 WBC 7.4 RBC 4.27 Hgb 13.7 Hct 39.6 MCV 92.7 MCH 32.1 MCHC 34.6 RDW 13.1 Plt Count 232 MPV 8.2 Neut % (Auto) 56.8 Lymph % (Auto) 30.8 [place] % (Auto) 7.2 Eos % (Auto) 4.5 H Baso % (Auto) 0.7 Neut # (Auto) 4.2 Lymph # (Auto) 2.3 [place] # (Auto) 0.5 Eos # (Auto) 0.3 Baso # (Auto) 0.0 WBC Differential . Differential Comment Auto diff final Sodium 139 Potassium 3.9 Chloride 106 Carbon Dioxide 27.8 Anion Gap 5 BUN 16 Creatinine 0.79 Estimated GFR 72 L POC Glucose 132 H Random Glucose 98 Calcium 8.8 D - Procedures none Assessment and Plan - Assessment (1) TIA (transient ischemic attack) Code(s): G45.9 - Transient cerebral ischemic attack, unspecified Status: Acute - Plan 1. Likely new onset seizure in the setting of recent CVA on asa Patient with history of hemorrhagic stroke [address] head negative for acute process MRI negative Recent neck CTA and ECHO. LDL 78 A1c 5.2 Neurology consulted, appreciate recommendations. Continue Trileptal. Seizure precautions. Follow-up EEG PT and OT consults Ct [place] 2. Hypertension Continue home medications Monitor BP FEN Heart healthy Electrolytes: Monitor and replete as needed. Discharge Planning: Discharge patient to home Condition on discharge: Improved Regular Diet as tolerated Ad Lynn activity no driving Rx written: Trileptal Follow-up with primary care physician and neurology
[2018-06-25] MEDS ORDERED: Lacosamide 50 MG Tablet PO ONE (14:15)
--- NOTE | 2018-06-25 16:45 | P.PNNEU ---
Subjective Subjective Comments: No acute events reported No further sz had side effects of trileptal 600 mg--dizzy, fatigued Active Medications: Active Medications Amlodipine Besylate (Norvasc) 5 mg PO DAILY [facility] Last Admin: 06/25/18 09:57 Dose: 5 mg Aspirin (Aspirin Chew) 81 mg PO DAILY [facility] Last Admin: 06/25/18 09:57 Dose: 81 mg Sodium Chloride (Ns Inj) 1,000 mls @ 70 mls/hr IV.CONT .[id number] [facility] Last Infusion: 06/25/18 06:38 Dose: 0 mls/hr Lacosamide (Vimpat) 50 mg PO BID [facility] Levothyroxine Sodium (Synthroid) 25 mcg PO DAILY@0600 [facility] Last Admin: 06/25/18 06:29 Dose: 25 mcg Lorazepam (Ativan Inj) 1 mg IV.PUSH Q4H PRN PRN Reason: SEIZURES Losartan Potassium (Cozaar) 50 mg PO DAILY [facility] Last Admin: 06/25/18 09:55 Dose: 50 mg Metoprolol Tartrate (Lopressor) 25 mg PO BID [facility] Last Admin: 06/25/18 09:55 Dose: 25 mg Pravastatin Sodium (Pravachol) 40 mg PO HS [facility] Last Admin: 06/24/18 21:15 Dose: 40 mg Allergies/Adverse Reactions: Allergies Allergy/AdvReac Type Severity Reaction Status Date / Time No Known Allergies Allergy Verified 06/23/18 22:25 Physical Exam Vital signs: Vital Signs 06/24/18 20:00 06/24/18 23:59 06/25/18 03:47 Temperature 97.5 F L 97.9 F Pulse Rate 107 H 79 64 Respiratory Rate 20 20 18 Blood Pressure 128/78 113/74 130/76 Pulse Oximetry 97 99 99 06/25/18 07:19 06/25/18 11:23 06/25/18 15:48 Temperature 98.2 F 97.5 F L 97.4 F L Pulse Rate 68 69 81 Respiratory Rate 18 18 18 Blood Pressure 108/76 133/79 142/90 H Pulse Oximetry 98 97 96 Intake & Output 06/24/18 06/25/18 06/25/18 18:59 06:59 18:59 Intake Total 1999 119 / 119 Balance 1999 119 / 119 Intake: IV 1999 119 / 119 NS Inj 1,000 ML @ 70 mls/hr IV. 1999 119 / 119 CONT .[id number] [facility] Rx#:[id number] Other: # Voids 1 - Routine Neurological Exam alert, speech normal CN intact MOTOR 5/5 BUE and BLE Objective Laboratory Results - last 24 hr 06/24/18 06/24/18 06/25/18 17:26 20:30 06:28 WBC 7.4 RBC 4.27 Hgb 13.7 Hct 39.6 MCV 92.7 MCH 32.1 MCHC 34.6 RDW 13.1 Plt Count 232 MPV 8.2 Neut % (Auto) 56.8 Lymph % (Auto) 30.8 [place] % (Auto) 7.2 Eos % (Auto) 4.5 H Baso % (Auto) 0.7 Neut # (Auto) 4.2 Lymph # (Auto) 2.3 [place] # (Auto) 0.5 Eos # (Auto) 0.3 Baso # (Auto) 0.0 WBC Differential . Differential Comment Auto diff final Sodium Potassium Chloride Carbon Dioxide Anion Gap BUN Creatinine Estimated GFR POC Glucose 111 H 110 Random Glucose Calcium 06/25/18 06/25/18 06/25/18 06:28 08:36 12:54 WBC RBC Hgb Hct MCV MCH MCHC RDW Plt Count MPV Neut % (Auto) Lymph % (Auto) [place] % (Auto) Eos % (Auto) Baso % (Auto) Neut # (Auto) Lymph # (Auto) [place] # (Auto) Eos # (Auto) Baso # (Auto) WBC Differential Differential Comment Sodium 139 Potassium 3.9 Chloride 106 Carbon Dioxide 27.8 Anion Gap 5 BUN 16 Creatinine 0.79 Estimated GFR 72 L POC Glucose 132 H 126 H Random Glucose 98 Calcium 8.8 D Review/Management - Diagnosis (1) Seizure Code(s): R56.9 - Unspecified convulsions Status: Acute Current Visit: Yes - Review/Management Plan: reduce trileptal to 300 mg bid ok to discharge and follow up with me in 2 weeks I told her no driving
[2018-06-25] MEDS ORDERED: OXcarbazepine 300 MG Tablet PO ONE (17:00)
--- NOTE | 2018-06-25 17:51 | MG ---
cc: Shakeel Carrillo MD, David J MD EEG NUMBER [id number] Stat EEG. MRI negative except for old nonhemorrhagic infarct on the left. Right arm jerking. Norvasc, Trileptal There are diffuse alpha and beta rhythms. The beta rhythms are prominent. I wonder if she had some benzodiazepines. There is a little bit of more prominent to the beta rhythms over the left temporal head region than the right, although I would not say that there is any actual epileptiform activity. Hyperventilation was performed with a little bit more of the focal slowing at times over the left temporal head region. Photic stimulation was performed without significant posterior driving. IMPRESSION: Some left temporal slowing; could be a seizure focus in this patient with an old stroke. I did not see any definite seizure activity. Clinical correlation is needed. MD SARIKA Ross/ , 05:38 PM , 05:44 PM
[2018-06-25] MEDS ORDERED: Lacosamide 50 MG Tablet PO SCH (21:00)
== END 2018-06-25 18:01 | disposition home or self-care (01) ==
LOC: NEDA 22:03 → NEPE 22:03 → NEPFCDU 22:03
PROVIDERS: ADMIT Internal Medicine; ATTEND Internal Medicine

== ENCOUNTER 2018-11-01 12:54 | Inpatient (IN) ==
[2018-11-01 13:37] LABS: Baso % (Auto) 0.6 % (0.0-2.0); Eos # (Auto) 0.1 th/mm3 (0.0-0.4); Eos % (Auto) 2.3 % (0.0-4.0); Hematocrit 41.4 % (35.0-46.0); Hemoglobin 14.1 gm/dL (11.6-15.3); Lymph # (Auto) 2.4 th/mm3 (1.0-4.8); Mean Corpuscular Hemoglobin 32.9 pg (27.0-34.0); Mean Corpuscular Volume 96.8 fL (80.0-100.0); Mean Platelet Volume 7.8 fL (7.0-11.0); Mono # (Auto) 0.4 th/mm3 (0.0-0.9); Mono % (Auto) 6.6 % (0.0-8.0); Neut # (Auto) 3.4 th/mm3 (1.8-7.7); Neut % (Auto) 53.5 % (16.0-70.0); Platelet Count 245 th/mm3 (150-450); Red Blood Count 4.28 mil/mm3 (4.00-5.30); Red Cell Distribution Width 12.4 % (11.6-17.2); White Blood Count 6.4 th/mm3 (4.0-11.0)
[2018-11-01 13:46] LABS: Activated Partial Thrombo Time 22.3 sec (23.4-31.7); Prothrombin Time 10.1 sec (9.8-11.6)
[2018-11-01] MEDS: Sod Chloride 0.9% Inj 1,000 ML IV.CONT SCH (13:57)
--- NOTE | 2018-11-01 14:00 | CT ---
EXAM DATE: 11/01/2018 1:47 PM EST AGE/SEX: 68 years / Female INDICATIONS: Right side weakness CLINICAL DATA: This is the patient's initial encounter. Patient reports that signs and symptoms have been present for 1 day and indicates a pain score of 0/10. MEDICAL/SURGICAL HISTORY: . Unable to obtain . Unable to obtain RADIATION DOSE: 37.33 CTDI (mGy) COMPARISON: [facility] [place], MR HEAD W & W/O CONTRAST, 06/24/2018. . TECHNIQUE: CT of the head without contrast. Using automated exposure control and adjustment of the mA and/or kV according to patient size, radiation dose was kept as low as reasonably achievable to ob tain optimal diagnostic quality images. DICOM format image data is available electronically for revi ew and comparison. FINDINGS: Cerebrum: The ventricles are normal. There is encephalomalacia at the left parietal high convexity, stable from the prior study. No midline shift, mass lesion, hemorrhage or acute infarction. No extra axial fluid collections are seen. Posterior Fossa: The cerebellum and brainstem demonstrate no acute abnormality. The 4th ventricle is midline. The cerebellopontine angle is within normal limits. Extracranial: The visualized sinuses are clear. Skull: The calvaria is intact. No skull fracture. CONCLUSION: 1. No acute intracranial abnormality is identified. 2. Stable left parietal encephalomalacia. Findings were telephoned to Dr. Estrada on 11/01/2018 at 1:46 PM. Electronically signed by: Brandon Auguste MD 11/01/2018 1:58 PM EST
[2018-11-01 14:02] LABS: Creatine Kinase 63 U/L (26-192)
--- NOTE | 2018-11-01 14:08 | CT ---
EXAM DATE: 11/01/2018 2:03 PM EST AGE/SEX: 68 years / Female INDICATIONS: Right side weakness CLINICAL DATA: This is the patient's initial encounter. Patient reports that signs and symptoms have been present for 1 day and indicates a pain score of 0/10. MEDICAL/SURGICAL HISTORY: . Unable to obtain . Unable to obtain RADIATION DOSE: 28.18 CTDI (mGy) ; Combined studies COMPARISON: [facility] [place], MR HEAD W & W/O CONTRAST, 06/24/2018. . TECHNIQUE: Volumetric scanning was performed using a multi-row detector CT scanner during bolus infu yudith of 60 ml Omnipaque 350 (iohexol) nonionic water-soluble contrast as a single exam dose. The d vero was post processed with a variety of visualization algorithms including full volume maximum inten sity projection, multi-planar sliding thin slab reformation, curved planar reformation, and surface r endering techniques. Using automated exposure control and adjustment of the mA and/or kV according t o patient size, radiation dose was kept as low as reasonably achievable to obtain optimal diagnostic quality images. DICOM format image data is available electronically for review and comparison. FINDINGS: Examination is somewhat limited due to mixed phase of contrast. The major intracranial arteries are visualized out to the second order vessels. There is no evidence for aneurysm, vessel truncation, and no evidence for significant vascular malformation. CONCLUSION: 1. No evidence for large vessel occlusion. Report was called by Dr. Chacko to Dr. Webster at 1405.] Electronically signed by: Ector Hernandez MD 11/01/2018 2:07 PM EST
--- NOTE | 2018-11-01 14:11 | XR ---
EXAM DATE: 11/01/2018 1:46 PM EST AGE/SEX: 68 years / Female INDICATIONS: Stroke alert. CLINICAL DATA: This is the patient's initial encounter. Patient reports that signs and symptoms have been present for 1 day and indicates a pain score of Nonresponsive. MEDICAL/SURGICAL HISTORY: . Hypertension. . Left lumpectomy. COMPARISON: [facility] [place], CHEST 1V SINGLE AP, 06/23/2018. . FINDINGS: Portable AP view of the chest demonstrates a normal-sized cardiac silhouette. EKG lines overlie the p atient. No effusion, consolidation, or pneumothorax is identified. The bones and soft tissues demonst rate no acute finding. CONCLUSION: No acute cardiopulmonary abnormality is identified. Electronically signed by: Brandon Auguste MD 11/01/2018 2:09 PM EST
[2018-11-01 14:15] LABS: Bilirubin,Urine Negative (Negative); Clarity,Urine Clear (Clear); Color,Urine Straw (Yellw/Straw); Glucose,Urine (UA) Negative (Negative); Leukocyte Esterase,Urine Trace (Negative); Nitrite,Urine Negative (Negative); Specific Gravity,Urine 1.025 (1.002-1.035); Squamous Epithelial Cell,Urine <1 /hpf (0-5)
--- NOTE | 2018-11-01 14:18 | ED ---
HPI General Chief complaint: Neuro Symptoms/Deficit Stated complaint: Poss Stroke Time Seen by Provider: 11/01/18 13:10 Source: patient Mode of arrival: wheelchair Limitations: no limitations History of Present Illness HPI narrative: Patient is a 68 year old female who comes in complaining of headache with nausea and vomiting and right sided weakness. She says she has had the headache with the vomiting for about a week, but the weakness started this morning around 6:30. She has history of hemorrhagic and ischemic stroke, with some residual deficit, however she says the symptoms are worse today. She says the headache with the nausea and vomiting is similar to how she felt before having the hemorrhagic stroke. She was taking aspirin, but stopped recently, because she thought that it interacted with losartan. She is also concerned that her blood pressure has been elevated. She denies chest pain or shortness of breath. Severity is moderate. Related Data Home Medications Medication Instructions Recorded Confirmed amlodipine 5 mg PO DAILY 06/20/18 11/01/18 levothyroxine 25 mcg PO DAILY 06/24/18 11/01/18 thyroid (pork) [Nature-Throid] 97.5 mg PO DAILY 06/24/18 11/01/18 losartan 50 mg PO DAILY 11/01/18 11/01/18 multivitamin 1 tab PO QAM 11/01/18 11/01/18 Allergies Allergy/AdvReac Type Severity Reaction Status Date / Time No Known Allergies Allergy Verified 11/01/18 13:00 Review of Systems ROS: all other systems reviewed are negative Constitutional Denies chills and Denies fever(s) ENT Denies dizziness Cardiovascular Denies chest pain and Denies dyspnea Respiratory Denies cough and Denies dyspnea Gastrointestinal Denies abdominal pain, Denies nausea and Denies vomiting Musculoskeletal Denies myalgias and Denies arthralgias Integumentary/Breasts Denies sores and Denies wounds Neurologic Reports focal weakness PMFSH Medical History Medical History Breast cancer (Acute) Hemorrhagic cerebrovascular accident (CVA) (Acute) Hypertension (Acute) Stroke (Acute) Surgical History Surgical History S/P breast lumpectomy (Acute) Family History Family History Other No significant family history Osteoarthritis Social History Social History Substance History: No History of Abuse Second Hand Smoke Exposure: No Smoking Status: Former smoker Tobacco Type: E-Cigarettes How Often Do You Have a Drink Containing Alcohol: Monthly or less Recent Travel in [facility] within the Last 8 Weeks: No Recent Out of Country Travel within the Last 8 Weeks: No Immunization History Tetanus Immunization: Unsure Exam Narrative Exam Narrative: GENERAL: Awake and alert, in no acute distress. SKIN: Focused skin assessment warm/dry. No wounds or signs of infection. HEAD: Atraumatic. Normocephalic. EYES: Pupils equal and round. No scleral icterus. No injection or drainage. ENT: No nasal bleeding or discharge. Mucous membranes pink and moist. NECK: Trachea midline. No JVD. CARDIOVASCULAR: Regular rate and rhythm. No murmur appreciated. RESPIRATORY: No accessory muscle use. Clear to auscultation. Breath sounds equal bilaterally. GASTROINTESTINAL: Abdomen soft, non-tender, nondistended. MUSCULOSKELETAL: No obvious deformities. No clubbing. No cyanosis. No edema. NEUROLOGICAL: Awake and alert. No obvious cranial nerve deficits. 4/5 strength to right arm and leg compared to 5/5 on the left. PSYCHIATRIC: Appropriate mood and affect; insight and judgment normal. Course Initial Documented Vital Signs Temperature 98.2 F 11/01/18 12:58 Pulse Rate 107 H 11/01/18 12:58 Respiratory Rate 20 11/01/18 12:58 Blood Pressure 166/92 H 11/01/18 12:58 Pulse Oximetry 98 11/01/18 12:58 Last Documented Vital Signs Temperature 97.9 F 11/03/18 16:00 Pulse Rate 68 11/03/18 17:00 Respiratory Rate 16 11/03/18 17:00 Blood Pressure 133/75 11/03/18 17:00 Pulse Oximetry 95 11/03/18 17:00 Quality Measure Queries Stroke Last date observed well: 11/01/18 Last time observed well: 06:30 Medical Decision Making MDM Narrative Medical decision making narrative: Patient is a 68 year old female who comes in complaining of right sided weakness. Exam shows decreased strength in the right arm and leg. Stroke alert called and patient taken to CT. Patient is outside of the window for TPA as she presented well after 4.5 hrs from time of onset. Neurology consulted, Dr. Webster at bedside. Labs show no acute abnormalities. CT head shows no evidence of bleeding. Patient to be admitted for further management. Medical Screen Exam Complete: Yes Emergency Medical Condition: Yes Differential Diagnosis Differential Diagnosis: Stroke vs TIA vs seizure Medical Records Medical records reviewed: Yes I reviewed the patient's medical records. Lab Data Lab results reviewed: Yes I reviewed the patient's lab results. Result diagrams: 11/02/18 08:15 11/02/18 08:15 Lab Results 11/01/18 11/01/18 11/01/18 Range/Units 13:10 13:10 13:30 WBC (4.0-11.0) th/mm3 RBC (4.00-5.30) mil/mm3 Hgb (11.6-15.3) gm/dL POC Hgb (Calc) (11.6-15.3) g/dL Hct (35.0-46.0) % POC Hct (35-46.0) % MCV (80.0-100.0) fL MCH (27.0-34.0) pg MCHC (32.0-36.0) % RDW (11.6-17.2) % Plt Count (150-450) th/mm3 MPV (7.0-11.0) fL Neut % (Auto) (16.0-70.0) % Lymph % (Auto) (9.0-44.0) % [place] % (Auto) (0.0-8.0) % Eos % (Auto) (0.0-4.0) % Baso % (Auto) (0.0-2.0) % Neut # (Auto) (1.8-7.7) th/mm3 Lymph # (Auto) (1.0-4.8) th/mm3 [place] # (Auto) (0.0-0.9) th/mm3 Eos # (Auto) (0.0-0.4) th/mm3 Baso # (Auto) (0.0-0.2) th/mm3 WBC Differential Differential Comment PT (9.8-11.6) sec INR Ratio APTT (23.4-31.7) sec Fibrinogen (227-377) mg/dL POC Sodium (137-144) mmol/L Sodium (136-145) meq/L POC Potassium (3.6-5.0) mmol/L Potassium (3.5-5.1) meq/L POC Chloride (102-111) mmol/L Chloride (98-107) meq/L Carbon Dioxide (21.0-32.0) meq/L Anion Gap (5-15) meq/L POC BUN (5-21) mg/dL BUN (7-18) mg/dL Creatinine (0.50-1.00) mg/dL POC Creatinine (0.6-1.3) mg/dL Estimated GFR (>89) mL/min POC Glucose 110 (68-110) mg/dl Random Glucose (74-106) mg/dL Calcium (8.5-10.1) mg/dL Total Bilirubin (0.2-1.0) mg/dL AST (15-37) U/L ALT (10-53) U/L Alkaline Phosphatase (45-117) U/L Total Creatine Kinase 63 (26-192) U/L Troponin I Less than 0.02 L (0.02-0.05) ng/mL Total Protein (6.4-8.2) g/dL Albumin (3.4-5.0) g/dL Triglycerides (42-150) mg/dL Cholesterol (120-200) mg/dL LDL Cholesterol, Calc (0-99) mg/dL HDL Cholesterol (40.0-60.0) mg/dL Cholesterol/HDL Ratio Ratio Beta HCG, Quant 4 (0-5) mIU/mL Urine Color (Yellw/Straw) Urine Clarity (Clear) Urine pH (5.0-8.5) Ur Specific [place] (1.002-1.035) Urine Protein (Neg-Trace) mg/dL Urine Glucose (UA) (Negative) mg/dL Urine Ketones (Negative) mg/dL Urine Occult Blood (Negative) Urine Nitrate (Negative) Urine Bilirubin (Negative) Urine Urobilinogen (Less than 2) mg/dL Ur Leukocyte Esterase (Negative) Urine RBC (0-3) /hpf Urine WBC (0-5) /hpf Ur Squamous Epith Cells (0-5) /hpf Micro UA Comment Ur Microscopic Review Urine Culture Comments Nasal Screen MRSA (PCR) (Negative) Urine Opiates Screen (Neg) Ur Barbiturates Screen (Neg) Phenytoin (10.0-20.0) mcg/mL Ur Amphetamines Screen (Neg) U Benzodiazepines Scrn (Neg) Urine Cocaine Screen (Neg) U Cannabinoids Screen (Neg) Blood Type AB Positive Antibody Screen Negative 11/01/18 11/01/18 11/01/18 Range/Units 13:30 13:30 13:30 WBC 6.4 (4.0-11.0) th/mm3 RBC 4.28 (4.00-5.30) mil/mm3 Hgb 14.1 (11.6-15.3) gm/dL POC Hgb (Calc) 13.9 (11.6-15.3) g/dL Hct 41.4 (35.0-46.0) % POC Hct 41.0 (35-46.0) % MCV 96.8 (80.0-100.0) fL MCH 32.9 (27.0-34.0) pg MCHC 34.0 (32.0-36.0) % RDW 12.4 (11.6-17.2) % Plt Count 245 (150-450) th/mm3 MPV 7.8 (7.0-11.0) fL Neut % (Auto) 53.5 (16.0-70.0) % Lymph % (Auto) 37.0 (9.0-44.0) % [place] % (Auto) 6.6 (0.0-8.0) % Eos % (Auto) 2.3 (0.0-4.0) % Baso % (Auto) 0.6 (0.0-2.0) % Neut # (Auto) 3.4 (1.8-7.7) th/mm3 Lymph # (Auto) 2.4 (1.0-4.8) th/mm3 [place] # (Auto) 0.4 (0.0-0.9) th/mm3 Eos # (Auto) 0.1 (0.0-0.4) th/mm3 Baso # (Auto) 0.0 (0.0-0.2) th/mm3 WBC Differential . Differential Comment Auto diff final PT 10.1 (9.8-11.6) sec INR 1.0 Ratio APTT 22.3 L (23.4-31.7) sec Fibrinogen 287 (227-377) mg/dL POC Sodium 140 (137-144) mmol/L Sodium (136-145) meq/L POC Potassium 3.6 (3.6-5.0) mmol/L Potassium (3.5-5.1) meq/L POC Chloride 104 (102-111) mmol/L Chloride (98-107) meq/L Carbon Dioxide (21.0-32.0) meq/L Anion Gap (5-15) meq/L POC BUN 16 (5-21) mg/dL BUN (7-18) mg/dL Creatinine (0.50-1.00) mg/dL POC Creatinine 0.7 (0.6-1.3) mg/dL Estimated GFR (>89) mL/min POC Glucose 111 H (68-110) mg/dl Random Glucose (74-106) mg/dL Calcium (8.5-10.1) mg/dL Total Bilirubin (0.2-1.0) mg/dL AST (15-37) U/L ALT (10-53) U/L Alkaline Phosphatase (45-117) U/L Total Creatine Kinase (26-192) U/L Troponin I (0.02-0.05) ng/mL Total Protein (6.4-8.2) g/dL Albumin (3.4-5.0) g/dL Triglycerides (42-150) mg/dL Cholesterol (120-200) mg/dL LDL Cholesterol, Calc (0-99) mg/dL HDL Cholesterol (40.0-60.0) mg/dL Cholesterol/HDL Ratio Ratio Beta HCG, Quant (0-5) mIU/mL Urine Color (Yellw/Straw) Urine Clarity (Clear) Urine pH (5.0-8.5) Ur Specific [place] (1.002-1.035) Urine Protein (Neg-Trace) mg/dL Urine Glucose (UA) (Negative) mg/dL Urine Ketones (Negative) mg/dL Urine Occult Blood (Negative) Urine Nitrate (Negative) Urine Bilirubin (Negative) Urine Urobilinogen (Less than 2) mg/dL Ur Leukocyte Esterase (Negative) Urine RBC (0-3) /hpf Urine WBC (0-5) /hpf Ur Squamous Epith Cells (0-5) /hpf Micro UA Comment Ur Microscopic Review Urine Culture Comments Nasal Screen MRSA (PCR) (Negative) Urine Opiates Screen (Neg) Ur Barbiturates Screen (Neg) Phenytoin (10.0-20.0) mcg/mL Ur Amphetamines Screen (Neg) U Benzodiazepines Scrn (Neg) Urine Cocaine Screen (Neg) U Cannabinoids Screen (Neg) Blood Type Antibody Screen 11/01/18 11/01/18 11/01/18 Range/Units 13:30 13:30 14:00 WBC (4.0-11.0) th/mm3 RBC (4.00-5.30) mil/mm3 Hgb (11.6-15.3) gm/dL POC Hgb (Calc) (11.6-15.3) g/dL Hct (35.0-46.0) % POC Hct (35-46.0) % MCV (80.0-100.0) fL MCH (27.0-34.0) pg MCHC (32.0-36.0) % RDW (11.6-17.2) % Plt Count (150-450) th/mm3 MPV (7.0-11.0) fL Neut % (Auto) (16.0-70.0) % Lymph % (Auto) (9.0-44.0) % [place] % (Auto) (0.0-8.0) % Eos % (Auto) (0.0-4.0) % Baso % (Auto) (0.0-2.0) % Neut # (Auto) (1.8-7.7) th/mm3 Lymph # (Auto) (1.0-4.8) th/mm3 [place] # (Auto) (0.0-0.9) th/mm3 Eos # (Auto) (0.0-0.4) th/mm3 Baso # (Auto) (0.0-0.2) th/mm3 WBC Differential Differential Comment PT (9.8-11.6) sec INR Ratio APTT (23.4-31.7) sec Fibrinogen (227-377) mg/dL POC Sodium (137-144) mmol/L Sodium (136-145) meq/L POC Potassium (3.6-5.0) mmol/L Potassium (3.5-5.1) meq/L POC Chloride (102-111) mmol/L Chloride (98-107) meq/L Carbon Dioxide (21.0-32.0) meq/L Anion Gap (5-15) meq/L POC BUN (5-21) mg/dL BUN (7-18) mg/dL Creatinine (0.50-1.00) mg/dL POC Creatinine (0.6-1.3) mg/dL Estimated GFR (>89) mL/min POC Glucose (68-110) mg/dl Random Glucose (74-106) mg/dL Calcium (8.5-10.1) mg/dL Total Bilirubin (0.2-1.0) mg/dL AST (15-37) U/L ALT (10-53) U/L Alkaline Phosphatase (45-117) U/L Total Creatine Kinase Cancelled (26-192) U/L Troponin I Cancelled (0.02-0.05) ng/mL Total Protein (6.4-8.2) g/dL Albumin (3.4-5.0) g/dL Triglycerides 161 H (42-150) mg/dL Cholesterol 215 H (120-200) mg/dL LDL Cholesterol, Calc 94 (0-99) mg/dL HDL Cholesterol 89.2 H (40.0-60.0) mg/dL Cholesterol/HDL Ratio 2.41 Ratio Beta HCG, Quant Cancelled (0-5) mIU/mL Urine Color (Yellw/Straw) Urine Clarity (Clear) Urine pH (5.0-8.5) Ur Specific [place] (1.002-1.035) Urine Protein (Neg-Trace) mg/dL Urine Glucose (UA) (Negative) mg/dL Urine Ketones (Negative) mg/dL Urine Occult Blood (Negative) Urine Nitrate (Negative) Urine Bilirubin (Negative) Urine Urobilinogen (Less than 2) mg/dL Ur Leukocyte Esterase (Negative) Urine RBC (0-3) /hpf Urine WBC (0-5) /hpf Ur Squamous Epith Cells (0-5) /hpf Micro UA Comment Ur Microscopic Review Urine Culture Comments Nasal Screen MRSA (PCR) (Negative) Urine Opiates Screen Neg (Neg) Ur Barbiturates Screen Neg (Neg) Phenytoin (10.0-20.0) mcg/mL Ur Amphetamines Screen Neg (Neg) U Benzodiazepines Scrn Neg (Neg) Urine Cocaine Screen Neg (Neg) U Cannabinoids Screen Neg (Neg) Blood Type Antibody Screen 11/01/18 11/01/18 11/02/18 Range/Units 14:00 21:33 08:15 WBC 5.8 (4.0-11.0) th/mm3 RBC 4.16 (4.00-5.30) mil/mm3 Hgb 13.8 (11.6-15.3) gm/dL POC Hgb (Calc) (11.6-15.3) g/dL Hct 40.0 (35.0-46.0) % POC Hct (35-46.0) % MCV 96.1 (80.0-100.0) fL MCH 33.2 (27.0-34.0) pg MCHC 34.5 (32.0-36.0) % RDW 12.2 (11.6-17.2) % Plt Count 231 (150-450) th/mm3 MPV 7.6 (7.0-11.0) fL Neut % (Auto) 58.1 (16.0-70.0) % Lymph % (Auto) 28.5 (9.0-44.0) % [place] % (Auto) 7.2 (0.0-8.0) % Eos % (Auto) 5.2 H (0.0-4.0) % Baso % (Auto) 1.0 (0.0-2.0) % Neut # (Auto) 3.4 (1.8-7.7) th/mm3 Lymph # (Auto) 1.7 (1.0-4.8) th/mm3 [place] # (Auto) 0.4 (0.0-0.9) th/mm3 Eos # (Auto) 0.3 (0.0-0.4) th/mm3 Baso # (Auto) 0.1 (0.0-0.2) th/mm3 WBC Differential . Differential Comment Auto diff final PT (9.8-11.6) sec INR Ratio APTT (23.4-31.7) sec Fibrinogen (227-377) mg/dL POC Sodium (137-144) mmol/L Sodium (136-145) meq/L POC Potassium (3.6-5.0) mmol/L Potassium (3.5-5.1) meq/L POC Chloride (102-111) mmol/L Chloride (98-107) meq/L Carbon Dioxide (21.0-32.0) meq/L Anion Gap (5-15) meq/L POC BUN (5-21) mg/dL BUN (7-18) mg/dL Creatinine (0.50-1.00) mg/dL POC Creatinine (0.6-1.3) mg/dL Estimated GFR (>89) mL/min POC Glucose 82 (68-110) mg/dl Random Glucose (74-106) mg/dL Calcium (8.5-10.1) mg/dL Total Bilirubin (0.2-1.0) mg/dL AST (15-37) U/L ALT (10-53) U/L Alkaline Phosphatase (45-117) U/L Total Creatine Kinase (26-192) U/L Troponin I (0.02-0.05) ng/mL Total Protein (6.4-8.2) g/dL Albumin (3.4-5.0) g/dL Triglycerides (42-150) mg/dL Cholesterol (120-200) mg/dL LDL Cholesterol, Calc (0-99) mg/dL HDL Cholesterol (40.0-60.0) mg/dL Cholesterol/HDL Ratio Ratio Beta HCG, Quant (0-5) mIU/mL Urine Color Straw (Yellw/Straw) Urine Clarity Clear (Clear) Urine pH 5.0 (5.0-8.5) Ur Specific [place] 1.025 (1.002-1.035) Urine Protein Negative (Neg-Trace) mg/dL Urine Glucose (UA) Negative (Negative) mg/dL Urine Ketones Negative (Negative) mg/dL Urine Occult Blood Negative (Negative) Urine Nitrate Negative (Negative) Urine Bilirubin Negative (Negative) Urine Urobilinogen Less than 2 (Less than 2) mg/dL Ur Leukocyte Esterase Trace H (Negative) Urine RBC 1 (0-3) /hpf Urine WBC 1 (0-5) /hpf Ur Squamous Epith Cells <1 (0-5) /hpf Micro UA Comment Cath-culture not ind Ur Microscopic Review Not Reportable Urine Culture Comments Cath-cult not ind Nasal Screen MRSA (PCR) (Negative) Urine Opiates Screen (Neg) Ur Barbiturates Screen (Neg) Phenytoin (10.0-20.0) mcg/mL Ur Amphetamines Screen (Neg) U Benzodiazepines Scrn (Neg) Urine Cocaine Screen (Neg) U Cannabinoids Screen (Neg) Blood Type Antibody Screen 11/02/18 11/02/18 11/02/18 Range/Units 08:15 10:12 13:15 WBC (4.0-11.0) th/mm3 RBC (4.00-5.30) mil/mm3 Hgb (11.6-15.3) gm/dL POC Hgb (Calc) (11.6-15.3) g/dL Hct (35.0-46.0) % POC Hct (35-46.0) % MCV (80.0-100.0) fL MCH (27.0-34.0) pg MCHC (32.0-36.0) % RDW (11.6-17.2) % Plt Count (150-450) th/mm3 MPV (7.0-11.0) fL Neut % (Auto) (16.0-70.0) % Lymph % (Auto) (9.0-44.0) % [place] % (Auto) (0.0-8.0) % Eos % (Auto) (0.0-4.0) % Baso % (Auto) (0.0-2.0) % Neut # (Auto) (1.8-7.7) th/mm3 Lymph # (Auto) (1.0-4.8) th/mm3 [place] # (Auto) (0.0-0.9) th/mm3 Eos # (Auto) (0.0-0.4) th/mm3 Baso # (Auto) (0.0-0.2) th/mm3 WBC Differential Differential Comment PT (9.8-11.6) sec INR Ratio APTT (23.4-31.7) sec Fibrinogen (227-377) mg/dL POC Sodium (137-144) mmol/L Sodium 141 (136-145) meq/L POC Potassium (3.6-5.0) mmol/L Potassium 4.1 (3.5-5.1) meq/L POC Chloride (102-111) mmol/L Chloride 108 H (98-107) meq/L Carbon Dioxide 26.9 (21.0-32.0) meq/L Anion Gap 6 (5-15) meq/L POC BUN (5-21) mg/dL BUN 11 (7-18) mg/dL Creatinine 0.74 (0.50-1.00) mg/dL POC Creatinine (0.6-1.3) mg/dL Estimated GFR 78 L (>89) mL/min POC Glucose 170 H 93 (68-110) mg/dl Random Glucose 105 (74-106) mg/dL Calcium 8.8 (8.5-10.1) mg/dL Total Bilirubin 0.6 (0.2-1.0) mg/dL AST 19 (15-37) U/L ALT 22 (10-53) U/L Alkaline Phosphatase 71 (45-117) U/L Total Creatine Kinase (26-192) U/L Troponin I (0.02-0.05) ng/mL Total Protein 6.8 (6.4-8.2) g/dL Albumin 3.8 (3.4-5.0) g/dL Triglycerides (42-150) mg/dL Cholesterol (120-200) mg/dL LDL Cholesterol, Calc (0-99) mg/dL HDL Cholesterol (40.0-60.0) mg/dL Cholesterol/HDL Ratio Ratio Beta HCG, Quant (0-5) mIU/mL Urine Color (Yellw/Straw) Urine Clarity (Clear) Urine pH (5.0-8.5) Ur Specific [place] (1.002-1.035) Urine Protein (Neg-Trace) mg/dL Urine Glucose (UA) (Negative) mg/dL Urine Ketones (Negative) mg/dL Urine Occult Blood (Negative) Urine Nitrate (Negative) Urine Bilirubin (Negative) Urine Urobilinogen (Less than 2) mg/dL Ur Leukocyte Esterase (Negative) Urine RBC (0-3) /hpf Urine WBC (0-5) /hpf Ur Squamous Epith Cells (0-5) /hpf Micro UA Comment Ur Microscopic Review Urine Culture Comments Nasal Screen MRSA (PCR) (Negative) Urine Opiates Screen (Neg) Ur Barbiturates Screen (Neg) Phenytoin (10.0-20.0) mcg/mL Ur Amphetamines Screen (Neg) U Benzodiazepines Scrn (Neg) Urine Cocaine Screen (Neg) U Cannabinoids Screen (Neg) Blood Type Antibody Screen 11/02/18 11/02/18 11/03/18 Range/Units 13:15 17:40 04:52 WBC (4.0-11.0) th/mm3 RBC (4.00-5.30) mil/mm3 Hgb (11.6-15.3) gm/dL POC Hgb (Calc) (11.6-15.3) g/dL Hct (35.0-46.0) % POC Hct (35-46.0) % MCV (80.0-100.0) fL MCH (27.0-34.0) pg MCHC (32.0-36.0) % RDW (11.6-17.2) % Plt Count (150-450) th/mm3 MPV (7.0-11.0) fL Neut % (Auto) (16.0-70.0) % Lymph % (Auto) (9.0-44.0) % [place] % (Auto) (0.0-8.0) % Eos % (Auto) (0.0-4.0) % Baso % (Auto) (0.0-2.0) % Neut # (Auto) (1.8-7.7) th/mm3 Lymph # (Auto) (1.0-4.8) th/mm3 [place] # (Auto) (0.0-0.9) th/mm3 Eos # (Auto) (0.0-0.4) th/mm3 Baso # (Auto) (0.0-0.2) th/mm3 WBC Differential Differential Comment PT (9.8-11.6) sec INR Ratio APTT (23.4-31.7) sec Fibrinogen (227-377) mg/dL POC Sodium (137-144) mmol/L Sodium (136-145) meq/L POC Potassium (3.6-5.0) mmol/L Potassium (3.5-5.1) meq/L POC Chloride (102-111) mmol/L Chloride (98-107) meq/L Carbon Dioxide (21.0-32.0) meq/L Anion Gap (5-15) meq/L POC BUN (5-21) mg/dL BUN (7-18) mg/dL Creatinine (0.50-1.00) mg/dL POC Creatinine (0.6-1.3) mg/dL Estimated GFR (>89) mL/min POC Glucose 97 (68-110) mg/dl Random Glucose (74-106) mg/dL Calcium (8.5-10.1) mg/dL Total Bilirubin (0.2-1.0) mg/dL AST (15-37) U/L ALT (10-53) U/L Alkaline Phosphatase (45-117) U/L Total Creatine Kinase (26-192) U/L Troponin I (0.02-0.05) ng/mL Total Protein (6.4-8.2) g/dL Albumin (3.4-5.0) g/dL Triglycerides (42-150) mg/dL Cholesterol (120-200) mg/dL LDL Cholesterol, Calc (0-99) mg/dL HDL Cholesterol (40.0-60.0) mg/dL Cholesterol/HDL Ratio Ratio Beta HCG, Quant (0-5) mIU/mL Urine Color (Yellw/Straw) Urine Clarity (Clear) Urine pH (5.0-8.5) Ur Specific [place] (1.002-1.035) Urine Protein (Neg-Trace) mg/dL Urine Glucose (UA) (Negative) mg/dL Urine Ketones (Negative) mg/dL Urine Occult Blood (Negative) Urine Nitrate (Negative) Urine Bilirubin (Negative) Urine Urobilinogen (Less than 2) mg/dL Ur Leukocyte Esterase (Negative) Urine RBC (0-3) /hpf Urine WBC (0-5) /hpf Ur Squamous Epith Cells (0-5) /hpf Micro UA Comment Ur Microscopic Review Urine Culture Comments Nasal Screen MRSA (PCR) Not detected (Negative) Urine Opiates Screen (Neg) Ur Barbiturates Screen (Neg) Phenytoin 22.1 H (10.0-20.0) mcg/mL Ur Amphetamines Screen (Neg) U Benzodiazepines Scrn (Neg) Urine Cocaine Screen (Neg) U Cannabinoids Screen (Neg) Blood Type Antibody Screen Imaging Data Radiologist's impression: Head MRI 11/01/18 00:00 CONCLUSION: 1. Old left parietal infarct. 2. No acute infarction. Chest X-Ray 11/01/18 13:11 CONCLUSION: No acute cardiopulmonary abnormality is identified. Head CT 11/01/18 13:11 CONCLUSION: 1. No acute intracranial abnormality is identified. 2. Stable left parietal encephalomalacia. Findings were telephoned to Dr. Estrada on 11/01/2018 at 1:46 PM. Head CTA 11/01/18 13:11 CONCLUSION: 1. No evidence for large vessel occlusion. Report was called by Dr. Chacko to Dr. Webster at [id number].] Neck CTA 11/01/18 13:11 CONCLUSION: 1. Unremarkable and stable CTA of the carotids. CT CAD 11/01/18 13:13 CONCLUSION: Physiological brain perfusion parameters with RAPID analysis as above. The decision for consideration of therapy is multi factorial and multi disciplinary relying on subjective and objective clinical data. This data is not construed or intended to be the sole determinant of treatment eligibility. Head CT 11/02/18 00:00 CONCLUSION: 1. No acute intracranial abnormality has developed. 2. Chronic left parietal lobe infarct. . ECG Data EKG Prior to Arrival: No Attestation: I personally reviewed and interpreted this ECG as follows: Interpretation: ECG shows NSR Discharge Plan Discharge Disposition Patient Disposition: ED Admit(ED Internal Use Only) Discharge Condition Condition: Stable Discharge Order Discharge Orders: AMA Discharge (Routine); Ordered 11/03/18 Ordered By: Nydia Parra ED Use Only Admit Order (Routine); Ordered 11/01/18 Ordered By: Pau Estrada Physicians Team ED Provider: Pau Estrada Primary Care Provider: UNKNOWN, Attending Provider: Daryl Crump Other Providers: Luis Fernando Webster ; [employer] Status ED Status: Left Department Discharge Information Discharge Date/Time: 11/01/18 16:15
[2018-11-01 14:21] LABS: Amphetamine Screen,Urine Neg (Neg); Barbiturate Screen,Urine Neg (Neg); Cannabinoid Screen,Urine Neg (Neg); Cocaine Screen,Urine Neg (Neg)
[2018-11-01 14:25] LABS: Opiate Screen,Urine Neg (Neg)
--- NOTE | 2018-11-01 14:25 | CT ---
EXAM DATE: 11/01/2018 2:13 PM EST AGE/SEX: 68 years / Female INDICATIONS: Right side weakness CLINICAL DATA: This is the patient's initial encounter. Patient reports that signs and symptoms have been present for 1 day and indicates a pain score of 0/10. MEDICAL/SURGICAL HISTORY: . unable to obtain . unable to obtain RADIATION DOSE: 314.22 CTDI (mGy) COMPARISON: [facility], CTA HEAD W CONTRAST W 3D, 11/01/2018. . TECHNIQUE: CT of the head after intravenous administration of 40 ml Visipaque 320 (iodixanol) nonio carrie water-soluble contrast as a single exam dose. Using automated exposure control and adjustment of the mA and/or kV according to patient size, radiation dose was kept as low as reasonably achievable to obtain optimal diagnostic quality images. DICOM format image data is available electronically for review and comparison. FINDINGS: 1. CBF (<30%) Volume (ml): 0 2. Perfusion (Tmax>6.0s) Volume (ml): 0 3. Mismatch Volume (ml) (Tmax>6.0 - CBF): 0 CONCLUSION: Physiological brain perfusion parameters with RAPID analysis as above. The decision for consideration of therapy is multi factorial and multi disciplinary relying on subjec tive and objective clinical data. This data is not construed or intended to be the sole determinant of treatment eligibility. Electronically signed by: Ramon Mojica MD 11/01/2018 2:24 PM EST
--- NOTE | 2018-11-01 14:28 | MB ---
cc: Luis Fernando Webster MD, PhD DATE: 11/01/2018 REASON FOR CONSULTATION: Stroke alert. HISTORY OF PRESENT ILLNESS: Ms. 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 Was stable from these with some residual right-sided numbness until last night developed increasing weakness on the right side involving the arm and leg, which was distinctly worse this morning around 6:30 this morning. She presented as a stroke alert. She had no speech difficulty. She does have a headache. PAST MEDICAL HISTORY: History of breast cancer. She has a history of cerebral hemorrhage in the left parietal area back in March and then a secondary ischemic stroke was identified last May, from which she did recover. History of hypertension. CURRENT MEDICATIONS: She takes no aspirin. No anticoagulation. NEUROLOGIC EXAMINATION: VITAL SIGNS: Blood pressure 123/76, pulse is 83, respirations 16. HIGHER CORTICAL FUNCTION: Alert and oriented. Speech is normal. Cranial nerves are normal. Motor: She has got weakness in the right arm, rated at 4/5 proximally and distally. Right leg is 4/5 proximal and distal. Normal strength of the left. Diminished fine motor skills right hand. Reflexes are symmetric at 2+. Sensory exam is diminished in the right upper extremity. IMAGING STUDIES: CT of the brain result pending. CT angiogram of the brain result is pending. CT perfusion brain result pending. CTA neck is pending. LABORATORY DATA: White count 6400, hemoglobin 14.1, hematocrit 41%, platelet count 245,000. PT 10.1, INR 1, aPTT 22.3. Sodium is 140, potassium 3.6, chloride 104, BUN of 16, creatinine 0.7, glucose 111. EKG: Sinus rhythm. IMPRESSION: Probable left hemisphere stroke versus recurrent hemorrhage. RECOMMENDATIONS: We will follow up with a CT of the brain, as well as a CTA and CT perfusion study. The patient is not a candidate for IV TPA because of her recent cerebral hemorrhage as well as the timing which is well outside the 4-1/2 hour window. We will further evaluate with CTA and CT perfusion to see if there is any large vessel occlusion amenable to clot extraction. Work her up as well with repeat MRI of the brain, echocardiogram, hypercoagulable state workup and lipid panel. Consider MARYSE as well if she has not had this in a previous workup. Luis Fernando Webster MD, PhD HONG/smiley , 01:54 PM , 02:03 PM
[2018-11-01 14:32] LABS: Chol/HDL Ratio 2.41 Ratio; HDL Cholesterol 89.2 mg/dL (40.0-60.0)
[2018-11-01] MEDS ORDERED: Acetaminophen 325 MG Tablet PO PRN (14:43)
[2018-11-01 14:50] LABS: Beta HCG,Quantitative 4 mIU/mL (0-5)
--- NOTE | 2018-11-01 15:27 | P.HPIM ---
History of Present Illness Primary Care Physician: UNKNOWN Chief Complaint: Right Side Weakness History of Present Illness: Mrs. Cleaning is a 68 year old female. She has a past medical history of hemorrhagic stroke followed by ischemic stroke. For the past 3 days as an outpatient she has been having progressive weakness of her right lower extremity and right arm. These were some of the previous neurological deficits which she had with her prior strokes. Her present baseline is chronic numbness of the right arm and leg but no significant motor deficit. She also had an onset of headache and she is worried that she was having a hemorrhagic stroke again. CT brain shows no hemorrhagic stroke evidence. MRI is pending. EEG has been performed and Keppra was initiated as a treatment, however, patient not interested in taking any antibiotics including Keppra because of side effects she had previously on these medications. She does report she had a high blood pressure at home which may be contributory to her present situation. Currently blood pressures are controlled. No other neurological deficits are reported. Review of Systems Constitutional: No fevers, no chills no night sweats, no fatigue, no weakness Eyes: No eye pain, no blurry vision, no loss of vision ENT: No sore throat, no ear pain, no rhinorrhea Cardiovascular: No chest pain, no tachycardia, no palpitations, no syncope Respiratory: No wheezing, no cough, no shortness of breath Gastrointestinal: No abdominal pain, no black tarry stools, no bright red blood per rectum, no vomiting, no diarrhea Musculoskeletal: No joint pain, no muscle cramps, no stiffness Integumentary: No rash, no ulcers, no drainage Neurologic: Chronic sensory loss at right side, right-sided weakness, no dizziness Psychiatric: No behavioral changes, no hallucinations, no suicidal ideations [facility] Family History Family History Other No significant family history Osteoarthritis Social History Social History Substance History: No History of Abuse Second Hand Smoke Exposure: No Smoking Status: Former smoker Tobacco Type: E-Cigarettes How Often Do You Have a Drink Containing Alcohol: Monthly or less Recent Travel in [facility] within the Last 8 Weeks: No Recent Out of Country Travel within the Last 8 Weeks: No Immunization History Tetanus Immunization: Unsure Medications and Allergies Allergies Allergy/AdvReac Type Severity Reaction Status Date / Time No Known Allergies Allergy Verified 11/01/18 13:00 Home Medications Medication Instructions Recorded Confirmed Type amlodipine 5 mg PO DAILY 06/20/18 11/01/18 History levothyroxine 25 mcg PO DAILY 06/24/18 11/01/18 History thyroid (pork) [Nature-Throid] 97.5 mg PO DAILY 06/24/18 11/01/18 History losartan 50 mg PO DAILY 11/01/18 11/01/18 History multivitamin 1 tab PO QAM 11/01/18 11/01/18 History Active Medications: Active Medications Acetaminophen (Tylenol) 650 mg PO Q4H PRN PRN Reason: Temp > 100.4 Al Hydroxide/Mg Hydroxide (Milk Of Layla [place]) 30 ml PO Q12H PRN PRN Reason: Mild Constipation Sodium Chloride (Ns Inj) 1,000 mls @ 70 mls/hr IV.CONT .[id number] EWA Last Admin: 11/01/18 13:57 Dose: 70 mls/hr Levetiracetam 500 mg/ Sodium (Chloride) 105 mls @ 400 mls/hr IV.SIG Q12H EWA Ondansetron HCl (Zofran Inj) 4 mg IV.PUSH Q6H PRN PRN Reason: NAUSEA OR VOMITING Sodium Chloride (Ns Flush) 2 ml IV.FLUSH BID EWA Sodium Chloride (Ns Flush) 2 ml IV.FLUSH PRN PRN PRN Reason: FLUSH AFTER USING IV ACCESS Physical Exam Vital signs: Last Vital Signs Temp 98.2 F 11/01/18 12:58 Pulse 82 11/01/18 15:00 Resp 16 11/01/18 14:43 BP 119/66 11/01/18 14:43 Pulse Ox 98 11/01/18 14:43 Intake & Output 10/30/18 10/31/18 11/01/18 11/02/18 06:59 06:59 06:59 06:59 Weight 70.307 kg Narrative: GENERAL: NAD, A&Ox3 HEAD: Normocephalic. NECK: Supple, trachea midline. No lymphadenopathy. EYES: No scleral icterus. No injection or drainage. CARDIOVASCULAR: Regular rate and rhythm without murmurs, gallops, or rubs. RESPIRATORY: Breath sounds equal bilaterally. No accessory muscle use. GASTROINTESTINAL: Abdomen soft, non-tender, nondistended. MUSCULOSKELETAL: No cyanosis, or edema. SKIN: Warm and dry. NEURO: Chronic right arm and leg numbness, new onset of weakness of the right arm and leg. Able to lift against gravity but no added strength. Results Labs CBC & Chem 7: 11/01/18 13:30 Imaging Impressions Chest X-Ray 11/01/18 13:11 CONCLUSION: No acute cardiopulmonary abnormality is identified. Head CT 11/01/18 13:11 CONCLUSION: 1. No acute intracranial abnormality is identified. 2. Stable left parietal encephalomalacia. Findings were telephoned to Dr. Estrada on 11/01/2018 at 1:46 PM. Head CTA 11/01/18 13:11 CONCLUSION: 1. No evidence for large vessel occlusion. Report was called by Dr. Chacko to Dr. Webster at [phone].] CT CAD 11/01/18 13:13 CONCLUSION: Physiological brain perfusion parameters with RAPID analysis as above. The decision for consideration of therapy is multi factorial and multi disciplinary relying on subjective and objective clinical data. This data is not construed or intended to be the sole determinant of treatment eligibility. Caprini VTE Risk Assessment Caprini VTE Risk Assessment: Moderate/High Risk (score >= 2) VTE Pharmacological Exception Reason: Hemorrhage and Intracranial lesions Caprini Risk Assessment Model: Point Value = 1 Point Value = 2 Point Value = 3 Point Value = 5 Age 41-60 Minor surgery BMI > 25 kg/m2 Swollen legs Varicose veins or History of unexplained or recurrent spontaneous Oral contraceptives or hormone replacement Sepsis (< 1 month) Serious lung disease, including pneumonia (< 1 month) Abnormal pulmonary function Acute myocardial infarction Congestive heart failure (< 1 month) History of inflammatory bowel disease Medical patient at bed rest Age 61-74 Arthroscopic surgery Major open surgery (> 45 min) Laparoscopic surgery (> 45 min) Malignancy Confined to bed (> 72 hours) Immobilizing plaster cast Central venous access Age >= 75 History of VTE Family history of VTE Factor V Leiden Prothrombin [id number] Lupus anticoagulant Anticardiolipin antibodies Elevated serum homocysteine Heparin-induced thrombocytopenia Other congenital or acquired thrombophilia Stroke (< 1 month) Elective arthroplasty Hip, pelvis, or leg fracture Acute spinal cord injury (< 1 month) Prophylaxis Regimen: Total Risk Factor Score Risk Level Prophylaxis Regimen 0-1 Low Early ambulation 2 Moderate Order ONE of the following: *Sequential Compression Device (SCD) *Heparin 5000 units SQ BID 3-4 Higher Order ONE of the following medications: *Heparin 5000 units SQ TID *Enoxaparin/Lovenox 40 mg SQ daily (WT < 150 kg, CrCl > 30 mL/min) *Enoxaparin/Lovenox 30 mg SQ daily (WT < 150 kg, CrCl > 10-29 mL/min) *Enoxaparin/Lovenox 30 mg SQ BID (WT < 150 kg, CrCl > 30 mL/min) AND/OR *Sequential Compression Device (SCD) 5 or more Highest Order ONE of the following medications: *Heparin 5000 units SQ TID (Preferred with Epidurals) *Enoxaparin/Lovenox 40 mg SQ daily (WT < 150 kg, CrCl > 30 mL/min) *Enoxaparin/Lovenox 30 mg SQ daily (WT < 150 kg, CrCl > 10-29 mL/min) *Enoxaparin/Lovenox 30 mg SQ BID (WT < 150 kg, CrCl > 30 mL/min) AND *Sequential Compression Device (SCD) Assessment and Plan Plan 68-year-old female admitted secondary to right sided weakness Right-sided weakness History of right hemiplegia (improved) History of left CVA with chronic right-sided numbness History of hemorrhagic stroke History of ischemic stroke Monitor neurological findings Neurology consulted MRI of brain pending CT scan of brain shows no bleed Catiara recommended and started by neurology, patient refuses antiseizure treatments, so Are discontinued Hypertension Await MRI results Monitor blood pressures for now If MRI is negative resume blood pressure treatments Hypothyroidism Continue levothyroxine Follow as an outpatient DVT prophylaxis SCDs
--- NOTE | 2018-11-01 16:01 | CT ---
EXAM DATE: 11/01/2018 3:56 PM EST AGE/SEX: 68 years / Female INDICATIONS: Right side weakness CLINICAL DATA: This is the patient's initial encounter. Patient reports that signs and symptoms have been present for 1 day and indicates a pain score of 0/10. MEDICAL/SURGICAL HISTORY: . Unable to obtain . Unable to obtain RADIATION DOSE: 28.28 CTDI (mGy) ; Combined studies COMPARISON: [facility], CTA NECK W CONTRAST W 3D, 06/20/2018. . TECHNIQUE: Volumetric scanning was performed using a multirow detector CT scanner during bolus infus ion of 60 ml Omnipaque 350 (iohexol) nonionic water-soluble contrast as a cumulative dose for multip le exams. The data was postprocessed with a variety of visualization algorithms including full-volu me maximum intensity projection, multiplanar sliding thin-slab reformation, curved-planar reformation , and surface-rendering techniques. Using automated exposure control and adjustment of the mA and/or kV according to patient size, radiation dose was kept as low as reasonably achievable to obtain opti mal diagnostic quality images. DICOM format image data is available electronically for review and co mparison. FINDINGS: Aortic Arch: There is a three-vessel origin of the great vessels from the aorta. No evidence of ost ial narrowing Right Carotid: The common carotid artery is intact. The carotid bulb has a normal configuration wit hout ulceration or narrowing. The internal carotid artery lumen is smooth without stenosis. The ext ernal carotid artery is intact. Left Carotid: The common carotid artery is intact. The carotid bulb has a normal configuration with out ulceration or narrowing. The internal carotid artery lumen is smooth without stenosis. The exte rnal carotid artery is intact. Vertebrals: The vertebral arteries have a symmetric diameter. No stenotic lesions are seen. Compared to the prior exam there've been no new or significant changes. Percent stenosis is calculated using the diameter of the stenotic region over the diameter of the nor mal distal internal carotid artery. CONCLUSION: 1. Unremarkable and stable CTA of the carotids. Electronically signed by: Ramon Mojica MD 11/01/2018 4:00 PM EST
--- NOTE | 2018-11-01 18:56 | MG ---
cc: Luis Fernando Webster MD, PhD TEST NUMBER: [id number] TECHNIQUE: A 17-channel EEG. DESCRIPTION: Background rhythm reveals mild slowing in the theta range at 6 Hz, amplitude 20-30 microvolts. There is some muscle artifact and eye movement artifact present. No lateralizing features are identified. There are no epileptiform discharges. Photic stimulation was done with a modest driving response. INTERPRETATION: Abnormal study consistent with an encephalopathy, but no focal seizure activity identified. Luis Fernando Webster MD, PhD HONG/winsome , 06:33 PM , 06:37 PM
--- NOTE | 2018-11-01 19:15 | ECG ---
Date Performed: 11/01/2018 Time Performed: 14:03:46 PTAGE: 68 years EKG: Sinus rhythm POSSIBLE RIGHT VENTRICULAR CONDUCTION DELAY POSSIBLE SEPTAL MYOCARDIAL INFARCTION ABNORMAL ECG No si gnificant change from prior electrocardiogram. PREVIOUS TRACING : 06/24/2018 01.10 DOCTOR: Lino Ivory Interpretating Date/Time 11/01/2018 19:13:50
--- NOTE | 2018-11-01 20:21 | MR ---
EXAM DATE: 11/01/2018 8:15 PM EST AGE/SEX: 68 years / Female INDICATIONS: CVA. Right sided weakness. CLINICAL DATA: This is the patient's initial encounter. Patient reports that signs and symptoms have been present for 1 day and indicates a pain score of 6/10. MEDICAL/SURGICAL HISTORY: Transient ischemic attack. Cerebrovascular disease. . [employer]onic loop recorder COMPARISON: [facility], MR HEAD W/O CONTRAST, 06/20/2018. [facility], MR HEAD W & W/O CONTRAST, 06/24/2018. C, CT HEAD W/O CONTRAST, 11/01/2018. . TECHNIQUE: Multiplanar, multisequence examination of the brain was performed without contrast. FINDINGS: Cerebrum: Old left parietal infarct. Susceptibility artifact in the left parietal lobe suggests hemo siderin deposition. The ventricles are normal for age. No evidence of midline shift, mass lesion, he morrhage or acute infarction. No extraaxial fluid collections are seen. The pituitary gland and sup rasellar cistern are normal in configuration. White Matter: No significant signal abnormalities are seen in the white matter. Posterior Fossa: The cerebellum and brainstem are intact. The 4th ventricle is midline. The cerebel lopontine angle is unremarkable. The cerebellar tonsils are normal in position. Diffusion Imaging: No focal areas of restricted diffusion are seen. No evidence of acute infarction . Extracranial: The visualized portions of the orbits and paranasal sinuses are unremarkable. CONCLUSION: 1. Old left parietal infarct. 2. No acute infarction. Electronically signed by: Daryl Gaona MD 11/01/2018 8:20 PM EST
--- NOTE | 2018-11-01 20:55 | ECHRPT ---
Indication: CVA CONCLUSIONS Normal left ventricular size and wall thickness. The left ventricular systolic function is normal wi th an estimated ejection fraction in the range of 60-65%. No regional wall motion abnormalities are presen t. There is trace tricuspid valve regurgitation. The estimated pulmonary arterial pressure is 28 mmHg. BP: / HR: Rhythm: MEASUREMENTS (Male / Female) Normal Values Technical Quality:Very technically difficult study 2D ECHO LV Diastolic Diameter PLAX 3.9 cm 4.2 - 5.9 / 3.9 - 5.3 cm LV Systolic Diameter PLAX 2.8 cm IVS Diastolic Thickness 1.0 cm 0.6 - 1.0 / 0.6 - 0.9 cm LVPW Diastolic Thickness 1.1 cm 0.6 - 1.0 / 0.6 - 0.9 cm LV Relative Wall Thickness 0.5 RV Internal Dim ED PLAX 2.2 cm LVOT Diameter 1.9 cm Aortic Root Diameter 2.9 cm LA Systolic Diameter LX 2.7 cm 3.0 - 4.0 / 2.7 - 3.8 cm M-MODE Aortic Root Diameter MM 2.6 cm LA Systolic Diameter MM 1.0 cm LA Ao Ratio MM 0.4 AV Cusp Separation MM 1.9 cm DOPPLER AV Peak Velocity 156.0 cm/s AV Peak Gradient 9.7 mmHg LVOT Peak Velocity 101.0 cm/s LVOT Peak Gradient 4.1 mmHg AV Area Cont Eq pk 1.8 cm Mitral E Point Velocity 53.3 cm/s Mitral A Point Velocity 57.3 cm/s Mitral E to A Ratio 0.9 LV E' Lateral Velocity 7.4 cm/s Mitral E to LV E' Lateral Ratio 7.2 LV E' Septal Velocity 7.8 cm/s Mitral E to LV E' Septal Ratio 6.8 TR Peak Velocity 209.7 cm/s TR Peak Gradient 17.6 mmHg Right Atrial Pressure 10.0 mmHg Pulmonary Artery Systolic Pressu 27.6 mmHg Right Ventricular Systolic Press 27.6 mmHg PV Peak Velocity 104.0 cm/s PV Peak Gradient 4.3 mmHg FINDINGS LEFT VENTRICLE Normal left ventricular size and wall thickness. The left ventricular systolic function is normal wi th an estimated ejection fraction in the range of 60-65%. No regional wall motion abnormalities are presen t. RIGHT VENTRICLE Normal right ventricular size and systolic function. LEFT ATRIUM The left atrial size is normal. RIGHT ATRIUM The right atrial size is normal. ATRIAL SEPTUM Normal atrial septal thickness without atrial level shunting by limited color doppler interrogation. AORTA The aortic root and proximal ascending aorta are normal in size on limited imaging. MITRAL VALVE Trace mitral valve regurgitation. AORTIC VALVE Trileaflet aortic valve. No aortic valve stenosis or regurgitation. TRICUSPID VALVE There is trace tricuspid valve regurgitation. The estimated pulmonary arterial pressure is 28 mmHg. PULMONARY VALVE No pulmonary valve regurgitation or stenosis. VESSELS The inferior vena cava is normal in size. PERICARDIUM No pericardial effusion. Ronni Kaminski MD (Electronically Signed) Final Date:01 November 2018 20:54
[2018-11-01] MEDS: OXcarbazepine 300 MG Tablet PO SCH (21:34)
[2018-11-02] MEDS: Sod Chloride 0.9% Inj 1,000 ML IV.CONT SCH (05:31)
[2018-11-02 08:35] LABS: Baso # (Auto) 0.1 th/mm3 (0.0-0.2); Eos # (Auto) 0.3 th/mm3 (0.0-0.4); Eos % (Auto) 5.2 % (0.0-4.0); Hemoglobin 13.8 gm/dL (11.6-15.3); Lymph # (Auto) 1.7 th/mm3 (1.0-4.8); Lymph % (Auto) 28.5 % (9.0-44.0); Mean Corpuscular HGB Conc 34.5 % (32.0-36.0); Mean Corpuscular Hemoglobin 33.2 pg (27.0-34.0); Mean Corpuscular Volume 96.1 fL (80.0-100.0); Mean Platelet Volume 7.6 fL (7.0-11.0); Mono # (Auto) 0.4 th/mm3 (0.0-0.9); Mono % (Auto) 7.2 % (0.0-8.0); Neut # (Auto) 3.4 th/mm3 (1.8-7.7); Neut % (Auto) 58.1 % (16.0-70.0); Platelet Count 231 th/mm3 (150-450); Red Blood Count 4.16 mil/mm3 (4.00-5.30); Red Cell Distribution Width 12.2 % (11.6-17.2); White Blood Count 5.8 th/mm3 (4.0-11.0)
[2018-11-02 09:03] LABS: Albumin 3.8 g/dL (3.4-5.0); Anion Gap 6 meq/L (5-15); Aspartate Aminotransferase 19 U/L (15-37); Blood Urea Nitrogen 11 mg/dL (7-18); Calcium 8.8 mg/dL (8.5-10.1); Carbon Dioxide 26.9 meq/L (21.0-32.0); Chloride 108 meq/L (98-107); Glomerular Filtration Rate 78 mL/min (>89); Glucose,Random 105 mg/dL (74-106); Potassium 4.1 meq/L (3.5-5.1); Sodium 141 meq/L (136-145)
[2018-11-02 09:05] LABS: Alanine Aminotransferase 22 U/L (10-53)
[2018-11-02 09:07] LABS: Alkaline Phosphatase 71 U/L (45-117); Total Protein 6.8 g/dL (6.4-8.2)
[2018-11-02] MEDS: OXcarbazepine 300 MG Tablet PO SCH ×3 (10:05→21:11)
[2018-11-02] MEDS ORDERED: Fosphenytoin Inj 1,000 MGPE in Sodium Chlor 0.9% Inj 50 ML IV.SIG ONE (13:00)
--- NOTE | 2018-11-02 13:23 | MG ---
cc: Luis Fernando Webster MD, PhD EEG REPORT TEST NUMBER: [id number]. TECHNIQUE: A 17-channel EEG. DESCRIPTION: The background rhythm reveals generalized slowing more prominent over the left hemisphere than over the right. It is in the theta and delta frequencies. Sharp activity is identified over the left hemisphere with phase reversal mainly in the left parietal area, which occurs fairly frequently throughout the tracing. There is some sharp activity over the left temporal area. There is no right hemispheric epileptiform discharges. There does appear to be some sleep activity in terms of sleep spindles. Photic was done with no significant driving response. INTERPRETATION: Abnormal study. There is sharp activity identified over the left hemisphere consistent with a seizure focus in that area. Luis Fernando Webster MD, PhD HONG/brady , 01:14 PM , 01:20 PM
--- NOTE | 2018-11-02 18:21 | P.PNNEU ---
Subjective Subjective Comments: Patient had several focal motor sz today involving right side. Stopped after cerebyx loaded Active Medications: Active Medications Acetaminophen (Tylenol) 650 mg PO Q4H PRN PRN Reason: Temp > 100.4 Al Hydroxide/Mg Hydroxide (Milk Of Layla [place]) 30 ml PO Q12H PRN PRN Reason: Mild Constipation Chlorhexidine Gluconate (Chlorhexidine 2% Cloth) 3 pack TOPICAL DAILY@0400 [facility] Stop: 11/08/18 03:59 Chlorhexidine Gluconate (Chlorhexidine 2% Cloth) 3 pack TOPICAL DAILY@0400 PRN PRN Reason: Extra cloth needed Stop: 11/08/18 03:59 Sodium Chloride (Ns Inj) 1,000 mls @ 70 mls/hr IV.CONT .[id number] [facility] Last Admin: 11/02/18 05:31 Dose: 70 mls/hr Fosphenytoin Sodium 100 mgpe/ (Sodium Chloride) 52 mls @ 208 mls/hr IV.SIG Q8H [facility] Levothyroxine Sodium (Synthroid) 25 mcg PO DAILY@0600 [facility] Last Admin: 11/02/18 05:31 Dose: 25 mcg Lorazepam (Ativan Inj) 2 mg IV.PUSH Q15M PRN PRN Reason: SEIZURES Last Admin: 11/02/18 12:45 Dose: 2 mg Ondansetron HCl (Zofran Inj) 4 mg IV.PUSH Q6H PRN PRN Reason: NAUSEA OR VOMITING Oxcarbazepine (Trileptal) 300 mg PO BID [facility] Last Admin: 11/02/18 10:06 Dose: Not Given Sodium Chloride (Ns Flush) 2 ml IV.FLUSH BID [facility] Last Admin: 11/02/18 10:13 Dose: 2 ml Sodium Chloride (Ns Flush) 2 ml IV.FLUSH PRN PRN PRN Reason: FLUSH AFTER USING IV ACCESS Allergies/Adverse Reactions: Allergies Allergy/AdvReac Type Severity Reaction Status Date / Time No Known Allergies Allergy Verified 11/01/18 13:00 Physical Exam Vital signs: Vital Signs 11/01/18 20:00 11/01/18 21:35 11/02/18 00:00 Temperature 97.7 F Pulse Rate 73 66 Respiratory Rate 16 16 Blood Pressure 106/64 96/67 L Pulse Oximetry 95 95 93 L 11/02/18 02:10 11/02/18 03:39 11/02/18 08:02 Temperature 98.0 F 98.5 F Pulse Rate 61 63 65 Respiratory Rate 12 20 Blood Pressure 108/68 124/76 Pulse Oximetry 94 L 96 11/02/18 11:00 11/02/18 13:00 11/02/18 13:10 Temperature 98.7 F Pulse Rate 77 76 Respiratory Rate 18 16 Blood Pressure 142/80 H 120/70 Pulse Oximetry 98 90 L 11/02/18 14:00 11/02/18 15:00 11/02/18 16:00 Temperature Pulse Rate 66 73 84 Respiratory Rate 15 15 14 Blood Pressure 109/69 112/72 108/62 Pulse Oximetry 99 100 98 Intake & Output 11/01/18 11/02/18 11/02/18 18:59 06:59 18:59 Intake Total 1480 / 1480 70 / 70 Balance 1480 / 1480 70 / 70 Weight 70.307 kg 82.4 kg Intake: IV 1000 / 1000 70 / 70 NS Inj 1,000 ML @ 70 mls/hr IV. 1000 / 1000 CONT .[id number] [facility] Rx#:[id number] Cerebyx Inj 1,000 MGPE In NS 70 / 70 Inj 50 ML @ 280 mls/hr IV.SIG ONCE ONE Rx#:[id number] Oral 480 / 480 Other: Date of Last Bowel Movement 10/31/18 11/01/18 Weight On Admission 82.4 kg - Routine Neurological Exam alert, speech normal, follow commands CN intact/ MOTOR 4+/5 RUE and RLE. 5/5 LUE and LLE Objective Laboratory Results - last 24 hr 11/01/18 11/02/18 11/02/18 21:33 08:15 08:15 WBC 5.8 RBC 4.16 Hgb 13.8 Hct 40.0 MCV 96.1 MCH 33.2 MCHC 34.5 RDW 12.2 Plt Count 231 MPV 7.6 Neut % (Auto) 58.1 Lymph % (Auto) 28.5 [place] % (Auto) 7.2 Eos % (Auto) 5.2 H Baso % (Auto) 1.0 Neut # (Auto) 3.4 Lymph # (Auto) 1.7 [place] # (Auto) 0.4 Eos # (Auto) 0.3 Baso # (Auto) 0.1 WBC Differential . Differential Comment Auto diff final Sodium 141 Potassium 4.1 Chloride 108 H Carbon Dioxide 26.9 Anion Gap 6 BUN 11 Creatinine 0.74 Estimated GFR 78 L POC Glucose 82 Random Glucose 105 Calcium 8.8 Total Bilirubin 0.6 AST 19 ALT 22 Alkaline Phosphatase 71 Total Protein 6.8 Albumin 3.8 11/02/18 11/02/18 11/02/18 10:12 13:15 17:40 WBC RBC Hgb Hct MCV MCH MCHC RDW Plt Count MPV Neut % (Auto) Lymph % (Auto) [place] % (Auto) Eos % (Auto) Baso % (Auto) Neut # (Auto) Lymph # (Auto) [place] # (Auto) Eos # (Auto) Baso # (Auto) WBC Differential Differential Comment Sodium Potassium Chloride Carbon Dioxide Anion Gap BUN Creatinine Estimated GFR POC Glucose 170 H 93 97 Random Glucose Calcium Total Bilirubin AST ALT Alkaline Phosphatase Total Protein Albumin Review/Management - Review/Management Plan: focal motor sz. No evidence for new cva contineu cerebyx. check phenytoin level in am
--- NOTE | 2018-11-02 18:42 | P.PN ---
Subjective Interval history: Patient seen lying in bed after reported seizure. During examination she begins right hand arm shaking which progresses to slow full body twitches. Patient remains lucid throughout. Given Ativan which resolved symptoms. Subsequent neuro negative for new weakness or facial droop. Normal speech. Patient reports that she had similar episodes after her first CVA in May at which time she was treated with antiepileptics. She did not continue the medications due to side effects. Denies any repeat episodes in recent months. Denies chest pain or shortness of breath. No dizziness or vision changes. No nausea vomiting or diarrhea. Physical Exam Vital signs: Vital Signs 11/01/18 20:00 11/01/18 21:35 11/02/18 00:00 Temperature 97.7 F Pulse Rate 73 66 Respiratory Rate 16 16 Blood Pressure 106/64 96/67 L Pulse Oximetry 95 95 93 L 11/02/18 02:10 11/02/18 03:39 11/02/18 08:02 Temperature 98.0 F 98.5 F Pulse Rate 61 63 65 Respiratory Rate 12 20 Blood Pressure 108/68 124/76 Pulse Oximetry 94 L 96 11/02/18 11:00 11/02/18 13:00 11/02/18 13:10 Temperature 98.7 F Pulse Rate 77 76 Respiratory Rate 18 16 Blood Pressure 142/80 H 120/70 Pulse Oximetry 98 90 L 11/02/18 14:00 11/02/18 15:00 11/02/18 16:00 Temperature Pulse Rate 66 73 84 Respiratory Rate 15 15 14 Blood Pressure 109/69 112/72 108/62 Pulse Oximetry 99 100 98 Intake & Output 11/01/18 11/02/18 11/02/18 18:59 06:59 18:59 Intake Total 1480 / 1480 70 / 70 Balance 1480 / 1480 70 / 70 Weight 70.307 kg 82.4 kg Intake: IV 1000 / 1000 70 / 70 NS Inj 1,000 ML @ 70 mls/hr IV. 1000 / 1000 CONT .[id number] Rx#:[id number] Cerebyx Inj 1,000 MGPE In NS 70 / 70 Inj 50 ML @ 280 mls/hr IV.SIG ONCE ONE Rx#:[id number] Oral 480 / 480 Other: Date of Last Bowel Movement 10/31/18 11/01/18 Weight On Admission 82.4 kg Narrative: GENERAL: NAD, A&Ox3 HEAD: Normocephalic. NECK: Supple, trachea midline. No lymphadenopathy. EYES: No scleral icterus. No injection or drainage. CARDIOVASCULAR: Regular rate and rhythm without murmurs, gallops, or rubs. RESPIRATORY: Breath sounds equal bilaterally. No accessory muscle use. GASTROINTESTINAL: Abdomen soft, non-tender, nondistended. MUSCULOSKELETAL: No cyanosis, or edema. SKIN: Warm and dry. NEURO: Chronic right arm and leg numbness, new onset of weakness of the right arm and leg. Able to lift against gravity but no added strength -gradually improving. No obvious cranial nerve deficits. Normal speech. PSYCHIATRIC: Appropriate mood and affect; insight and judgment good. Results - Labs CBC & Chem 7: 11/02/18 08:15 11/02/18 08:15 Laboratory Results - last 24 hr 11/01/18 11/02/18 11/02/18 21:33 08:15 08:15 WBC 5.8 RBC 4.16 Hgb 13.8 Hct 40.0 MCV 96.1 MCH 33.2 MCHC 34.5 RDW 12.2 Plt Count 231 MPV 7.6 Neut % (Auto) 58.1 Lymph % (Auto) 28.5 [place] % (Auto) 7.2 Eos % (Auto) 5.2 H Baso % (Auto) 1.0 Neut # (Auto) 3.4 Lymph # (Auto) 1.7 [place] # (Auto) 0.4 Eos # (Auto) 0.3 Baso # (Auto) 0.1 WBC Differential . Differential Comment Auto diff final Sodium 141 Potassium 4.1 Chloride 108 H Carbon Dioxide 26.9 Anion Gap 6 BUN 11 Creatinine 0.74 Estimated GFR 78 L POC Glucose 82 Random Glucose 105 Calcium 8.8 Total Bilirubin 0.6 AST 19 ALT 22 Alkaline Phosphatase 71 Total Protein 6.8 Albumin 3.8 11/02/18 11/02/18 11/02/18 10:12 13:15 17:40 WBC RBC Hgb Hct MCV MCH MCHC RDW Plt Count MPV Neut % (Auto) Lymph % (Auto) [place] % (Auto) Eos % (Auto) Baso % (Auto) Neut # (Auto) Lymph # (Auto) [place] # (Auto) Eos # (Auto) Baso # (Auto) WBC Differential Differential Comment Sodium Potassium Chloride Carbon Dioxide Anion Gap BUN Creatinine Estimated GFR POC Glucose 170 H 93 97 Random Glucose Calcium Total Bilirubin AST ALT Alkaline Phosphatase Total Protein Albumin - Imaging Impressions Head MRI 11/01/18 00:00 CONCLUSION: 1. Old left parietal infarct. 2. No acute infarction. Assessment and Plan - Plan 68-year-old female admitted secondary to right sided weakness Right-sided weakness History of right hemiplegia (improved) History of left CVA with chronic right-sided numbness History of hemorrhagic stroke History of ischemic stroke Monitor neurological findings Neurology consulted Imaging today shows no acute injury Keppra recommended and started by neurology, patient refuses antiseizure treatments, so discontinued -Patient transferred to [facility] for Cerebyx infusion after 2 witnessed seizures in CDU. Received Ativan x2 prior to transfer. -Nursing call due to patient's increasing confusion -CT head ordered Hypertension Home meds not restarted as blood pressure has been WNL; monitor for now Hypothyroidism Continue levothyroxine Follow as an outpatient DVT prophylaxis SCDs
--- NOTE | 2018-11-02 21:01 | CT ---
EXAM DATE: 11/02/2018 8:56 PM EST AGE/SEX: 68 years / Female INDICATIONS: Altered mental status. CLINICAL DATA: This is the patient's initial encounter. Patient reports that signs and symptoms have been present for 1 day and indicates a pain score of 0/10. MEDICAL/SURGICAL HISTORY: Carcinoma, breast. Hypertension. Stroke. None. RADIATION DOSE: 45.49 CTDI (mGy) COMPARISON: C, CTA HEAD W CONTRAST W 3D, 11/01/2018. C, MR HEAD W/O CONTRAST, 11/01/2018. C, CT HEAD W/O CONTRAST, 11/01/2018. . TECHNIQUE: CT of the head without contrast. Using automated exposure control and adjustment of the mA and/or kV according to patient size, radiation dose was kept as low as reasonably achievable to ob tain optimal diagnostic quality images. DICOM format image data is available electronically for revi ew and comparison. FINDINGS: Cerebrum: The ventricles are normal for age. No evidence of midline shift, mass lesion, hemorrhage or acute infarction. No extraaxial fluid collections are seen. Encephalomalacia of the left parietal lobe again noted, probably watershed type infarct. Posterior Fossa: The cerebellum and brainstem are intact. The 4th ventricle is midline. The cerebe llopontine angle is unremarkable. Extracranial: The visualized portion of the orbits is intact. Skull: The calvaria is intact. No evidence of skull fracture. CONCLUSION: 1. No acute intracranial abnormality has developed. 2. Chronic left parietal lobe infarct. . Electronically signed by: Brandon Valdez MD 11/02/2018 9:00 PM EST
[2018-11-02] MEDS: Fosphenytoin Inj 100 MGPE in Sodium Chlor 0.9% Inj 50 ML IV.SIG SCH (21:11)
[2018-11-03] MEDS ORDERED: Chlorhexidine Gluconate 2% 1 Pack (2 Cloths) TOPICAL PRN (04:00)
[2018-11-03] MEDS ORDERED: Chlorhexidine Gluconate 2% 1 Pack (2 Cloths) TOPICAL SCH (04:00)
[2018-11-03] MEDS: Fosphenytoin Inj 100 MGPE in Sodium Chlor 0.9% Inj 50 ML IV.SIG SCH ×2 (04:29→13:44)
[2018-11-03] MEDS: Sod Chloride 0.9% Inj 1,000 ML IV.CONT SCH ×2 (08:42→10:03)
[2018-11-03] MEDS: OXcarbazepine 300 MG Tablet PO SCH (08:42)
--- NOTE | 2018-11-03 11:35 | P.PN ---
Subjective Interval history: Follow-up focal motor seizure November 03, 2018-patient seen and examined alert and oriented x2, however per nurse report patient was confused earlier this morning. States, does not want to be on any type of antiepileptic drug because she does have a 26-year-old and parents found that she has to take care of and works for both of them. No reported seizure activity since admitting to [facility] Physical Exam Vital signs: Vital Signs 11/02/18 13:00 11/02/18 13:10 11/02/18 14:00 Temperature 98.7 F Pulse Rate 77 76 66 Respiratory Rate 16 15 Blood Pressure 120/70 109/69 Pulse Oximetry 90 L 99 11/02/18 15:00 11/02/18 16:00 11/02/18 17:00 Temperature Pulse Rate 73 84 66 Respiratory Rate 15 14 16 Blood Pressure 112/72 108/62 100/61 Pulse Oximetry 100 98 97 11/02/18 18:00 11/02/18 19:00 11/02/18 20:00 Temperature 98.1 F Pulse Rate 66 67 72 Respiratory Rate 15 15 17 Blood Pressure 108/65 115/70 123/77 Pulse Oximetry 98 98 97 11/02/18 21:00 11/02/18 21:07 11/02/18 21:49 Temperature Pulse Rate 82 75 Respiratory Rate 22 18 Blood Pressure 116/80 Pulse Oximetry 97 96 97 11/02/18 22:00 11/02/18 23:00 11/03/18 00:00 Temperature Pulse Rate 67 92 H 90 Respiratory Rate 14 25 H 26 H Blood Pressure 117/58 L 122/62 Pulse Oximetry 94 L 94 L 93 L 11/03/18 00:01 11/03/18 00:16 11/03/18 01:00 Temperature 98.3 F Pulse Rate 87 83 109 H Respiratory Rate 21 22 44 H Blood Pressure 118/11 L 123/72 Pulse Oximetry 92 L 93 L 95 11/03/18 01:50 11/03/18 02:00 11/03/18 03:00 Temperature Pulse Rate 70 67 72 Respiratory Rate 15 15 17 Blood Pressure 103/63 106/64 114/71 Pulse Oximetry 90 L 91 L 92 L 11/03/18 04:00 11/03/18 04:01 11/03/18 05:00 Temperature 99.1 F Pulse Rate 69 66 Respiratory Rate 15 15 Blood Pressure 85/51 L 101/59 L Pulse Oximetry 93 L 94 L 90 L 11/03/18 06:00 11/03/18 07:00 11/03/18 08:00 Temperature 97.7 F Pulse Rate 65 64 82 Respiratory Rate 17 15 16 Blood Pressure 118/60 108/68 136/76 Pulse Oximetry 93 L 91 L 94 L 11/03/18 09:00 11/03/18 09:06 Temperature Pulse Rate 87 Respiratory Rate 29 H Blood Pressure 127/86 Pulse Oximetry 95 92 L Intake & Output 11/02/18 11/03/18 11/03/18 18:59 06:59 18:59 Intake Total 70 / 70 1824 / 1824 Output Total 300 / 300 650 / 650 Balance -230 / -230 1174 / 1174 Weight 82.4 kg 82 kg Intake: IV 70 / 70 1104 / 1104 NS Inj 1,000 ML @ 70 mls/hr IV. 1000 / 1000 CONT .[id number] [facility] Rx#:[id number] Cerebyx Inj 100 MGPE In NS Inj 104 / 104 50 ML @ 208 mls/hr IV.SIG Q8H [facility] Rx#:[id number] Cerebyx Inj 1,000 MGPE In NS 70 / 70 Inj 50 ML @ 280 mls/hr IV.SIG ONCE ONE Rx#:[id number] Oral 720 / 720 Output: Urine 300 / 300 650 / 650 Other: Date of Last Bowel Movement 11/01/18 11/01/18 Weight On Admission 82.4 kg Narrative: GENERAL: NAD SKIN: Warm and dry. HEAD: Atraumatic. Normocephalic. EYES: Pupils equal and round. No scleral icterus. No injection or drainage. ENT: No nasal bleeding or discharge. Mucous membranes pink and moist. NECK: Trachea midline. No JVD. CARDIOVASCULAR: Regular rate and rhythm. RESPIRATORY: No accessory muscle use. Clear to auscultation. Breath sounds equal bilaterally. GASTROINTESTINAL: Abdomen soft, non-tender, nondistended. Hepatic and splenic margins not palpable. MUSCULOSKELETAL: Extremities without clubbing, cyanosis, or edema. No obvious deformities. RUE with residual weakness NEUROLOGICAL: Awake and alert. No obvious cranial nerve deficits. Motor grossly within normal limits. Five out of 5 muscle strength in the arms and legs. Normal speech. PSYCHIATRIC: Appropriate mood and affect; insight and judgment normal. Results - Labs CBC & Chem 7: 11/02/18 08:15 11/02/18 08:15 Laboratory Results - last 24 hr 11/02/18 11/02/18 11/02/18 13:15 13:15 17:40 POC Glucose 93 97 Nasal Screen MRSA (PCR) Not detected Phenytoin 11/03/18 04:52 POC Glucose Nasal Screen MRSA (PCR) Phenytoin 22.1 H - Imaging Impressions Head CT 11/02/18 00:00 CONCLUSION: 1. No acute intracranial abnormality has developed. 2. Chronic left parietal lobe infarct. . 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
[2018-11-04] MEDS ORDERED: Phenytoin Sodium 100 MG Capsule PO SCH (09:00)
== END 2018-11-03 20:05 | disposition left against medical advice (07) ==
LOC: NEPE 12:54 → NEDA 12:54 → NEPHCDU 16:10 → HIMC 11-02 13:05
PROVIDERS: ADMIT Hospitalist; ATTEND Hospitalist

== ENCOUNTER 2018-11-21 07:34 | Observation (INO) ==
[2018-11-21] MEDS ORDERED: Fosphenytoin Inj 1,000 MGPE in Sodium Chlor 0.9% Inj 50 ML IV.SIG ONE (07:45)
[2018-11-21 07:58] LABS: Baso # (Auto) 0.1 th/mm3 (0.0-0.2); Baso % (Auto) 0.6 % (0.0-2.0); Eos # (Auto) 0.4 th/mm3 (0.0-0.4); Eos % (Auto) 4.4 % (0.0-4.0); Hematocrit 37.5 % (35.0-46.0); Hemoglobin 13.7 gm/dL (11.6-15.3); Lymph # (Auto) 3.8 th/mm3 (1.0-4.8); Lymph % (Auto) 44.2 % (9.0-44.0); Mean Corpuscular Volume 95.5 fL (80.0-100.0); Mean Platelet Volume 7.7 fL (7.0-11.0); Mono # (Auto) 0.9 th/mm3 (0.0-0.9); Mono % (Auto) 10.6 % (0.0-8.0); Neut # (Auto) 3.5 th/mm3 (1.8-7.7); Neut % (Auto) 40.2 % (16.0-70.0); Platelet Count 263 th/mm3 (150-450); Red Blood Count 3.93 mil/mm3 (4.00-5.30); Red Cell Distribution Width 12.4 % (11.6-17.2); White Blood Count 8.7 th/mm3 (4.0-11.0)
[2018-11-21 08:00] LABS: Mean Corpuscular HGB Conc 36.7 % (32.0-36.0)
--- NOTE | 2018-11-21 08:00 | ED ---
HPI General Chief complaint: Neuro Symptoms/Deficit Stated complaint: Medical Time Seen by Provider: 11/21/18 07:39 Source: patient and family Mode of arrival: wheelchair Limitations: other (speech abnormality) History of Present Illness HPI Narrative: 68 y/o female presents with her grandson with 30 minute history of right arm weakness per her grandson. Patient with expressive aphasia and unable to get history from so initial history is very limited Related Data Home Medications Medication Instructions Recorded Confirmed amlodipine 5 mg PO DAILY 06/20/18 11/07/18 levothyroxine 25 mcg PO DAILY 06/24/18 11/07/18 thyroid (pork) [Nature-Throid] 97.5 mg PO DAILY 06/24/18 11/07/18 losartan 50 mg PO DAILY 11/01/18 11/07/18 multivitamin 1 tab PO QAM 11/01/18 11/07/18 oxcarbazepine 300 mg PO BID 11/07/18 11/07/18 Allergies Allergy/AdvReac Type Severity Reaction Status Date / Time No Known Allergies Allergy Verified 11/05/18 18:41 Review of Systems ROS Unobtainable ROS Unobtainable: other (expressive aphasia) PMFSH History History Provided By: Family Member (grandson states may had hemmorhagic stroka and an ischemic one before that, unknown if on blood thinner) and Medical Record Medical History Medical History Breast cancer (Acute) Hemorrhagic cerebrovascular accident (CVA) (Acute) Hypertension (Acute) Hypothyroid (Acute) Stroke (Acute) Surgical History Surgical History S/P breast lumpectomy (Acute) Family History Family History Other No significant family history Osteoarthritis Social History Social History Substance History: No History of Abuse Second Hand Smoke Exposure: No Smoking Status: Current every day smoker Tobacco Type: Cigarettes and E-Cigarettes How Often Do You Have a Drink Containing Alcohol: 4 or more times a week Exam Narrative Exam Narrative: GENERAL: 68 y/o female with expressive aphasia SKIN: Focused skin assessment warm/dry. HEAD: Atraumatic. Normocephalic. EYES: Pupils equal and round. No scleral icterus. No injection or drainage. ENT: No nasal bleeding or discharge. Mucous membranes pink and moist. NECK: Trachea midline. CARDIOVASCULAR: Regular rate and rhythm. RESPIRATORY: No accessory muscle use. Clear to auscultation. Breath sounds equal bilaterally. GASTROINTESTINAL: Abdomen soft, nondistended MUSCULOSKELETAL: No obvious deformities. No clubbing. No cyanosis. No edema. NEUROLOGICAL: Awake. expressive aphasia, can intermittently follow exam, unable to keep right leg up even when supported, small resting tremor noted to right arm with drift, very limited given patient having difficulty following commands Course Reevaluation(s) Reevaluation #1: Patient given 0.5 mg of IV Ativan x2 and her tremor started to improve but her speech is still intermittent. She will follow some commands. Patient was also given Cerebyx. Patient's Tegretol level is negative and patient is likely having intermittent seizures here leading to her symptoms. She is not a candidate for TPA. Her CTA does not show anything interventional. She will be admitted to the hospital for further care. Consultations Consultation #1: dr coker states to give 1g of cerebyx and a small dose of ativan and agrees with hemmorrhagic cva history not a tpa candidate but could be interventional, place consult Consultation #2: dr ball agrees to admit, requests 5 north observation Initial Documented Vital Signs Pulse Rate 85 11/21/18 08:10 Respiratory Rate 12 11/21/18 08:10 Blood Pressure 175/77 H 11/21/18 08:10 Pulse Oximetry 98 11/21/18 08:10 Last Documented Vital Signs Pulse Rate 104 H 11/21/18 08:21 Respiratory Rate 25 H 11/21/18 08:21 Blood Pressure 144/63 H 11/21/18 08:21 Pulse Oximetry 98 11/21/18 08:21 Medical Decision Making MDM Narrative Medical decision making narrative: given onset with start stroke alert and discuss with neurology Medical Screen Exam Complete: Yes Emergency Medical Condition: Yes Differential Diagnosis Differential Diagnosis: stroke, bleed, seizure, audie's paralysis Lab Data Lab results reviewed: Yes I reviewed the patient's lab results. Result diagrams: 11/21/18 07:36 11/21/18 07:36 Lab Results 11/21/18 11/21/18 11/21/18 Range/Units 07:36 07:36 07:36 WBC 8.7 (4.0-11.0) th/mm3 RBC 3.93 L (4.00-5.30) mil/mm3 Hgb 13.7 (11.6-15.3) gm/dL POC Hgb (Calc) 13.9 (11.6-15.3) g/dL Hct 37.5 (35.0-46.0) % POC Hct 41.0 (35-46.0) % MCV 95.5 (80.0-100.0) fL MCH 35.0 H (27.0-34.0) pg MCHC 36.7 H (32.0-36.0) % RDW 12.4 (11.6-17.2) % Plt Count 263 (150-450) th/mm3 MPV 7.7 (7.0-11.0) fL Prelim Diff (Auto) Slide review pending Neut % (Auto) 40.2 (16.0-70.0) % Lymph % (Auto) 44.2 H (9.0-44.0) % [place] % (Auto) 10.6 H (0.0-8.0) % Eos % (Auto) 4.4 H (0.0-4.0) % Baso % (Auto) 0.6 (0.0-2.0) % Neut # (Auto) 3.5 (1.8-7.7) th/mm3 Lymph # (Auto) 3.8 (1.0-4.8) th/mm3 [place] # (Auto) 0.9 (0.0-0.9) th/mm3 Eos # (Auto) 0.4 (0.0-0.4) th/mm3 Baso # (Auto) 0.1 (0.0-0.2) th/mm3 WBC Differential . Diff Scan Auto diff confirmed Differential Comment . Platelet Estimate Normal (Normal) Platelet Morphology Normal (Normal) PT 10.0 (9.8-11.6) sec INR 1.0 Ratio APTT 18.4 L (23.4-31.7) sec Fibrinogen 303 (227-377) mg/dL POC Sodium 135 L (137-144) mmol/L Sodium 135 L (136-145) meq/L POC Potassium 3.5 L (3.6-5.0) mmol/L Potassium 3.6 (3.5-5.1) meq/L POC Chloride 99 L (102-111) mmol/L Chloride 101 (98-107) meq/L Carbon Dioxide 23.8 (21.0-32.0) meq/L Anion Gap 10 (5-15) meq/L POC BUN 21 (5-21) mg/dL BUN 21 H (7-18) mg/dL Creatinine 0.92 (0.50-1.00) mg/dL POC Creatinine 0.8 (0.6-1.3) mg/dL Estimated GFR 60 L (>89) mL/min POC Glucose 136 H (68-110) mg/dL Random Glucose 127 H (74-106) mg/dL Calcium 9.0 (8.5-10.1) mg/dL Total Bilirubin 0.4 (0.2-1.0) mg/dL AST 34 (15-37) U/L ALT 28 (10-53) U/L Alkaline Phosphatase 83 (45-117) U/L Ammonia (11-32) mcmol/L Total Creatine Kinase 207 H (26-192) U/L CK-MB (CK-2) 3.4 (0.5-3.6) ng/mL CK-MB (CK-2) % 1.6 (0.0-4.0) % Troponin I Less than 0.02 L (0.02-0.05) ng/mL Total Protein 7.5 (6.4-8.2) g/dL Albumin 4.1 (3.4-5.0) g/dL Urine Color (Yellw/Straw) Urine Clarity (Clear) Urine pH (5.0-8.5) Ur Specific [place] (1.002-1.035) Urine Protein (Neg-Trace) mg/dL Urine Glucose (UA) (Negative) mg/dL Urine Ketones (Negative) mg/dL Urine Occult Blood (Negative) Urine Nitrate (Negative) Urine Bilirubin (Negative) Urine Urobilinogen (Less than 2) mg/dL Ur Leukocyte Esterase (Negative) Urine RBC (0-3) /hpf Ur Squamous Epith Cells (0-5) /hpf Micro UA Comment Ur Microscopic Review Urine Culture Comments Urine Opiates Screen (Neg) Ur Barbiturates Screen (Neg) Carbamazepine (4.0-12.0) mcg/mL Ur Amphetamines Screen (Neg) U Benzodiazepines Scrn (Neg) Urine Cocaine Screen (Neg) U Cannabinoids Screen (Neg) Blood Type Blood Type Recheck Antibody Screen 11/21/18 11/21/18 11/21/18 Range/Units 07:36 07:36 07:39 WBC (4.0-11.0) th/mm3 RBC (4.00-5.30) mil/mm3 Hgb (11.6-15.3) gm/dL POC Hgb (Calc) (11.6-15.3) g/dL Hct (35.0-46.0) % POC Hct (35-46.0) % MCV (80.0-100.0) fL MCH (27.0-34.0) pg MCHC (32.0-36.0) % RDW (11.6-17.2) % Plt Count (150-450) th/mm3 MPV (7.0-11.0) fL Prelim Diff (Auto) Neut % (Auto) (16.0-70.0) % Lymph % (Auto) (9.0-44.0) % [place] % (Auto) (0.0-8.0) % Eos % (Auto) (0.0-4.0) % Baso % (Auto) (0.0-2.0) % Neut # (Auto) (1.8-7.7) th/mm3 Lymph # (Auto) (1.0-4.8) th/mm3 [place] # (Auto) (0.0-0.9) th/mm3 Eos # (Auto) (0.0-0.4) th/mm3 Baso # (Auto) (0.0-0.2) th/mm3 WBC Differential Diff Scan Differential Comment Platelet Estimate (Normal) Platelet Morphology (Normal) PT (9.8-11.6) sec INR Ratio APTT (23.4-31.7) sec Fibrinogen (227-377) mg/dL POC Sodium (137-144) mmol/L Sodium (136-145) meq/L POC Potassium (3.6-5.0) mmol/L Potassium (3.5-5.1) meq/L POC Chloride (102-111) mmol/L Chloride (98-107) meq/L Carbon Dioxide (21.0-32.0) meq/L Anion Gap (5-15) meq/L POC BUN (5-21) mg/dL BUN (7-18) mg/dL Creatinine (0.50-1.00) mg/dL POC Creatinine (0.6-1.3) mg/dL Estimated GFR (>89) mL/min POC Glucose 134 H (68-110) mg/dL Random Glucose (74-106) mg/dL Calcium (8.5-10.1) mg/dL Total Bilirubin (0.2-1.0) mg/dL AST (15-37) U/L ALT (10-53) U/L Alkaline Phosphatase (45-117) U/L Ammonia (11-32) mcmol/L Total Creatine Kinase (26-192) U/L CK-MB (CK-2) (0.5-3.6) ng/mL CK-MB (CK-2) % (0.0-4.0) % Troponin I (0.02-0.05) ng/mL Total Protein (6.4-8.2) g/dL Albumin (3.4-5.0) g/dL Urine Color (Yellw/Straw) Urine Clarity (Clear) Urine pH (5.0-8.5) Ur Specific [place] (1.002-1.035) Urine Protein (Neg-Trace) mg/dL Urine Glucose (UA) (Negative) mg/dL Urine Ketones (Negative) mg/dL Urine Occult Blood (Negative) Urine Nitrate (Negative) Urine Bilirubin (Negative) Urine Urobilinogen (Less than 2) mg/dL Ur Leukocyte Esterase (Negative) Urine RBC (0-3) /hpf Ur Squamous Epith Cells (0-5) /hpf Micro UA Comment Ur Microscopic Review Urine Culture Comments Urine Opiates Screen (Neg) Ur Barbiturates Screen (Neg) Carbamazepine Less than 0.5 L (4.0-12.0) mcg/mL Ur Amphetamines Screen (Neg) U Benzodiazepines Scrn (Neg) Urine Cocaine Screen (Neg) U Cannabinoids Screen (Neg) Blood Type AB Positive Blood Type Recheck Not needed Antibody Screen Negative 11/21/18 11/21/18 11/21/18 Range/Units 08:50 08:50 08:56 WBC (4.0-11.0) th/mm3 RBC (4.00-5.30) mil/mm3 Hgb (11.6-15.3) gm/dL POC Hgb (Calc) (11.6-15.3) g/dL Hct (35.0-46.0) % POC Hct (35-46.0) % MCV (80.0-100.0) fL MCH (27.0-34.0) pg MCHC (32.0-36.0) % RDW (11.6-17.2) % Plt Count (150-450) th/mm3 MPV (7.0-11.0) fL Prelim Diff (Auto) Neut % (Auto) (16.0-70.0) % Lymph % (Auto) (9.0-44.0) % [place] % (Auto) (0.0-8.0) % Eos % (Auto) (0.0-4.0) % Baso % (Auto) (0.0-2.0) % Neut # (Auto) (1.8-7.7) th/mm3 Lymph # (Auto) (1.0-4.8) th/mm3 [place] # (Auto) (0.0-0.9) th/mm3 Eos # (Auto) (0.0-0.4) th/mm3 Baso # (Auto) (0.0-0.2) th/mm3 WBC Differential Diff Scan Differential Comment Platelet Estimate (Normal) Platelet Morphology (Normal) PT (9.8-11.6) sec INR Ratio APTT (23.4-31.7) sec Fibrinogen (227-377) mg/dL POC Sodium (137-144) mmol/L Sodium (136-145) meq/L POC Potassium (3.6-5.0) mmol/L Potassium (3.5-5.1) meq/L POC Chloride (102-111) mmol/L Chloride (98-107) meq/L Carbon Dioxide (21.0-32.0) meq/L Anion Gap (5-15) meq/L POC BUN (5-21) mg/dL BUN (7-18) mg/dL Creatinine (0.50-1.00) mg/dL POC Creatinine (0.6-1.3) mg/dL Estimated GFR (>89) mL/min POC Glucose (68-110) mg/dL Random Glucose (74-106) mg/dL Calcium (8.5-10.1) mg/dL Total Bilirubin (0.2-1.0) mg/dL AST (15-37) U/L ALT (10-53) U/L Alkaline Phosphatase (45-117) U/L Ammonia 13 (11-32) mcmol/L Total Creatine Kinase (26-192) U/L CK-MB (CK-2) (0.5-3.6) ng/mL CK-MB (CK-2) % (0.0-4.0) % Troponin I (0.02-0.05) ng/mL Total Protein (6.4-8.2) g/dL Albumin (3.4-5.0) g/dL Urine Color Yellow (Yellw/Straw) Urine Clarity Clear (Clear) Urine pH 5.0 (5.0-8.5) Ur Specific [place] Greater than 1.060 H (1.002-1.035) Urine Protein Negative (Neg-Trace) mg/dL Urine Glucose (UA) Negative (Negative) mg/dL Urine Ketones Negative (Negative) mg/dL Urine Occult Blood Negative (Negative) Urine Nitrate Negative (Negative) Urine Bilirubin Negative (Negative) Urine Urobilinogen Less than 2 (Less than 2) mg/dL Ur Leukocyte Esterase Negative (Negative) Urine RBC Less than 1 (0-3) /hpf Ur Squamous Epith Cells <1 (0-5) /hpf Micro UA Comment Cath-culture not ind Ur Microscopic Review Not Reportable Urine Culture Comments Cath-cult not ind Urine Opiates Screen Neg (Neg) Ur Barbiturates Screen Neg (Neg) Carbamazepine (4.0-12.0) mcg/mL Ur Amphetamines Screen Neg (Neg) U Benzodiazepines Scrn Neg (Neg) Urine Cocaine Screen Neg (Neg) U Cannabinoids Screen Neg (Neg) Blood Type Blood Type Recheck Antibody Screen Imaging Data Attestation: I personally reviewed and interpreted this imaging study as follows : Radiologist's impression: Chest X-Ray 11/21/18 07:39 CONCLUSION: No acute abnormality is seen. Head CT 11/21/18 07:39 CONCLUSION: 1. No acute areas of hemorrhage or mass effect are seen. 2. Encephalomalacia from prior insult in the left parietal lobe. Report was called by Dr. Hardy to Dr. Diaz at 8:03 AM. Head CTA 11/21/18 07:39 CONCLUSION: Limited study secondary to patient motion. The proximal aspect of the major vessels are patent. Report was called by [Dr. Hardy to Dr. Coker and Dr. Diaz at 8:28 AM] Neck CTA 11/21/18 07:39 CONCLUSION: No significant stenosis is seen. CT CAD 11/21/18 07:40 CONCLUSION: Physiological brain perfusion parameters with RAPID analysis as above. The decision for consideration of therapy is multi factorial and multi disciplinary relying on subjective and objective clinical data. This data is not construed or intended to be the sole determinant of treatment eligibility. Discharge Plan Discharge Disposition Patient Disposition: ED Admit(ED Internal Use Only) Discharge Order Discharge Orders: ED Use Only Admit Order (Routine); Ordered 11/21/18 Ordered By: Kaylen Diaz Discharge Details Diagnosis: Acute alteration in mental status, Seizure, Weakness Physicians Team ED Provider: Kaylen Diaz Primary Care Provider: UNKNOWN, Other Providers: Michael Coker Rxs /Orders / Referrals /Forms Prescriptions: No Action levothyroxine 25 mcg Tablet 25 mcg PO DAILY RF: 0 thyroid (pork) [Nature-Throid] 97.5 mg Tablet 97.5 mg PO DAILY RF: 0 oxcarbazepine 300 mg Tablet 300 mg PO BID RF: 0 amlodipine 5 mg Tablet 5 mg PO DAILY RF: 0 multivitamin Tablet 1 tab PO QAM RF: 0 losartan 50 mg Tablet 50 mg PO DAILY RF: 0 Status ED Status: Admitted Observation Patient
--- NOTE | 2018-11-21 08:06 | CT ---
EXAM DATE: 11/21/2018 7:59 AM EST AGE/SEX: 68 years / Female INDICATIONS: Stroke Alert CLINICAL DATA: This is the patient's initial encounter. Patient reports that signs and symptoms have been present for 1 day and indicates a pain score of Nonresponsive. MEDICAL/SURGICAL HISTORY: Carcinoma, breast. Hypertension. Stroke. . Left breast lumpectomy RADIATION DOSE: 32.93 CTDI (mGy) COMPARISON: [facility] [place], CT HEAD W/O CONTRAST, 11/07/2018. . TECHNIQUE: CT of the head without contrast. Using automated exposure control and adjustment of the mA and/or kV according to patient size, radiation dose was kept as low as reasonably achievable to ob tain optimal diagnostic quality images. DICOM format image data is available electronically for revi ew and comparison. FINDINGS: Cerebrum: There is encephalomalacia at the left parietal lobe. The ventricles are normal for age. N o evidence of midline shift, mass lesion, hemorrhage or acute infarction. No extraaxial fluid collec tions are seen. Posterior Fossa: The cerebellum and brainstem are intact. The 4th ventricle is midline. The cerebe llopontine angle is unremarkable. Extracranial: The visualized portion of the orbits is intact. Skull: The calvaria is intact. No evidence of skull fracture. CONCLUSION: 1. No acute areas of hemorrhage or mass effect are seen. 2. Encephalomalacia from prior insult in the left parietal lobe. Report was called by Dr. Hardy to Dr. Diaz at 8:03 AM. Electronically signed by: Brandon Hardy MD Board Certified Radiologist 11/21/2018 8:05 AM EST
[2018-11-21 08:14] LABS: Activated Partial Thrombo Time 18.4 sec (23.4-31.7)
[2018-11-21] MEDS: Sod Chloride 0.9% Inj 1,000 ML IV.CONT SCH ×2 (08:17→22:17)
--- NOTE | 2018-11-21 08:30 | CT ---
EXAM DATE: 11/21/2018 8:11 AM EST AGE/SEX: 68 years / Female INDICATIONS: Stroke Alert CLINICAL DATA: This is the patient's initial encounter. Patient reports that signs and symptoms have been present for 1 day and indicates a pain score of Nonresponsive. MEDICAL/SURGICAL HISTORY: Carcinoma, breast. Hypertension. Stroke. . Left breast lumpectomy RADIATION DOSE: 314.22 CTDI (mGy) COMPARISON: [facility] [place], CT HEAD W/O CONTRAST, 11/21/2018. . TECHNIQUE: CT of the head after intravenous administration of 40ML ml Visipaque 320 (iodixanol) non ionic water-soluble contrast as a single exam dose. Using automated exposure control and adjustment of the mA and/or kV according to patient size, radiation dose was kept as low as reasonably achievabl e to obtain optimal diagnostic quality images. DICOM format image data is available electronically f or review and comparison. FINDINGS: 1. CBF (<30%) Volume (ml): 0 2. Perfusion (Tmax>6.0s) Volume (ml): 0 3. Mismatch Volume (ml) (Tmax>6.0 - CBF): 0 CONCLUSION: Physiological brain perfusion parameters with RAPID analysis as above. The decision for consideration of therapy is multi factorial and multi disciplinary relying on subjec tive and objective clinical data. This data is not construed or intended to be the sole determinant of treatment eligibility. Electronically signed by: Brandon Hardy MD Board Certified Radiologist 11/21/2018 8:29 AM EST
[2018-11-21 08:31] LABS: Alanine Aminotransferase 28 U/L (10-53)
[2018-11-21 08:35] LABS: Platelet Estimate Normal (Normal); Platelet Morphology Normal (Normal)
--- NOTE | 2018-11-21 08:35 | CT ---
EXAM DATE: 11/21/2018 8:14 AM EST AGE/SEX: 68 years / Female INDICATIONS: Stroke Alert CLINICAL DATA: This is the patient's initial encounter. Patient reports that signs and symptoms have been present for 1 day and indicates a pain score of Nonresponsive. MEDICAL/SURGICAL HISTORY: Carcinoma, breast. Hypertension. Stroke. . Left breast lumpectomy RADIATION DOSE: 28.14 CTDI (mGy) ; Patient motion COMPARISON: [facility] [place], CT CEREBRAL PERF W CONTRAST W 3D, 11/21/2018. . TECHNIQUE: Volumetric scanning was performed using a multi-row detector CT scanner during bolus infu yudith of 60ML ml Visipaque 320 (iodixanol) nonionic water-soluble contrast as a cumulative dose for m ultiple exams. The data was post processed with a variety of visualization algorithms including ful l volume maximum intensity projection, multi-planar sliding thin slab reformation, curved planar refo rmation, and surface rendering techniques. Using automated exposure control and adjustment of the mA and/or kV according to patient size, radiation dose was kept as low as reasonably achievable to obta in optimal diagnostic quality images. DICOM format image data is available electronically for review and comparison. FINDINGS: This study is limited by patient motion throughout. The internal carotid arteries are patent. The pro ximal portions of the anterior and middle cerebral arteries appear patent. The vertebral and basal ar teries are patent. The posterior cerebral artery patent. No further comment can be made about the mor e peripheral flow secondary to the motion. CONCLUSION: Limited study secondary to patient motion. The proximal aspect of the major vessels are patent. Report was called by [Dr. Hardy to Dr. Coker and Dr. Diaz at 8:28 AM] Electronically signed by: Brandon Hardy MD Board Certified Radiologist 11/21/2018 8:34 AM EST
--- NOTE | 2018-11-21 08:37 | CT ---
EXAM DATE: 11/21/2018 8:28 AM EST AGE/SEX: 68 years / Female INDICATIONS: Stroke Alert CLINICAL DATA: This is the patient's initial encounter. Patient reports that signs and symptoms have been present for 1 day and indicates a pain score of Nonresponsive. MEDICAL/SURGICAL HISTORY: Carcinoma, breast. Hypertension. Stroke. . Left Breast Lumpectomy RADIATION DOSE: 28.14 CTDI (mGy) COMPARISON: [facility] – [place], CTA NECK W CONTRAST W 3D, 11/01/2018. . TECHNIQUE: Volumetric scanning was performed using a multirow detector CT scanner during bolus infus ion of 60ML ml Visipaque 320 (iodixanol) nonionic water-soluble contrast as a cumulative dose for mu ltiple exams. The data was postprocessed with a variety of visualization algorithms including full- volume maximum intensity projection, multiplanar sliding thin-slab reformation, curved-planar reforma tion, and surface-rendering techniques. Using automated exposure control and adjustment of the mA an d/or kV according to patient size, radiation dose was kept as low as reasonably achievable to obtain optimal diagnostic quality images. DICOM format image data is available electronically for review an d comparison. FINDINGS: There is patient motion throughout the study causing some motion blurring. Aortic Arch: There is a three-vessel origin of the great vessels from the aorta. No evidence of ost ial narrowing Right Carotid: The common carotid artery is intact. The carotid bulb has a normal configuration wit hout ulceration or narrowing. The internal carotid artery lumen is smooth without stenosis. The ext ernal carotid artery is intact. Left Carotid: The common carotid artery is intact. The carotid bulb has a normal configuration with out ulceration or narrowing. The internal carotid artery lumen is smooth without stenosis. The exte rnal carotid artery is intact. Vertebrals: The vertebral arteries have a symmetric diameter. No stenotic lesions are seen. Percent stenosis is calculated using the diameter of the stenotic region over the diameter of the nor mal distal internal carotid artery. CONCLUSION: No significant stenosis is seen. Electronically signed by: Brandon Hardy MD Board Certified Radiologist 11/21/2018 8:36 AM EST
--- NOTE | 2018-11-21 08:41 | XR ---
EXAM DATE: 11/21/2018 8:25 AM EST AGE/SEX: 68 years / Female INDICATIONS: Stroke Alert CLINICAL DATA: This is the patient's initial encounter. Patient reports that signs and symptoms have been present for 1 day and indicates a pain score of 0/10. MEDICAL/SURGICAL HISTORY: . Carcinoma, breast. Hypertension. Stroke. . . Left breast lumpect oneil COMPARISON: [facility], CHEST 1V SINGLE AP, 11/01/2018. . FINDINGS: The patient is mildly rotated towards the right. The heart size is normal. The lungs are grossly tran r. The costophrenic angles are clear. There is hypertrophic change seen at the first costochondral ju nction. CONCLUSION: No acute abnormality is seen. Electronically signed by: Brandon Hardy MD Board Certified Radiologist 11/21/2018 8:40 AM EST
[2018-11-21 09:00] LABS: Albumin 4.1 g/dL (3.4-5.0); Alkaline Phosphatase 83 U/L (45-117); Anion Gap 10 meq/L (5-15); Blood Urea Nitrogen 21 mg/dL (7-18); Carbon Dioxide 23.8 meq/L (21.0-32.0); Chloride 101 meq/L (98-107); Glomerular Filtration Rate 60 mL/min (>89); Glucose,Random 127 mg/dL (74-106); Sodium 135 meq/L (136-145); Total Protein 7.5 g/dL (6.4-8.2)
[2018-11-21 09:01] LABS: Aspartate Aminotransferase 34 U/L (15-37); Creatine Kinase 207 U/L (26-192); Potassium 3.6 meq/L (3.5-5.1)
[2018-11-21 09:14] LABS: CKMB Percent 1.6 % (0.0-4.0); Creatine Kinase MB 3.4 ng/mL (0.5-3.6)
[2018-11-21 09:36] LABS: Amphetamine Screen,Urine Neg (Neg); Barbiturate Screen,Urine Neg (Neg); Cannabinoid Screen,Urine Neg (Neg); Cocaine Screen,Urine Neg (Neg)
[2018-11-21 09:39] LABS: Opiate Screen,Urine Neg (Neg)
[2018-11-21 09:44] LABS: Bilirubin,Urine Negative (Negative); Clarity,Urine Clear (Clear); Color,Urine Yellow (Yellw/Straw); Glucose,Urine (UA) Negative (Negative); Leukocyte Esterase,Urine Negative (Negative); Nitrite,Urine Negative (Negative); Squamous Epithelial Cell,Urine <1 /hpf (0-5)
[2018-11-21] MEDS ORDERED: Potassium Chlor 20 mEq Premix 20 MEQ/100 ML PIGGYBACK IV.SIG ONE (10:19)
[2018-11-21] MEDS ORDERED: Acetaminophen 325 MG Tablet PO PRN (10:28)
[2018-11-21] MEDS ORDERED: Bisacodyl 10 MG Supp RECTAL PRN (10:28)
[2018-11-21] MEDS ORDERED: LORazepam 1 MG Tablet PO PRN (11:01)
[2018-11-21] MEDS ORDERED: Haloperidol Inj 5 MG/ML Ampul IV.PUSH PRN (11:01)
--- NOTE | 2018-11-21 11:05 | P.HPIM ---
History of Present Illness Primary Care Physician: UNKNOWN Chief Complaint: Right arm weakness History of Present Illness: This is a 68-year-old female with a history of CVA with residual right-sided weakness, seizure, hypertension and hypothyroidism. She was brought in by her family because of acute onset of worsening right arm weakness , Expressive aphasia and later developed right-sided tremors improved with IV Ativan. She also was given IV cerebryx per neurology. Tegretol level0. She reportedly has been noncompliant with antiepileptic drugs. At this time, she is alert and following simple commands. She has mild right- sided weakness and aphasia. No active tremors. Imaging studies including head CT, CTA and neck CTA with no acute findings. EKG independently reviewed by me with sinus rhythm with no acute ST-T changes. All other systems reviewed negative Review of Systems Review of Systems: all other systems reviewed are negative FOR[facility]LY [facility] Medical History Medical History Breast cancer (Acute) Hemorrhagic cerebrovascular accident (CVA) (Acute) Hypertension (Acute) Hypothyroid (Acute) Stroke (Acute) Surgical History Surgical History S/P breast lumpectomy (Acute) Family History Family History Other No significant family history Osteoarthritis Social History Social History Substance History: No History of Abuse Second Hand Smoke Exposure: No Smoking Status: Current every day smoker Tobacco Type: Cigarettes and E-Cigarettes How Often Do You Have a Drink Containing Alcohol: 4 or more times a week Immunization History Tetanus Immunization: Unable to Assess Medications and Allergies Allergies Allergy/AdvReac Type Severity Reaction Status Date / Time No Known Allergies Allergy Verified 11/05/18 18:41 Home Medications Medication Instructions Recorded Confirmed Type amlodipine 5 mg PO DAILY 06/20/18 11/07/18 History levothyroxine 25 mcg PO DAILY 06/24/18 11/07/18 History thyroid (pork) [Nature-Throid] 97.5 mg PO DAILY 06/24/18 11/07/18 History losartan 50 mg PO DAILY 11/01/18 11/07/18 History multivitamin 1 tab PO QAM 11/01/18 11/07/18 History oxcarbazepine 300 mg PO BID 11/07/18 11/07/18 History Active Medications: Active Medications Acetaminophen (Tylenol) 650 mg PO Q4H PRN PRN Reason: Temp > 100.4 Al Hydroxide/Mg Hydroxide (Milk Of Magnesia Liq) 30 ml PO Q12H PRN PRN Reason: Mild Constipation Bisacodyl (Dulcolax Supp) 10 mg RECTAL DAILY PRN PRN Reason: SEVERE CONSITIPATION Sodium Chloride (Ns Inj) 1,000 mls @ 70 mls/hr IV.CONT .[id number] EWA Last Admin: 11/21/18 08:17 Dose: 70 mls/hr Potassium Chloride (Kcl 20 Meq Premix Inj) 20 meq in 100 mls @ 50 mls/hr IV.SIG ONCE ONE Stop: 11/21/18 12:18 Fosphenytoin Sodium 250 mgpe/ (Sodium Chloride) 55 mls @ 220 mls/hr IV.SIG Q12HR EWA Lactulose (Lactulose Liq) 30 ml PO DAILY PRN PRN Reason: SEVERE CONSITIPATION Lorazepam (Ativan Inj) 2 mg IV.PUSH Q10M PRN PRN Reason: SEE LABEL COMMENTS Ondansetron HCl (Zofran Inj) 4 mg IV.PUSH Q6H PRN PRN Reason: NAUSEA OR VOMITING Senna/Docusate Sodium (Faby-Colace) 1 tab PO BID [facility] Sennosides (Senokot) 17.2 mg PO Q12H PRN PRN Reason: Moderate Constipation Sodium Chloride (Ns Flush) 2 ml IV.FLUSH BID [facility] Sodium Chloride (Ns Flush) 2 ml IV.FLUSH PRN PRN PRN Reason: FLUSH AFTER USING IV ACCESS Physical Exam Vital signs: Last Vital Signs Pulse 104 H 11/21/18 08:21 Resp 25 H 11/21/18 08:21 BP 144/63 H 11/21/18 08:21 Pulse Ox 98 11/21/18 08:21 Intake & Output 11/19/18 11/20/18 11/21/18 11/22/18 06:59 06:59 06:59 06:59 Intake Total 70 / 70 Balance 70 / 70 Weight 104.326 kg Narrative: GENERAL: Well-developed, well-nourished in no distress SKIN: Warm and dry. HEAD: Atraumatic. Normocephalic. EYES: Pupils equal and round. No scleral icterus. No injection or drainage. ENT: No nasal bleeding or discharge. Mucous membranes pink and moist. NECK: Trachea midline. No JVD. CARDIOVASCULAR: Regular rate and rhythm. RESPIRATORY: No accessory muscle use. Clear to auscultation. Breath sounds equal bilaterally. GASTROINTESTINAL: Abdomen soft, non-tender, nondistended. MUSCULOSKELETAL: Extremities without clubbing, cyanosis, or edema. No obvious deformities. NEUROLOGICAL: Awake and alert. No obvious cranial nerve deficits. Mild right upper and right lower extremity weakness. She has expressive aphasia Results Labs CBC & Chem 7: 11/21/18 07:36 11/21/18 07:36 Imaging Impressions Chest X-Ray 11/21/18 07:39 CONCLUSION: No acute abnormality is seen. Head CT 11/21/18 07:39 CONCLUSION: 1. No acute areas of hemorrhage or mass effect are seen. 2. Encephalomalacia from prior insult in the left parietal lobe. Report was called by Dr. Hardy to Dr. Diaz at 8:03 AM. Head CTA 11/21/18 07:39 CONCLUSION: Limited study secondary to patient motion. The proximal aspect of the major vessels are patent. Report was called by [Dr. Hardy to Dr. Coker and Dr. Diaz at 8:28 AM] Neck CTA 11/21/18 07:39 CONCLUSION: No significant stenosis is seen. CT CAD 11/21/18 07:40 CONCLUSION: Physiological brain perfusion parameters with RAPID analysis as above. The decision for consideration of therapy is multi factorial and multi disciplinary relying on subjective and objective clinical data. This data is not construed or intended to be the sole determinant of treatment eligibility. Caprini VTE Risk Assessment Caprini VTE Risk Assessment: Moderate/High Risk (score >= 2) Caprini Risk Assessment Model: Point Value = 1 Point Value = 2 Point Value = 3 Point Value = 5 Age 41-60 Minor surgery BMI > 25 kg/m2 Swollen legs Varicose veins or History of unexplained or recurrent spontaneous Oral contraceptives or hormone replacement Sepsis (< 1 month) Serious lung disease, including pneumonia (< 1 month) Abnormal pulmonary function Acute myocardial infarction Congestive heart failure (< 1 month) History of inflammatory bowel disease Medical patient at bed rest Age 61-74 Arthroscopic surgery Major open surgery (> 45 min) Laparoscopic surgery (> 45 min) Malignancy Confined to bed (> 72 hours) Immobilizing plaster cast Central venous access Age >= 75 History of VTE Family history of VTE Factor V Leiden Prothrombin [id number] Lupus anticoagulant Anticardiolipin antibodies Elevated serum homocysteine Heparin-induced thrombocytopenia Other congenital or acquired thrombophilia Stroke (< 1 month) Elective arthroplasty Hip, pelvis, or leg fracture Acute spinal cord injury (< 1 month) Prophylaxis Regimen: Total Risk Factor Score Risk Level Prophylaxis Regimen 0-1 Low Early ambulation 2 Moderate Order ONE of the following: *Sequential Compression Device (SCD) *Heparin 5000 units SQ BID 3-4 Higher Order ONE of the following medications: *Heparin 5000 units SQ TID *Enoxaparin/Lovenox 40 mg SQ daily (WT < 150 kg, CrCl > 30 mL/min) *Enoxaparin/Lovenox 30 mg SQ daily (WT < 150 kg, CrCl > 10-29 mL/min) *Enoxaparin/Lovenox 30 mg SQ BID (WT < 150 kg, CrCl > 30 mL/min) AND/OR *Sequential Compression Device (SCD) 5 or more Highest Order ONE of the following medications: *Heparin 5000 units SQ TID (Preferred with Epidurals) *Enoxaparin/Lovenox 40 mg SQ daily (WT < 150 kg, CrCl > 30 mL/min) *Enoxaparin/Lovenox 30 mg SQ daily (WT < 150 kg, CrCl > 10-29 mL/min) *Enoxaparin/Lovenox 30 mg SQ BID (WT < 150 kg, CrCl > 30 mL/min) AND *Sequential Compression Device (SCD) Assessment and Plan Plan This is a 68-year-old female with a history of CVA with residual right-sided weakness, seizure, hypertension and hypothyroidism. She was brought in by her family because of acute onset of worsening right arm weakness , Expressive aphasia and later developed right-sided tremors improved with IV Ativan. She also was given IV cerebryx per neurology. Tegretol level 0. She reportedly has been noncompliant with antiepileptic drugs. Seizures. This is improved after IV Ativan and Cerebryx loading. We will continue Cerebryx. Seizure precautions. Follow-up EEG and consult neurology. Counseled regarding noncompliance. Patient aware she is not allowed to drive. Hypokalemia potassium 3.5. Replace with 20 mEq potassium. Check magnesium DVT prophylaxis with SCD and early ambulation
--- NOTE | 2018-11-21 11:30 | P.CONNEU ---
History of Present Illness Service: Neurology Primary Care Provider: UNKNOWN Chief Complaint: Right arm weakness History of Present Illness: 68-year-old female admitted for altered mental status, worsening right-sided weakness and speech changes. No have tremulousness in her right upper extremity. Given IV Celebrex with improvement in speech. She has had a cerebral hemorrhage in the past she is not IV TPA candidate. 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 CT brain carotid no significant vaso-occlusive disease Patient poor historian unable to give history as to whether or not she is taking her seizure medications 10/2018 recent was admitted for focal seizures placed on Dilantin 03/2018 admitted for left parietal region intracranial hemorrhage. No surgical intervention. Had seizures at that time Review of Systems All other systems reviewed negative except as stated in HPI [facility] - History History Provided By: Family Member (grandson states may had hemmorhagic stroka and an ischemic one before that, unknown if on blood thinner), Medical Record - Medical History Medical History: Medical History (Last Reviewed 11/21/18 @ 11:08 by Corbin Aly MD) Breast cancer Hemorrhagic cerebrovascular accident (CVA) Hypertension Hypothyroid Stroke - Surgical History Surgical History: Surgical History (Last Reviewed 11/21/18 @ 11:08 by Corbin Aly MD) S/P breast lumpectomy - Family History Family History: Family History (Last Reviewed 11/21/18 @ 11:08 by Corbin Aly MD) Other No significant family history Osteoarthritis - Tobacco History Second Hand Smoke Exposure: No Tobacco Use In Past 30 Days: Yes Smoking Status: Current every day smoker Tobacco Type: Cigarettes, E-Cigarettes - Alcohol History How Often Do You Have a Drink Containing Alcohol: 4 or more times a week - Substance Use History Substance History: No History of Abuse - Immunization History Tetanus Immunization: Unable to Assess Medications and Allergies Active Medications: Active Medications Acetaminophen (Tylenol) 650 mg PO Q4H PRN PRN Reason: Temp > 100.4 Al Hydroxide/Mg Hydroxide (Milk Of Magnesia Liq) 30 ml PO Q12H PRN PRN Reason: Mild Constipation Bisacodyl (Dulcolax Supp) 10 mg RECTAL DAILY PRN PRN Reason: SEVERE CONSITIPATION Flumazenil (Romazecon Inj) 0.2 mg IV.PUSH Q1M PRN PRN Reason: OVERSEDATION Folic Acid (Folic Acid) 1 mg PO DAILY EWA Stop: 11/27/18 08:59 Haloperidol Lactate (Haldol Inj) 1 mg IV.PUSH Q15M PRN PRN Reason: for severe agitation Sodium Chloride (Ns Inj) 1,000 mls @ 70 mls/hr IV.CONT .[id number] [facility] Last Admin: 11/21/18 08:17 Dose: 70 mls/hr Potassium Chloride (Kcl 20 Meq Premix Inj) 20 meq in 100 mls @ 50 mls/hr IV.SIG ONCE ONE Stop: 11/21/18 12:18 Fosphenytoin Sodium 250 mgpe/ (Sodium Chloride) 55 mls @ 220 mls/hr IV.SIG Q12HR EWA Lactulose (Lactulose Liq) 30 ml PO DAILY PRN PRN Reason: SEVERE CONSITIPATION Lorazepam (Ativan Inj) 2 mg IV.PUSH Q10M PRN PRN Reason: SEE LABEL COMMENTS Lorazepam (Ativan) 2 mg PO Q2H PRN PRN Reason: for CIWA 11-14 Lorazepam (Ativan Inj) 2 mg IV.PUSH Q2H PRN PRN Reason: for CIWA 11-14 Lorazepam (Ativan Inj) 2 mg IV.PUSH Q1H PRN PRN Reason: for CIWA 15-20 Lorazepam (Ativan Inj) 2 mg IV.PUSH Q15M PRN PRN Reason: for CIWA > 20 Lorazepam (Ativan Inj) 1 mg IV.PUSH Q4H PRN PRN Reason: for CIWA 8-10 Lorazepam (Ativan) 1 mg PO Q4H PRN PRN Reason: for CIWA 8-10 Multivitamins/Minerals (Theragran-M) 1 tab PO DAILY [facility] Stop: 11/27/18 08:59 Ondansetron HCl (Zofran Inj) 4 mg IV.PUSH Q6H PRN PRN Reason: NAUSEA OR VOMITING Senna/Docusate Sodium (Faby-Colace) 1 tab PO BID [facility] Sennosides (Senokot) 17.2 mg PO Q12H PRN PRN Reason: Moderate Constipation Sodium Chloride (Ns Flush) 2 ml IV.FLUSH BID [facility] Sodium Chloride (Ns Flush) 2 ml IV.FLUSH PRN PRN PRN Reason: FLUSH AFTER USING IV ACCESS Thiamine HCl (Vitamin B1) 100 mg PO DAILY [facility] Allergies Allergy/AdvReac Type Severity Reaction Status Date / Time No Known Allergies Allergy Verified 11/05/18 18:41 Home Medications Medication Instructions Recorded Confirmed Type amlodipine 5 mg PO DAILY 06/20/18 11/07/18 History levothyroxine 25 mcg PO DAILY 06/24/18 11/07/18 History thyroid (pork) [Nature-Throid] 97.5 mg PO DAILY 06/24/18 11/07/18 History losartan 50 mg PO DAILY 11/01/18 11/07/18 History multivitamin 1 tab PO QAM 11/01/18 11/07/18 History oxcarbazepine 300 mg PO BID 11/07/18 11/07/18 History Exam Vital signs: Vital Signs 11/21/18 08:10 11/21/18 08:21 Pulse Rate 85 104 H Respiratory Rate 12 25 H Blood Pressure 175/77 H 144/63 H Pulse Oximetry 98 98 Intake & Output 11/20/18 11/21/18 11/21/18 18:59 06:59 18:59 Intake Total 70 / 70 Balance 70 / 70 Weight 104.326 kg Intake: IV 70 / 70 Cerebyx Inj 1,000 MGPE In NS 70 / 70 Inj 50 ML @ 280 mls/hr IV.SIG ONCE ONE Rx#:[id number] Narrative: GENERAL: in NAD, SKIN: Warm and dry. HEAD: Atraumatic. Normocephalic. EYES: Pupils equal and round. No scleral icterus. ENT: No nasal bleeding or discharge. Mucous membranes pink and moist. NECK: Trachea midline. No JVD. CARDIOVASCULAR: Regular rate and rhythm. RESPIRATORY: No accessory muscle use. GASTROINTESTINAL: Abdomen soft, non-tender, nondistended. MUSCULOSKELETAL: Extremities without clubbing, cyanosis, or edema. NEUROLOGICAL: Awake and alert. Oriented to self, looks confused, inconsistently follows simple request although displays motor perseveration, no facial asymmetry, OU 3-2mm, eomi, VFF, mild right hemiparesis increased tone mild spasticity PSYCHIATRIC: Mildly anxious - Constitutional no acute distress - Routine HEENT Exam Head: Present: normocephalic Eye: Present: EOMI Results - Labs CBC & Chem 7: 11/21/18 07:36 11/21/18 07:36 Labs: Laboratory Results - last 24 hr 11/21/18 11/21/18 11/21/18 07:36 07:36 07:36 WBC 8.7 RBC 3.93 L Hgb 13.7 POC Hgb (Calc) 13.9 Hct 37.5 POC Hct 41.0 MCV 95.5 MCH 35.0 H MCHC 36.7 H RDW 12.4 Plt Count 263 MPV 7.7 Prelim Diff (Auto) Slide review pending Neut % (Auto) 40.2 Lymph % (Auto) 44.2 H [place] % (Auto) 10.6 H Eos % (Auto) 4.4 H Baso % (Auto) 0.6 Neut # (Auto) 3.5 Lymph # (Auto) 3.8 [place] # (Auto) 0.9 Eos # (Auto) 0.4 Baso # (Auto) 0.1 WBC Differential . Diff Scan Auto diff confirmed Differential Comment . Platelet Estimate Normal Platelet Morphology Normal PT 10.0 INR 1.0 APTT 18.4 L Fibrinogen 303 POC Sodium 135 L Sodium 135 L POC Potassium 3.5 L Potassium 3.6 POC Chloride 99 L Chloride 101 Carbon Dioxide 23.8 Anion Gap 10 POC BUN 21 BUN 21 H Creatinine 0.92 POC Creatinine 0.8 Estimated GFR 60 L POC Glucose 136 H Random Glucose 127 H Calcium 9.0 Total Bilirubin 0.4 AST 34 ALT 28 Alkaline Phosphatase 83 Ammonia Total Creatine Kinase 207 H CK-MB (CK-2) 3.4 CK-MB (CK-2) % 1.6 Troponin I Less than 0.02 L Total Protein 7.5 Albumin 4.1 Urine Color Urine Clarity Urine pH Ur Specific [place] Urine Protein Urine Glucose (UA) Urine Ketones Urine Occult Blood Urine Nitrate Urine Bilirubin Urine Urobilinogen Ur Leukocyte Esterase Urine RBC Ur Squamous Epith Cells Micro UA Comment Ur Microscopic Review Urine Culture Comments Urine Opiates Screen Ur Barbiturates Screen Phenytoin Carbamazepine Ur Amphetamines Screen U Benzodiazepines Scrn Urine Cocaine Screen U Cannabinoids Screen Blood Type Blood Type Recheck Antibody Screen 11/21/18 11/21/18 11/21/18 07:36 07:36 07:36 WBC RBC Hgb POC Hgb (Calc) Hct POC Hct MCV MCH MCHC RDW Plt Count MPV Prelim Diff (Auto) Neut % (Auto) Lymph % (Auto) [place] % (Auto) Eos % (Auto) Baso % (Auto) Neut # (Auto) Lymph # (Auto) [place] # (Auto) Eos # (Auto) Baso # (Auto) WBC Differential Diff Scan Differential Comment Platelet Estimate Platelet Morphology PT INR APTT Fibrinogen POC Sodium Sodium POC Potassium Potassium POC Chloride Chloride Carbon Dioxide Anion Gap POC BUN BUN Creatinine POC Creatinine Estimated GFR POC Glucose Random Glucose Calcium Total Bilirubin AST ALT Alkaline Phosphatase Ammonia Total Creatine Kinase CK-MB (CK-2) CK-MB (CK-2) % Troponin I Total Protein Albumin Urine Color Urine Clarity Urine pH Ur Specific [place] Urine Protein Urine Glucose (UA) Urine Ketones Urine Occult Blood Urine Nitrate Urine Bilirubin Urine Urobilinogen Ur Leukocyte Esterase Urine RBC Ur Squamous Epith Cells Micro UA Comment Ur Microscopic Review Urine Culture Comments Urine Opiates Screen Ur Barbiturates Screen Phenytoin 24.0 H Carbamazepine Less than 0.5 L Ur Amphetamines Screen U Benzodiazepines Scrn Urine Cocaine Screen U Cannabinoids Screen Blood Type AB Positive Blood Type Recheck Not needed Antibody Screen Negative 11/21/18 11/21/18 11/21/18 07:39 08:50 08:50 WBC RBC Hgb POC Hgb (Calc) Hct POC Hct MCV MCH MCHC RDW Plt Count MPV Prelim Diff (Auto) Neut % (Auto) Lymph % (Auto) [place] % (Auto) Eos % (Auto) Baso % (Auto) Neut # (Auto) Lymph # (Auto) [place] # (Auto) Eos # (Auto) Baso # (Auto) WBC Differential Diff Scan Differential Comment Platelet Estimate Platelet Morphology PT INR APTT Fibrinogen POC Sodium Sodium POC Potassium Potassium POC Chloride Chloride Carbon Dioxide Anion Gap POC BUN BUN Creatinine POC Creatinine Estimated GFR POC Glucose 134 H Random Glucose Calcium Total Bilirubin AST ALT Alkaline Phosphatase Ammonia Total Creatine Kinase CK-MB (CK-2) CK-MB (CK-2) % Troponin I Total Protein Albumin Urine Color Yellow Urine Clarity Clear Urine pH 5.0 Ur Specific [place] Greater than 1.060 H Urine Protein Negative Urine Glucose (UA) Negative Urine Ketones Negative Urine Occult Blood Negative Urine Nitrate Negative Urine Bilirubin Negative Urine Urobilinogen Less than 2 Ur Leukocyte Esterase Negative Urine RBC Less than 1 Ur Squamous Epith Cells <1 Micro UA Comment Cath-culture not ind Ur Microscopic Review Not Reportable Urine Culture Comments Cath-cult not ind Urine Opiates Screen Neg Ur Barbiturates Screen Neg Phenytoin Carbamazepine Ur Amphetamines Screen Neg U Benzodiazepines Scrn Neg Urine Cocaine Screen Neg U Cannabinoids Screen Neg Blood Type Blood Type Recheck Antibody Screen 11/21/18 08:56 WBC RBC Hgb POC Hgb (Calc) Hct POC Hct MCV MCH MCHC RDW Plt Count MPV Prelim Diff (Auto) Neut % (Auto) Lymph % (Auto) [place] % (Auto) Eos % (Auto) Baso % (Auto) Neut # (Auto) Lymph # (Auto) [place] # (Auto) Eos # (Auto) Baso # (Auto) WBC Differential Diff Scan Differential Comment Platelet Estimate Platelet Morphology PT INR APTT Fibrinogen POC Sodium Sodium POC Potassium Potassium POC Chloride Chloride Carbon Dioxide Anion Gap POC BUN BUN Creatinine POC Creatinine Estimated GFR POC Glucose Random Glucose Calcium Total Bilirubin AST ALT Alkaline Phosphatase Ammonia 13 Total Creatine Kinase CK-MB (CK-2) CK-MB (CK-2) % Troponin I Total Protein Albumin Urine Color Urine Clarity Urine pH Ur Specific [place] Urine Protein Urine Glucose (UA) Urine Ketones Urine Occult Blood Urine Nitrate Urine Bilirubin Urine Urobilinogen Ur Leukocyte Esterase Urine RBC Ur Squamous Epith Cells Micro UA Comment Ur Microscopic Review Urine Culture Comments Urine Opiates Screen Ur Barbiturates Screen Phenytoin Carbamazepine Ur Amphetamines Screen U Benzodiazepines Scrn Urine Cocaine Screen U Cannabinoids Screen Blood Type Blood Type Recheck Antibody Screen - Imaging Impressions Chest X-Ray 11/21/18 07:39 CONCLUSION: No acute abnormality is seen. Head CT 11/21/18 07:39 CONCLUSION: 1. No acute areas of hemorrhage or mass effect are seen. 2. Encephalomalacia from prior insult in the left parietal lobe. Report was called by Dr. Hardy to Dr. Diaz at 8:03 AM. Head CTA 11/21/18 07:39 CONCLUSION: Limited study secondary to patient motion. The proximal aspect of the major vessels are patent. Report was called by [Dr. Hardy to Dr. Coker and Dr. Diaz at 8:28 AM] Neck CTA 11/21/18 07:39 CONCLUSION: No significant stenosis is seen. CT CAD 11/21/18 07:40 CONCLUSION: Physiological brain perfusion parameters with RAPID analysis as above. The decision for consideration of therapy is multi factorial and multi disciplinary relying on subjective and objective clinical data. This data is not construed or intended to be the sole determinant of treatment eligibility. Review/Management - Diagnosis (1) Seizure Code(s): R56.9 - Unspecified convulsions Status: Acute Current Visit: No (2) ICH (intracerebral hemorrhage) Code(s): I61.9 - Nontraumatic intracerebral hemorrhage, unspecified Status: Acute Current Visit: No (3) HTN (hypertension) Code(s): I10 - Essential (primary) hypertension Status: Acute Current Visit : No (4) Acute alteration in mental status Code(s): R41.82 - Altered mental status, unspecified Status: Acute Current Visit: Yes - Review/Management Plan: Probable focal left hemisphere origin epileptic activity resulting in aphasia and right-sided motor seizures Suspect secondary to noncompliance with medication Previous left parietal ICH March 2018 Recommendation EEG IV Celebrex Seizure fall precautions Compliance with medication Blood pressure control No driving, operating any heavy machinery or dangerous machinery, swimming alone for at least 6 months of being seizure, spell free.
--- NOTE | 2018-11-21 13:53 | MR ---
EXAM DATE: 11/21/2018 1:47 PM EST AGE/SEX: 68 years / Female INDICATIONS: Right sided weakness. CLINICAL DATA: This is the patient's initial encounter. Patient reports that signs and symptoms have been present for 1 day and indicates a pain score of 0/10. MEDICAL/SURGICAL HISTORY: Hypertension. Carcinoma, breast. Tonsillectomy. Lumpectomy. Loop rec order. COMPARISON: [facility] [place], MR HEAD W/O CONTRAST, 11/01/2018. . TECHNIQUE: Multiplanar, multisequence examination of the brain was performed without contrast. FINDINGS: Cerebrum: There is persistent encephalomalacia at the left parietal lobe. The ventricles are normal for age. No evidence of midline shift, mass lesion, hemorrhage or acute infarction. No extraaxial f luid collections are seen. The suprasellar cistern are normal in configuration. There is an empty se lla configuration. White Matter: A few scattered punctate areas of increased signal within the cerebral white matter. Posterior Fossa: The cerebellum and brainstem are intact. The 4th ventricle is midline. The cerebel lopontine angle is unremarkable. The cerebellar tonsils are normal in position. Diffusion Imaging: No focal areas of restricted diffusion are seen. No evidence of acute infarction . Extracranial: The visualized portions of the orbits and paranasal sinuses are unremarkable. CONCLUSION: 1. No acute abnormality is seen. 2. Encephalomalacia at the posterior superior left parietal lobe. 3. There are a few scattered punctate areas of focal demyelination the cerebral white matter. These are nonspecific. They could be from scattered small vessel ischemic change versus other demyelinating conditions. Electronically signed by: Brandon Hardy MD Board Certified Radiologist 11/21/2018 1:52 PM EST
[2018-11-21 14:19] LABS: Magnesium 2.1 mg/dL (1.5-2.5)
[2018-11-21] MEDS: Senna/Docusate Sodium 8.6/50 MG Tablet PO SCH ×2 (21:15→22:16)
[2018-11-21] MEDS: FOSPHENYTOIN IV.SIG SCH (21:15)
[2018-11-21] MEDS: SODIUM CHLOR IV.SIG SCH (21:15)
[2018-11-22 00:33] VITALS: RESP 18
--- NOTE | 2018-11-22 02:07 | ECG ---
Date Performed: 11/21/2018 Time Performed: 09:25:46 PTAGE: 68 years EKG: Sinus rhythm POSSIBLE LEFT ATRIAL ENLARGEMENT POSSIBLE RIGHT VENTRICULAR CONDUCTION DELAY NONSPECIFIC T-WAVE ABNO RMALITY BORDERLINE ECG PREVIOUS TRACING : 11/07/2018 03.15 Since the previous tracing, no significant change noted DOCTOR: Momo Hodges Interpretating Date/Time 11/22/2018 02:06:11
[2018-11-22 05:40] LABS: Calcium 8.4 mg/dL (8.5-10.1); Carbon Dioxide 26.9 meq/L (21.0-32.0); Phenytoin (Dilantin) 12.4 mcg/mL (10.0-20.0); Potassium 3.3 meq/L (3.5-5.1)
[2018-11-22 08:16] VITALS: BP 129/69; TEMP 97.9
[2018-11-22 08:51] VITALS: O2SAT 97
[2018-11-22] MEDS ORDERED: Folic Acid 1 MG Tablet PO SCH (09:00)
[2018-11-22] MEDS ORDERED: NATURE THROID 97.5 MG PO SCH (09:00)
[2018-11-22] MEDS ORDERED: Multivitamin/Minerals Therapeutic Tablet PO SCH (09:00)
[2018-11-22] MEDS ORDERED: amLODIPine 5 MG Tablet PO SCH (09:00)
--- NOTE | 2018-11-22 09:15 | MG ---
cc: Michael Randhawa MD EEG NUMBER: [id number] DESCRIPTION: Generalized slowing with theta delta frequencies 20-50 microvolts. Rhythmic delta, left parietal region. There is some movement artifact or high-frequency artifact. Limited driving with photic stimulation. Good EEG variability reactivity background and did increment up to 5-6 Hz. INTERPRETATION: Multilateral encephalopathy with mild asymmetric left posterior hemispheric slowing. Clinical correlation. MD MARCO ANTONIO Conde/odalys , 08:55 AM , 08:58 AM
--- NOTE | 2018-11-22 09:54 | P.PNNEU ---
Subjective Subjective Comments: No cp, no dyspnea, no su, no focal weakness, no vision loss. Patient asks " what happened to me 1 minute I could not talk and move now I can" Admits not taking Trileptal at home or Keppra due to side effects. This morning she feels well slept well no dizziness no vertigo no weakness speech improved Active Medications: Active Medications Acetaminophen (Tylenol) 650 mg PO Q4H PRN PRN Reason: Temp > 100.4 Al Hydroxide/Mg Hydroxide (Milk Of Magnesia Liq) 30 ml PO Q12H PRN PRN Reason: Mild Constipation Amlodipine Besylate (Norvasc) 5 mg PO DAILY EWA Bisacodyl (Dulcolax Supp) 10 mg RECTAL DAILY PRN PRN Reason: SEVERE CONSITIPATION Clonidine HCl (Catapres) 0.1 mg PO Q6H PRN PRN Reason: SEE LABEL COMMENTS Enalaprilat (Vasotec Inj) 1.25 mg IV.PUSH Q6H PRN PRN Reason: SEE LABEL COMMENTS Flumazenil (Romazecon Inj) 0.2 mg IV.PUSH Q1M PRN PRN Reason: OVERSEDATION Folic Acid (Folic Acid) 1 mg PO DAILY COUNTS INCLUDE 234 BEDS AT THE [facility] Stop: 11/27/18 08:59 Haloperidol Lactate (Haldol Inj) 1 mg IV.PUSH Q15M PRN PRN Reason: for severe agitation Sodium Chloride (Ns Inj) 1,000 mls @ 70 mls/hr IV.CONT .[id number] COUNTS INCLUDE 234 BEDS AT THE [facility] Last Admin: 11/21/18 22:17 Dose: 70 mls/hr Fosphenytoin Sodium 250 mgpe/ (Sodium Chloride) 55 mls @ 220 mls/hr IV.SIG Q12HR COUNTS INCLUDE 234 BEDS AT THE [facility] Last Infusion: 11/21/18 22:16 Dose: Infused Lactulose (Lactulose Liq) 30 ml PO DAILY PRN PRN Reason: SEVERE CONSITIPATION Levothyroxine Sodium (Synthroid) 25 mcg PO DAILY@0600 EWA Lorazepam (Ativan Inj) 2 mg IV.PUSH Q10M PRN PRN Reason: SEE LABEL COMMENTS Lorazepam (Ativan) 2 mg PO Q2H PRN PRN Reason: for CIWA 11-14 Lorazepam (Ativan Inj) 2 mg IV.PUSH Q2H PRN PRN Reason: for CIWA 11-14 Lorazepam (Ativan Inj) 2 mg IV.PUSH Q1H PRN PRN Reason: for CIWA 15-20 Lorazepam (Ativan Inj) 2 mg IV.PUSH Q15M PRN PRN Reason: for CIWA > 20 Lorazepam (Ativan Inj) 1 mg IV.PUSH Q4H PRN PRN Reason: for CIWA 8-10 Lorazepam (Ativan) 1 mg PO Q4H PRN PRN Reason: for CIWA 8-10 Losartan Potassium (Cozaar) 25 mg PO BID COUNTS INCLUDE 234 BEDS AT THE [facility] Multivitamins/Minerals (Theragran-M) 1 tab PO DAILY COUNTS INCLUDE 234 BEDS AT THE [facility] Stop: 11/27/18 08:59 Ondansetron HCl (Zofran Inj) 4 mg IV.PUSH Q6H PRN PRN Reason: NAUSEA OR VOMITING Nature-Throid ( Thyroid Pork) 97.5 Mg Tab 0 each PO DAILY COUNTS INCLUDE 234 BEDS AT THE [facility] Senna/Docusate Sodium (Faby-Colace) 1 tab PO BID COUNTS INCLUDE 234 BEDS AT THE [facility] Last Admin: 11/21/18 22:16 Dose: Not Given Sennosides (Senokot) 17.2 mg PO Q12H PRN PRN Reason: Moderate Constipation Sodium Chloride (Ns Flush) 2 ml IV.FLUSH BID COUNTS INCLUDE 234 BEDS AT THE [facility] Last Admin: 11/21/18 22:15 Dose: Not Given Sodium Chloride (Ns Flush) 2 ml IV.FLUSH PRN PRN PRN Reason: FLUSH AFTER USING IV ACCESS Thiamine HCl (Vitamin B1) 100 mg PO DAILY COUNTS INCLUDE 234 BEDS AT THE [facility] Allergies/Adverse Reactions: Allergies Allergy/AdvReac Type Severity Reaction Status Date / Time No Known Allergies Allergy Verified 11/05/18 18:41 Review of Systems All other systems reviewed negative except as stated in HPI Physical Exam Vital signs: Vital Signs 11/21/18 12:30 11/21/18 17:12 11/21/18 20:00 Temperature 98.0 F 97.6 F 99.1 F Pulse Rate 77 85 82 Respiratory Rate 17 18 20 Blood Pressure 112/66 117/68 100/59 L Pulse Oximetry 98 83 L 96 11/21/18 20:20 11/22/18 00:00 11/22/18 00:50 Temperature 97.2 F L Pulse Rate 81 86 78 Respiratory Rate 18 Blood Pressure 114/69 Pulse Oximetry 96 11/22/18 04:00 11/22/18 04:35 11/22/18 08:00 Temperature 98.2 F 97.9 F Pulse Rate 78 72 75 Respiratory Rate 18 18 Blood Pressure 104/62 129/69 Pulse Oximetry 97 94 L 11/22/18 08:51 Temperature Pulse Rate Respiratory Rate Blood Pressure Pulse Oximetry 97 Intake & Output 11/21/18 11/22/18 11/22/18 18:59 06:59 18:59 Intake Total 410 / 410 1485 / 1485 Balance 410 / 410 1485 / 1485 Weight 72.575 kg 72.4 kg Intake: IV 170 / 170 1005 / 1005 NS Inj 1,000 ML @ 70 mls/hr IV. 950 / 950 CONT .[id number] COUNTS INCLUDE 234 BEDS AT THE [facility] Rx#:[id number] Cerebyx Inj 250 MGPE In NS Inj 70 / 70 55 / 55 50 ML @ 220 mls/hr IV.SIG Q12HR COUNTS INCLUDE 234 BEDS AT THE [facility] Rx#:[id number] KCl 20 mEq Premix Inj 20 meq In 100 / 100 100 ml @ 50 mls/hr IV.SIG ONCE ONE Rx#:[id number] Oral 240 / 240 480 / 480 Other: # Voids 2 Date of Last Bowel Movement 11/21/18 Weight On Admission 72.575 kg Narrative: GENERAL: in NAD, SKIN: Warm and dry. HEAD: Atraumatic. Normocephalic. EYES: Pupils equal and round. No scleral icterus. ENT: No nasal bleeding or discharge. Mucous membranes pink and moist. NECK: Trachea midline. No JVD. CARDIOVASCULAR: Regular rate and rhythm. RESPIRATORY: No accessory muscle use. GASTROINTESTINAL: Abdomen soft, non-tender, nondistended. MUSCULOSKELETAL: Extremities without clubbing, cyanosis, or edema. NEUROLOGICAL: Awake and alert. Sitting up in bed oriented x3 pleasant humerus, follows motor request articulate, visual [place] full no facial asymmetry, no pronator drift mild spasticity on the right side gait not assessed secondary fall risk PSYCHIATRIC: Pleasant, appropriate - Constitutional no acute distress - Routine HEENT Exam Head: Present: normocephalic Eye: Present: EOMI - Urinary Catheter Management Straight Cath placed during this visit: yes Reason for continuing: Not indwelling catheter Insertion date: 11/21/18 Insertion time: 08:50 Objective Laboratory Results - last 24 hr 11/21/18 11/21/18 11/21/18 07:36 07:36 20:04 Sodium Potassium Chloride Carbon Dioxide Anion Gap BUN Creatinine Estimated GFR POC Glucose 203 H Random Glucose Calcium Magnesium 2.1 Total Creatine Kinase Vitamin B12 714 Phenytoin 24.0 H 11/22/18 04:51 Sodium 141 Potassium 3.3 L Chloride 107 Carbon Dioxide 26.9 Anion Gap 7 BUN 10 Creatinine 0.74 Estimated GFR 78 L POC Glucose Random Glucose 106 Calcium 8.4 L Magnesium Total Creatine Kinase 139 Vitamin B12 Phenytoin 12.4 Review/Management - Diagnosis (1) Seizure Code(s): R56.9 - Unspecified convulsions Status: Acute Current Visit: No (2) ICH (intracerebral hemorrhage) Code(s): I61.9 - Nontraumatic intracerebral hemorrhage, unspecified Status: Acute Current Visit: No (3) HTN (hypertension) Code(s): I10 - Essential (primary) hypertension Status: Acute Current Visit : No (4) Acute alteration in mental status Code(s): R41.82 - Altered mental status, unspecified Status: Acute Current Visit: Yes - Review/Management Plan: focal left hemisphere origin epileptic activity resulting in aphasia and right- sided motor seizures Suspect secondary to noncompliance with medication Previous left parietal ICH March 2018 mri brain no acute stroke Discussed results with patient Recommendation EEG- no active sz dil 12 Home on Dilantin 200 mg p.o. twice daily. Check Dilantin level q. 3-4 days as her dose may need to be titrated Seizure fall precautions Compliance with medication Blood pressure control Discharge plan for neurologic standpoint follow-up with us in the outpatient setting in 1-2 weeks phone number information given to the patient No driving, operating any heavy machinery or dangerous machinery, swimming alone for at least 6 months of being seizure, spell free.
[2018-11-22] MEDS: Senna/Docusate Sodium 8.6/50 MG Tablet PO SCH (10:25)
[2018-11-22] MEDS: SODIUM CHLOR IV.SIG SCH (10:43)
[2018-11-22] MEDS: FOSPHENYTOIN IV.SIG SCH (10:43)
--- NOTE | 2018-11-22 11:40 | P.PN ---
Subjective Interval history: awake and alert no headaches, no further SZ episodes mnow states she will be complian t with medications- have complete trust in Dr. Rojas Physical Exam Vital signs: Vital Signs 11/21/18 12:30 11/21/18 17:12 11/21/18 20:00 Temperature 98.0 F 97.6 F 99.1 F Pulse Rate 77 85 82 Respiratory Rate 17 18 20 Blood Pressure 112/66 117/68 100/59 L Pulse Oximetry 98 83 L 96 11/21/18 20:20 11/22/18 00:00 11/22/18 00:50 Temperature 97.2 F L Pulse Rate 81 86 78 Respiratory Rate 18 Blood Pressure 114/69 Pulse Oximetry 96 11/22/18 04:00 11/22/18 04:35 11/22/18 08:00 Temperature 98.2 F 97.9 F Pulse Rate 78 72 75 Respiratory Rate 18 18 Blood Pressure 104/62 129/69 Pulse Oximetry 97 94 L 11/22/18 08:51 Temperature Pulse Rate Respiratory Rate Blood Pressure Pulse Oximetry 97 Intake & Output 11/21/18 11/22/18 11/22/18 18:59 06:59 18:59 Intake Total 410 / 410 1485 / 1485 55 / 55 Balance 410 / 410 1485 / 1485 55 / 55 Weight 72.575 kg 72.4 kg Intake: IV 170 / 170 1005 / 1005 55 / 55 NS Inj 1,000 ML @ 70 mls/hr IV. 950 / 950 CONT .[id number] COUNT INCLUDES THE [facility] Rx#:[id number] Cerebyx Inj 250 MGPE In NS Inj 70 / 70 55 / 55 55 / 55 50 ML @ 220 mls/hr IV.SIG Q12HR COUNT INCLUDES THE [facility] Rx#:[id number] KCl 20 mEq Premix Inj 20 meq In 100 / 100 100 ml @ 50 mls/hr IV.SIG ONCE ONE Rx#:[id number] Oral 240 / 240 480 / 480 Other: # Voids 2 Date of Last Bowel Movement 11/21/18 Weight On Admission 72.575 kg Narrative: GENERAL: in NAD, interactvie SKIN: Warm and dry. HEAD: Atraumatic. Normocephalic. EYES: Pupils equal and round. No scleral icterus. ENT: No nasal bleeding or discharge. Mucous membranes pink and moist. NECK: Trachea midline. No JVD. CARDIOVASCULAR: Regular rate and rhythm. RESPIRATORY: No accessory muscle use. GASTROINTESTINAL: Abdomen soft, non-tender, nondistended. MUSCULOSKELETAL: Extremities without clubbing, cyanosis, or edema. NEUROLOGICAL: Awake and alert. Sitting up in bed oriented x3 motor 5/5, gailt steady - Urinary Catheter Management Straight Cath placed during this visit: yes Reason for continuing: Not indwelling catheter Insertion date: 11/21/18 Insertion time: 08:50 Results - Labs CBC & Chem 7: 11/21/18 07:36 11/22/18 04:51 Laboratory Results - last 24 hr 11/21/18 11/21/18 11/22/18 07:36 20:04 04:51 Sodium 141 Potassium 3.3 L Chloride 107 Carbon Dioxide 26.9 Anion Gap 7 BUN 10 Creatinine 0.74 Estimated GFR 78 L POC Glucose 203 H Random Glucose 106 Calcium 8.4 L Magnesium 2.1 Total Creatine Kinase 139 Vitamin B12 714 Phenytoin 12.4 - Imaging Impressions Head MRI 11/21/18 00:00 CONCLUSION: 1. No acute abnormality is seen. 2. Encephalomalacia at the posterior superior left parietal lobe. 3. There are a few scattered punctate areas of focal demyelination the cerebral white matter. These are nonspecific. They could be from scattered small vessel ischemic change versus other demyelinating conditions. Assessment and Plan - Plan This is a 68-year-old female with a history of CVA with residual right-sided weakness, seizure, hypertension and hypothyroidism. She was brought in by her family because of acute onset of worsening right arm weakness , Expressive aphasia and later developed right-sided tremors improved with IV Ativan. She also was given IV cerebryx per neurology. Tegretol level 0. She reportedly has been noncompliant with antiepileptic drugs. Seizures- started on dilantin 200 mg po bid - now states she will be compliant- has complete darrel in Dr. Rojas and will ff up with him - advise on SZ precuations- no driving x 6 months, adequate sleep. - now promise to be compliant Hypokalemia potassium 3.5.- improved- banana daily - KCL 30 meq po x 1 - rechecka s OP - advise to eat banana daily HYpothryofidism- S/P HOWARD - OP ff up with PCP - continue synthroids DC home today OP ff up with PCP- [facility] doctors OP ff up with neurology - Dr. Rojas Diet regular
[2018-11-22] MEDS ORDERED: Phenytoin Sodium 100 MG Capsule PO SCH (12:00)
[2018-11-22 12:01] VITALS: PULSE 82
[2018-11-22] MEDS: Sod Chloride 0.9% Inj 1,000 ML IV.CONT SCH (12:21)
== END 2018-11-22 12:45 | disposition home or self-care (01) ==
LOC: NEDA 07:34 → NEPC 07:34 → NEPFCDU 13:19
PROVIDERS: ADMIT Internal Medicine; ATTEND Internal Medicine
CPT/HCPCS: 0042T; 70450; 70496; 70498; 70551; 71010; 71045; 76497; 76499; 80048; 80053; 80156; 80185; 80307; 81001; 82140; 82550; 82552; 82607; 82948; 82962; 83735; 84484; 85025; 85384; 85610; 85730; 86850; 86900; 86901; 90765; 90775; 90776; 93005; 95819; 96365; 96366; 96375; 96376; 97162; 99285; G0378; G8987; G8988; J2060; J3480; J7030; P9612; Q2009; Q9967

== ENCOUNTER 2018-12-07 13:23 | Inpatient (IN) ==
--- NOTE | 2018-12-07 13:55 | ED ---
HPI General Chief Complaint: Stroke Alert Stated Complaint: Medical Time Seen by Provider: 12/07/18 13:35 Source: family Mode of arrival: wheelchair Limitations: physical limitation History of Present Illness HPI Narrative: Patient is 68-year-old female with history of breast cancer, hemorrhagic CVA, hypertension, hypothyroidism, presents the emergency room for evaluation of possible CVA. Patient has excessive aphasia at this time, she had informed me that her grandson dropped patient off at the front man saying that he thinks that she is having a stroke and then left. Patient was brought straight back to the ER. Patient at this time has right-sided deficits, she has expressed aphasia, her blood sugar is 104. Patient is able to tell me that she thinks that her symptoms began about an hour prior to arrival to the ER. NIH scale 9 Related Data Home Medications Medication Instructions Recorded Confirmed amlodipine 5 mg PO DAILY 06/20/18 11/21/18 levothyroxine 25 mcg PO DAILY 06/24/18 11/21/18 thyroid (pork) [Nature-Throid] 97.5 mg PO DAILY 06/24/18 11/21/18 losartan 25 mg PO BID 11/01/18 11/21/18 multivitamin 1 tab PO QAM 11/01/18 11/07/18 Previous Rx's Medication Instructions Recorded phenytoin sodium extended 200 mg PO BID 30 Days #120 cap 11/22/18 Allergies Allergy/AdvReac Type Severity Reaction Status Date / Time No Known Allergies Allergy Verified 11/05/18 18:41 Review of Systems ROS: all other systems reviewed are negative PMFSH History History Provided By: Patient Medical History Medical History Breast cancer (Acute) Hemorrhagic cerebrovascular accident (CVA) (Acute) Hypertension (Acute) Hypothyroid (Acute) Stroke (Acute) Surgical History Surgical History S/P breast lumpectomy (Acute) Family History Family History Other No significant family history Osteoarthritis Social History Social History Substance History: No History of Abuse Second Hand Smoke Exposure: No Smoking Status: Never smoker Tobacco Type: Cigarettes How Often Do You Have a Drink Containing Alcohol: Never Recent Travel in [facility] within the Last 8 Weeks: No Recent Out of Country Travel within the Last 8 Weeks: No Exam Narrative Exam Narrative: GENERAL: Moderate distress SKIN: Focused skin assessment warm/dry. HEAD: Atraumatic. Normocephalic. EYES: No scleral icterus. No injection or drainage. ENT: No nasal bleeding or discharge. Mucous membranes pink and moist. NECK: Trachea midline. No JVD. CARDIOVASCULAR: Regular rate and rhythm. No murmur appreciated. RESPIRATORY: No accessory muscle use. Clear to auscultation. Breath sounds equal bilaterally. GASTROINTESTINAL: Abdomen soft, non-tender, nondistended. Hepatic and splenic margins not palpable. MUSCULOSKELETAL: No obvious deformities. No clubbing. No cyanosis. No edema. NEUROLOGICAL: Awake and alert. NIH Scale 9 - patient with right sided deficits as well as expressive aphasia PSYCHIATRIC: Appropriate mood and affect; insight and judgment normal. Course Initial Documented Vital Signs Pulse Oximetry 98 12/07/18 13:42 Last Documented Vital Signs Pulse Rate 90 12/07/18 13:46 Respiratory Rate 17 12/07/18 13:46 Blood Pressure 145/65 H 12/07/18 13:46 Pulse Oximetry 100 12/07/18 13:46 Critical Care Time Critical Care Time: Yes Total Critical Care Time: 30 Attestation: Aggregate critical care time was 30 minutes. Time to perform other separately billable procedures was not included in the critical care time. My time did not include minutes spent treating any other patients simultaneously or on activities that did not directly contribute to the patient's treatment. The services I provided to this patient were to treat and/or prevent clinically significant deterioration that could result in: , decompensation, deterioration I provided critical care services requiring my management, as noted below: Chart data review, documentation time, medication orders and management, vital sign assessments/reviewing monitor data, ordering and reviewing lab tests, ordering and interpreting/reviewing x-rays and diagnostic studies, care of the patient and discussion of the patient with the admitting physicians. NIH Stroke Scale NIH Stroke Scale Level of Consciousness: 0-Alert Orientation Questions: 1-One task correct Responds to Commands: 0-Both tasks correct Gaze Eye Movement: 0-Horizontal movement WNL Visual Martinez: 0-No visual field defect Facial Movement: 0-Normal Motor Functions Arm LEFT: 0-No drift Motor Functions Arm RIGHT: 1-Drift before 10 seconds Motor Functions Leg LEFT: 0-No drift Motor Functions Leg RIGHT: 1-Drift before 5 seconds Limb Ataxia: 2-Ataxia in two limbs Sensory Loss: 0-No sensory loss Best Language: 2-Severe aphasia Articulation: 2-Severe dysarthria Extinction or Inattention Sensory: 0-Absent Total: 9 Medical Decision Making MDM Narrative Medical decision making narrative: During the course of the patients emergency department visit, the patients history, examination, and differential diagnosis were reviewed with the patient. The patient was placed on a director money with oximetry and frequent blood pressure monitoring. The patient had an IV access obtained and blood work sent for analysis. Estimated time of symptoms is 12:35PM today Stroke alert was called overhead - Case reviewed with Dr. Randhawa Patient does have a history of seizures and history of medication noncompliance. She was seen in October for the similar symptoms and was discharged home on Dilantin as she was noncompliant with her seizure medications. Of note, patient was previously admitted to the hospital in March 2018 for left parietal region intracranial hemorrhage. Patient is not a lytic candidate given this history. I reviewed case with patient's grandson, reports that she was discharged from the hospital October with Dilantin, she has not taken the Dilantin as she has been having side effects from this. Reports that her neurologist as well as PCP knew that she had stopped the Dilantin and did not start her on anything else. Patient will be admitted for possible CVA versus seizure Case reviewed with Dr. Cortez who accepts pt to service Medical Screen Exam Complete: Yes Emergency Medical Condition: Yes Medical Records Medical records reviewed: Yes I reviewed the patient's medical records. Lab Data Lab results reviewed: Yes I reviewed the patient's lab results. Result diagrams: 12/07/18 13:25 Lab Results 12/07/18 12/07/18 12/07/18 Range/Units 13:25 13:25 13:25 WBC 8.2 (4.0-11.0) th/mm3 RBC 4.50 (4.00-5.30) mil/mm3 Hgb 14.9 (11.6-15.3) gm/dL POC Hgb (Calc) 14.6 (11.6-15.3) g/dL Hct 43.0 (35.0-46.0) % POC Hct 43.0 (35-46.0) % MCV 95.5 (80.0-100.0) fL MCH 33.1 (27.0-34.0) pg MCHC 34.7 (32.0-36.0) % RDW 12.1 (11.6-17.2) % Plt Count 349 D (150-450) th/mm3 MPV 7.3 (7.0-11.0) fL Neut % (Auto) 56.5 (16.0-70.0) % Lymph % (Auto) 32.3 (9.0-44.0) % Stephenson % (Auto) 7.9 (0.0-8.0) % Eos % (Auto) 2.1 (0.0-4.0) % Baso % (Auto) 1.2 (0.0-2.0) % Neut # (Auto) 4.6 (1.8-7.7) th/mm3 Lymph # (Auto) 2.6 (1.0-4.8) th/mm3 Stephenson # (Auto) 0.6 (0.0-0.9) th/mm3 Eos # (Auto) 0.2 (0.0-0.4) th/mm3 Baso # (Auto) 0.1 (0.0-0.2) th/mm3 WBC Differential . Differential Comment Auto diff final POC Sodium 137 (137-144) mmol/L POC Potassium 3.0 L (3.6-5.0) mmol/L POC Chloride 98 L (102-111) mmol/L POC BUN 18 (5-21) mg/dL POC Creatinine 0.8 (0.6-1.3) mg/dL POC Glucose 112 H (68-110) mg/dL Total Creatine Kinase 85 (26-192) U/L Troponin I Less than 0.02 L (0.02-0.05) ng/mL Phenytoin (10.0-20.0) mcg/mL Blood Type AB Positive Antibody Screen Negative 12/07/18 12/07/18 Range/Units 13:25 13:40 WBC (4.0-11.0) th/mm3 RBC (4.00-5.30) mil/mm3 Hgb (11.6-15.3) gm/dL POC Hgb (Calc) (11.6-15.3) g/dL Hct (35.0-46.0) % POC Hct (35-46.0) % MCV (80.0-100.0) fL MCH (27.0-34.0) pg MCHC (32.0-36.0) % RDW (11.6-17.2) % Plt Count (150-450) th/mm3 MPV (7.0-11.0) fL Neut % (Auto) (16.0-70.0) % Lymph % (Auto) (9.0-44.0) % Stephenson % (Auto) (0.0-8.0) % Eos % (Auto) (0.0-4.0) % Baso % (Auto) (0.0-2.0) % Neut # (Auto) (1.8-7.7) th/mm3 Lymph # (Auto) (1.0-4.8) th/mm3 Stephenson # (Auto) (0.0-0.9) th/mm3 Eos # (Auto) (0.0-0.4) th/mm3 Baso # (Auto) (0.0-0.2) th/mm3 WBC Differential Differential Comment POC Sodium (137-144) mmol/L POC Potassium (3.6-5.0) mmol/L POC Chloride (102-111) mmol/L POC BUN (5-21) mg/dL POC Creatinine (0.6-1.3) mg/dL POC Glucose 104 (68-110) mg/dL Total Creatine Kinase (26-192) U/L Troponin I (0.02-0.05) ng/mL Phenytoin 1.7 L (10.0-20.0) mcg/mL Blood Type Antibody Screen Imaging Data Attestation: I personally reviewed and interpreted this imaging study as follows : Radiologist's impression: Chest X-Ray 12/07/18 13:41 CONCLUSION: No acute cardiopulmonary disease. Head CT 12/07/18 13:41 CONCLUSION: Old encephalomalacia on the left and otherwise unremarkable . Report was called by [ myself to Dr. Michelle 1:50 9:00 PM] Head CTA 12/07/18 13:41 CONCLUSION: 1. Unremarkable study. Neck CTA 12/07/18 13:41 CONCLUSION: 1. No hemodynamically significant carotid flow-limiting stenosis. Discharge Plan Discharge Disposition Patient Disposition: ED Admit(ED Internal Use Only) Discharge Condition Condition: Fair Discharge Details Diagnosis: Acute cerebrovascular accident (CVA), Seizure Physicians Team ED Provider: Kendra Michelle Primary Care Provider: UNKNOWN, Other Providers: Michael Randhawa Rxs /Orders / Referrals /Forms Prescriptions: No Action levothyroxine 25 mcg Tablet 25 mcg PO DAILY RF: 0 thyroid (pork) [Nature-Throid] 97.5 mg Tablet 97.5 mg PO DAILY RF: 0 phenytoin sodium extended 100 mg Capsule 200 mg PO BID 30 Days Qty: 120 RF: 3 amlodipine 5 mg Tablet 5 mg PO DAILY RF: 0 multivitamin Tablet 1 tab PO QAM RF: 0 losartan 50 mg Tablet 25 mg PO BID RF: 0 Status ED Status: With Doctor
[2018-12-07 14:00] LABS: Baso # (Auto) 0.1 th/mm3 (0.0-0.2); Baso % (Auto) 1.2 % (0.0-2.0); Eos # (Auto) 0.2 th/mm3 (0.0-0.4); Eos % (Auto) 2.1 % (0.0-4.0); Hemoglobin 14.9 gm/dL (11.6-15.3); Lymph # (Auto) 2.6 th/mm3 (1.0-4.8); Lymph % (Auto) 32.3 % (9.0-44.0); Mean Corpuscular HGB Conc 34.7 % (32.0-36.0); Mean Corpuscular Hemoglobin 33.1 pg (27.0-34.0); Mean Corpuscular Volume 95.5 fL (80.0-100.0); Mean Platelet Volume 7.3 fL (7.0-11.0); Mono # (Auto) 0.6 th/mm3 (0.0-0.9); Mono % (Auto) 7.9 % (0.0-8.0); Neut # (Auto) 4.6 th/mm3 (1.8-7.7); Neut % (Auto) 56.5 % (16.0-70.0); Platelet Count 349 th/mm3 (150-450); Red Cell Distribution Width 12.1 % (11.6-17.2); White Blood Count 8.2 th/mm3 (4.0-11.0)
--- NOTE | 2018-12-07 14:00 | CT ---
EXAM DATE: 12/07/2018 1:53 PM EST AGE/SEX: 68 years / Female INDICATIONS: Stroke alert. Slurred speech. Right sided weakness. CLINICAL DATA: This is the patient's initial encounter. Patient reports that signs and symptoms have been present for 1 day and indicates a pain score of 0/10. MEDICAL/SURGICAL HISTORY: Stroke. Carcinoma, breast. Seizures. Hypertension. None. RADIATION DOSE: 62.19 CTDI (mGy) [place] [facility] [place]. . TECHNIQUE: CT of the head without contrast. Using automated exposure control and adjustment of the mA and/or kV according to patient size, radiation dose was kept as low as reasonably achievable to ob tain optimal diagnostic quality images. DICOM format image data is available electronically for revi ew and comparison. FINDINGS: There is no evidence for intracranial hemorrhage, mass effect, mass lesions, edema, or extra-axial fl uid collections. The visualized bony structures appear intact. The ventricles are normal size for t he patient's age. There are no signs of acute infarction for technique. There is no change in left posterior parietal encephalomalacia. CONCLUSION: Old encephalomalacia on the left and otherwise unremarkable . Report was called by [ myself to Dr. Michelle 1:50 9:00 PM] Electronically signed by: Stepan Valdez MD Board Certified Radiologist 12/07/2018 1:59 PM EST
[2018-12-07 14:31] LABS: Creatine Kinase 85 U/L (26-192)
[2018-12-07] MEDS: Sod Chloride 0.9% Inj 1,000 ML IV.CONT SCH (14:38)
--- NOTE | 2018-12-07 14:43 | XR ---
EXAM DATE: 12/07/2018 2:32 PM EST AGE/SEX: 68 years / Female INDICATIONS: Stroke alert CLINICAL DATA: This is the patient's initial encounter. Patient reports that signs and symptoms have been present for 1 day and indicates a pain score of Nonresponsive. MEDICAL/SURGICAL HISTORY: . previous stroke Non-responsive. [place] [facility] [place]. . FINDINGS: The lungs are clear without infiltrate, nodule, or mass. There is no appreciable pleural effusion for technique. Heart and mediastinum are unremarkable. CONCLUSION: No acute cardiopulmonary disease. Electronically signed by: Stepan Valdez MD Board Certified Radiologist 12/07/2018 2:41 PM EST
--- NOTE | 2018-12-07 14:50 | CT ---
EXAM DATE: 12/07/2018 2:36 PM EST AGE/SEX: 68 years / Female INDICATIONS: Stroke alert. Slurred speech. Right sided weakness. CLINICAL DATA: This is the patient's initial encounter. Patient reports that signs and symptoms have been present for 1 day and indicates a pain score of 2/10. MEDICAL/SURGICAL HISTORY: Stroke. Carcinoma, breast. Seizures. Hypertension. None. RADIATION DOSE: CTDI (mGy) ; Combined studies COMPARISON: [facility] – [place], [place], CT HEAD W/O CONTRAST, 12/07/2018. . TECHNIQUE: Volumetric scanning was performed using a multi-row detector CT scanner during bolus infu yudith of 75 ml Visipaque 320 (iodixanol) nonionic water-soluble contrast as a cumulative dose for mul tiple exams. The data was post processed with a variety of visualization algorithms including full volume maximum intensity projection, multi-planar sliding thin slab reformation, curved planar reform ation, and surface rendering techniques. Using automated exposure control and adjustment of the mA a nd/or kV according to patient size, radiation dose was kept as low as reasonably achievable to obtain optimal diagnostic quality images. DICOM format image data is available electronically for review a nd comparison. FINDINGS: There is excellent visualization of the major intracranial arteries out to the second-order branch ve ssels. There is no evidence for aneurysm, vessel truncation or stenosis, and no evidence for vascula r malformation. CONCLUSION: 1. Unremarkable study. Electronically signed by: Stepan Valdez MD Board Certified Radiologist 12/07/2018 2:49 PM EST
--- NOTE | 2018-12-07 14:50 | CT ---
EXAM DATE: 12/07/2018 2:39 PM EST AGE/SEX: 68 years / Female INDICATIONS: Stroke alert. Slurred speech. Right sided weakness. CLINICAL DATA: This is the patient's initial encounter. Patient reports that signs and symptoms have been present for 1 day and indicates a pain score of 0/10. MEDICAL/SURGICAL HISTORY: Carcinoma, breast. Stroke. Seizures. Hypertension. None. RADIATION DOSE: 10.28 CTDI (mGy) ; Combined studies COMPARISON: [facility], CTA NECK W CONTRAST W 3D, 11/21/2018. . TECHNIQUE: Volumetric scanning was performed using a multirow detector CT scanner during bolus infus ion of 75 ml Visipaque 320 (iodixanol) nonionic water-soluble contrast as a cumulative dose for mult iple exams. The data was postprocessed with a variety of visualization algorithms including full-vo lume maximum intensity projection, multiplanar sliding thin-slab reformation, curved-planar reformati on, and surface-rendering techniques. Using automated exposure control and adjustment of the mA and/ or kV according to patient size, radiation dose was kept as low as reasonably achievable to obtain op timal diagnostic quality images. DICOM format image data is available electronically for review and comparison. Percent stenosis is calculated using the diameter of the stenotic region over the diameter of the nor mal distal internal carotid artery. FINDINGS: Aortic Arch: There is a three-vessel origin of the great vessels from the aorta. No evidence of ost ial narrowing Right Carotid: The common carotid artery is intact. The carotid bulb has a normal configuration wit hout ulceration or narrowing. The internal carotid artery lumen is smooth without stenosis. The ext ernal carotid artery is intact. Left Carotid: The common carotid artery is intact. The carotid bulb has a normal configuration with out ulceration or narrowing. The internal carotid artery lumen is smooth without stenosis. The exte rnal carotid artery is intact. Vertebrals: The vertebral arteries have a symmetric diameter. No stenotic lesions are seen. General Findings: Lung apices are clear. Thyroid is unremarkable by CT. No significant adenopathy. CONCLUSION: 1. No hemodynamically significant carotid flow-limiting stenosis. Electronically signed by: Ector Hernandez MD Board Certified Radiologist 12/07/2018 2:49 PM EST
[2018-12-07] MEDS ORDERED: Bisacodyl 10 MG Supp RECTAL PRN (14:59)
[2018-12-07] MEDS ORDERED: Acetaminophen 325 MG Tablet PO PRN (14:59)
[2018-12-07] MEDS: Potassium Chlor 20 mEq Premix 20 MEQ/100 ML PIGGYBACK IV.SIG SCH ×2 (15:09→18:33)
[2018-12-07 15:11] LABS: Bilirubin,Urine Negative (Negative); Clarity,Urine Clear (Clear); Color,Urine Yellow (Yellw/Straw); Glucose,Urine (UA) Negative (Negative); Leukocyte Esterase,Urine Negative (Negative); Nitrite,Urine Negative (Negative); Specific Gravity,Urine 1.036 (1.002-1.035); Squamous Epithelial Cell,Urine <1 /hpf (0-5)
[2018-12-07 15:22] LABS: Amphetamine Screen,Urine Neg (Neg); Barbiturate Screen,Urine Neg (Neg); Cannabinoid Screen,Urine Neg (Neg); Cocaine Screen,Urine Neg (Neg)
[2018-12-07 15:25] LABS: Opiate Screen,Urine Neg (Neg)
[2018-12-07 15:45] LABS: Prothrombin Time 10.6 sec (9.8-11.6)
[2018-12-07] MEDS ORDERED: Fosphenytoin Inj 1,000 MGPE in Sodium Chlor 0.9% Inj 50 ML IV.SIG ONE (16:38)
--- NOTE | 2018-12-07 16:45 | P.HPIM ---
History of Present Illness Service: [facility] Primary Care Physician: UNKNOWN Chief Complaint: Difficulty speaking and right-sided weakness. History of Present Illness: 68-year-old female with a medical history significant for hemorrhagic CVA with residual right-sided weakness, hypertension , hypothyroidism brought to the emergency room by her grandson with concerned that she is having a stroke. Patient reportedly has been having issues with expressive aphasia and right-sided weakness. She was admitted to the hospital less than 2 weeks ago with similar complaints. At the time it was believed this was due to seizures. Patient is supposed to be taking Dilantin at home. However family reports noncompliance with this medications due to side effects. A stroke alert was called in the emergency room, patient is not a candidate for TPA. Head CT unremarkable. Neurology will consult on the patient. On my evaluation the patient is awake but remains aphasic and does not answer questions appropriately. Occasionally say yes or no but she does not really follow commands. Her right arm keeps twitching. She lift her left leg off the bed but does not move any other extremities at will. Review of Systems ROS Unobtainable: unobtainable due to mental status PMFSH Medical History Medical History Breast cancer (Acute) Hemorrhagic cerebrovascular accident (CVA) (Acute) Hypertension (Acute) Hypothyroid (Acute) Stroke (Acute) Surgical History Surgical History S/P breast lumpectomy (Acute) Family History Family History Other No significant family history Osteoarthritis Social History Social History Substance History: No History of Abuse Second Hand Smoke Exposure: No Smoking Status: Never smoker Tobacco Type: Cigarettes How Often Do You Have a Drink Containing Alcohol: Never Recent Travel in [facility] within the Last 8 Weeks: No Recent Out of Country Travel within the Last 8 Weeks: No Immunization History Tetanus Immunization: <5 Years Medications and Allergies Allergies Allergy/AdvReac Type Severity Reaction Status Date / Time No Known Allergies Allergy Verified 11/05/18 18:41 Home Medications Medication Instructions Recorded Confirmed Type amlodipine 5 mg PO DAILY 06/20/18 12/07/18 History levothyroxine 25 mcg PO DAILY 06/24/18 12/07/18 History thyroid (pork) [Nature-Throid] 97.5 mg PO DAILY 06/24/18 12/07/18 History losartan 25 mg PO BID 11/01/18 12/07/18 History multivitamin 1 tab PO QAM 11/01/18 12/07/18 History Active Medications: Active Medications Acetaminophen (Tylenol) 650 mg PO Q4H PRN PRN Reason: Temp > 100.4 Al Hydroxide/Mg Hydroxide (Milk Of Magnesia Liq) 30 ml PO Q12H PRN PRN Reason: Mild Constipation Bisacodyl (Dulcolax Supp) 10 mg RECTAL DAILY PRN PRN Reason: SEVERE CONSITIPATION Sodium Chloride (Ns Inj) 1,000 mls @ 70 mls/hr IV.CONT .[id number] [facility] Last Admin: 12/07/18 14:38 Dose: 70 mls/hr Potassium Chloride (Kcl 20 Meq Premix Inj) 20 meq in 100 mls @ 50 mls/hr IV.SIG Q2H [facility] Stop: 12/07/18 18:59 Last Admin: 12/07/18 15:09 Dose: 50 mls/hr Lactulose (Lactulose Liq) 30 ml PO DAILY PRN PRN Reason: SEVERE CONSITIPATION Ondansetron HCl (Zofran Inj) 4 mg IV.PUSH Q6H PRN PRN Reason: NAUSEA OR VOMITING Sennosides (Senokot) 17.2 mg PO Q12H PRN PRN Reason: Moderate Constipation Sodium Chloride (Ns Flush) 2 ml IV.FLUSH BID [facility] Sodium Chloride (Ns Flush) 2 ml IV.FLUSH PRN PRN PRN Reason: FLUSH AFTER USING IV ACCESS Physical Exam Vital signs: Last Vital Signs Pulse 79 12/07/18 16:00 Resp 19 12/07/18 16:00 BP 149/91 H 12/07/18 16:00 Pulse Ox 100 12/07/18 16:00 Intake & Output 12/05/18 12/06/18 12/07/18 12/08/18 06:59 06:59 06:59 06:59 Weight 69.853 kg Narrative: CONSTITUTIONAL/GENERAL: This is an adequately nourished patient, in no acute. Vital signs reviewed SKIN: No jaundice, rashes, or concerning lesions. Not diaphoretic. HEAD: Atraumatic. Normocephalic. EYES: Pupils equal and round and reactive. Extra ocular motions are intact. No scleral icterus. No injection or drainage. ENT: Hearing grossly normal. Nose without drainage. Throat without visible erythema, exudates, masses, or lesions. NECK: Trachea midline. Neck is supple, non-tender. No palpable thyroid enlargement or nodularity. CARDIOVASCULAR: Normal rate and regular rhythm without murmurs, gallops, or rubs. No JVD. Peripheral pulses 2+ and symmetric. RESPIRATORY/CHEST: Symmetric, unlabored respirations. Breath sounds equal and clear to auscultation bilaterally. No wheezes, crackles, rales, or rhonchi. GASTROINTESTINAL: Abdomen soft, non-tender, non-distended. No hepato- splenomegaly, or palpable masses. No guarding. Bowel sounds present. MUSCULOSKELETAL: Extremities without clubbing, cyanosis, or edema. No joint tenderness or effusion noted. No calf tenderness. No mottling or clubbing. NEUROLOGICAL: Awake and alert. Severe expressive aphasia. Does not follow commands consistently. Right arm twitching noted. Results Labs CBC & Chem 7: 12/07/18 13:25 Imaging Impressions Chest X-Ray 12/07/18 13:41 CONCLUSION: No acute cardiopulmonary disease. Head CT 12/07/18 13:41 CONCLUSION: Old encephalomalacia on the left and otherwise unremarkable . Report was called by [ myself to Dr. Michelle 1:50 9:00 PM] Head CTA 12/07/18 13:41 CONCLUSION: 1. Unremarkable study. Neck CTA 12/07/18 13:41 CONCLUSION: 1. No hemodynamically significant carotid flow-limiting stenosis. Caprini VTE Risk Assessment Caprini VTE Risk Assessment: Moderate/High Risk (score >= 2) Caprini Risk Assessment Model: Point Value = 1 Point Value = 2 Point Value = 3 Point Value = 5 Age 41-60 Minor surgery BMI > 25 kg/m2 Swollen legs Varicose veins or History of unexplained or recurrent spontaneous Oral contraceptives or hormone replacement Sepsis (< 1 month) Serious lung disease, including pneumonia (< 1 month) Abnormal pulmonary function Acute myocardial infarction Congestive heart failure (< 1 month) History of inflammatory bowel disease Medical patient at bed rest Age 61-74 Arthroscopic surgery Major open surgery (> 45 min) Laparoscopic surgery (> 45 min) Malignancy Confined to bed (> 72 hours) Immobilizing plaster cast Central venous access Age >= 75 History of VTE Family history of VTE Factor V Leiden Prothrombin [id number] Lupus anticoagulant Anticardiolipin antibodies Elevated serum homocysteine Heparin-induced thrombocytopenia Other congenital or acquired thrombophilia Stroke (< 1 month) Elective arthroplasty Hip, pelvis, or leg fracture Acute spinal cord injury (< 1 month) Prophylaxis Regimen: Total Risk Factor Score Risk Level Prophylaxis Regimen 0-1 Low Early ambulation 2 Moderate Order ONE of the following: *Sequential Compression Device (SCD) *Heparin 5000 units SQ BID 3-4 Higher Order ONE of the following medications: *Heparin 5000 units SQ TID *Enoxaparin/Lovenox 40 mg SQ daily (WT < 150 kg, CrCl > 30 mL/min) *Enoxaparin/Lovenox 30 mg SQ daily (WT < 150 kg, CrCl > 10-29 mL/min) *Enoxaparin/Lovenox 30 mg SQ BID (WT < 150 kg, CrCl > 30 mL/min) AND/OR *Sequential Compression Device (SCD) 5 or more Highest Order ONE of the following medications: *Heparin 5000 units SQ TID (Preferred with Epidurals) *Enoxaparin/Lovenox 40 mg SQ daily (WT < 150 kg, CrCl > 30 mL/min) *Enoxaparin/Lovenox 30 mg SQ daily (WT < 150 kg, CrCl > 10-29 mL/min) *Enoxaparin/Lovenox 30 mg SQ BID (WT < 150 kg, CrCl > 30 mL/min) AND *Sequential Compression Device (SCD) Assessment and Plan Plan 68-year-old female with history of CVA with residual right-sided weakness, seizure disorder, hypertension and hypothyroidism. Patient presented to the hospital for the second time within 2 weeks with similar complaint of expressive aphasia and right-sided weakness. She had a complete stroke workup during the last hospitalization. Her symptoms were believed to be due to seizure disorder. However she has not been compliant with seizure medications. Probable seizure secondary to medication noncompliance, CVA less likely - Head CT unremarkable. Obtain MRI. - Neurology consulted. Patient is supposed to be on Dilantin 200 mg p.o. twice daily. However she has not been taking this medications due to reported side effects. -Neurochecks. Ativan as needed for seizures. - Will defer to neurology regarding seizure medications. Hypothyroidism: - Check TSH. - Resume Synthroid. Hypertension: - Continue home dose medications. Hypokalemia: - Replace potassium - Monitor
--- NOTE | 2018-12-07 17:07 | P.CONNEU ---
History of Present Illness Service: Neurology Primary Care Provider: UNKNOWN Chief Complaint: Difficulty speaking and right-sided weakness. History of Present Illness: 68-year-old female readmitted for difficulty with language. Noted to have tremulousness jerking of her right upper extremity. Was seen a few weeks ago for similar symptoms noted to have left hemispheric seizures started on Dilantin. She supposed to continue taking this at home however level noted be less than 2. As her presentation suggests recurrent seizures, also with history of ICH not considered IV TPA candidate. 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 CT brain carotid no significant vaso-occlusive disease Patient poor historian unable to give history as to whether or not she is taking her seizure medications 10/2018 recent was admitted for focal seizures placed on Dilantin 03/2018 admitted for left parietal region intracranial hemorrhage. No surgical intervention. Had seizures at that time Review of Systems All other systems reviewed negative except as stated in HPI REPLACED BY [facility] - History History Provided By: Patient - Medical History Medical History: Medical History (Last Reviewed 12/07/18 @ 16:42 by Keenan Cortez MD) Breast cancer Hemorrhagic cerebrovascular accident (CVA) Hypertension Hypothyroid Stroke - Surgical History Surgical History: Surgical History (Last Reviewed 12/07/18 @ 16:42 by Keenan Cortez MD) S/P breast lumpectomy - Family History Family History: Family History (Last Reviewed 12/07/18 @ 16:42 by Keenan Cortez MD) Other No significant family history Osteoarthritis - Tobacco History Second Hand Smoke Exposure: No Smoking Status: Never smoker Tobacco Type: Cigarettes - Alcohol History How Often Do You Have a Drink Containing Alcohol: Never - Substance Use History Substance History: No History of Abuse - Travel History Recent Travel in the [facility] Within the Last 8 Weeks: No Recent Travel Out of the Country Within the Last 8 Weeks: No - Immunization History Tetanus Immunization: <5 Years Medications and Allergies Active Medications: Active Medications Acetaminophen (Tylenol) 650 mg PO Q4H PRN PRN Reason: Temp > 100.4 Al Hydroxide/Mg Hydroxide (Milk Of Magnesia Liq) 30 ml PO Q12H PRN PRN Reason: Mild Constipation Bisacodyl (Dulcolax Supp) 10 mg RECTAL DAILY PRN PRN Reason: SEVERE CONSITIPATION Sodium Chloride (Ns Inj) 1,000 mls @ 70 mls/hr IV.CONT .[id number] [facility] Last Admin: 12/07/18 14:38 Dose: 70 mls/hr Potassium Chloride (Kcl 20 Meq Premix Inj) 20 meq in 100 mls @ 50 mls/hr IV.SIG Q2H [facility] Stop: 12/07/18 18:59 Last Admin: 12/07/18 15:09 Dose: 50 mls/hr Fosphenytoin Sodium 200 mgpe/ (Sodium Chloride) 54 mls @ 216 mls/hr IV.SIG Q12HR [facility] Lactulose (Lactulose Liq) 30 ml PO DAILY PRN PRN Reason: SEVERE CONSITIPATION Ondansetron HCl (Zofran Inj) 4 mg IV.PUSH Q6H PRN PRN Reason: NAUSEA OR VOMITING Sennosides (Senokot) 17.2 mg PO Q12H PRN PRN Reason: Moderate Constipation Sodium Chloride (Ns Flush) 2 ml IV.FLUSH BID [facility] Sodium Chloride (Ns Flush) 2 ml IV.FLUSH PRN PRN PRN Reason: FLUSH AFTER USING IV ACCESS Allergies Allergy/AdvReac Type Severity Reaction Status Date / Time No Known Allergies Allergy Verified 11/05/18 18:41 Home Medications Medication Instructions Recorded Confirmed Type amlodipine 5 mg PO DAILY 06/20/18 12/07/18 History levothyroxine 25 mcg PO DAILY 06/24/18 12/07/18 History thyroid (pork) [Nature-Throid] 97.5 mg PO DAILY 06/24/18 12/07/18 History losartan 25 mg PO BID 11/01/18 12/07/18 History multivitamin 1 tab PO QAM 11/01/18 12/07/18 History Exam Vital signs: Vital Signs 12/07/18 13:42 12/07/18 13:46 12/07/18 15:00 Pulse Rate 90 90 78 Respiratory Rate 17 19 Blood Pressure 149/78 H 145/65 H 135/73 Pulse Oximetry 100 100 99 12/07/18 16:00 Pulse Rate 79 Respiratory Rate 19 Blood Pressure 149/91 H Pulse Oximetry 100 Intake & Output 12/06/18 12/07/18 12/07/18 18:59 06:59 18:59 Weight 69.853 kg Narrative: GENERAL: in NAD, SKIN: Warm and dry. HEAD: Atraumatic. Normocephalic. EYES: Pupils equal and round. No scleral icterus. ENT: No nasal bleeding or discharge. Mucous membranes pink and moist. NECK: Trachea midline. No JVD. CARDIOVASCULAR: Regular rate and rhythm. RESPIRATORY: No accessory muscle use. GASTROINTESTINAL: Abdomen soft, non-tender, nondistended. MUSCULOSKELETAL: Extremities without clubbing, cyanosis, or edema. No obvious deformities. NEUROLOGICAL: Awake and alert. Confused occasionally tracks no obvious gaze deviation face symmetric, right upper extremity with jerking of her hand and forearm right lower extremity appears stiff raise his left arm and left leg PSYCHIATRIC: Calm Results - Labs CBC & Chem 7: 12/07/18 13:25 Labs: Laboratory Results - last 24 hr 12/07/18 12/07/18 12/07/18 13:25 13:25 13:25 WBC 8.2 RBC 4.50 Hgb 14.9 POC Hgb (Calc) 14.6 Hct 43.0 POC Hct 43.0 MCV 95.5 MCH 33.1 MCHC 34.7 RDW 12.1 Plt Count 349 D MPV 7.3 Neut % (Auto) 56.5 Lymph % (Auto) 32.3 Esmeralda % (Auto) 7.9 Eos % (Auto) 2.1 Baso % (Auto) 1.2 Neut # (Auto) 4.6 Lymph # (Auto) 2.6 Esmeralda # (Auto) 0.6 Eos # (Auto) 0.2 Baso # (Auto) 0.1 WBC Differential . Differential Comment Auto diff final PT INR APTT Fibrinogen POC Sodium 137 POC Potassium 3.0 L POC Chloride 98 L POC BUN 18 POC Creatinine 0.8 POC Glucose 112 H Total Creatine Kinase 85 Troponin I Less than 0.02 L Urine Color Urine Clarity Urine pH Ur Specific [place] Urine Protein Urine Glucose (UA) Urine Ketones Urine Occult Blood Urine Nitrate Urine Bilirubin Urine Urobilinogen Ur Leukocyte Esterase Urine RBC Urine WBC Ur Squamous Epith Cells Micro UA Comment Ur Microscopic Review Urine Culture Comments Urine Opiates Screen Ur Barbiturates Screen Phenytoin Ur Amphetamines Screen U Benzodiazepines Scrn Urine Cocaine Screen U Cannabinoids Screen Blood Type AB Positive Antibody Screen Negative 12/07/18 12/07/18 12/07/18 13:25 13:40 15:00 WBC RBC Hgb POC Hgb (Calc) Hct POC Hct MCV MCH MCHC RDW Plt Count MPV Neut % (Auto) Lymph % (Auto) Esmeralda % (Auto) Eos % (Auto) Baso % (Auto) Neut # (Auto) Lymph # (Auto) Esmeralda # (Auto) Eos # (Auto) Baso # (Auto) WBC Differential Differential Comment PT 10.6 INR 1.0 APTT 22.0 L Fibrinogen 236 POC Sodium POC Potassium POC Chloride POC BUN POC Creatinine POC Glucose 104 Total Creatine Kinase Troponin I Urine Color Urine Clarity Urine pH Ur Specific [place] Urine Protein Urine Glucose (UA) Urine Ketones Urine Occult Blood Urine Nitrate Urine Bilirubin Urine Urobilinogen Ur Leukocyte Esterase Urine RBC Urine WBC Ur Squamous Epith Cells Micro UA Comment Ur Microscopic Review Urine Culture Comments Urine Opiates Screen Ur Barbiturates Screen Phenytoin 1.7 L Ur Amphetamines Screen U Benzodiazepines Scrn Urine Cocaine Screen U Cannabinoids Screen Blood Type Antibody Screen 12/07/18 12/07/18 15:00 15:00 WBC RBC Hgb POC Hgb (Calc) Hct POC Hct MCV MCH MCHC RDW Plt Count MPV Neut % (Auto) Lymph % (Auto) Esmeralda % (Auto) Eos % (Auto) Baso % (Auto) Neut # (Auto) Lymph # (Auto) Esmeralda # (Auto) Eos # (Auto) Baso # (Auto) WBC Differential Differential Comment PT INR APTT Fibrinogen POC Sodium POC Potassium POC Chloride POC BUN POC Creatinine POC Glucose Total Creatine Kinase Troponin I Urine Color Yellow Urine Clarity Clear Urine pH 5.0 Ur Specific [place] 1.036 H Urine Protein Negative Urine Glucose (UA) Negative Urine Ketones Negative Urine Occult Blood Negative Urine Nitrate Negative Urine Bilirubin Negative Urine Urobilinogen Less than 2 Ur Leukocyte Esterase Negative Urine RBC 1 Urine WBC 1 Ur Squamous Epith Cells <1 Micro UA Comment Cath-culture not ind Ur Microscopic Review Not Reportable Urine Culture Comments Cath-cult not ind Urine Opiates Screen Neg Ur Barbiturates Screen Neg Phenytoin Ur Amphetamines Screen Neg U Benzodiazepines Scrn Neg Urine Cocaine Screen Neg U Cannabinoids Screen Neg Blood Type Antibody Screen - Imaging Impressions Chest X-Ray 12/07/18 13:41 CONCLUSION: No acute cardiopulmonary disease. Head CT 12/07/18 13:41 CONCLUSION: Old encephalomalacia on the left and otherwise unremarkable . Report was called by [ myself to Dr. Michelle 1:50 9:00 PM] Head CTA 12/07/18 13:41 CONCLUSION: 1. Unremarkable study. Neck CTA 01/08/19 13:41 CONCLUSION: 1. No hemodynamically significant carotid flow-limiting stenosis. Review/Management - Diagnosis (1) Seizure Code(s): R56.9 - Unspecified convulsions Status: Acute Current Visit: No (2) Encephalopathy Code(s): G93.40 - Encephalopathy, unspecified Status: Acute Current Visit: Yes (3) ICH (intracerebral hemorrhage) Code(s): I61.9 - Nontraumatic intracerebral hemorrhage, unspecified Status: Acute Current Visit: No (4) HTN (hypertension) Code(s): I10 - Essential (primary) hypertension Status: Acute Current Visit : No (5) Episode of shaking Code(s): R25.1 - Tremor, unspecified Status: Acute Current Visit: No - Review/Management Plan: Probable breakthrough recurrent seizure noncompliant on Dilantin Recommendation IV Cerebyx 1 g load followed by 200 twice daily EEG IV Ativan x1 Seizure fall precaution Follow exam Compliance with medication No driving, operating any heavy machinery or dangerous machinery, swimming alone for at least 6 months of being seizure, spell free.
--- NOTE | 2018-12-07 21:26 | ECG ---
Date Performed: 12/07/2018 Time Performed: 14:44:52 PTAGE: 68 years EKG: Sinus rhythm NONSPECIFIC T-WAVE ABNORMALITY BORDERLINE ECG PREVIOUS TRACING : 11/21/2018 09.25 Since the previous tracing, no significant change noted DOCTOR: Zeb Greer Interpretating Date/Time 12/07/2018 21:25:11
--- NOTE | 2018-12-07 22:08 | MR ---
EXAM DATE: 12/07/2018 10:01 PM EST AGE/SEX: 68 years / Female INDICATIONS: . Slurred speech and right sided weakness and altered mental status. CLINICAL DATA: This is the patient's initial encounter. Patient reports that signs and symptoms have been present for 1 day and indicates a pain score of 2/10. MEDICAL/SURGICAL HISTORY: Carcinoma, breast. Stroke. . Lt breast sx. [place] [facility] [place]. . TECHNIQUE: Multiplanar, multisequence examination of the brain was performed without contrast. FINDINGS: There is some old blood products in the left parietal occipital region. There is no restricted diffus ion to suggest acute ischemic event. Scattered areas of high signal intensity are seen in the periven tricular white matter nonspecific fashion. Ventricular size is appropriate. There are no extra-axial fluid collections appreciated. Prominent empty sella is evident. Posterior fossa is unremarkable midline fourth ventricle. CONCLUSION: 1. Stable MRI of the brain. I do not see restricted diffusion suggest acute infarct 2. No acute parenchymal hemorrhage. 3. Prominent empty sella Electronically signed by: Carmelo White MD Board Certified Radiologist 12/07/2018 10:07 PM EST
[2018-12-08] MEDS ORDERED: Fosphenytoin Inj 200 MGPE in Sodium Chlor 0.9% Inj 50 ML IV.SIG SCH ×2 (05:00→09:00)
[2018-12-08] MEDS: Sod Chloride 0.9% Inj 1,000 ML IV.CONT SCH ×2 (05:00→19:22)
--- NOTE | 2018-12-08 06:55 | P.PNNEU ---
Subjective Subjective Comments: no sz, no cp, no weakness. feels well Active Medications: Active Medications Acetaminophen (Tylenol) 650 mg PO Q4H PRN PRN Reason: Temp > 100.4 Al Hydroxide/Mg Hydroxide (Milk Of Magnesia Liq) 30 ml PO Q12H PRN PRN Reason: Mild Constipation Amlodipine Besylate (Norvasc) 5 mg PO DAILY [facility] Bisacodyl (Dulcolax Supp) 10 mg RECTAL DAILY PRN PRN Reason: SEVERE CONSITIPATION Sodium Chloride (Ns Inj) 1,000 mls @ 70 mls/hr IV.CONT .[id number] [facility] Last Admin: 12/08/18 05:00 Dose: Not Given Fosphenytoin Sodium 200 mgpe/ (Sodium Chloride) 54 mls @ 216 mls/hr IV.SIG Q12HR [facility] Lactulose (Lactulose Liq) 30 ml PO DAILY PRN PRN Reason: SEVERE CONSITIPATION Levothyroxine Sodium (Synthroid) 25 mcg PO DAILY@0600 [facility] Lorazepam (Ativan Inj) 1 mg IV.PUSH Q2H PRN PRN Reason: SEIZURES Losartan Potassium (Cozaar) 25 mg PO BID [facility] Last Admin: 12/07/18 21:01 Dose: 25 mg Multivitamins (Theragran) 1 tab PO DAILY [facility] Last Admin: 12/07/18 18:33 Dose: 1 tab Non-Formulary Medication (Thyroid (Pork) [Nature-Throid]) 97.5 mg PO DAILY [facility] Ondansetron HCl (Zofran Inj) 4 mg IV.PUSH Q6H PRN PRN Reason: NAUSEA OR VOMITING Sennosides (Senokot) 17.2 mg PO Q12H PRN PRN Reason: Moderate Constipation Sodium Chloride (Ns Flush) 2 ml IV.FLUSH BID [facility] Last Admin: 12/07/18 21:00 Dose: Not Given Sodium Chloride (Ns Flush) 2 ml IV.FLUSH PRN PRN PRN Reason: FLUSH AFTER USING IV ACCESS Allergies/Adverse Reactions: Allergies Allergy/AdvReac Type Severity Reaction Status Date / Time No Known Allergies Allergy Verified 11/05/18 18:41 Review of Systems All other systems reviewed negative except as stated in HPI Physical Exam Vital signs: Vital Signs 12/07/18 13:42 12/07/18 13:46 12/07/18 15:00 Temperature Pulse Rate 90 90 78 Respiratory Rate 17 19 Blood Pressure 149/78 H 145/65 H 135/73 Pulse Oximetry 100 100 99 12/07/18 16:00 12/07/18 20:00 12/08/18 01:22 Temperature 98.3 F 96.8 F L 98.3 F Pulse Rate 75 90 75 Respiratory Rate 18 18 16 Blood Pressure 131/83 132/80 94/61 L Pulse Oximetry 95 96 12/08/18 04:16 12/08/18 06:00 Temperature Pulse Rate 64 Respiratory Rate 16 Blood Pressure 97/58 L 90/53 L Pulse Oximetry 93 L Intake & Output 12/07/18 12/07/18 12/08/18 06:59 18:59 06:59 Intake Total 170 / 170 100 / 100 Balance 170 / 170 100 / 100 Weight 69.853 kg Intake: IV 170 / 170 100 / 100 Cerebyx Inj 1,000 MGPE In NS 70 / 70 Inj 50 ML @ 280 mls/hr IV.SIG ONCE ONE Rx#:[id number] KCl 20 mEq Premix Inj 20 meq In 100 / 100 100 / 100 100 ml @ 50 mls/hr IV.SIG Q2H [facility] Rx#:[id number] Other: # Voids 2 Weight On Admission 69.853 kg Narrative: GENERAL: in NAD, SKIN: Warm and dry. HEAD: Atraumatic. Normocephalic. EYES: Pupils equal and round. No scleral icterus. ENT: No nasal bleeding or discharge. Mucous membranes pink and moist. NECK: Trachea midline. No JVD. CARDIOVASCULAR: Regular rate and rhythm. RESPIRATORY: No accessory muscle use. GASTROINTESTINAL: Abdomen soft, non-tender, nondistended. MUSCULOSKELETAL: Extremities without clubbing, cyanosis, or edema. No obvious deformities. NEUROLOGICAL: Awake and alert. ox 3, minimal dysfluency, face sym , feldman to gravity, no drift, no neglect PSYCHIATRIC: Calm - Constitutional no acute distress - Routine HEENT Exam Head: Present: normocephalic - Urinary Catheter Management Straight Cath placed during this visit: yes, but has since been removed by the nurse Reason for continuing: Not indwelling catheter Insertion date: 12/07/18 Insertion time: 14:59 Removal date: 12/07/18 Removal time: 14:59 Objective Laboratory Results - last 24 hr 12/07/18 12/07/18 12/07/18 13:25 13:25 13:25 WBC 8.2 RBC 4.50 Hgb 14.9 POC Hgb (Calc) 14.6 Hct 43.0 POC Hct 43.0 MCV 95.5 MCH 33.1 MCHC 34.7 RDW 12.1 Plt Count 349 D MPV 7.3 Neut % (Auto) 56.5 Lymph % (Auto) 32.3 [place] % (Auto) 7.9 Eos % (Auto) 2.1 Baso % (Auto) 1.2 Neut # (Auto) 4.6 Lymph # (Auto) 2.6 [place] # (Auto) 0.6 Eos # (Auto) 0.2 Baso # (Auto) 0.1 WBC Differential . Differential Comment Auto diff final PT INR APTT Fibrinogen POC Sodium 137 POC Potassium 3.0 L POC Chloride 98 L POC BUN 18 POC Creatinine 0.8 POC Glucose 112 H Total Creatine Kinase 85 Troponin I Less than 0.02 L TSH Urine Color Urine Clarity Urine pH Ur Specific [place] Urine Protein Urine Glucose (UA) Urine Ketones Urine Occult Blood Urine Nitrate Urine Bilirubin Urine Urobilinogen Ur Leukocyte Esterase Urine RBC Urine WBC Ur Squamous Epith Cells Micro UA Comment Ur Microscopic Review Urine Culture Comments Urine Opiates Screen Ur Barbiturates Screen Phenytoin Ur Amphetamines Screen U Benzodiazepines Scrn Urine Cocaine Screen U Cannabinoids Screen Blood Type AB Positive Antibody Screen Negative 12/07/18 12/07/18 12/07/18 13:25 13:25 13:40 WBC RBC Hgb POC Hgb (Calc) Hct POC Hct MCV MCH MCHC RDW Plt Count MPV Neut % (Auto) Lymph % (Auto) [place] % (Auto) Eos % (Auto) Baso % (Auto) Neut # (Auto) Lymph # (Auto) [place] # (Auto) Eos # (Auto) Baso # (Auto) WBC Differential Differential Comment PT INR APTT Fibrinogen POC Sodium POC Potassium POC Chloride POC BUN POC Creatinine POC Glucose 104 Total Creatine Kinase Troponin I TSH 0.558 Urine Color Urine Clarity Urine pH Ur Specific [place] Urine Protein Urine Glucose (UA) Urine Ketones Urine Occult Blood Urine Nitrate Urine Bilirubin Urine Urobilinogen Ur Leukocyte Esterase Urine RBC Urine WBC Ur Squamous Epith Cells Micro UA Comment Ur Microscopic Review Urine Culture Comments Urine Opiates Screen Ur Barbiturates Screen Phenytoin 1.7 L Ur Amphetamines Screen U Benzodiazepines Scrn Urine Cocaine Screen U Cannabinoids Screen Blood Type Antibody Screen 12/07/18 12/07/18 12/07/18 15:00 15:00 15:00 WBC RBC Hgb POC Hgb (Calc) Hct POC Hct MCV MCH MCHC RDW Plt Count MPV Neut % (Auto) Lymph % (Auto) [place] % (Auto) Eos % (Auto) Baso % (Auto) Neut # (Auto) Lymph # (Auto) [place] # (Auto) Eos # (Auto) Baso # (Auto) WBC Differential Differential Comment PT 10.6 INR 1.0 APTT 22.0 L Fibrinogen 236 POC Sodium POC Potassium POC Chloride POC BUN POC Creatinine POC Glucose Total Creatine Kinase Troponin I TSH Urine Color Yellow Urine Clarity Clear Urine pH 5.0 Ur Specific [place] 1.036 H Urine Protein Negative Urine Glucose (UA) Negative Urine Ketones Negative Urine Occult Blood Negative Urine Nitrate Negative Urine Bilirubin Negative Urine Urobilinogen Less than 2 Ur Leukocyte Esterase Negative Urine RBC 1 Urine WBC 1 Ur Squamous Epith Cells <1 Micro UA Comment Cath-culture not ind Ur Microscopic Review Not Reportable Urine Culture Comments Cath-cult not ind Urine Opiates Screen Neg Ur Barbiturates Screen Neg Phenytoin Ur Amphetamines Screen Neg U Benzodiazepines Scrn Neg Urine Cocaine Screen Neg U Cannabinoids Screen Neg Blood Type Antibody Screen 12/07/18 18:38 WBC RBC Hgb POC Hgb (Calc) Hct POC Hct MCV MCH MCHC RDW Plt Count MPV Neut % (Auto) Lymph % (Auto) [place] % (Auto) Eos % (Auto) Baso % (Auto) Neut # (Auto) Lymph # (Auto) [place] # (Auto) Eos # (Auto) Baso # (Auto) WBC Differential Differential Comment PT INR APTT Fibrinogen POC Sodium POC Potassium POC Chloride POC BUN POC Creatinine POC Glucose Total Creatine Kinase Troponin I TSH Urine Color Urine Clarity Urine pH Ur Specific [place] Urine Protein Urine Glucose (UA) Urine Ketones Urine Occult Blood Urine Nitrate Urine Bilirubin Urine Urobilinogen Ur Leukocyte Esterase Urine RBC Urine WBC Ur Squamous Epith Cells Micro UA Comment Ur Microscopic Review Urine Culture Comments Urine Opiates Screen Ur Barbiturates Screen Phenytoin 46.2 H* Ur Amphetamines Screen U Benzodiazepines Scrn Urine Cocaine Screen U Cannabinoids Screen Blood Type Antibody Screen Review/Management - Diagnosis (1) Seizure Code(s): R56.9 - Unspecified convulsions Status: Acute Current Visit: No (2) Encephalopathy Code(s): G93.40 - Encephalopathy, unspecified Status: Acute Current Visit: Yes (3) ICH (intracerebral hemorrhage) Code(s): I61.9 - Nontraumatic intracerebral hemorrhage, unspecified Status: Acute Current Visit: No (4) HTN (hypertension) Code(s): I10 - Essential (primary) hypertension Status: Acute Current Visit : No (5) Episode of shaking Code(s): R25.1 - Tremor, unspecified Status: Acute Current Visit: No - Review/Management Plan: Probable breakthrough recurrent seizure noncompliant on Dilantin resolved. exam improved Recommendation neuro stable EEG- pending can d/c today and f/u with me next week dilantin 150mg bid lamictal 25mg bid s/b d/w pt including rash Compliance with medication No driving, operating any heavy machinery or dangerous machinery, swimming alone for at least 6 months of being seizure, spell free.
[2018-12-08 08:24] LABS: Hematocrit 39.2 % (35.0-46.0); Hemoglobin 13.4 gm/dL (11.6-15.3); Mean Corpuscular HGB Conc 34.1 % (32.0-36.0); Mean Corpuscular Hemoglobin 32.7 pg (27.0-34.0); Mean Platelet Volume 7.5 fL (7.0-11.0); Platelet Count 297 th/mm3 (150-450); Red Blood Count 4.09 mil/mm3 (4.00-5.30); Red Cell Distribution Width 12.1 % (11.6-17.2); White Blood Count 6.8 th/mm3 (4.0-11.0)
[2018-12-08 08:40] LABS: Anion Gap 8 meq/L (5-15); Blood Urea Nitrogen 11 mg/dL (7-18); Calcium 8.5 mg/dL (8.5-10.1); Carbon Dioxide 29.5 meq/L (21.0-32.0); Chloride 103 meq/L (98-107); Glomerular Filtration Rate Greater Than 89 mL/min (>89); Glucose,Random 102 mg/dL (74-106); Sodium 140 meq/L (136-145)
[2018-12-08] MEDS: amLODIPine 5 MG Tablet PO SCH (08:44)
[2018-12-08] MEDS ORDERED: THYROID 97.5 MG PO SCH (09:00)
[2018-12-08] MEDS ORDERED: lamoTRIgine 25 MG TABLET PO SCH (10:00)
[2018-12-08] MEDS ORDERED: Phenytoin Susp 100 MG/4 ML UDC PO SCH (10:00)
--- NOTE | 2018-12-08 10:32 | P.PN ---
Subjective Interval history: Follow-up breakthrough recurrent seizure December 08, 2018-patient seen and examined, no seizure activity since admission, denies any chest pain or shortness of breath. Patient is unwilling to take her antiepileptic drugs secondary to side effects, she states it makes me feel loopy and I do have some skin reaction to light Physical Exam Vital signs: Vital Signs 12/07/18 13:42 12/07/18 13:46 12/07/18 15:00 Temperature Pulse Rate 90 90 78 Respiratory Rate 17 19 Blood Pressure 149/78 H 145/65 H 135/73 Pulse Oximetry 100 100 99 12/07/18 16:00 12/07/18 20:00 12/08/18 01:22 Temperature 98.3 F 96.8 F L 98.3 F Pulse Rate 75 90 75 Respiratory Rate 18 18 16 Blood Pressure 131/83 132/80 94/61 L Pulse Oximetry 95 96 12/08/18 04:16 12/08/18 06:00 12/08/18 07:39 Temperature 98.3 F Pulse Rate 64 71 Respiratory Rate 16 20 Blood Pressure 97/58 L 90/53 L Pulse Oximetry 93 L 97 Intake & Output 12/07/18 12/08/18 12/08/18 18:59 06:59 18:59 Intake Total 170 / 170 100 / 100 Balance 170 / 170 100 / 100 Weight 69.853 kg Intake: IV 170 / 170 100 / 100 Cerebyx Inj 1,000 MGPE In NS 70 / 70 Inj 50 ML @ 280 mls/hr IV.SIG ONCE ONE Rx#:[id number] KCl 20 mEq Premix Inj 20 meq In 100 / 100 100 / 100 100 ml @ 50 mls/hr IV.SIG Q2H [facility] Rx#:[id number] Other: # Voids 2 Weight On Admission 69.853 kg Narrative: GENERAL: in NAD, SKIN: Warm and dry. HEAD: Atraumatic. Normocephalic. EYES: Pupils equal and round. No scleral icterus. ENT: No nasal bleeding or discharge. Mucous membranes pink and moist. NECK: Trachea midline. No JVD. CARDIOVASCULAR: Regular rate and rhythm. RESPIRATORY: No accessory muscle use. GASTROINTESTINAL: Abdomen soft, non-tender, nondistended. MUSCULOSKELETAL: Extremities without clubbing, cyanosis, or edema. No obvious deformities. NEUROLOGICAL: Awake and alert. ox 3, minimal dysfluency, face sym , feldman to gravity, no drift, no neglect PSYCHIATRIC: Calm - Urinary Catheter Management Straight Cath placed during this visit: yes, but has since been removed by the nurse Reason for continuing: Not indwelling catheter Insertion date: 12/07/18 Insertion time: 14:59 Removal date: 12/07/18 Removal time: 14:59 Results - Labs CBC & Chem 7: 12/08/18 07:22 12/08/18 07:22 Laboratory Results - last 24 hr 12/07/18 12/07/18 12/07/18 13:25 13:25 13:25 WBC 8.2 RBC 4.50 Hgb 14.9 POC Hgb (Calc) 14.6 Hct 43.0 POC Hct 43.0 MCV 95.5 MCH 33.1 MCHC 34.7 RDW 12.1 Plt Count 349 D MPV 7.3 Neut % (Auto) 56.5 Lymph % (Auto) 32.3 [place] % (Auto) 7.9 Eos % (Auto) 2.1 Baso % (Auto) 1.2 Neut # (Auto) 4.6 Lymph # (Auto) 2.6 [place] # (Auto) 0.6 Eos # (Auto) 0.2 Baso # (Auto) 0.1 WBC Differential . Differential Comment Auto diff final PT INR APTT Fibrinogen POC Sodium 137 Sodium POC Potassium 3.0 L Potassium POC Chloride 98 L Chloride Carbon Dioxide Anion Gap POC BUN 18 BUN Creatinine POC Creatinine 0.8 Estimated GFR POC Glucose 112 H Random Glucose Calcium Total Creatine Kinase 85 Troponin I Less than 0.02 L TSH Urine Color Urine Clarity Urine pH Ur Specific [place] Urine Protein Urine Glucose (UA) Urine Ketones Urine Occult Blood Urine Nitrate Urine Bilirubin Urine Urobilinogen Ur Leukocyte Esterase Urine RBC Urine WBC Ur Squamous Epith Cells Micro UA Comment Ur Microscopic Review Urine Culture Comments Urine Opiates Screen Ur Barbiturates Screen Phenytoin Ur Amphetamines Screen U Benzodiazepines Scrn Urine Cocaine Screen U Cannabinoids Screen Blood Type AB Positive Antibody Screen Negative 12/07/18 12/07/18 12/07/18 13:25 13:25 13:40 WBC RBC Hgb POC Hgb (Calc) Hct POC Hct MCV MCH MCHC RDW Plt Count MPV Neut % (Auto) Lymph % (Auto) [place] % (Auto) Eos % (Auto) Baso % (Auto) Neut # (Auto) Lymph # (Auto) [place] # (Auto) Eos # (Auto) Baso # (Auto) WBC Differential Differential Comment PT INR APTT Fibrinogen POC Sodium Sodium POC Potassium Potassium POC Chloride Chloride Carbon Dioxide Anion Gap POC BUN BUN Creatinine POC Creatinine Estimated GFR POC Glucose 104 Random Glucose Calcium Total Creatine Kinase Troponin I TSH 0.558 Urine Color Urine Clarity Urine pH Ur Specific [place] Urine Protein Urine Glucose (UA) Urine Ketones Urine Occult Blood Urine Nitrate Urine Bilirubin Urine Urobilinogen Ur Leukocyte Esterase Urine RBC Urine WBC Ur Squamous Epith Cells Micro UA Comment Ur Microscopic Review Urine Culture Comments Urine Opiates Screen Ur Barbiturates Screen Phenytoin 1.7 L Ur Amphetamines Screen U Benzodiazepines Scrn Urine Cocaine Screen U Cannabinoids Screen Blood Type Antibody Screen 12/07/18 12/07/18 12/07/18 15:00 15:00 15:00 WBC RBC Hgb POC Hgb (Calc) Hct POC Hct MCV MCH MCHC RDW Plt Count MPV Neut % (Auto) Lymph % (Auto) [place] % (Auto) Eos % (Auto) Baso % (Auto) Neut # (Auto) Lymph # (Auto) [place] # (Auto) Eos # (Auto) Baso # (Auto) WBC Differential Differential Comment PT 10.6 INR 1.0 APTT 22.0 L Fibrinogen 236 POC Sodium Sodium POC Potassium Potassium POC Chloride Chloride Carbon Dioxide Anion Gap POC BUN BUN Creatinine POC Creatinine Estimated GFR POC Glucose Random Glucose Calcium Total Creatine Kinase Troponin I TSH Urine Color Yellow Urine Clarity Clear Urine pH 5.0 Ur Specific [place] 1.036 H Urine Protein Negative Urine Glucose (UA) Negative Urine Ketones Negative Urine Occult Blood Negative Urine Nitrate Negative Urine Bilirubin Negative Urine Urobilinogen Less than 2 Ur Leukocyte Esterase Negative Urine RBC 1 Urine WBC 1 Ur Squamous Epith Cells <1 Micro UA Comment Cath-culture not ind Ur Microscopic Review Not Reportable Urine Culture Comments Cath-cult not ind Urine Opiates Screen Neg Ur Barbiturates Screen Neg Phenytoin Ur Amphetamines Screen Neg U Benzodiazepines Scrn Neg Urine Cocaine Screen Neg U Cannabinoids Screen Neg Blood Type Antibody Screen 12/07/18 12/08/18 12/08/18 18:38 07:22 07:22 WBC 6.8 RBC 4.09 Hgb 13.4 POC Hgb (Calc) Hct 39.2 POC Hct MCV 96.0 MCH 32.7 MCHC 34.1 RDW 12.1 Plt Count 297 MPV 7.5 Neut % (Auto) Lymph % (Auto) [place] % (Auto) Eos % (Auto) Baso % (Auto) Neut # (Auto) Lymph # (Auto) [place] # (Auto) Eos # (Auto) Baso # (Auto) WBC Differential Differential Comment PT INR APTT Fibrinogen POC Sodium Sodium 140 POC Potassium Potassium 3.0 L POC Chloride Chloride 103 Carbon Dioxide 29.5 Anion Gap 8 POC BUN BUN 11 Creatinine 0.65 POC Creatinine Estimated GFR Greater than 89 POC Glucose Random Glucose 102 Calcium 8.5 Total Creatine Kinase Troponin I TSH Urine Color Urine Clarity Urine pH Ur Specific [place] Urine Protein Urine Glucose (UA) Urine Ketones Urine Occult Blood Urine Nitrate Urine Bilirubin Urine Urobilinogen Ur Leukocyte Esterase Urine RBC Urine WBC Ur Squamous Epith Cells Micro UA Comment Ur Microscopic Review Urine Culture Comments Urine Opiates Screen Ur Barbiturates Screen Phenytoin 46.2 H* Ur Amphetamines Screen U Benzodiazepines Scrn Urine Cocaine Screen U Cannabinoids Screen Blood Type Antibody Screen 12/08/18 07:22 WBC RBC Hgb POC Hgb (Calc) Hct POC Hct MCV MCH MCHC RDW Plt Count MPV Neut % (Auto) Lymph % (Auto) [place] % (Auto) Eos % (Auto) Baso % (Auto) Neut # (Auto) Lymph # (Auto) [place] # (Auto) Eos # (Auto) Baso # (Auto) WBC Differential Differential Comment PT INR APTT Fibrinogen POC Sodium Sodium POC Potassium Potassium POC Chloride Chloride Carbon Dioxide Anion Gap POC BUN BUN Creatinine POC Creatinine Estimated GFR POC Glucose Random Glucose Calcium Total Creatine Kinase Troponin I TSH Urine Color Urine Clarity Urine pH Ur Specific [place] Urine Protein Urine Glucose (UA) Urine Ketones Urine Occult Blood Urine Nitrate Urine Bilirubin Urine Urobilinogen Ur Leukocyte Esterase Urine RBC Urine WBC Ur Squamous Epith Cells Micro UA Comment Ur Microscopic Review Urine Culture Comments Urine Opiates Screen Ur Barbiturates Screen Phenytoin 8.5 L Ur Amphetamines Screen U Benzodiazepines Scrn Urine Cocaine Screen U Cannabinoids Screen Blood Type Antibody Screen - Imaging Impressions Head MRI 12/07/18 00:00 CONCLUSION: 1. Stable MRI of the brain. I do not see restricted diffusion suggest acute infarct 2. No acute parenchymal hemorrhage. 3. Prominent empty sella Chest X-Ray 12/07/18 13:41 CONCLUSION: No acute cardiopulmonary disease. Head CT 12/07/18 13:41 CONCLUSION: Old encephalomalacia on the left and otherwise unremarkable . Report was called by [ myself to Dr. Michelle 1:50 9:00 PM] Head CTA 12/07/18 13:41 CONCLUSION: 1. Unremarkable study. Neck CTA 12/07/18 13:41 CONCLUSION: 1. No hemodynamically significant carotid flow-limiting stenosis. Assessment and Plan - Plan 68-year-old female with Recurrent breakthrough seizure EEG pending Currently on Dilantin 150 mg twice daily, Lamictal 25 mg twice daily Appreciate input from neurology Hypothyroidism: Continue with Synthroid Hypertension: - Continue home dose medications. Hypokalemia: - Replace potassium - Monitor
--- NOTE | 2018-12-08 12:04 | P.PNADD ---
Addendum to Inpatient Note Additional information: EEG report findings discussed with neurologist, Michael Kolb MD, and recommended Ativan 1 mg p.o. x1 and possible discharge December 09, 2018
[2018-12-08] MEDS ORDERED: LORazepam 1 MG Tablet PO ONE ×2 (13:00→21:37)
--- NOTE | 2018-12-08 21:52 | MG ---
cc: Michael Randhawa MD EEG RECORD NUMBER: [id number] FINDINGS: Focal slowing and some phase reversals occurring in the posterior left hemisphere. Ryne wave complexes, 5-9 Hz at times, 20-60 microvolts sleep state. On awakening, less sharp waves, background shows asymmetric left posterior hemispheric slowing, theta frequencies, and on the right 6-8 Hz activity. Limited driving photic stimulation. Single lead EKG showing sinus rhythm. INTERPRETATION: The first portion of the EEG showing left posterior hemispheric periodic lateralized epileptiform discharge type of activity, with cessation during wakeful state for the most part. Clinical correlation. MD MARCO ANTONIO Conde/guy , 09:22 PM , 09:28 PM
[2018-12-08] MEDS: levETIRAcetam 250 MG Tablet PO SCH (23:23)
[2018-12-08] MEDS: carBAMazepine 200 MG Tablet PO SCH (23:23)
[2018-12-09] MEDS ORDERED: [UNRECOGNIZED DRUG - OTHER] PO SCH (09:00)
--- NOTE | 2018-12-09 09:29 | P.PNNEU ---
Subjective Subjective Comments: no sz, slept well, no su, no dyspnea Active Medications: Active Medications Acetaminophen (Tylenol) 650 mg PO Q4H PRN PRN Reason: Temp > 100.4 Al Hydroxide/Mg Hydroxide (Milk Of Magnesia Liq) 30 ml PO Q12H PRN PRN Reason: Mild Constipation Amlodipine Besylate (Norvasc) 5 mg PO DAILY [facility] Last Admin: 12/08/18 08:44 Dose: 5 mg Bisacodyl (Dulcolax Supp) 10 mg RECTAL DAILY PRN PRN Reason: SEVERE CONSITIPATION Carbamazepine (Tegretol) 200 mg PO BID [facility] Last Admin: 12/08/18 23:23 Dose: 200 mg Sodium Chloride (Ns Inj) 1,000 mls @ 70 mls/hr IV.CONT .[id number] [facility] Last Admin: 12/08/18 19:22 Dose: Not Given Lactulose (Lactulose Liq) 30 ml PO DAILY PRN PRN Reason: SEVERE CONSITIPATION Levetiracetam (Keppra) 250 mg PO BID [facility] Last Admin: 12/08/18 23:23 Dose: 250 mg Levothyroxine Sodium (Synthroid) 25 mcg PO DAILY@0600 [facility] Last Admin: 12/09/18 05:12 Dose: 25 mcg Lorazepam (Ativan Inj) 1 mg IV.PUSH Q2H PRN PRN Reason: SEIZURES Losartan Potassium (Cozaar) 25 mg PO BID [facility] Last Admin: 12/08/18 22:47 Dose: Not Given Multivitamins (Theragran) 1 tab PO DAILY [facility] Last Admin: 12/08/18 08:44 Dose: 1 tab Ondansetron HCl (Zofran Inj) 4 mg IV.PUSH Q6H PRN PRN Reason: NAUSEA OR VOMITING Pt Own Med: (Thyroid (Pork) Nature Throid 97.5 Mg) 0 each PO DAILY [facility] Sennosides (Senokot) 17.2 mg PO Q12H PRN PRN Reason: Moderate Constipation Sodium Chloride (Ns Flush) 2 ml IV.FLUSH BID [facility] Last Admin: 12/08/18 23:23 Dose: 2 ml Sodium Chloride (Ns Flush) 2 ml IV.FLUSH PRN PRN PRN Reason: FLUSH AFTER USING IV ACCESS Allergies/Adverse Reactions: Allergies Allergy/AdvReac Type Severity Reaction Status Date / Time No Known Allergies Allergy Verified 11/05/18 18:41 Review of Systems All other systems reviewed negative except as stated in HPI Physical Exam Vital signs: Vital Signs 12/08/18 11:45 12/08/18 20:00 12/08/18 22:27 Temperature 98.6 F 96.1 F L Pulse Rate 78 66 Respiratory Rate 20 20 Blood Pressure 96/58 L 112/73 99/57 L Pulse Oximetry 97 96 12/08/18 23:50 12/09/18 04:06 12/09/18 08:00 Temperature 97.9 F 96.1 F L Pulse Rate 66 73 Respiratory Rate 20 18 Blood Pressure 111/79 113/72 Pulse Oximetry 97 97 100 Intake & Output 12/08/18 12/09/18 12/09/18 18:59 06:59 18:59 Intake Total 1750 / 1750 240 / 240 Balance 1750 / 1750 240 / 240 Intake: IV 1000 / 1000 NS Inj 1,000 ML @ 70 mls/hr IV. 1000 / 1000 CONT .[id number] [facility] Rx#:[id number] Oral 750 / 750 240 / 240 Other: # Voids 2 Narrative: GENERAL: in NAD, SKIN: Warm and dry. HEAD: Atraumatic. Normocephalic. EYES: Pupils equal and round. No scleral icterus. ENT: No nasal bleeding or discharge. Mucous membranes pink and moist. NECK: Trachea midline. No JVD. CARDIOVASCULAR: Regular rate and rhythm. RESPIRATORY: No accessory muscle use. GASTROINTESTINAL: Abdomen soft, non-tender, nondistended. MUSCULOSKELETAL: Extremities without clubbing, cyanosis, or edema. No obvious deformities. NEUROLOGICAL: Awake and alert. ox 3, fluent, articulate, face sym , feldman to gravity, no drift, no neglect PSYCHIATRIC: Calm - Constitutional no acute distress - Routine HEENT Exam Head: Present: normocephalic Eye: Present: EOMI - Urinary Catheter Management Straight Cath placed during this visit: yes, but has since been removed by the nurse Reason for continuing: Not indwelling catheter Insertion date: 12/07/18 Insertion time: 14:59 Removal date: 12/07/18 Removal time: 14:59 Objective Laboratory Results - last 24 hr 12/08/18 12/08/18 11:39 16:05 POC Glucose 221 H Phenytoin 6.4 L Review/Management - Diagnosis (1) Seizure Code(s): R56.9 - Unspecified convulsions Status: Acute Current Visit: No (2) Encephalopathy Code(s): G93.40 - Encephalopathy, unspecified Status: Acute Current Visit: Yes (3) ICH (intracerebral hemorrhage) Code(s): I61.9 - Nontraumatic intracerebral hemorrhage, unspecified Status: Acute Current Visit: No (4) HTN (hypertension) Code(s): I10 - Essential (primary) hypertension Status: Acute Current Visit : No (5) Episode of shaking Code(s): R25.1 - Tremor, unspecified Status: Acute Current Visit: No - Review/Management Plan: Probable breakthrough recurrent seizure noncompliant on Dilantin left posterior hemisphere focus. 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 exam improved no sz eeg- left posterior sharps Recommendation neuro stable EEG-repeat today changed to cbz and keppra due to pt's concerns about dilantin s/b d/w pt including rash d/c planning tomorrow if eeg improved and pt tolerates sz meds Compliance with medication No driving, operating any heavy machinery or dangerous machinery, swimming alone for at least 6 months of being seizure, spell free.
[2018-12-09] MEDS: levETIRAcetam 250 MG Tablet PO SCH (09:32)
--- NOTE | 2018-12-09 09:38 | P.PN ---
Subjective Interval history: Follow-up breakthrough recurrent seizure December 08, 2018-patient seen and examined, no seizure activity since admission, denies any chest pain or shortness of breath. Patient is unwilling to take her antiepileptic drugs secondary to side effects, she states it makes me feel loopy and I do have some skin reaction December 09, 2018-patient seen and examined, currently on carbamazepine and Keppra. She has had abnormal EEG done yesterday. No seizure activity reported. Physical Exam Vital signs: Vital Signs 12/08/18 11:45 12/08/18 20:00 12/08/18 22:27 Temperature 98.6 F 96.1 F L Pulse Rate 78 66 Respiratory Rate 20 20 Blood Pressure 96/58 L 112/73 99/57 L Pulse Oximetry 97 96 12/08/18 23:50 12/09/18 04:06 12/09/18 08:00 Temperature 97.9 F 96.1 F L Pulse Rate 66 73 Respiratory Rate 20 18 Blood Pressure 111/79 113/72 Pulse Oximetry 97 97 100 Intake & Output 12/08/18 12/09/18 12/09/18 18:59 06:59 18:59 Intake Total 1750 / 1750 240 / 240 Balance 1750 / 1750 240 / 240 Intake: IV 1000 / 1000 NS Inj 1,000 ML @ 70 mls/hr IV. 1000 / 1000 CONT .[id number] [facility] Rx#:[id number] Oral 750 / 750 240 / 240 Other: # Voids 2 Narrative: GENERAL: NAD SKIN: Warm and dry. HEAD: Atraumatic. Normocephalic. EYES: Pupils equal and round. No scleral icterus. No injection or drainage. ENT: No nasal bleeding or discharge. Mucous membranes pink and moist. NECK: Trachea midline. No JVD. CARDIOVASCULAR: Regular rate and rhythm. RESPIRATORY: No accessory muscle use. Clear to auscultation. Breath sounds equal bilaterally. GASTROINTESTINAL: Abdomen soft, non-tender, nondistended. Hepatic and splenic margins not palpable. MUSCULOSKELETAL: Extremities without clubbing, cyanosis, or edema. No obvious deformities. NEUROLOGICAL: Awake and alert. No obvious cranial nerve deficits. Motor grossly within normal limits. Five out of 5 muscle strength in the arms and legs. Normal speech. PSYCHIATRIC: Appropriate mood and affect; insight and judgment normal. - Urinary Catheter Management Straight Cath placed during this visit: yes, but has since been removed by the nurse Reason for continuing: Not indwelling catheter Insertion date: 12/07/18 Insertion time: 14:59 Removal date: 12/07/18 Removal time: 14:59 Results - Labs CBC & Chem 7: 12/08/18 07:22 12/08/18 07:22 Laboratory Results - last 24 hr 12/08/18 12/08/18 11:39 16:05 POC Glucose 221 H Phenytoin 6.4 L Assessment and Plan - Plan 68-year-old female with Recurrent breakthrough seizure Abnormal EEG 12/08/18 with finding of The first portion of the EEG showing left posterior hemispheric periodic lateralized epileptiform discharge type of activity. Currently on Tegretol 200 mg twice daily and Keppra 500 mg twice daily (both Lamictal and Dilantin were discontinued yesterday) Repeat EEG today 12/09/18 Appreciate input from neurology Hypothyroidism: Continue with Synthroid Hypertension: - Continue home dose medications. Hypokalemia: - Replace potassium - Monitor Due to abnormal EEG December 08, 2018 requiring a repeat EEG again today with close monitoring on new antiepileptic drugs Tegretol 200 mg twice daily and Keppra 500 mg twice daily, will adjust patient's status to inpatient.
[2018-12-09] MEDS: amLODIPine 5 MG Tablet PO SCH (09:41)
[2018-12-09] MEDS: carBAMazepine 200 MG Tablet PO SCH ×2 (09:41→22:51)
[2018-12-09] MEDS: Sod Chloride 0.9% Inj 1,000 ML IV.CONT SCH (09:59)
[2018-12-09] MEDS: levETIRAcetam 500 MG Tablet PO SCH ×2 (11:46→22:51)
--- NOTE | 2018-12-09 21:35 | MG ---
cc: Michael Randhawa MD ELECTROENCEPHALOGRAM RECORD NUMBER: [id number] DESCRIPTION: A left posterior focal slowing. Tiny sharp wave at T5, epoch 21. Pseudoperiodic waves occurring in that region. Generalized slowing suggestive of drowsiness and stage I and stage II sleep with spindles and appearance of K complexes. Tiny sharp transients at T3, epoch 93. Good EEG variability and reactivity. Single-lead EKG showing sinus rhythm. Limited driving with photic stimulation. INTERPRETATION: Left posterior temporal region with pseudoperiodic waves occurring paroxysmally, although significant improvement from previous electroencephalogram. No active seizures, sleep state. Clinical correlation. MD MARCO ANTONIO Conde/winsome , 08:58 PM , 09:05 PM
[2018-12-10 04:38] VITALS: TEMP 97.5; O2SAT 95
[2018-12-10 05:17] VITALS: RESP 18
[2018-12-10 09:26] VITALS: BP 121/61; PULSE 70
[2018-12-10] MEDS: levETIRAcetam 500 MG Tablet PO SCH (09:27)
[2018-12-10] MEDS: carBAMazepine 200 MG Tablet PO SCH (09:27)
--- NOTE | 2018-12-10 09:48 | P.DCO ---
- Diagnosis (1) Seizure Status: Acute - Physical Therapy Order: Evaluate and treat - Case Management Consult Case Management Consult-Home Health: Yes - Certification I have seen patient Pat Cleaning on 12/10/18. My clinical findings support the need for the requested home health care services because: Deconditioned with increased weakness I certify that my clinical findings support that this patient is homebound because: Poor cardiac reserve
--- NOTE | 2018-12-10 09:51 | P.PN ---
Subjective Interval history: Follow-up breakthrough recurrent seizure December 08, 2018-patient seen and examined, no seizure activity since admission, denies any chest pain or shortness of breath. Patient is unwilling to take her antiepileptic drugs secondary to side effects, she states it makes me feel loopy and I do have some skin reaction December 09, 2018-patient seen and examined, currently on carbamazepine and Keppra. She has had abnormal EEG done yesterday. No seizure activity reported. December 10, 2018-patient seen and examined, no seizure activity, however patient is complaining of facial numbness and she had low BP overnight but resolved this morning. Physical Exam Vital signs: Vital Signs 12/09/18 16:00 12/09/18 19:00 12/09/18 20:00 Temperature 97.3 F L 98.2 F Pulse Rate 78 76 Respiratory Rate 18 16 Blood Pressure 118/69 114/55 L Pulse Oximetry 98 98 98 12/09/18 20:12 12/10/18 00:00 12/10/18 04:00 Temperature 97.6 F 97.5 F L Pulse Rate 64 57 L Respiratory Rate 16 16 Blood Pressure 96/52 L 86/53 L Pulse Oximetry 98 97 95 12/10/18 05:16 12/10/18 09:24 Temperature Pulse Rate 81 70 Respiratory Rate 18 18 Blood Pressure 118/73 121/61 Pulse Oximetry Intake & Output 12/09/18 12/10/18 12/10/18 18:59 06:59 18:59 Intake Total 1150 / 1150 Balance 1150 / 1150 Intake: Oral 1150 / 1150 Other: # Voids 4 Date of Last Bowel Movement 12/09/18 Narrative: GENERAL: NAD SKIN: Warm and dry. HEAD: Atraumatic. Normocephalic. EYES: Pupils equal and round. No scleral icterus. No injection or drainage. ENT: No nasal bleeding or discharge. Mucous membranes pink and moist. NECK: Trachea midline. No JVD. CARDIOVASCULAR: Regular rate and rhythm. RESPIRATORY: No accessory muscle use. Clear to auscultation. Breath sounds equal bilaterally. GASTROINTESTINAL: Abdomen soft, non-tender, nondistended. Hepatic and splenic margins not palpable. MUSCULOSKELETAL: Extremities without clubbing, cyanosis, or edema. No obvious deformities. NEUROLOGICAL: Awake and alert. No obvious cranial nerve deficits. Motor grossly within normal limits. Five out of 5 muscle strength in the arms and legs. Normal speech. PSYCHIATRIC: Appropriate mood and affect; insight and judgment normal. - Urinary Catheter Management Straight Cath placed during this visit: yes, but has since been removed by the nurse Reason for continuing: Not indwelling catheter Insertion date: 12/07/18 Insertion time: 14:59 Removal date: 12/07/18 Removal time: 14:59 Results - Labs CBC & Chem 7: 12/08/18 07:22 12/08/18 07:22 Laboratory Results - last 24 hr 12/09/18 09:19 Phenytoin 4.8 L Assessment and Plan - Assessment (1) Seizure Code(s): R56.9 - Unspecified convulsions Status: Acute - Plan 68-year-old female with Recurrent breakthrough seizure Abnormal EEG 12/08/18 with finding of The first portion of the EEG showing left posterior hemispheric periodic lateralized epileptiform discharge type of activity. Currently on Tegretol 200 mg twice daily and Keppra 500 mg twice daily (both Lamictal and Dilantin were discontinued 12/08/18) Repeat EEG stable on 12/09/18 Appreciate input from neurology Hypothyroidism: Continue with Synthroid Hypertension: - Continue home dose medications. Hypokalemia: - Replace potassium - Monitor
--- NOTE | 2018-12-10 09:56 | P.DS ---
Date of admission: 12/09/18 12:11 Primary care physician: UNKNOWN Brief History from admission: 68-year-old female with a medical history significant for hemorrhagic CVA with residual right-sided weakness, hypertension, hypothyroidism brought to the emergency room by her grandson with concerned that she is having a stroke. Patient reportedly has been having issues with expressive aphasia and right- sided weakness. She was admitted to the hospital less than 2 weeks ago with similar complaints. At the time it was believed this was due to seizures. Patient is supposed to be taking Dilantin at home. However family reports noncompliance with this medications due to side effects. A stroke alert was called in the emergency room, patient is not a candidate for TPA. Head CT unremarkable. Neurology will consult on the patient. On my evaluation the patient is awake but remains aphasic and does not answer questions appropriately. Occasionally say yes or no but she does not really follow commands. Her right arm keeps twitching. She lift her left leg off the bed but does not move any other extremities at will. DS: Diagnosis - Discharge Diagnosis (1) Seizure Status: Acute DS: Summary Hospital Course: Patient admitted secondary to recurrent breakthrough seizure for which neurology was consulted and patient had repeated EEG performed while in hospital. Initially she was started on Lamictal and Dilantin, however secondary to side effect noted per patient she was switched to Tegretol and Keppra with monitoring of level. She was placed on seizure precautions. PT was consulted. She was continued treatment for other chronic medical conditions. DVT and GI prophylaxis were provided. Prior to discharge, patient conditions improved and vitals remained stable. She will be discharged home on Tegretol 200 mg twice daily and Keppra 500 mg twice daily with follow-up of neurology. - Time Spent with Patient Total time spent providing and/or coordinating discharge services: Greater than 30 minutes - Quality: Stroke Last date observed well: 12/07/18 Last time observed well: 12:35 - Quality: VTE Deep Vein Thrombosis/Pulmonary Embolism Present on Admission: No Exam Vital signs: Vital Signs 12/09/18 16:00 12/09/18 19:00 12/09/18 20:00 Temperature 97.3 F L 98.2 F Pulse Rate 78 76 Respiratory Rate 18 16 Blood Pressure 118/69 114/55 L Pulse Oximetry 98 98 98 12/09/18 20:12 12/10/18 00:00 12/10/18 04:00 Temperature 97.6 F 97.5 F L Pulse Rate 64 57 L Respiratory Rate 16 16 Blood Pressure 96/52 L 86/53 L Pulse Oximetry 98 97 95 12/10/18 05:16 12/10/18 09:24 Temperature Pulse Rate 81 70 Respiratory Rate 18 18 Blood Pressure 118/73 121/61 Pulse Oximetry Intake & Output 12/09/18 12/10/18 12/10/18 18:59 06:59 18:59 Intake Total 1150 / 1150 Balance 1150 / 1150 Intake: Oral 1150 / 1150 Other: # Voids 4 Date of Last Bowel Movement 12/09/18 Narrative: GENERAL: NAD SKIN: Warm and dry. HEAD: Atraumatic. Normocephalic. EYES: Pupils equal and round. No scleral icterus. No injection or drainage. ENT: No nasal bleeding or discharge. Mucous membranes pink and moist. NECK: Trachea midline. No JVD. CARDIOVASCULAR: Regular rate and rhythm. RESPIRATORY: No accessory muscle use. Clear to auscultation. Breath sounds equal bilaterally. GASTROINTESTINAL: Abdomen soft, non-tender, nondistended. Hepatic and splenic margins not palpable. MUSCULOSKELETAL: Extremities without clubbing, cyanosis, or edema. No obvious deformities. NEUROLOGICAL: Awake and alert. No obvious cranial nerve deficits. Motor grossly within normal limits. Five out of 5 muscle strength in the arms and legs. Normal speech. PSYCHIATRIC: Appropriate mood and affect; insight and judgment normal. Results Procedures completed during hospitalization: none Labs on day of discharge: Labs from last 24 hours 12/09/18 09:19 Phenytoin 4.8 L - Impressions ITS Impressions Head MRI 12/07/18 00:00 CONCLUSION: 1. Stable MRI of the brain. I do not see restricted diffusion suggest acute infarct 2. No acute parenchymal hemorrhage. 3. Prominent empty sella Chest X-Ray 12/07/18 13:41 CONCLUSION: No acute cardiopulmonary disease. Head CT 12/07/18 13:41 CONCLUSION: Old encephalomalacia on the left and otherwise unremarkable . Report was called by [ myself to Dr. Michelle 1:50 9:00 PM] Head CTA 12/07/18 13:41 CONCLUSION: 1. Unremarkable study. Neck CTA 12/07/18 13:41 CONCLUSION: 1. No hemodynamically significant carotid flow-limiting stenosis. Discharge Plan - Discharge Disposition Patient Disposition: 01 Discharge Home - Discharge Condition Condition: Fair - Discharge Order Discharge Orders: Discharge Order (Routine); Ordered 12/10/18 Ordered By: Daryl Crump - Physicians Team Primary Care Provider: UNKNOWN, Attending Provider: Daryl Crump Other Providers: Michael Randhawa MD ; Vicky Perry
[2018-12-10] MEDS: amLODIPine 5 MG Tablet PO SCH (10:44)
[2018-12-10 11:55] LABS: Phenytoin (Dilantin) 1.9 mcg/mL (10.0-20.0)
[2018-12-10 11:56] LABS: Carbamazepine (Tegretol) 3.8 mcg/mL (4.0-12.0)
== END 2018-12-10 11:03 | disposition home health service (06) | DRG 57 ==
LOC: NEDA 13:23 → NEPE 13:23 → NEPHCDU 17:13
PROVIDERS: ADMIT Hospitalist; ATTEND Hospitalist
CPT/HCPCS: 70450; 70496; 70498; 70551; 71010; 71045; 76937; 80048; 80156; 80185; 80307; 81001; 82550; 82948; 82962; 84443; 84484; 85025; 85027; 85384; 85610; 85730; 86850; 86900; 86901; 92507; 92523; 93005; 95819; 96365; 96366; 96368; 96375; 97110; 97116; 97162; 99291; G0378; G8987; G8988; G9162; G9163; J2060; J3480; J7030; Q2009; Q9967